=== PATIENT | female | born 1950 | race Caucasian/White ===

== ENCOUNTER 2017-06-02 12:54 | Inpatient (IN) | payer MEDICARE, MEDICAID ==
--- NOTE | 2017-06-02 13:14 | ED Physician Chart ---
ED Chief Complaint/HPI - Patient Information Date Seen:: 06/02/17 Time Seen:: 13:00 Chief Complaint:: Back Pain History of Present Illness:: onset x 3 days of low back pain due to non-healing sacral decubitus ulcer that is not responding to antibiotics; pt denies trauma, H/As, neck pain, C/P, SOB, cough, Abd/Flank pain, or urinary s/s Allergies:: Allergies Allergy/AdvReac Type Severity Reaction Status Date / Time No Known Allergies Allergy Verified 06/09/16 19:56 Historian:: Patient, EMS Review:: Nurse's Note Reviewed, EMS run form Reviewed, Transfer documents Reviewed ED Review of Systems - Review of Systems General/Constitutional: Fever, No chills, No weight loss, No weakness, No diaphoresis, No edema, No loss of appetite Skin: Skin lesions, No rash, No bruising Head: No headache, No light-headedness Eyes: Acuity change, No pain, No diplopia ENT: No earache, No nasal drainage, No sore throat, No tinnitus Neck: No neck pain, No swelling, No thyromegaly, No stiffness, No mass noted Cardio Vascular: Chest pain, No palpitations, No PND, No orthopnea, No edema Pulmonary: SOB, Cough, No sputum, No wheezing GI: No nausea, No vomiting, No diarrhea, No pain, No melena, No hematochezia, No constipation, No hematemesis G/U: No dysuria, No frequency, No hematuria Talend Etl Developer: No vaginal discharge, No abnormal vaginal bleed, No contraction Musculoskeletal: No bone or joint pain, No back pain, No muscle pain Endocrine: No polyuria, No polydipsia Psychiatric: Prior psych history, Depression, Anxiety, No suicidal ideation, No homicidal ideation, No auditory hallucination, No visual hallucination Hematopoietic: No bruising, No lymphadenopathy Allergic/Immuno: No urticaria, No angioedema Neurological: No syncope, No focal symptoms, No weakness, No paresthesia, No headache, No seizure, No dizziness, No confusion, No vertigo ED Past Medical History - Past Medical History Obtainable: Yes Past Medical History: DM, CAD, CHF, Thyroid disorder Family History: Diabetes Melitus, HTN Social History: Non Smoker, No Alcohol, No Drug Use, Single, Care Facility Surgical History: other (Eye cataract Surgery) Psychiatricy History: Depression Medication: Reviewed Family Medical History - Family Member Mother History Unknown: Yes Ethnicity: Non- Living Status: Hx Family Cancer: No Hx Family Coronary Artery Disease: No Hx Family Congestive Heart Failure: No Hx Family Hypertension: Yes Hx Family Stroke: No Hx Family Diabetes: No Hx Family Seizures: No Hx Family Dementia: No Hx Family AIDS: No Hx Family HIV: No Hx Family COPD: No Hx Family Hepatitis: No Hx Family Psychiatric Problems: No Hx Family Tuberculosis: No Sister History Unknown: Yes ED Physical Exam - Physical Examination General/Constitutional: Awake, Well-developed, well-nourished, Alert, No distress, GCS 15, Non-toxic appearing, Ambulatory Head: Atraumatic Eyes: Lids, conjuctiva normal, PERRL, EOMI Skin: No rash, No skin lesions, No ecchymosis, Well hydrated, No lymphadenopathy Other Skin comments:: + sacral decubitus ulcer ENMT: External ears, nose nl, Nasal exam nl, Lips, teeth, gums nl Neck: Nontender, Full ROM w/o pain, No JVD, No nuchal rigidity, No bruit, No mass, No stridor Respiratory: Nl effort/Exclusion, Clear to Auscultation, No Wheeze/Rhonchi/Rales Cardio Vascular: RRR, No murmur, gallop, rubs, NL S1 S2 GI: No tenderness/rebounding/guarding, No organomegaly, No hernia, Normal BS's, Nondistended, No mass/bruits, No McBurney tenderness : No CVA tenderness Extremities: No tenderness or effusion, Full ROM, normal strength in all extremities, No edema, Normal digits & nails Neuro/Psych: Alert/oriented, DTR's symmetric, Normal sensory exam, Normal motor strength, Judgement/insight normal, Mood normal, Normal gait, No focal deficits Misc: Normal back, No paraspinal tenderness ED Labs/Radiology/EKG Results - Lab Results Comments:: unremarkable - EKG Interpretations EKG Time:: 13:20 Rate & Rhythm: 77; NSR Comments:: non-specific st-t changes ED Septic Shock - . Is Septic Shock (SBP<90, OR Lactate>4 mmol\L) present?: No ED Reassessment (Disposition) - Reassessment Reassessment Condition:: Improved - Diagnosis Diagnosis:: Sacral Decubitus Ulcer; Sepsis; UTI; Diabetes Mellitus - Aftercare/Follow up Instructions Aftercare/Follow-Up Instructions:: Counseled pt regarding lab results/diagnosis & need follow up, Counseled pt & family regarding lab results/diagnosis & need follow up - Patient Disposition Discharge/Transfer:: Acute Care w/in this hosp Accepting Physician:: Dr. Valentin Sanchez Time Called:: [id number] Time Responded:: 15:15 Admitted to:: Med/Surg Spoke to:: Dr. Valentin Sanchez Admitting Medical Physician:: Dr. Valentin Sanchez Condition at Disposition:: Stable, Improved
[2017-06-02 13:40] LABS: % BASOPHILS 0.8 % (0.0-2.0); % EOSINOPHILS 3.7 % (0.0-5.0); % LYMPHOCYTES 29.1 % (20.0-50.0); % MONOCYTES 4.5 % (2.0-10.0); % NEUTROPHILS 61.9 % (40.0-80.0); HEMATOCRIT 34.1 % (41.0-60); HEMOGLOBIN 11.5 gm/dL (12-16); MEAN CELL VOLUME 91.5 fl (81-100); MEAN CORPUSCULAR HEMOGLOBIN 30.9 pg (27.0-31.0); MEAN CORPUSCULAR HGB CONC 33.8 pg (28.0-36.0); MEAN PLATELET VOLUME 7.9 fl; NEUTROPHILE ABSOLUTE 3.5 Th/cmm (1.8-8.0); RED BLOOD COUNT 3.73 Mil/cmm (3.80-5.20); RED CELL DISTRIBUTION WIDTH 12.9 % (11.5-20.0)
[2017-06-02 13:42] LABS: PLATELET COUNT 125 Th/cmm (150-400); WHITE BLOOD COUNT 5.5 Th/cmm (4.8-10.8)
[2017-06-02 13:51] LABS: INR 1.21 (0.5-1.4); PROTHROMBIN TIME (TEST) 12.7 SECONDS (9.5-11.5)
[2017-06-02 13:56] LABS: ALB/GLOB RATIO 1.1 (1.0-1.8); ANION GAP 9.9 (7.0-16.0); BILIRUBIN,TOTAL 0.5 mg/dL (0.3-1.0); BUN/CREATININE RATIO 23.3; CALCIUM SERUM 9.6 mg/dL (8.6-10.3); CARBON DIOXIDE 26.4 mEq/L (21.0-31.0); CREATININE - SERUM 1.8 mg/dL (0.6-1.2); POTASSIUM SERUM 3.3 mEq/L (3.5-5.1)
[2017-06-02 14:12] LABS: URINE BILIRUBIN NEGATIVE (NEGATIVE); URINE BLOOD NEGATIVE (NEGATIVE); URINE GLUCOSE (UA) >=1000 mg/dL (NEGATIVE); URINE KETONE NEGATIVE (NEGATIVE); URINE PROTEIN TRACE mg/dL (NEGATIVE); URINE UROBILINOGEN 0.2 E.U./dL (0.2 - 1.0)
[2017-06-02 14:21] LABS: URINE COLOR YELLOW
[2017-06-02 14:22] LABS: URINE EPITHELIAL CELLS NONE SEEN /lpf (FEW); URINE RBC NONE SEEN /hpf (0-5); URINE WBC NONE SEEN /hpf (0-5)
[2017-06-02 14:23] LABS: URINE BACTERIA NONE SEEN /hpf (NONE SEEN)
[2017-06-02] MEDS ORDERED: VTE Chemical Prophylaxis Screen/Admission MC PRN (16:49)
[2017-06-02] MEDS ORDERED: Maalox 30 mL Cup PO PRN (16:51)
[2017-06-02] MEDS ORDERED: INSULIN HUMAN REGULAR SC PRN (16:51)
[2017-06-02] MEDS ORDERED: Magnesium Hydroxide (MOM) 30 mL UDC PO PRN (16:51)
[2017-06-02] MEDS ORDERED: [UNRECOGNIZED DRUG - OTHER] RIGHT EYE SCH (17:00)
[2017-06-02] MEDS ORDERED: Non-Formulary Item 1 EA (Solifenacin Succinate [Vesicare] 5 MG) PO SCH (17:00)
[2017-06-02] MEDS ORDERED: KETOROLAC TROMETHAMINE RIGHT EYE SCH (17:00)
[2017-06-02] MEDS: Hydrocodone/APAP 10 mg/325 mg Tab PO PRN (20:31)
[2017-06-02] MEDS: Dextromethorphan/Quinidine 20mg/10mg Cap PO SCH (22:02)
[2017-06-02] MEDS: INSULIN ASPART SLIDING SCALE 100 UNITS/ML UNIT SUBQ SCH (22:02)
[2017-06-02] MEDS: Atorvastatin Calcium 10 MG TAB PO SCH (22:02)
[2017-06-02] MEDS: Insulin Detemir 100 units/mL 10mL Vial SUBQ SCH (22:03)
[2017-06-02] MEDS: Lactulose 10 Gm/15 mL 30mL UDC PO SCH (22:10)
[2017-06-03] MEDS: Prednisolone 1% Ophth Susp 5 mL Bottle RIGHT EYE SCH ×6 (00:36→21:11)
[2017-06-03 06:13] LABS: % BASOPHILS 0.8 % (0.0-2.0); % EOSINOPHILS 6.2 % (0.0-5.0); % LYMPHOCYTES 34.3 % (20.0-50.0); % MONOCYTES 4.9 % (2.0-10.0); % NEUTROPHILS 53.8 % (40.0-80.0); HEMATOCRIT 37.2 % (41.0-60); HEMOGLOBIN 12.6 gm/dL (12-16); MEAN CELL VOLUME 90.9 fl (81-100); MEAN CORPUSCULAR HEMOGLOBIN 30.8 pg (27.0-31.0); MEAN CORPUSCULAR HGB CONC 33.9 pg (28.0-36.0); MEAN PLATELET VOLUME 8.1 fl; NEUTROPHILE ABSOLUTE 2.9 Th/cmm (1.8-8.0); PLATELET COUNT 117 Th/cmm (150-400); RED BLOOD COUNT 4.09 Mil/cmm (3.80-5.20); RED CELL DISTRIBUTION WIDTH 13.2 % (11.5-20.0); WHITE BLOOD COUNT 5.3 Th/cmm (4.8-10.8)
[2017-06-03 06:30] LABS: ANION GAP 8.9 (7.0-16.0); BILIRUBIN,TOTAL 0.5 mg/dL (0.3-1.0); CALCIUM SERUM 9.7 mg/dL (8.6-10.3); CARBON DIOXIDE 29.1 mEq/L (21.0-31.0); CREATININE - SERUM 1.8 mg/dL (0.6-1.2)
[2017-06-03] MEDS: Levothyroxine 0.1 Mg Tab PO SCH (06:50)
[2017-06-03] MEDS: INSULIN ASPART SLIDING SCALE 100 UNITS/ML UNIT SUBQ SCH ×4 (06:51→21:11)
--- NOTE | 2017-06-03 08:14 | History and Physical ---
History of Present Illness - HPI Chief Complaint: Back Pain HPI: 66 y/o female who presents to [facility] for evaluation of low back pain for the past 3 days due to non-healing sacral decubitus ulcer that is not responding to IV antibiotics. Patient has a previous history of Hyperlipidemia, depression,anxiety disorder, PBA, overactive bladder, CHF, Type 2 DM, HTN, COPD , CKD, anemia, hypothyroidism. While in the ER the patient had labwork done, Please see attached labwork. Patient was subsequently admitted for further evaluation and treatment. Patient states that she had this ulcer at the previous facility before arriving at the SNF. She was treated outpatient with oral antibiotics without improvement and will be admitted for IV antibiotics and wound evaluation. Vital Signs: Last Vital Signs Temp 98.7 F 06/03/17 03:58 Pulse 74 06/03/17 03:58 Resp 18 06/03/17 03:58 BP 144/82 06/03/17 03:58 Pulse Ox 96 06/03/17 03:58 Past Medical History Cardiovascular: Report: CHF, HTN, Hyperlipidemia Pulmonary: Report: COPD Psych: Report: Anxiety, Depression Musculoskeletal: Report: Low Back Pain Renal/: Report: Other (CKD) Endocrine: Report: Diabetes, Hypothyroidism Other History: PBA,Oceractive bladder, Anemia - Past Surgical History Past Surgical History: No pertinent Hx Family Medical History - Family Member Mother History Unknown: Yes Ethnicity: Non- Living Status: Hx Family Cancer: No Hx Family Coronary Artery Disease: No Hx Family Congestive Heart Failure: No Hx Family Hypertension: Yes Hx Family Stroke: No Hx Family Diabetes: No Hx Family Seizures: No Hx Family Dementia: No Hx Family AIDS: No Hx Family HIV: No Hx Family COPD: No Hx Family Hepatitis: No Hx Family Psychiatric Problems: No Hx Family Tuberculosis: No Sister History Unknown: Yes Social History Smoke: No Alcohol: None Drugs: None Lives: [facility] - Medications Home Medications: Home Medication Medication Instructions Recorded Type Allopurinol 300 mg PO DAILY 10/05/13 History Atorvastatin Calcium [Lipitor] 40 mg PO HS 10/05/13 History Calcium Carbonate/Vitamin D3 1 each PO DAILY 10/05/13 History [Oyster Shell 500-Vit D3 200 Tb] Docusate Sodium [Colace] 250 mg PO DAILY 10/05/13 History Gabapentin [Neurontin] 300 mg PO TID 10/05/13 History Glipizide [Glucotrol] 10 mg PO BID 10/05/13 History Hydrocodone/APAP 10 mg/325 mg 1 tab PO Q6H PRN 10/05/13 History [[place] 10 mg/325 mg] Lactulose 15 ml PO HS 10/05/13 History Levothyroxine [Synthroid] 0.1 mg PO QDAC 10/05/13 History Sertraline HCl [Zoloft] 150 mg PO QPM 1700 10/05/13 History Insulin Human Regular See Protocol SC ACHS PRN 05/30/14 History Clonidine HCl [Catapres] 0.1 mg PO Q6HR PRN 02/14/16 History Dextromethorphan/Quinidine 1 cap PO Q12HR 02/14/16 History [Nuedexta 20mg-10mg] Fish Oil [[place] 3] 1,000 mg PO DAILY 02/14/16 History Insulin Glargine,Hum.rec.anlog 20 unit SC HS 02/14/16 History [Latanya Capone] Lorazepam [Ativan] 0.5 mg PO Q6HR PRN 02/14/16 History Vitamin B Complex & Vit C No.3 [B 1 each PO DAILY 02/14/16 History Complex with Vitamin C] metFORMIN [Glucophage] 1,000 mg PO DAILY 02/14/16 History Al Hyd/Mg Hyd/Simethicone [Maalox] 30 ml PO Q6HR PRN 05/09/16 History Chlorthalidone 25 mg PO DAILY 05/09/16 History Solifenacin Succinate [Vesicare] 5 mg PO BID 05/09/16 History Ascorbic Acid [Vitamin C] 500 mg PO BID 06/02/17 History Fenofibrate Nanocrystallized 145 mg PO HS 06/02/17 History [Tricor] Ketorolac Tromethamine/Pf [Acuvail 1 drop RIGHT EYE QID 06/02/17 History 0.45% Ophth Solution] Magnesium Hydroxide [Milk of 30 ml PO DAILY PRN 06/02/17 History Magnesia] Multivitamin w/ Minerals 1 tab PO DAILY 06/02/17 History [Theragran M] Potassium Chloride Elixir 7.5 ml PO DAILY 06/02/17 History Prednisolone Acetate [Pred Forte] 1 drop RIGHT EYE QID 06/02/17 History Rifaximin [Xifaxan] 550 mg PO Q12H 06/02/17 History Sertraline HCl [Zoloft] 200 mg PO DAILY 06/02/17 History Trazodone HCl 50 mg PO HS PRN 06/02/17 History Zinc Sulfate 220 mg PO DAILY 06/02/17 History - Allergies Allergies/Adverse Reactions: Allergies Allergy/AdvReac Type Severity Reaction Status Date / Time No Known Allergies Allergy Verified 06/02/17 13:10 Review of Systems - Review of Systems Constitutional: Report: No Significant Eyes: Report: No Significant ENT: Report: No Significant Respiratory: Report: No Significant Cardiovascular: Report: No Significant Gastrointestinal: Report: No Significant Genitourinary: Report: No Significant Musculoskeletal: Report: Back Pain Skin: Report: No Significant, Other (presence of stage 4 non-healing sacral decubitus ulcer) Neurological: Report: No Significant Physical Exam - Physical Exam HEENT: Report: Ears Nose Throat within normal limits, Pharnyx within normal limits Neck: Report: Within normal limits. Denies: Thyromegaly Cardiovascular Systems: Report: +s1/s2 noted, Regular, Rate and Rhythm Respiratory: Report: Breath Sounds are within normal limits Abdomen: Report: Non-tender to palpation Back: Report: Sacral Wound is noted with visible discharge. - Lab Results All Lab Results last 24 hours: Laboratory Results - last 24 hr 06/02/17 06/02/17 06/03/17 17:29 21:26 05:21 WBC RBC Hgb Hct MCV MCH MCHC Differential RDW Plt Count MPV Neutrophils % Lymphocytes % Monocytes % Eosinophils % Basophils % Sodium Potassium Chloride Carbon Dioxide Anion Gap BUN Creatinine Est GFR ( Amer) Est GFR (Non-Af Amer) BUN/Creatinine Ratio Glucose POC Glucose 134 H 177 H 172 H Calcium Total Bilirubin AST ALT Alkaline Phosphatase Total Protein Albumin Globulin Albumin/Globulin Ratio Random Vancomycin 06/03/17 06/03/17 06/03/17 05:25 05:25 05:25 WBC 5.3 RBC 4.09 Hgb 12.6 Hct 37.2 L MCV 90.9 MCH 30.8 MCHC Differential 33.9 RDW 13.2 Plt Count 117 L MPV 8.1 Neutrophils % 53.8 Lymphocytes % 34.3 Monocytes % 4.9 Eosinophils % 6.2 H Basophils % 0.8 Sodium 136 Potassium 3.0 L Chloride 101 Carbon Dioxide 29.1 Anion Gap 8.9 BUN 36 H Creatinine 1.8 H Est GFR ( Amer) 36.2 Est GFR (Non-Af Amer) 29.9 BUN/Creatinine Ratio 20.0 Glucose 167 H POC Glucose Calcium 9.7 Total Bilirubin 0.5 AST 25 ALT 14 Alkaline Phosphatase 37 Total Protein 7.7 Albumin 3.9 Globulin 3.8 Albumin/Globulin Ratio 1.0 Random Vancomycin 15.9 - Assessment Assessment: stage 4 sacral decubitus ulcer hypokalemia sepsis UTI Diabetes Hyperlipidemia Depression/Anxiety/PBA Overactive bladder CHF/HTN COPD CKD Anemia hypothyroidism - Plan Plan: ID consult wound consult general surgical consult dietary consult IV Vancomycin per pharmacy 40meq K rider ... repeat BMP,Mg,Phosphorus continue home medication
[2017-06-03] MEDS: Calcium Carb/Vit D 500 mg/200 U Tab PO SCH (09:17)
[2017-06-03] MEDS: Dextromethorphan/Quinidine 20mg/10mg Cap PO SCH ×2 (09:17→21:10)
[2017-06-03] MEDS: KCL 20mEq/100mL Premix 20 MEQ/100 ML PIGGYBACK IV SCH ×2 (09:20→11:56)
[2017-06-03] MEDS: Ascorbic Acid/Vit B Complex Tab PO SCH (09:20)
[2017-06-03 09:32] LABS: MAGNESIUM 1.9 mg/dL (1.9-2.7)
[2017-06-03 09:33] LABS: CHOLESTEROL 144 mg/dL (<200); TRIGLYCERIDES 258 mg/dL (<150)
[2017-06-03] MEDS: Potassium Chloride Elixir 20 mEq /15 mL UDC PO SCH (09:37)
[2017-06-03] MEDS: Fish Oil 1,000 MG SGL PO SCH (09:37)
[2017-06-03] MEDS: Multivitamin w/ Minerals Tab PO SCH (09:37)
[2017-06-03] MEDS: Hydrocodone/APAP 10 mg/325 mg Tab PO PRN (11:56)
--- NOTE | 2017-06-03 13:49 | Consultation ---
Consult Note - Consult Note Service Date: 06/03/17 Referring Physician: Valentin Reyes Consult Note: PHYSICIAN Consultation Note: Date of Admission: 06/02/17 Purpose of Consultation: Chief Complaint: Patient SHREE BRIDGES was admitted to location Medical[facility]Surgical Unit I with NONE HEALING SACRAL DECUBITIUS. History of Present Illness: 66-year-old male with history of Diabetes mellitus type 2, hypertension, hyperlipidemia, hypothyroidism, depression, anxiety disorder and nonhealing sacral decubitus ulcer developed low back pain for last 4 days. On initial evaluation patient's temperature is 98.9F and WBC count was 5500. Patient was treated conservatively with oral antibiotic but it failed. He has received vancomycin IV 1.25 g in the ER. ID consult was called for further antibiotic management. Past Medical History: Diabetes mellitus type 2, hypertension, hyperlipidemia, hypothyroidism, COPD, CK D, depression, anxiety disorder and nonhealing sacral decubitus ulcer. Allergies Allergy/AdvReac Type Severity Reaction Status Date / Time No Known Allergies Allergy Verified 06/02/17 13:10 Vital Signs Temp 96.8 F 06/03/17 08:00 Pulse 71 06/03/17 09:17 Resp 18 06/03/17 08:00 BP 150/74 06/03/17 09:17 Pulse Ox 96 06/03/17 08:00 Intake & Output 06/02/17 06/03/17 06/03/17 18:59 06:59 18:59 Intake Total 66 250 100 Balance 66 250 100 Weight (lbs) 79.832 kg Intake: Intake, IV Amount 66 100 KCL 20mEq/100mL Premix 20 100 meq In 100 ml @ 50 mls/ hr IV Q2H [facility] Rx#: [id number] Vancomycin HCl 1.25 gm In 66 Sodium Chloride 0.9% 250 ml @ 165 mls/hr IV ONCE ONE Rx#:[id number] Oral 250 Other: # Voids 3 Laboratory Results - last 24 hr 06/02/17 06/02/17 06/03/17 17:29 21:26 05:21 WBC RBC Hgb Hct MCV MCH MCHC Differential RDW Plt Count MPV Neutrophils % Lymphocytes % Monocytes % Eosinophils % Basophils % Sodium Potassium Chloride Carbon Dioxide Anion Gap BUN Creatinine Est GFR ( Amer) Est GFR (Non-Af Amer) BUN/Creatinine Ratio Glucose POC Glucose 134 H 177 H 172 H Calcium Phosphorus Magnesium Total Bilirubin AST ALT Alkaline Phosphatase Total Protein Albumin Globulin Albumin/Globulin Ratio Triglycerides Cholesterol LDL Cholesterol Direct HDL Cholesterol TSH Random Vancomycin 06/03/17 06/03/17 06/03/17 05:25 05:25 05:25 WBC 5.3 RBC 4.09 Hgb 12.6 Hct 37.2 L MCV 90.9 MCH 30.8 MCHC Differential 33.9 RDW 13.2 Plt Count 117 L MPV 8.1 Neutrophils % 53.8 Lymphocytes % 34.3 Monocytes % 4.9 Eosinophils % 6.2 H Basophils % 0.8 Sodium 136 Potassium 3.0 L Chloride 101 Carbon Dioxide 29.1 Anion Gap 8.9 BUN 36 H Creatinine 1.8 H Est GFR ( Amer) 36.2 Est GFR (Non-Af Amer) 29.9 BUN/Creatinine Ratio 20.0 Glucose 167 H POC Glucose Calcium 9.7 Phosphorus Magnesium Total Bilirubin 0.5 AST 25 ALT 14 Alkaline Phosphatase 37 Total Protein 7.7 Albumin 3.9 Globulin 3.8 Albumin/Globulin Ratio 1.0 Triglycerides Cholesterol LDL Cholesterol Direct HDL Cholesterol TSH Random Vancomycin 15.9 06/03/17 06/03/17 06/03/17 05:25 05:25 05:25 WBC RBC Hgb Hct MCV MCH MCHC Differential RDW Plt Count MPV Neutrophils % Lymphocytes % Monocytes % Eosinophils % Basophils % Sodium Potassium Chloride Carbon Dioxide Anion Gap BUN Creatinine Est GFR ( Amer) Est GFR (Non-Af Amer) BUN/Creatinine Ratio Glucose POC Glucose Calcium Phosphorus 3.0 Magnesium 1.9 Total Bilirubin AST ALT Alkaline Phosphatase Total Protein Albumin Globulin Albumin/Globulin Ratio Triglycerides 258 H Cholesterol 144 LDL Cholesterol Direct 77 HDL Cholesterol 27 TSH 1.37 Random Vancomycin 06/03/17 11:47 WBC RBC Hgb Hct MCV MCH MCHC Differential RDW Plt Count MPV Neutrophils % Lymphocytes % Monocytes % Eosinophils % Basophils % Sodium Potassium Chloride Carbon Dioxide Anion Gap BUN Creatinine Est GFR ( Amer) Est GFR (Non-Af Amer) BUN/Creatinine Ratio Glucose POC Glucose 273 H Calcium Phosphorus Magnesium Total Bilirubin AST ALT Alkaline Phosphatase Total Protein Albumin Globulin Albumin/Globulin Ratio Triglycerides Cholesterol LDL Cholesterol Direct HDL Cholesterol TSH Random Vancomycin Home Medication Medication Instructions Recorded Type Allopurinol 300 mg PO DAILY 10/05/13 History Atorvastatin Calcium [Lipitor] 40 mg PO HS 10/05/13 History Calcium Carbonate/Vitamin D3 1 each PO DAILY 10/05/13 History [Oyster Shell 500-Vit D3 200 Tb] Docusate Sodium [Colace] 250 mg PO DAILY 10/05/13 History Gabapentin [Neurontin] 300 mg PO TID 10/05/13 History Glipizide [Glucotrol] 10 mg PO BID 10/05/13 History Hydrocodone/APAP 10 mg/325 mg 1 tab PO Q6H PRN 10/05/13 History [[place] 10 mg/325 mg] Lactulose 15 ml PO HS 10/05/13 History Levothyroxine [Synthroid] 0.1 mg PO QDAC 10/05/13 History Sertraline HCl [Zoloft] 150 mg PO QPM 1700 10/05/13 History Insulin Human Regular See Protocol SC ACHS PRN 05/30/14 History Clonidine HCl [Catapres] 0.1 mg PO Q6HR PRN 02/14/16 History Dextromethorphan/Quinidine 1 cap PO Q12HR 02/14/16 History [Nuedexta 20mg-10mg] Fish Oil [[place] 3] 1,000 mg PO DAILY 02/14/16 History Insulin Glargine,Hum.rec.anlog 20 unit SC HS 02/14/16 History [Toumaxime Capone] Lorazepam [Ativan] 0.5 mg PO Q6HR PRN 02/14/16 History Vitamin B Complex & Vit C No.3 [B 1 each PO DAILY 02/14/16 History Complex with Vitamin C] metFORMIN [Glucophage] 1,000 mg PO DAILY 02/14/16 History Al Hyd/Mg Hyd/Simethicone [Maalox] 30 ml PO Q6HR PRN 05/09/16 History Chlorthalidone 25 mg PO DAILY 05/09/16 History Solifenacin Succinate [Vesicare] 5 mg PO BID 05/09/16 History Ascorbic Acid [Vitamin C] 500 mg PO BID 06/02/17 History Fenofibrate Nanocrystallized 145 mg PO HS 06/02/17 History [Tricor] Ketorolac Tromethamine/Pf [Acuvail 1 drop RIGHT EYE QID 06/02/17 History 0.45% Ophth Solution] Magnesium Hydroxide [Milk of 30 ml PO DAILY PRN 06/02/17 History Magnesia] Multivitamin w/ Minerals 1 tab PO DAILY 06/02/17 History [Theragran M] Potassium Chloride Elixir 7.5 ml PO DAILY 06/02/17 History Prednisolone Acetate [Pred Forte] 1 drop RIGHT EYE QID 06/02/17 History Rifaximin [Xifaxan] 550 mg PO Q12H 06/02/17 History Sertraline HCl [Zoloft] 200 mg PO DAILY 06/02/17 History Trazodone HCl 50 mg PO HS PRN 06/02/17 History Zinc Sulfate 220 mg PO DAILY 06/02/17 History Current Medications Generic Name Dose Route Start Last Admin Trade Name Freq PRN Reason Stop Dose Admin Acetaminophen/Hydrocodone Bitart 1 tab 06/02/17 16:51 06/03/17 11:56 [place] 10 Mg/325 Mg PO 08/01/17 16:50 1 tab Q6H PRN Administration Pain (Severe) Al Hydrox/Mg Hydrox/Simethicone 30 ml 06/02/17 16:51 Maalox PO 08/01/17 16:50 Q6HR PRN GI DISTRESS Allopurinol 300 mg 06/03/17 09:00 06/03/17 09:16 Zyloprim PO 08/02/17 08:59 300 mg DAILY [facility] Administration Ascorbic Acid 500 mg 06/02/17 17:00 06/03/17 09:17 Vitamin C PO 08/01/17 16:59 500 mg BID [facility] Administration Atorvastatin Calcium 40 mg 06/02/17 21:00 06/02/17 22:02 Lipitor PO 08/01/17 20:59 40 mg HS [facility] Administration Calcium/Vitamin D 1 tab 06/03/17 09:00 06/03/17 09:17 [place] W/Vitamin D PO 08/02/17 08:59 1 tab DAILY [facility] Administration Chlorthalidone 25 mg 06/03/17 09:00 06/03/17 09:17 [place] PO 08/02/17 08:59 25 mg DAILY [facility] Administration Dextromethorphan/Quinidine 1 cap 06/02/17 21:00 06/03/17 09:17 Nuedexta 20mg-10mg PO 08/01/17 20:59 1 cap Q12HR [facility] Administration Docusate Sodium 250 mg 06/03/17 09:00 06/03/17 09:17 Colace PO 08/02/17 08:59 250 mg DAILY [facility] Administration Fenofibrate 145 mg 06/02/17 21:00 Tricor PO 08/01/17 20:59 HS [facility] Fish Oil 1,000 mg 06/03/17 09:00 06/03/17 09:37 [place] 3 PO 08/02/17 08:59 1,000 mg DAILY [facility] Administration Gabapentin 300 mg 06/02/17 21:00 Neurontin PO 08/01/17 20:59 TID [facility] Glipizide 10 mg 06/02/17 17:00 06/03/17 09:36 Glucotrol PO 08/01/17 16:59 10 mg BID [facility] Administration Insulin Aspart 0 units 06/02/17 21:00 06/03/17 11:50 Novolog Insulin Sliding Scale SUBQ 08/01/17 20:59 6 units ACHS [facility] Administration Protocol Insulin Detemir 20 units 06/02/17 21:00 06/02/17 22:03 Levemir Insulin SUBQ 08/01/17 20:59 20 units HS [facility] Administration Lactulose 10 gm 06/02/17 21:00 06/02/17 22:10 Cephulac PO 08/01/17 20:59 Not Given HS [facility] Levothyroxine Sodium 0.1 mg 06/03/17 07:30 06/03/17 06:50 Synthroid PO 08/02/17 07:29 0.1 mg QDAC [facility] Administration Lorazepam 0.5 mg 06/02/17 16:51 Ativan PO 08/01/17 16:50 Q6HR PRN Anxiety Protocol Magnesium Hydroxide 30 ml 06/02/17 16:51 Milk Of Magnesia PO 08/01/17 16:50 DAILY PRN Constipation Miscellaneous 1 ea 06/02/17 16:07 Vancomycin Iv Per Pharmacy 08/01/17 16:06 PRN PRN PROTOCOL Miscellaneous 1 ea 06/02/17 16:49 Vte [employer] Prophylaxis Screen/ Admission 08/01/17 16:48 PRN PRN PROTOCOL Miscellaneous 1 drop 06/02/17 17:00 Ketorolac Tromethamine/Pf [Acuvail 0.45% Ophth Solution] RIGHT EYE 08/01/17 16:59 QID [facility] Miscellaneous 5 mg 06/02/17 17:00 Solifenacin Succinate [Vesicare] PO 08/01/17 16:59 BID [facility] Potassium Chloride 10 meq 06/03/17 09:00 06/03/17 09:37 Potassium Chloride Elixir PO 08/02/17 08:59 10 meq DAILY [facility] Administration Prednisolone Acetate 1 drop 06/02/17 17:00 06/03/17 13:28 Pred Forte 1% Ophth Susp RIGHT EYE 08/01/17 16:59 Not Given QID [facility] Rifaximin 550 mg 06/02/17 17:00 Xifaxan PO 08/01/17 16:59 Q12H [facility] Sertraline HCl 150 mg 06/02/17 17:00 Zoloft PO 08/01/17 16:59 QPM 1700 [facility] Sertraline HCl 200 mg 06/03/17 09:00 Zoloft PO 08/02/17 08:59 DAILY [facility] Trazodone HCl 50 mg 06/02/17 16:51 Desyrel PO 08/01/17 16:50 HS PRN Insomnia Protocol Vitamin B Complex/Vitamin C 1 tab 06/03/17 09:00 06/03/17 09:20 Vitamin B Complex W/C PO 08/02/17 08:59 1 tab DAILY [facility] Administration Zinc Sulfate 220 mg 06/03/17 09:00 06/03/17 09:36 Zinc Sulfate PO 08/02/17 08:59 220 mg DAILY [facility] Administration Review of Systems: A 12 point ROS was reviewed with the pertinent positive and negatives noted in the HPI. Social History Smoking Status Current every day smoker Drug Use No Alcohol Use No Family Medical History Unknown. Physical Exam: General: Comfortable not in acute distress. HEENT: Head: Normocephalic, atraumatic. Oral cavity: Moist, pink tongue. Eyes : Pallor is present. No icterus. Pupil PERRLA, EOMI. Neck: Supple, no JVD, no use of X his neck muscles. Cardio: S1 and S2 within normal limits regular rhythm. Respiratory: Vesicular breath sound, no crackles no wheezing. Abdominal: Soft, nontender nondistended, bowel sounds present Genital/Urinary: Deferred Extremities: No cyanosis, no clubbing, no edema. Neurological: Alert, awake, oriented. Back: Sacral stage 4 decubitus ulcer, well defined border. black eschar. No drainage. No surrounding erythema. Assessment: 1. Sacral decubitus, non healing. wait for surgical report. Likely osteomyelitis. 2. DM2 3. HTN. 4. Depression. 5. anxiety. Plan: will start vanco IV and cefepiime. depending on surgical report, will define further therapy. Wound care. Wound cultures. Thank you , Dr Reyes for involving e ion taking care of this patient. Signed, Fredy Dutton M.D. 06/03/101395
--- NOTE | 2017-06-03 14:35 | General Progress Note ---
Subjective - Review of Systems Service Date: 06/03/17 Events since last encounter: non-healing ulcer of sacrum, has been "scraped" in SNF from time to time PE small but deep ulcer Plan: excisional debridement and wound vac in AM Objective - Results Result Diagrams: 06/03/17 05:25 06/03/17 05:25 Recent Labs: Laboratory Last Values WBC 5.3 Th/cmm (4.8-10.8) 06/03/17 05:25 RBC 4.09 Mil/cmm (3.80-5.20) 06/03/17 05:25 Hgb 12.6 gm/dL (12-16) 06/03/17 05:25 Hct 37.2 % (41.0-60) L 06/03/17 05:25 MCV 90.9 fl (81-100) 06/03/17 05:25 MCH 30.8 pg (27.0-31.0) 06/03/17 05:25 MCHC Differential 33.9 pg (28.0-36.0) 06/03/17 05:25 RDW 13.2 % (11.5-20.0) 06/03/17 05:25 Plt Count 117 Th/cmm (150-400) L 06/03/17 05:25 MPV 8.1 fl 06/03/17 05:25 Neutrophils % 53.8 % (40.0-80.0) 06/03/17 05:25 Lymphocytes % 34.3 % (20.0-50.0) 06/03/17 05:25 Monocytes % 4.9 % (2.0-10.0) 06/03/17 05:25 Eosinophils % 6.2 % (0.0-5.0) H 06/03/17 05:25 Basophils % 0.8 % (0.0-2.0) 06/03/17 05:25 PT 12.7 SECONDS (9.5-11.5) H 06/02/17 13:20 INR 1.21 (0.5-1.4) 06/02/17 13:20 PTT (Actin FS) 26.5 SECONDS (26.0-38.0) 06/02/17 13:20 Sodium 136 mEq/L (136-145) 06/03/17 05:25 Potassium 3.0 mEq/L (3.5-5.1) L 06/03/17 05:25 Chloride 101 mEq/L (98-107) 06/03/17 05:25 Carbon Dioxide 29.1 mEq/L (21.0-31.0) 06/03/17 05:25 Anion Gap 8.9 (7.0-16.0) 06/03/17 05:25 BUN 36 mg/dL (7-25) H 06/03/17 05:25 Creatinine 1.8 mg/dL (0.6-1.2) H 06/03/17 05:25 Est GFR ( Amer) 36.2 ml/min (>90) 06/03/17 05:25 Est GFR (Non-Af Amer) 29.9 ml/min 06/03/17 05:25 BUN/Creatinine Ratio 20.0 06/03/17 05:25 Glucose 167 mg/dL (70-105) H 06/03/17 05:25 POC Glucose 273 MG/DL (70 - 105) H 06/03/17 11:47 Hemoglobin A1c % 8.4 % (4.0-6.0) H 06/02/17 13:20 Whole Bld Lactic Acid 1.14 mmol/L (0.60-1.99) 06/02/17 13:20 Calcium 9.7 mg/dL (8.6-10.3) 06/03/17 05:25 Phosphorus 3.0 mg/dL (2.5-5.0) 06/03/17 05:25 Magnesium 1.9 mg/dL (1.9-2.7) 06/03/17 05:25 Total Bilirubin 0.5 mg/dL (0.3-1.0) 06/03/17 05:25 AST 25 U/L (13-39) 06/03/17 05:25 ALT 14 U/L (7-52) 06/03/17 05:25 Alkaline Phosphatase 37 U/L (34-104) 06/03/17 05:25 Creatine Kinase 118 U/L (30-223) 06/02/17 13:20 Total Protein 7.7 gm/dL (6.0-8.3) 06/03/17 05:25 Albumin 3.9 gm/dL (3.7-5.3) 06/03/17 05:25 Globulin 3.8 gm/dL 06/03/17 05:25 Albumin/Globulin Ratio 1.0 (1.0-1.8) 06/03/17 05:25 Triglycerides 258 mg/dL (<150) H 06/03/17 05:25 Cholesterol 144 mg/dL (<200) 06/03/17 05:25 LDL Cholesterol Direct 77 mg/dL (75-193) 06/03/17 05:25 HDL Cholesterol 27 mg/dL (23-92) 06/03/17 05:25 TSH 1.37 uIU/ml (0.34-5.60) 06/03/17 05:25 Urine Source MIDSTREAM 06/02/17 14:00 Urine Color YELLOW 06/02/17 14:00 Urine Clarity CLEAR (CLEAR) 06/02/17 14:00 Urine pH 7.0 (4.6 - 8.0) 06/02/17 14:00 Ur Specific [place] 1.015 (1.005-1.030) 06/02/17 14:00 Urine Protein TRACE mg/dL (NEGATIVE) 06/02/17 14:00 Urine Glucose (UA) >=1000 mg/dL (NEGATIVE) H 06/02/17 14:00 Urine Ketones NEGATIVE mg/dL (NEGATIVE) 06/02/17 14:00 Urine Blood NEGATIVE (NEGATIVE) 06/02/17 14:00 Urine Nitrate NEGATIVE (NEGATIVE) 06/02/17 14:00 Urine Bilirubin NEGATIVE (NEGATIVE) 06/02/17 14:00 Urine Urobilinogen 0.2 E.U./dL (0.2 - 1.0) 06/02/17 14:00 Ur Leukocyte Esterase NEGATIVE (NEGATIVE) 06/02/17 14:00 Urine RBC NONE SEEN /hpf (0-5) 06/02/17 14:00 Urine WBC NONE SEEN /hpf (0-5) 06/02/17 14:00 Ur Epithelial Cells NONE SEEN /lpf (FEW) 06/02/17 14:00 Urine Bacteria NONE SEEN /hpf (NONE SEEN) 06/02/17 14:00 Random Vancomycin 15.9 ug/mL (5.0-40.0) 06/03/17 05:25 - Physical Exam Vitals and I&O: Vital Signs Temp 96.8 F 06/03/17 08:00 Pulse 71 06/03/17 09:17 Resp 18 06/03/17 08:00 BP 150/74 06/03/17 09:17 Pulse Ox 96 06/03/17 08:00 Intake & Output 06/02/17 06/03/17 06/03/17 18:59 06:59 18:59 Intake Total 66 250 100 Balance 66 250 100 Weight (lbs) 79.832 kg Intake: Intake, IV Amount 66 100 KCL 20mEq/100mL Premix 20 100 meq In 100 ml @ 50 mls/ hr IV Q2H [facility] Rx#: [id number] Vancomycin HCl 1.25 gm In 66 Sodium Chloride 0.9% 250 ml @ 165 mls/hr IV ONCE ONE Rx#:[id number] Oral 250 Other: # Voids 3 Active Medications: Current Medications Acetaminophen/Hydrocodone Bitart ([place] 10 Mg/325 Mg) 1 tab PO Q6H PRN PRN Reason: Pain (Severe) Stop: 08/01/17 16:50 Last Admin: 06/03/17 11:56 Dose: 1 tab Al Hydrox/Mg Hydrox/Simethicone (Maalox) 30 ml PO Q6HR PRN PRN Reason: GI DISTRESS Stop: 08/01/17 16:50 Allopurinol (Zyloprim) 300 mg PO DAILY [facility] Stop: 08/02/17 08:59 Last Admin: 06/03/17 09:16 Dose: 300 mg Ascorbic Acid (Vitamin C) 500 mg PO BID [facility] Stop: 08/01/17 16:59 Last Admin: 06/03/17 09:17 Dose: 500 mg Atorvastatin Calcium (Lipitor) 40 mg PO HS [facility] Stop: 08/01/17 20:59 Last Admin: 06/02/17 22:02 Dose: 40 mg Calcium/Vitamin D (Oscal W/Vitamin D) 1 tab PO DAILY [facility] Stop: 08/02/17 08:59 Last Admin: 06/03/17 09:17 Dose: 1 tab Chlorthalidone (Hygroton) 25 mg PO DAILY [facility] Stop: 08/02/17 08:59 Last Admin: 06/03/17 09:17 Dose: 25 mg Dextromethorphan/Quinidine (Nuedexta 20mg-10mg) 1 cap PO Q12HR [facility] Stop: 08/01/17 20:59 Last Admin: 06/03/17 09:17 Dose: 1 cap Docusate Sodium (Colace) 250 mg PO DAILY [facility] Stop: 08/02/17 08:59 Last Admin: 06/03/17 09:17 Dose: 250 mg Fenofibrate (Tricor) 145 mg PO HS [facility] Stop: 08/01/17 20:59 Fish Oil ([place] 3) 1,000 mg PO DAILY [facility] Stop: 08/02/17 08:59 Last Admin: 06/03/17 09:37 Dose: 1,000 mg Gabapentin (Neurontin) 300 mg PO TID [facility] Stop: 08/01/17 20:59 Last Admin: 06/03/17 13:53 Dose: Not Given Glipizide (Glucotrol) 10 mg PO BID [facility] Stop: 08/01/17 16:59 Last Admin: 06/03/17 09:36 Dose: 10 mg Insulin Aspart (Novolog Insulin Sliding Scale) 0 units SUBQ ACHS [facility] PRN Reason: Protocol Stop: 08/01/17 20:59 Last Admin: 06/03/17 11:50 Dose: 6 units Insulin Detemir (Levemir Insulin) 20 units SUBQ HS [facility] Stop: 08/01/17 20:59 Last Admin: 06/02/17 22:03 Dose: 20 units Lactulose (Cephulac) 10 gm PO HS [facility] Stop: 08/01/17 20:59 Last Admin: 06/02/17 22:10 Dose: Not Given Levothyroxine Sodium (Synthroid) 0.1 mg PO QDAC [facility] Stop: 08/02/17 07:29 Last Admin: 06/03/17 06:50 Dose: 0.1 mg Lorazepam (Ativan) 0.5 mg PO Q6HR PRN; Protocol PRN Reason: Anxiety Stop: 08/01/17 16:50 Magnesium Hydroxide (Milk Of Magnesia) 30 ml PO DAILY PRN PRN Reason: Constipation Stop: 08/01/17 16:50 Miscellaneous (Vancomycin Iv Per Pharmacy) 1 ea PRN PRN PRN Reason: PROTOCOL Stop: 08/01/17 16:06 Miscellaneous ([employer] Prophylaxis Screen/ Admission) 1 ea PRN PRN PRN Reason: PROTOCOL Stop: 08/01/17 16:48 Miscellaneous (Ketorolac Tromethamine/Pf [Acuvail 0.45% Ophth Solution]) 1 drop RIGHT EYE QID [facility] Stop: 08/01/17 16:59 Miscellaneous (Solifenacin Succinate [Vesicare]) 5 mg PO BID [facility] Stop: 08/01/17 16:59 Potassium Chloride (Potassium Chloride Elixir) 10 meq PO DAILY [facility] Stop: 08/02/17 08:59 Last Admin: 06/03/17 09:37 Dose: 10 meq Prednisolone Acetate (Pred Forte 1% Ophth Susp) 1 drop RIGHT EYE QID [facility] Stop: 08/01/17 16:59 Last Admin: 06/03/17 13:28 Dose: Not Given Rifaximin (Xifaxan) 550 mg PO Q12H [facility] Stop: 08/01/17 16:59 Sertraline HCl (Zoloft) 150 mg PO QPM 1700 [facility] Stop: 08/01/17 16:59 Sertraline HCl (Zoloft) 200 mg PO DAILY [facility] Stop: 08/02/17 08:59 Trazodone HCl (Desyrel) 50 mg PO HS PRN; Protocol PRN Reason: Insomnia Stop: 08/01/17 16:50 Vitamin B Complex/Vitamin C (Vitamin B Complex W/C) 1 tab PO DAILY [facility] Stop: 08/02/17 08:59 Last Admin: 06/03/17 09:20 Dose: 1 tab Zinc Sulfate (Zinc Sulfate) 220 mg PO DAILY [facility] Stop: 08/02/17 08:59 Last Admin: 06/03/17 09:36 Dose: 220 mg - Procedures Procedures: Procedures Procedure Code Date DRAINAGE OF LEFT BREAST, PERCUTANEOUS APPROACH [id number] 05/09/16 INCISION OF BREAST LESION 56649 05/09/16 Assessment/Plan - Problem List Patient Problems: All Active Problems Cirrhosis of liver (Active) K74.60 Diabetes mellitus (Active) E11.9 Hepatic encephalopathy (Active) K72.90 The administrative codes within the [employer] content you are accessing may have as of 05/10/2016. Please contact your IT Dept/Help Desk and request the latest Regulatory release be installed. IT Dept/Help Desk- Please refer to our FAQ page ([email or web address]) or contact [facility] Customer Support at [email or web address] (Acute) hyponatremia dilutional (Acute) Nutritional Asmnt/Malnutr-PDOC - Dietary Evaluation Malnutrition Findings (Please click <Entered> for more info): Nutritional Asmnt/Malnutrition Start: 06/03/17 09: 18 Text: Status: Complete Freq: Document 06/03/17 09:18 [email or web address] (Rec: 06/03/17 09:34 [email or web address]) Nutritional Asmnt/Malnutrition Patient General Information Nutritional Screening Consult Diagnosis non healing sacral decubititus Pertinent Medical Hx/Surgical Hx HLD, depression, anxiety, CHF, DM2, HTN, COPD, CKD, anemia, hypothyroidism Subjective Information Pt laying in bed. Reports good appetite. Is from care facility, states she does not follow diet, eats what is offered to her. Does not want DM diet education, states she already knows it. Pt drinks Prostat at facility, which she does not like, but knows is important for wound healing. Does not like eggs and does not eat a lot of meat. Discussed importance of glycemic control and protein intake to wound healing. Pt does not want Boost, but will try arginaid. States was trying to lose weight and was losing a few pounds a month, but wt loss has recently stalled. Unable to state normal weight. Pt has bottom dentures, was to have them refitted, but never got them back. States does not need modified texture diet. Current Diet Order/ [facility] / S.O Indicated Pertinent Medications vit c, calcium + vit D, fish oil, insulin, lactulose, synthroid, MOM, KCl, vit B complex with vit c, zinc sulfate Pertinent Labs (06/03) K: 3.0, BUN: 36/cr: 1. 8- monitor renal function, POC : 134-172, hgba1c: 8.4- pt declinded diet ed Nutritional Hx/Data Height 1.47 m Height (Calculated Centimeters) 147.3 Current Weight (lbs) 79.832 kg Weight (Calculated Kilograms) 79.8 Weight (Calculated Grams) 79335.3 [place] Body Weight 95 lbs % [place] Body Weight 185 Weight Status Morbidly Obese GI Symptoms GI Symptoms None Food Allergies No Usual diet at home regular Skin Integrity/Comment: decubitus to sacrum- awaiting wound consult, no stage noted yet Current %PO Good (75-100%) Estimated Nutritional Goals BEE in Kcals: Adj wt of IBW Calories/Kcals/Kg 30-35 (wound healing, may need to adjust when stage known) Kcals Calculated 6516-1180 kcals Protein: Adj wt of IBW Protein g/k.2-1.5 (wound healing, may need to adjust when stage known) Protein Calculated 62-78 Fluid: ml 1560 mL (30 ml/kg) Nutritional Problem 2. Problem Problem altered nutrition related lab values Etiology endocrine dysfunction, renal dysfunction, food/nutrition related knowledge deficit Signs/Symptoms: K: 3.0, BUN: 36, Cr: 1.8, hgba1c: 8.4 1. Problem Problem Increased nutrient needs Etiology wound healing Signs/Symptoms: non healing wound to sacrum Malnutrition Alert Protein-Calorie Malnutrition N/A Is there a minimum of two criteria No selected? Query Text:Check all the applicable criteria. A minimum of two criteria are recommended for diagnosis of either severe or non-severe malnutrition. Malnutrition Related to Morbid Obesity Malnutrition related to morbid obesity No Intervention/Recommendation Recommendations by RD Protein supplementation Comments 1. Continue CCHO 45 gm diet for optimal glycemic managment 2. Add arginaid BID for wound healing Expected Outcomes/Goals Expected Outcomes/Goals 1. PO intake >75% 2. Gradual wt loss of 1-2 lbs/ month towards IBW 3. Improved skin integrity 4. Pt to have glycemic control
[2017-06-03] MEDS: Cefepime 1 GM in Sodium Chloride 0.9% 50 ML IV SCH (21:09)
[2017-06-03] MEDS: Atorvastatin Calcium 10 MG TAB PO SCH (21:10)
[2017-06-03] MEDS: Fenofibrate, Micronized 134 mg Cap PO SCH (21:10)
[2017-06-03] MEDS: Insulin Detemir 100 units/mL 10mL Vial SUBQ SCH (21:12)
[2017-06-03] MEDS: Lactulose 10 Gm/15 mL 30mL UDC PO SCH (21:13)
[2017-06-04] MEDS: Cefepime 1 GM in Sodium Chloride 0.9% 50 ML IV SCH ×3 (04:53→20:56)
[2017-06-04 06:11] LABS: % BASOPHILS 0.7 % (0.0-2.0); % LYMPHOCYTES 30.6 % (20.0-50.0); % MONOCYTES 5.1 % (2.0-10.0); % NEUTROPHILS 58.6 % (40.0-80.0); HEMATOCRIT 36.2 % (41.0-60); HEMOGLOBIN 12.1 gm/dL (12-16); MEAN CELL VOLUME 90.5 fl (81-100); MEAN CORPUSCULAR HEMOGLOBIN 30.3 pg (27.0-31.0); MEAN CORPUSCULAR HGB CONC 33.5 pg (28.0-36.0); MEAN PLATELET VOLUME 7.3 fl; NEUTROPHILE ABSOLUTE 3.5 Th/cmm (1.8-8.0); RED CELL DISTRIBUTION WIDTH 13.2 % (11.5-20.0); WHITE BLOOD COUNT 5.9 Th/cmm (4.8-10.8)
[2017-06-04 06:17] LABS: PLATELET COUNT 149 Th/cmm (150-400)
[2017-06-04 06:29] LABS: ALB/GLOB RATIO 1.1 (1.0-1.8); ANION GAP 8.9 (7.0-16.0); BILIRUBIN,TOTAL 0.6 mg/dL (0.3-1.0); CALCIUM SERUM 9.6 mg/dL (8.6-10.3); CARBON DIOXIDE 27.3 mEq/L (21.0-31.0); CREATININE - SERUM 1.7 mg/dL (0.6-1.2); POTASSIUM SERUM 3.2 mEq/L (3.5-5.1)
[2017-06-04] MEDS: Levothyroxine 0.1 Mg Tab PO SCH (06:34)
[2017-06-04] MEDS: INSULIN ASPART SLIDING SCALE 100 UNITS/ML UNIT SUBQ SCH ×4 (06:34→20:57)
--- NOTE | 2017-06-04 07:30 | Diagnostic Imaging Report ---
CHEST X-RAY: AP view INDICATION: pain COMPARISON: 06/20/2016 FINDINGS: Mild increased interstitial lung markings are noted. No focal soft effusions. Cardio megaly is noted. The osseous structures are intact. IMPRESSION: Mild increased interstitial lung markings. A marginal degree of congestion cannot be excluded. Please correlate clinically. No focal consolidation identified. Cardiomegaly.
--- NOTE | 2017-06-04 08:08 | General Progress Note ---
Subjective - Review of Systems Service Date: 06/04/17 Subjective: Awake, alert, afebrile. For surgical debridement today. Objective - Results Result Diagrams: 06/04/17 05:35 06/04/17 05:35 Recent Labs: Laboratory Last Values WBC 5.9 Th/cmm (4.8-10.8) 06/04/17 05:35 RBC 4.00 Mil/cmm (3.80-5.20) 06/04/17 05:35 Hgb 12.1 gm/dL (12-16) 06/04/17 05:35 Hct 36.2 % (41.0-60) L 06/04/17 05:35 MCV 90.5 fl (81-100) 06/04/17 05:35 MCH 30.3 pg (27.0-31.0) 06/04/17 05:35 MCHC Differential 33.5 pg (28.0-36.0) 06/04/17 05:35 RDW 13.2 % (11.5-20.0) 06/04/17 05:35 Plt Count 149 Th/cmm (150-400) L D 06/04/17 05:35 MPV 7.3 fl 06/04/17 05:35 Neutrophils % 58.6 % (40.0-80.0) 06/04/17 05:35 Lymphocytes % 30.6 % (20.0-50.0) 06/04/17 05:35 Monocytes % 5.1 % (2.0-10.0) 06/04/17 05:35 Eosinophils % 5.0 % (0.0-5.0) 06/04/17 05:35 Basophils % 0.7 % (0.0-2.0) 06/04/17 05:35 PT 12.7 SECONDS (9.5-11.5) H 06/02/17 13:20 INR 1.21 (0.5-1.4) 06/02/17 13:20 PTT (Actin FS) 26.5 SECONDS (26.0-38.0) 06/02/17 13:20 Sodium 136 mEq/L (136-145) 06/04/17 05:35 Potassium 3.2 mEq/L (3.5-5.1) L 06/04/17 05:35 Chloride 103 mEq/L (98-107) 06/04/17 05:35 Carbon Dioxide 27.3 mEq/L (21.0-31.0) 06/04/17 05:35 Anion Gap 8.9 (7.0-16.0) 06/04/17 05:35 BUN 34 mg/dL (7-25) H 06/04/17 05:35 Creatinine 1.7 mg/dL (0.6-1.2) H 06/04/17 05:35 Est GFR ( Amer) 38.7 ml/min (>90) 06/04/17 05:35 Est GFR (Non-Af Amer) 32.0 ml/min 06/04/17 05:35 BUN/Creatinine Ratio 20.0 06/04/17 05:35 Glucose 180 mg/dL (70-105) H 06/04/17 05:35 POC Glucose 190 MG/DL (70 - 105) H 06/04/17 06:33 Hemoglobin A1c % 8.4 % (4.0-6.0) H 06/02/17 13:20 Whole Bld Lactic Acid 1.14 mmol/L (0.60-1.99) 06/02/17 13:20 Calcium 9.6 mg/dL (8.6-10.3) 06/04/17 05:35 Phosphorus 3.0 mg/dL (2.5-5.0) 06/03/17 05:25 Magnesium 1.9 mg/dL (1.9-2.7) 06/03/17 05:25 Total Bilirubin 0.6 mg/dL (0.3-1.0) 06/04/17 05:35 AST 25 U/L (13-39) 06/04/17 05:35 ALT 14 U/L (7-52) 06/04/17 05:35 Alkaline Phosphatase 30 U/L (34-104) L 06/04/17 05:35 Creatine Kinase 118 U/L (30-223) 06/02/17 13:20 Total Protein 7.2 gm/dL (6.0-8.3) 06/04/17 05:35 Albumin 3.7 gm/dL (3.7-5.3) 06/04/17 05:35 Globulin 3.5 gm/dL 06/04/17 05:35 Albumin/Globulin Ratio 1.1 (1.0-1.8) 06/04/17 05:35 Triglycerides 258 mg/dL (<150) H 06/03/17 05:25 Cholesterol 144 mg/dL (<200) 06/03/17 05:25 LDL Cholesterol Direct 77 mg/dL (75-193) 06/03/17 05:25 HDL Cholesterol 27 mg/dL (23-92) 06/03/17 05:25 TSH 1.37 uIU/ml (0.34-5.60) 06/03/17 05:25 Urine Source MIDSTREAM 06/02/17 14:00 Urine Color YELLOW 06/02/17 14:00 Urine Clarity CLEAR (CLEAR) 06/02/17 14:00 Urine pH 7.0 (4.6 - 8.0) 06/02/17 14:00 Ur Specific [place] 1.015 (1.005-1.030) 06/02/17 14:00 Urine Protein TRACE mg/dL (NEGATIVE) 06/02/17 14:00 Urine Glucose (UA) >=1000 mg/dL (NEGATIVE) H 06/02/17 14:00 Urine Ketones NEGATIVE mg/dL (NEGATIVE) 06/02/17 14:00 Urine Blood NEGATIVE (NEGATIVE) 06/02/17 14:00 Urine Nitrate NEGATIVE (NEGATIVE) 06/02/17 14:00 Urine Bilirubin NEGATIVE (NEGATIVE) 06/02/17 14:00 Urine Urobilinogen 0.2 E.U./dL (0.2 - 1.0) 06/02/17 14:00 Ur Leukocyte Esterase NEGATIVE (NEGATIVE) 06/02/17 14:00 Urine RBC NONE SEEN /hpf (0-5) 06/02/17 14:00 Urine WBC NONE SEEN /hpf (0-5) 06/02/17 14:00 Ur Epithelial Cells NONE SEEN /lpf (FEW) 06/02/17 14:00 Urine Bacteria NONE SEEN /hpf (NONE SEEN) 06/02/17 14:00 Vancomycin Trough 21.4 ug/mL (10-20) H 06/04/17 05:35 Random Vancomycin 15.9 ug/mL (5.0-40.0) 06/03/17 05:25 - Physical Exam Vitals and I&O: Vital Signs Temp 97.9 F 06/04/17 04:00 Pulse 88 06/04/17 04:00 Resp 18 06/04/17 04:00 BP 130/73 06/04/17 04:00 Pulse Ox 98 06/04/17 04:00 Intake & Output 06/03/17 06/04/17 06/04/17 18:59 06:59 18:59 Intake Total 950 460 Balance 950 460 Weight (lbs) 79.832 kg 91.739 kg Intake: Intake, IV Amount 100 100 Cefepime 1 gm In Sodium 100 Chloride 0.9% 50 ml @ 100 mls/hr IV Q8HR [facility] Rx#: [id number] KCL 20mEq/100mL Premix 20 100 meq In 100 ml @ 50 mls/ hr IV Q2H [facility] Rx#: [id number] Oral 850 360 Other: # Voids 5 3 # Bowel Movements 0 1 Stool Characteristics Soft Active Medications: Current Medications Acetaminophen/Hydrocodone Bitart ([place] 10 Mg/325 Mg) 1 tab PO Q6H PRN PRN Reason: Pain (Severe) Stop: 08/01/17 16:50 Last Admin: 06/03/17 11:56 Dose: 1 tab Al Hydrox/Mg Hydrox/Simethicone (Maalox) 30 ml PO Q6HR PRN PRN Reason: GI DISTRESS Stop: 08/01/17 16:50 Allopurinol (Zyloprim) 300 mg PO DAILY [facility] Stop: 08/02/17 08:59 Last Admin: 06/03/17 09:16 Dose: 300 mg Ascorbic Acid (Vitamin C) 500 mg PO BID [facility] Stop: 08/01/17 16:59 Last Admin: 06/03/17 17:06 Dose: 500 mg Atorvastatin Calcium (Lipitor) 40 mg PO HS [facility] Stop: 08/01/17 20:59 Last Admin: 06/03/17 21:10 Dose: 40 mg Calcium/Vitamin D (Oscal W/Vitamin D) 1 tab PO DAILY [facility] Stop: 08/02/17 08:59 Last Admin: 06/03/17 09:17 Dose: 1 tab Chlorthalidone (Hygroton) 25 mg PO DAILY [facility] Stop: 08/02/17 08:59 Last Admin: 06/03/17 09:17 Dose: 25 mg Dextromethorphan/Quinidine (Nuedexta 20mg-10mg) 1 cap PO Q12HR [facility] Stop: 08/01/17 20:59 Last Admin: 10/25/17 21:10 Dose: 1 cap Docusate Sodium (Colace) 250 mg PO DAILY [facility] Stop: 08/02/17 08:59 Last Admin: 06/03/17 09:17 Dose: 250 mg Fenofibrate (Tricor) 145 mg PO HS [facility] Stop: 08/01/17 20:59 Last Admin: 06/03/17 21:10 Dose: 145 mg Fish Oil ([place] 3) 1,000 mg PO DAILY [facility] Stop: 08/02/17 08:59 Last Admin: 06/03/17 09:37 Dose: 1,000 mg Gabapentin (Neurontin) 300 mg PO TID [facility] Stop: 08/01/17 20:59 Last Admin: 06/03/17 21:10 Dose: 300 mg Glipizide (Glucotrol) 10 mg PO BID [facility] Stop: 08/01/17 16:59 Last Admin: 06/03/17 17:06 Dose: 10 mg Cefepime HCl 1 gm/ Sodium (Chloride) 50 mls @ 100 mls/hr IV Q8HR [facility] Stop: 08/02/17 20:59 Last Infusion: 06/04/17 05:23 Dose: Infused Potassium Chloride (Potassium Chloride) 20 meq in 100 mls @ 50 mls/hr IV Q2H [facility] Stop: 06/04/17 12:14 Insulin Aspart (Novolog Insulin Sliding Scale) 0 units SUBQ ACHS [facility] PRN Reason: Protocol Stop: 08/01/17 20:59 Last Admin: 06/04/17 06:34 Dose: Not Given Insulin Detemir (Levemir Insulin) 20 units SUBQ HS [facility] Stop: 08/01/17 20:59 Last Admin: 06/03/17 21:12 Dose: 20 units Lactulose (Cephulac) 10 gm PO HS [facility] Stop: 08/01/17 20:59 Last Admin: 06/03/17 21:13 Dose: Not Given Levothyroxine Sodium (Synthroid) 0.1 mg PO QDAC [facility] Stop: 08/02/17 07:29 Last Admin: 06/04/17 06:34 Dose: Not Given Lorazepam (Ativan) 0.5 mg PO Q6HR PRN; Protocol PRN Reason: Anxiety Stop: 08/01/17 16:50 Magnesium Hydroxide (Milk Of Magnesia) 30 ml PO DAILY PRN PRN Reason: Constipation Stop: 08/01/17 16:50 Miscellaneous (Vte Chemical Prophylaxis Screen/ Admission) 1 [facility] PRN PRN PRN Reason: PROTOCOL Stop: 08/01/17 16:48 Miscellaneous (Ketorolac Tromethamine/Pf [Acuvail 0.45% Ophth Solution]) 1 drop RIGHT EYE QID [facility] Stop: 08/01/17 16:59 Miscellaneous (Solifenacin Succinate [Vesicare]) 5 mg PO BID [facility] Stop: 08/01/17 16:59 Miscellaneous (Vancomycin Iv Per Pharmacy) 1 [facility] PRN [facility] Stop: 08/02/17 14:44 Potassium Chloride (Potassium Chloride Elixir) 10 meq PO DAILY [facility] Stop: 08/02/17 08:59 Last Admin: 06/03/17 09:37 Dose: 10 meq Prednisolone Acetate (Pred Forte 1% Ophth Susp) 1 drop RIGHT EYE QID [facility] Stop: 08/01/17 16:59 Last Admin: 06/03/17 21:11 Dose: Not Given Rifaximin (Xifaxan) 550 mg PO Q12H [facility] Stop: 08/01/17 16:59 Last Admin: 06/04/17 05:01 Dose: Not Given Sertraline HCl (Zoloft) 150 mg PO QPM 1700 [facility] Stop: 08/01/17 16:59 Sertraline HCl (Zoloft) 200 mg PO DAILY [facility] Stop: 08/02/17 08:59 Trazodone HCl (Desyrel) 50 mg PO HS PRN; Protocol PRN Reason: Insomnia Stop: 08/01/17 16:50 Last Admin: 06/03/17 21:59 Dose: 50 mg Vitamin B Complex/Vitamin C (Vitamin B Complex W/C) 1 tab PO DAILY [facility] Stop: 08/02/17 08:59 Last Admin: 06/03/17 09:20 Dose: 1 tab Zinc Sulfate (Zinc Sulfate) 220 mg PO DAILY [facility] Stop: 08/02/17 08:59 Last Admin: 06/03/17 09:36 Dose: 220 mg General: Alert, Oriented x3, No acute distress HEENT: Atraumatic, PERRLA Neck: Supple Cardiovascular: Regular rate, Normal S1, Normal S2 Lungs: Clear to auscultation Abdomen: Bowel sounds, Soft Extremities: Clubbing, Cyanosis, Edema Skin: Significant lesion (presence of non-healing ulcer noted. ) - Procedures Procedures: Procedures Procedure Code Date DRAINAGE OF LEFT BREAST, PERCUTANEOUS APPROACH [id number] 05/09/16 INCISION OF BREAST LESION 52487 05/09/16 Assessment/Plan - Problem List Patient Problems: All Active Problems Cirrhosis of liver (Active) K74.60 Diabetes mellitus (Active) E11.9 Hepatic encephalopathy (Active) K72.90 The administrative codes within the [employer] content you are accessing may have as of 05/10/2016. Please contact your IT Dept/Help Desk and request the latest Regulatory release be installed. IT Dept/Help Desk- Please refer to our FAQ page ([email or web address] or contact [employer] Customer Support at [email or web address] (Acute) hyponatremia dilutional (Acute) - Assessment Assessment: stage 4 sacral decubitus ulcer hypokalemia sepsis UTI Diabetes Hyperlipidemia Depression/Anxiety/PBA Overactive bladder CHF/HTN COPD CKD Anemia hypothyroidism - Plan Plan: ID consult wound consult general surgical consult dietary consult IV Vancomycin per pharmacy 40meq K rider ... repeat BMP,Mg,Phosphorus continue home medication Nutritional Asmnt/Malnutr-PDOC - Dietary Evaluation Malnutrition Findings (Please click <Entered> for more info): Nutritional Asmnt/Malnutrition Start: 06/03/17 09: 18 Text: Status: Complete Freq: Document 06/03/17 09:18 [email or web address] (Rec: 06/03/17 09:34 [email or web address]) Nutritional Asmnt/Malnutrition Patient General Information Nutritional Screening Consult Diagnosis non healing sacral decubititus Pertinent Medical Hx/Surgical Hx HLD, depression, anxiety, CHF, DM2, HTN, COPD, CKD, anemia, hypothyroidism Subjective Information Pt laying in bed. Reports good appetite. Is from care facility, states she does not follow diet, eats what is offered to her. Does not want DM diet education, states she already knows it. Pt drinks Prostat at facility, which she does not like, but knows is important for wound healing. Does not like eggs and does not eat a lot of meat. Discussed importance of glycemic control and protein intake to wound healing. Pt does not want Boost, but will try arginaid. States was trying to lose weight and was losing a few pounds a month, but wt loss has recently stalled. Unable to state normal weight. Pt has bottom dentures, was to have them refitted, but never got them back. States does not need modified texture diet. Current Diet Order/ Nutrition Support CCHO 45 gm Patient / S.O Indicated Pertinent Medications vit c, calcium + vit D, fish oil, insulin, lactulose, synthroid, MOM, KCl, vit B complex with vit c, zinc sulfate Pertinent Labs (06/03) K: 3.0, BUN: 36/cr: 1. 8- monitor renal function, POC : 134-172, hgba1c: 8.4- pt declinded diet ed Nutritional Hx/Data Height 1.47 m Height (Calculated Centimeters) 147.3 Current Weight (lbs) 79.832 kg Weight (Calculated Kilograms) 79.8 Weight (Calculated Grams) 73753.3 [place] Body Weight 95 lbs % [place] Body Weight 185 Weight Status Morbidly Obese GI Symptoms GI Symptoms None Food Allergies No Usual diet at home regular Skin Integrity/Comment: decubitus to sacrum- awaiting wound consult, no stage noted yet Current %PO Good (75-100%) Estimated Nutritional Goals BEE in Kcals: Adj wt of IBW Calories/Kcals/Kg 30-35 (wound healing, may need to adjust when stage known) Kcals Calculated 0131-2121 kcals Protein: Adj wt of IBW Protein g/k.2-1.5 (wound healing, may need to adjust when stage known) Protein Calculated 62-78 Fluid: ml 1560 mL (30 ml/kg) Nutritional Problem 2. Problem Problem altered nutrition related lab values Etiology endocrine dysfunction, renal dysfunction, food/nutrition related knowledge deficit Signs/Symptoms: K: 3.0, BUN: 36, Cr: 1.8, hgba1c: 8.4 1. Problem Problem Increased nutrient needs Etiology wound healing Signs/Symptoms: non healing wound to sacrum Malnutrition Alert Protein-Calorie Malnutrition N/A Is there a minimum of two criteria No selected? Query Text:Check all the applicable criteria. A minimum of two criteria are recommended for diagnosis of either severe or non-severe malnutrition. Malnutrition Related to Morbid Obesity Malnutrition related to morbid obesity No Intervention/Recommendation Recommendations by RD Protein supplementation Comments 1. Continue CCHO 45 gm diet for optimal glycemic managment 2. Add arginaid BID for wound healing Expected Outcomes/Goals Expected Outcomes/Goals 1. PO intake >75% 2. Gradual wt loss of 1-2 lbs/ month towards IBW 3. Improved skin integrity 4. Pt to have glycemic control
[2017-06-04] MEDS: Prednisolone 1% Ophth Susp 5 mL Bottle RIGHT EYE SCH (10:00)
[2017-06-04] MEDS: Ascorbic Acid/Vit B Complex Tab PO SCH (10:00)
[2017-06-04] MEDS: Calcium Carb/Vit D 500 mg/200 U Tab PO SCH (10:01)
[2017-06-04] MEDS: Dextromethorphan/Quinidine 20mg/10mg Cap PO SCH ×2 (10:01→20:56)
[2017-06-04] MEDS: Fish Oil 1,000 MG SGL PO SCH (10:02)
[2017-06-04] MEDS: Multivitamin w/ Minerals Tab PO SCH (10:02)
[2017-06-04] MEDS: Potassium Chloride Elixir 20 mEq /15 mL UDC PO SCH (10:02)
[2017-06-04] MEDS: KCL 20mEq/100mL Premix 20 MEQ/100 ML PIGGYBACK IV SCH ×2 (10:10→18:24)
--- NOTE | 2017-06-04 11:09 | Infectious Disease Prog Note ---
Infectious Disease Subjective - Review of Systems Service Date: 06/04/17 Subjective: There is no new change. Infectious Disease Objective - Results Result Diagrams: 06/04/17 05:35 06/04/17 05:35 Recent Labs: Laboratory Last Values WBC 5.9 Th/cmm (4.8-10.8) 06/04/17 05:35 RBC 4.00 Mil/cmm (3.80-5.20) 06/04/17 05:35 Hgb 12.1 gm/dL (12-16) 06/04/17 05:35 Hct 36.2 % (41.0-60) L 06/04/17 05:35 MCV 90.5 fl (81-100) 06/04/17 05:35 MCH 30.3 pg (27.0-31.0) 06/04/17 05:35 MCHC Differential 33.5 pg (28.0-36.0) 06/04/17 05:35 RDW 13.2 % (11.5-20.0) 06/04/17 05:35 Plt Count 149 Th/cmm (150-400) L D 06/04/17 05:35 MPV 7.3 fl 06/04/17 05:35 Neutrophils % 58.6 % (40.0-80.0) 06/04/17 05:35 Lymphocytes % 30.6 % (20.0-50.0) 06/04/17 05:35 Monocytes % 5.1 % (2.0-10.0) 06/04/17 05:35 Eosinophils % 5.0 % (0.0-5.0) 06/04/17 05:35 Basophils % 0.7 % (0.0-2.0) 06/04/17 05:35 PT 12.7 SECONDS (9.5-11.5) H 06/02/17 13:20 INR 1.21 (0.5-1.4) 06/02/17 13:20 PTT (Actin FS) 26.5 SECONDS (26.0-38.0) 06/02/17 13:20 Sodium 136 mEq/L (136-145) 06/04/17 05:35 Potassium 3.2 mEq/L (3.5-5.1) L 06/04/17 05:35 Chloride 103 mEq/L (98-107) 06/04/17 05:35 Carbon Dioxide 27.3 mEq/L (21.0-31.0) 06/04/17 05:35 Anion Gap 8.9 (7.0-16.0) 06/04/17 05:35 BUN 34 mg/dL (7-25) H 06/04/17 05:35 Creatinine 1.7 mg/dL (0.6-1.2) H 06/04/17 05:35 Est GFR ( Amer) 38.7 ml/min (>90) 06/04/17 05:35 Est GFR (Non-Af Amer) 32.0 ml/min 06/04/17 05:35 BUN/Creatinine Ratio 20.0 06/04/17 05:35 Glucose 180 mg/dL (70-105) H 06/04/17 05:35 POC Glucose 190 MG/DL (70 - 105) H 06/04/17 06:33 Hemoglobin A1c % 8.4 % (4.0-6.0) H 06/02/17 13:20 Whole Bld Lactic Acid 1.14 mmol/L (0.60-1.99) 06/02/17 13:20 Calcium 9.6 mg/dL (8.6-10.3) 06/04/17 05:35 Phosphorus 3.0 mg/dL (2.5-5.0) 06/03/17 05:25 Magnesium 1.9 mg/dL (1.9-2.7) 06/03/17 05:25 Total Bilirubin 0.6 mg/dL (0.3-1.0) 06/04/17 05:35 AST 25 U/L (13-39) 06/04/17 05:35 ALT 14 U/L (7-52) 06/04/17 05:35 Alkaline Phosphatase 30 U/L (34-104) L 06/04/17 05:35 Creatine Kinase 118 U/L (30-223) 06/02/17 13:20 Total Protein 7.2 gm/dL (6.0-8.3) 06/04/17 05:35 Albumin 3.7 gm/dL (3.7-5.3) 06/04/17 05:35 Globulin 3.5 gm/dL 06/04/17 05:35 Albumin/Globulin Ratio 1.1 (1.0-1.8) 06/04/17 05:35 Triglycerides 258 mg/dL (<150) H 06/03/17 05:25 Cholesterol 144 mg/dL (<200) 06/03/17 05:25 LDL Cholesterol Direct 77 mg/dL (75-193) 06/03/17 05:25 HDL Cholesterol 27 mg/dL (23-92) 06/03/17 05:25 TSH 1.37 uIU/ml (0.34-5.60) 06/03/17 05:25 Urine Source MIDSTREAM 06/02/17 14:00 Urine Color YELLOW 06/02/17 14:00 Urine Clarity CLEAR (CLEAR) 06/02/17 14:00 Urine pH 7.0 (4.6 - 8.0) 06/02/17 14:00 Ur Specific [place] 1.015 (1.005-1.030) 06/02/17 14:00 Urine Protein TRACE mg/dL (NEGATIVE) 06/02/17 14:00 Urine Glucose (UA) >=1000 mg/dL (NEGATIVE) H 06/02/17 14:00 Urine Ketones NEGATIVE mg/dL (NEGATIVE) 06/02/17 14:00 Urine Blood NEGATIVE (NEGATIVE) 06/02/17 14:00 Urine Nitrate NEGATIVE (NEGATIVE) 06/02/17 14:00 Urine Bilirubin NEGATIVE (NEGATIVE) 06/02/17 14:00 Urine Urobilinogen 0.2 E.U./dL (0.2 - 1.0) 06/02/17 14:00 Ur Leukocyte Esterase NEGATIVE (NEGATIVE) 06/02/17 14:00 Urine RBC NONE SEEN /hpf (0-5) 06/02/17 14:00 Urine WBC NONE SEEN /hpf (0-5) 06/02/17 14:00 Ur Epithelial Cells NONE SEEN /lpf (FEW) 06/02/17 14:00 Urine Bacteria NONE SEEN /hpf (NONE SEEN) 06/02/17 14:00 Vancomycin Trough 21.4 ug/mL (10-20) H 06/04/17 05:35 Random Vancomycin 15.9 ug/mL (5.0-40.0) 06/03/17 05:25 - Physical Exam Vitals and I&O: Vital Signs Temp 97.9 F 06/04/17 04:00 Pulse 77 06/04/17 10:01 Resp 18 06/04/17 04:00 BP 126/71 06/04/17 10:01 Pulse Ox 98 06/04/17 04:00 Intake & Output 06/03/17 06/04/17 06/04/17 18:59 06:59 18:59 Intake Total 950 460 Balance 950 460 Weight (lbs) 79.832 kg 91.739 kg Intake: Intake, IV Amount 100 100 Cefepime 1 gm In Sodium 100 Chloride 0.9% 50 ml @ 100 mls/hr IV Q8HR [facility] Rx#: [id number] KCL 20mEq/100mL Premix 20 100 meq In 100 ml @ 50 mls/ hr IV Q2H [facility] Rx#: [id number] Oral 850 360 Other: # Voids 5 3 # Bowel Movements 0 1 Stool Characteristics Soft Soft Active Medications: Current Medications Acetaminophen/Hydrocodone Bitart ([place] 10 Mg/325 Mg) 1 tab PO Q6H PRN PRN Reason: Pain (Severe) Stop: 08/01/17 16:50 Last Admin: 06/03/17 11:56 Dose: 1 tab Al Hydrox/Mg Hydrox/Simethicone (Maalox) 30 ml PO Q6HR PRN PRN Reason: GI DISTRESS Stop: 08/01/17 16:50 Allopurinol (Zyloprim) 300 mg PO DAILY [facility] Stop: 08/02/17 08:59 Last Admin: 06/04/17 10:00 Dose: Not Given Ascorbic Acid (Vitamin C) 500 mg PO BID [facility] Stop: 08/01/17 16:59 Last Admin: 06/04/17 10:00 Dose: Not Given Atorvastatin Calcium (Lipitor) 40 mg PO HS [facility] Stop: 08/01/17 20:59 Last Admin: 06/03/17 21:10 Dose: 40 mg Calcium/Vitamin D (Oscal W/Vitamin D) 1 tab PO DAILY [facility] Stop: 08/02/17 08:59 Last Admin: 06/04/17 10:01 Dose: Not Given Chlorthalidone (Hygroton) 25 mg PO DAILY [facility] Stop: 08/02/17 08:59 Last Admin: 06/04/17 10:01 Dose: Not Given Dextromethorphan/Quinidine (Nuedexta 20mg-10mg) 1 cap PO Q12HR [facility] Stop: 08/01/17 20:59 Last Admin: 06/04/17 10:01 Dose: Not Given Docusate Sodium (Colace) 250 mg PO DAILY [facility] Stop: 08/02/17 08:59 Last Admin: 06/04/17 10:01 Dose: Not Given Fenofibrate (Tricor) 145 mg PO HS [facility] Stop: 08/01/17 20:59 Last Admin: 06/03/17 21:10 Dose: 145 mg Fish Oil ([place] 3) 1,000 mg PO DAILY [facility] Stop: 08/02/17 08:59 Last Admin: 06/04/17 10:02 Dose: Not Given Gabapentin (Neurontin) 300 mg PO TID [facility] Stop: 08/01/17 20:59 Last Admin: 06/04/17 10:00 Dose: Not Given Glipizide (Glucotrol) 10 mg PO BID [facility] Stop: 08/01/17 16:59 Last Admin: 06/04/17 10:02 Dose: Not Given Cefepime HCl 1 gm/ Sodium (Chloride) 50 mls @ 100 mls/hr IV Q8HR [facility] Stop: 08/02/17 20:59 Last Infusion: 06/04/17 05:23 Dose: Infused Potassium Chloride (Potassium Chloride) 20 meq in 100 mls @ 50 mls/hr IV Q2H [facility] Stop: 06/04/17 12:14 Last Admin: 06/04/17 10:10 Dose: 50 mls/hr Insulin Aspart (Novolog Insulin Sliding Scale) 0 units SUBQ ACHS [facility] PRN Reason: Protocol Stop: 08/01/17 20:59 Last Admin: 06/04/17 06:34 Dose: Not Given Insulin Detemir (Levemir Insulin) 20 units SUBQ HS [facility] Stop: 08/01/17 20:59 Last Admin: 06/03/17 21:12 Dose: 20 units Lactulose (Cephulac) 10 gm PO HS [facility] Stop: 08/01/17 20:59 Last Admin: 06/03/17 21:13 Dose: Not Given Levothyroxine Sodium (Synthroid) 0.1 mg PO QDAC [facility] Stop: 08/02/17 07:29 Last Admin: 06/04/17 06:34 Dose: Not Given Lorazepam (Ativan) 0.5 mg PO Q6HR PRN; Protocol PRN Reason: Anxiety Stop: 08/01/17 16:50 Magnesium Hydroxide (Milk Of Magnesia) 30 ml PO DAILY PRN PRN Reason: Constipation Stop: 08/01/17 16:50 Miscellaneous (Vte [employer] Prophylaxis Screen/ Admission) 1 [facility] PRN PRN PRN Reason: PROTOCOL Stop: 08/01/17 16:48 Miscellaneous (Ketorolac Tromethamine/Pf [Acuvail 0.45% Ophth Solution]) 1 drop RIGHT EYE QID [facility] Stop: 08/01/17 16:59 Miscellaneous (Solifenacin Succinate [Vesicare]) 5 mg PO BID [facility] Stop: 08/01/17 16:59 Miscellaneous (Vancomycin Iv Per Pharmacy) 1 [facility] PRN [facility] Stop: 08/02/17 14:44 Potassium Chloride (Potassium Chloride Elixir) 10 meq PO DAILY [facility] Stop: 08/02/17 08:59 Last Admin: 06/04/17 10:02 Dose: Not Given Rifaximin (Xifaxan) 550 mg PO Q12H [facility] Stop: 08/01/17 16:59 Last Admin: 06/04/17 05:01 Dose: Not Given Sertraline HCl (Zoloft) 150 mg PO QPM 1700 [facility] Stop: 08/01/17 16:59 Sertraline HCl (Zoloft) 200 mg PO DAILY [facility] Stop: 08/02/17 08:59 Last Admin: 06/04/17 10:00 Dose: Not Given Trazodone HCl (Desyrel) 50 mg PO HS PRN; Protocol PRN Reason: Insomnia Stop: 08/01/17 16:50 Last Admin: 06/03/17 21:59 Dose: 50 mg Vitamin B Complex/Vitamin C (Vitamin B Complex W/C) 1 tab PO DAILY [facility] Stop: 08/02/17 08:59 Last Admin: 06/04/17 10:00 Dose: Not Given Zinc Sulfate (Zinc Sulfate) 220 mg PO DAILY [facility] Stop: 08/02/17 08:59 Last Admin: 06/04/17 10:02 Dose: Not Given General: no acute distress, well developed, well nourished HEENT: atraumatic, normocephalic, PERRLA, EOMI, moist mucous membrane Neck: supple, no thyromegaly Cardiovascular: S1S2, regular Lungs: clear to auscultation bilaterally, clear to percussion Abdomen: soft, no tender, no distended Extremities: no cyanosis, no clubbing, no edema Neurological: awake, alert, oriented Skin: other (Sacral decubitus.) - Procedures Procedures: Procedures Procedure Code Date DRAINAGE OF LEFT BREAST, PERCUTANEOUS APPROACH [id number] 05/09/16 INCISION OF BREAST LESION 78860 05/09/16 Infectious Disease Assmt/Plan - Problem List Patient Problems: All Active Problems Cirrhosis of liver (Active) K74.60 Diabetes mellitus (Active) E11.9 Hepatic encephalopathy (Active) K72.90 The administrative codes within the [employer] content you are accessing may have as of 05/10/2016. Please contact your IT Dept/Help Desk and request the latest Regulatory release be installed. IT Dept/Help Desk- Please refer to our FAQ page ([email or web address] or contact [employer] Customer Support at [email or web address] (Acute) hyponatremia dilutional (Acute) - Assessment Assessment: 1. Sacral decubitus, non healing. wait for surgical report. Likely osteomyelitis. 2. DM2 3. HTN. 4. Depression. 5. anxiety. - Plan Plan: Continue cefepime. Wound care. DC vanco IV. Nutritional Asmnt/Malnutr-PDOC - Dietary Evaluation Malnutrition Findings (Please click <Entered> for more info): Nutritional Asmnt/Malnutrition Start: 06/03/17 09: 18 Text: Status: Complete Freq: Document 06/03/17 09:18 [email or web address] (Rec: 06/03/17 09:34 [email or web address]) Nutritional Asmnt/Malnutrition Patient General Information Nutritional Screening Consult Diagnosis non healing sacral decubititus Pertinent Medical Hx/Surgical Hx HLD, depression, anxiety, CHF, DM2, HTN, COPD, CKD, anemia, hypothyroidism Subjective Information Pt laying in bed. Reports good appetite. Is from care facility, states she does not follow diet, eats what is offered to her. Does not want DM diet education, states she already knows it. Pt drinks Prostat at facility, which she does not like, but knows is important for wound healing. Does not like eggs and does not eat a lot of meat. Discussed importance of glycemic control and protein intake to wound healing. Pt does not want Boost, but will try arginaid. States was trying to lose weight and was losing a few pounds a month, but wt loss has recently stalled. Unable to state normal weight. Pt has bottom dentures, was to have them refitted, but never got them back. States does not need modified texture diet. Current Diet Order/ Nutrition Support CCHO 45 gm Patient / S.O Indicated Pertinent Medications vit c, calcium + vit D, fish oil, insulin, lactulose, synthroid, MOM, KCl, vit B complex with vit c, zinc sulfate Pertinent Labs (06/03) K: 3.0, BUN: 36/cr: 1. 8- monitor renal function, POC : 134-172, hgba1c: 8.4- pt declinded diet ed Nutritional Hx/Data Height 1.47 m Height (Calculated Centimeters) 147.3 Current Weight (lbs) 79.832 kg Weight (Calculated Kilograms) 79.8 Weight (Calculated Grams) 93595.3 [place] Body Weight 95 lbs % [place] Body Weight 185 Weight Status Morbidly Obese GI Symptoms GI Symptoms None Food Allergies No Usual diet at home regular Skin Integrity/Comment: decubitus to sacrum- awaiting wound consult, no stage noted yet Current %PO Good (75-100%) Estimated Nutritional Goals BEE in Kcals: Adj wt of IBW Calories/Kcals/Kg 30-35 (wound healing, may need to adjust when stage known) Kcals Calculated 4863-2267 kcals Protein: Adj wt of IBW Protein g/k.2-1.5 (wound healing, may need to adjust when stage known) Protein Calculated 62-78 Fluid: ml 1560 mL (30 ml/kg) Nutritional Problem 2. Problem Problem altered nutrition related lab values Etiology endocrine dysfunction, renal dysfunction, food/nutrition related knowledge deficit Signs/Symptoms: K: 3.0, BUN: 36, Cr: 1.8, hgba1c: 8.4 1. Problem Problem Increased nutrient needs Etiology wound healing Signs/Symptoms: non healing wound to sacrum Malnutrition Alert Protein-Calorie Malnutrition N/A Is there a minimum of two criteria No selected? Query Text:Check all the applicable criteria. A minimum of two criteria are recommended for diagnosis of either severe or non-severe malnutrition. Malnutrition Related to Morbid Obesity Malnutrition related to morbid obesity No Intervention/Recommendation Recommendations by RD Protein supplementation Comments 1. Continue CCHO 45 gm diet for optimal glycemic managment 2. Add arginaid BID for wound healing Expected Outcomes/Goals Expected Outcomes/Goals 1. PO intake >75% 2. Gradual wt loss of 1-2 lbs/ month towards IBW 3. Improved skin integrity 4. Pt to have glycemic control
[2017-06-04] MEDS ORDERED: Probiotic Screen MC PRN (11:45)
[2017-06-04] MEDS ORDERED: Midazolam 1mg/ml 2 ml vial IV ONE (13:25)
[2017-06-04] MEDS ORDERED: fentaNYL Citrate 100 mcg/2mL Vial ONE (13:25)
--- NOTE | 2017-06-04 16:32 | Operative Report ---
DATE OF SURGERY: 06/04/2017 PREOPERATIVE DIAGNOSES: 1. Stage IV sacral decubitus ulcer. 2. Diabetes mellitus. 3. Hypertension. 4. Depression. POSTOPERATIVE DIAGNOSES: 1. Stage IV sacral decubitus ulcer. 2. Diabetes mellitus. 3. Hypertension. 4. Depression. OPERATION DONE: 1. Excisional debridement of sacral decubitus ulcer. 2. Application of wound VAC. SURGEON: Carol Pascual M.D. ANESTHESIA: MAC. ANESTHESIOLOGIST: Maria Teresa Lewis M.D. OPERATIVE FINDINGS: Size of the ulcer is 2 mm externally with minimal cellulitis. The base is the sacral bone. DESCRIPTION OF PROCEDURE: The patient was given IV sedation and following Betadine prep, the surrounding ulcer was injected with 1% lidocaine. Curette was used to debride the ulcer allowing for better granulation tissue to be evident. Following satisfactory hemostasis, a silver sponge was applied into the ulcer connected to wound VAC. Primary closure probably not good idea at this point because of constant soilage of fecal material. Diverting colostomy is an option. JOB# [id number]
[2017-06-04] MEDS ORDERED: KCL 20mEq/100mL Premix 20 MEQ/100 ML PIGGYBACK IV ONE (18:23)
--- NOTE | 2017-06-04 18:46 | Consultation ---
DATE OF CONSULTATION: 06/04/2017 SURGICAL CONSULT REFERRING PHYSICIAN: ____ REASON FOR CONSULTATION: Non-healing ulcer, sacral region. HISTORY OF PRESENT ILLNESS: The patient is a 66-year-old female complaining of low back pain ____. She has had a chronic sacral decubitus ulcer present for years, apparently treated by visiting physicians with scraping of the wound and application of antibiotic ointment. This time, however, the pain has become worse and the patient is being admitted. PAST MEDICAL HISTORY: Includes diabetes, hypothyroidism, COPD, hypertension, hyperlipidemia, and depression. LABORATORY STUDIES: Show the CBC to be within normal limits. Chemistry: BUN is high at 34 with creatinine 1.7. Blood sugar on admission was 273. PHYSICAL EXAMINATION: The patient appears to be coherent. She claims that this ulcer has been present for many years with local wound treatment. The appearance of the ulcer is deep, but rather small with minimal cellulitis. External opening is only about 2 cm. The base of this; however, appears to be the bone on palpation. The possibility includes primary closure with flap or placement of wound VAC after debridement. The patient, however, is likely going to soil this and the operation of a primary closure will likely not work well. Possibility of a diverting colostomy to allow the ulcer to heal is being discussed as an option. JOB# [id number]
[2017-06-04] MEDS: Lactulose 10 Gm/15 mL 30mL UDC PO SCH (20:55)
[2017-06-04] MEDS: Atorvastatin Calcium 10 MG TAB PO SCH (20:55)
[2017-06-04] MEDS: Fenofibrate, Micronized 134 mg Cap PO SCH (20:56)
[2017-06-04] MEDS: Insulin Detemir 100 units/mL 10mL Vial SUBQ SCH (20:57)
[2017-06-05] MEDS: Cefepime 1 GM in Sodium Chloride 0.9% 50 ML IV SCH (05:49)
[2017-06-05 05:54] LABS: % BASOPHILS 0.8 % (0.0-2.0); % EOSINOPHILS 4.5 % (0.0-5.0); % LYMPHOCYTES 28.8 % (20.0-50.0); % MONOCYTES 4.5 % (2.0-10.0); % NEUTROPHILS 61.4 % (40.0-80.0); HEMATOCRIT 36.3 % (41.0-60); HEMOGLOBIN 12.4 gm/dL (12-16); MEAN CELL VOLUME 89.7 fl (81-100); MEAN CORPUSCULAR HEMOGLOBIN 30.7 pg (27.0-31.0); MEAN CORPUSCULAR HGB CONC 34.2 pg (28.0-36.0); NEUTROPHILE ABSOLUTE 3.8 Th/cmm (1.8-8.0); RED BLOOD COUNT 4.04 Mil/cmm (3.80-5.20); RED CELL DISTRIBUTION WIDTH 13.2 % (11.5-20.0); WHITE BLOOD COUNT 6.2 Th/cmm (4.8-10.8)
[2017-06-05 06:09] LABS: PLATELET COUNT 109 Th/cmm (150-400)
[2017-06-05 06:23] LABS: ANION GAP 9.6 (7.0-16.0); CALCIUM SERUM 9.3 mg/dL (8.6-10.3); CREATININE - SERUM 1.7 mg/dL (0.6-1.2); POTASSIUM SERUM 3.6 mEq/L (3.5-5.1)
[2017-06-05] MEDS: Levothyroxine 0.1 Mg Tab PO SCH (06:32)
[2017-06-05] MEDS: INSULIN ASPART SLIDING SCALE 100 UNITS/ML UNIT SUBQ SCH ×4 (06:33→21:50)
--- NOTE | 2017-06-05 08:24 | General Progress Note ---
Subjective - Review of Systems Service Date: 06/05/17 Subjective: Awake, alert, afebrile. s/p wound debridement pod#1. Patient doing well today. passing gas. denies abd pain, no bm. on stool softeners. Objective - Results Result Diagrams: 06/05/17 05:45 06/05/17 05:45 Recent Labs: Laboratory Last Values WBC 6.2 Th/cmm (4.8-10.8) 06/05/17 05:45 RBC 4.04 Mil/cmm (3.80-5.20) 06/05/17 05:45 Hgb 12.4 gm/dL (12-16) 06/05/17 05:45 Hct 36.3 % (41.0-60) L 06/05/17 05:45 MCV 89.7 fl (81-100) 06/05/17 05:45 MCH 30.7 pg (27.0-31.0) 06/05/17 05:45 MCHC Differential 34.2 pg (28.0-36.0) 06/05/17 05:45 RDW 13.2 % (11.5-20.0) 06/05/17 05:45 Plt Count 109 Th/cmm (150-400) L D 06/05/17 05:45 MPV 8.0 fl 06/05/17 05:45 Neutrophils % 61.4 % (40.0-80.0) 06/05/17 05:45 Lymphocytes % 28.8 % (20.0-50.0) 06/05/17 05:45 Monocytes % 4.5 % (2.0-10.0) 06/05/17 05:45 Eosinophils % 4.5 % (0.0-5.0) 06/05/17 05:45 Basophils % 0.8 % (0.0-2.0) 06/05/17 05:45 PT 12.7 SECONDS (9.5-11.5) H 06/02/17 13:20 INR 1.21 (0.5-1.4) 06/02/17 13:20 PTT (Actin FS) 26.5 SECONDS (26.0-38.0) 06/02/17 13:20 Sodium 135 mEq/L (136-145) L 06/05/17 05:45 Potassium 3.6 mEq/L (3.5-5.1) 06/05/17 05:45 Chloride 104 mEq/L (98-107) 06/05/17 05:45 Carbon Dioxide 25.0 mEq/L (21.0-31.0) 06/05/17 05:45 Anion Gap 9.6 (7.0-16.0) 06/05/17 05:45 BUN 34 mg/dL (7-25) H 06/05/17 05:45 Creatinine 1.7 mg/dL (0.6-1.2) H 06/05/17 05:45 Est GFR ( Amer) 38.7 ml/min (>90) 06/05/17 05:45 Est GFR (Non-Af Amer) 32.0 ml/min 06/05/17 05:45 BUN/Creatinine Ratio 20.0 06/05/17 05:45 Glucose 137 mg/dL (70-105) H 06/05/17 05:45 POC Glucose 150 MG/DL (70 - 105) H 06/05/17 05:48 Hemoglobin A1c % 8.4 % (4.0-6.0) H 06/02/17 13:20 Whole Bld Lactic Acid 1.14 mmol/L (0.60-1.99) 06/02/17 13:20 Calcium 9.3 mg/dL (8.6-10.3) 06/05/17 05:45 Phosphorus 3.0 mg/dL (2.5-5.0) 06/03/17 05:25 Magnesium 1.9 mg/dL (1.9-2.7) 06/03/17 05:25 Total Bilirubin 0.6 mg/dL (0.3-1.0) 06/04/17 05:35 AST 25 U/L (13-39) 06/04/17 05:35 ALT 14 U/L (7-52) 06/04/17 05:35 Alkaline Phosphatase 30 U/L (34-104) L 06/04/17 05:35 Creatine Kinase 118 U/L (30-223) 06/02/17 13:20 Total Protein 7.2 gm/dL (6.0-8.3) 06/04/17 05:35 Albumin 3.7 gm/dL (3.7-5.3) 06/04/17 05:35 Globulin 3.5 gm/dL 06/04/17 05:35 Albumin/Globulin Ratio 1.1 (1.0-1.8) 06/04/17 05:35 Triglycerides 258 mg/dL (<150) H 06/03/17 05:25 Cholesterol 144 mg/dL (<200) 06/03/17 05:25 LDL Cholesterol Direct 77 mg/dL (75-193) 06/03/17 05:25 HDL Cholesterol 27 mg/dL (23-92) 06/03/17 05:25 TSH 1.37 uIU/ml (0.34-5.60) 06/03/17 05:25 Urine Source MIDSTREAM 06/02/17 14:00 Urine Color YELLOW 06/02/17 14:00 Urine Clarity CLEAR (CLEAR) 06/02/17 14:00 Urine pH 7.0 (4.6 - 8.0) 06/02/17 14:00 Ur Specific Avery 1.015 (1.005-1.030) 06/02/17 14:00 Urine Protein TRACE mg/dL (NEGATIVE) 06/02/17 14:00 Urine Glucose (UA) >=1000 mg/dL (NEGATIVE) H 06/02/17 14:00 Urine Ketones NEGATIVE mg/dL (NEGATIVE) 06/02/17 14:00 Urine Blood NEGATIVE (NEGATIVE) 06/02/17 14:00 Urine Nitrate NEGATIVE (NEGATIVE) 06/02/17 14:00 Urine Bilirubin NEGATIVE (NEGATIVE) 06/02/17 14:00 Urine Urobilinogen 0.2 E.U./dL (0.2 - 1.0) 06/02/17 14:00 Ur Leukocyte Esterase NEGATIVE (NEGATIVE) 06/02/17 14:00 Urine RBC NONE SEEN /hpf (0-5) 06/02/17 14:00 Urine WBC NONE SEEN /hpf (0-5) 06/02/17 14:00 Ur Epithelial Cells NONE SEEN /lpf (FEW) 06/02/17 14:00 Urine Bacteria NONE SEEN /hpf (NONE SEEN) 06/02/17 14:00 Vancomycin Trough 21.4 ug/mL (10-20) H 06/04/17 05:35 Random Vancomycin 13.2 ug/mL (5.0-40.0) 06/05/17 05:45 - Physical Exam Vitals and I&O: Vital Signs Temp 96.9 F 06/05/17 04:00 Pulse 75 06/05/17 04:00 Resp 20 06/05/17 04:00 BP 104/64 06/05/17 04:00 Pulse Ox 96 06/05/17 04:00 Intake & Output 06/04/17 06/05/17 06/05/17 18:59 06:59 18:59 Intake Total 150 340 Output Total 0 Balance 150 340 Weight (lbs) 94.829 kg Intake: Intake, IV Amount 150 100 Cefepime 1 gm In Sodium 50 100 Chloride 0.9% 50 ml @ 100 mls/hr IV Q8HR [facility] Rx#: [id number] KCL 20mEq/100mL Premix 20 100 meq In 100 ml @ 50 mls/ hr IV Q2H [facility] Rx#: [id number] Oral 240 Output: Drainage 0 Sacrum 0 Other: # Voids 2 Stool Characteristics Soft Active Medications: Current Medications Acetaminophen/Hydrocodone Bitart (Orbisonia 10 Mg/325 Mg) 1 tab PO Q6H PRN PRN Reason: Pain (Severe) Stop: 08/01/17 16:50 Last Admin: 06/03/17 11:56 Dose: 1 tab Al Hydrox/Mg Hydrox/Simethicone (Maalox) 30 ml PO Q6HR PRN PRN Reason: GI DISTRESS Stop: 08/01/17 16:50 Allopurinol (Zyloprim) 300 mg PO DAILY [facility] Stop: 08/02/17 08:59 Last Admin: 06/04/17 10:00 Dose: Not Given Ascorbic Acid (Vitamin C) 500 mg PO BID [facility] Stop: 08/01/17 16:59 Last Admin: 06/04/17 16:47 Dose: 500 mg Atorvastatin Calcium (Lipitor) 40 mg PO HS [facility] Stop: 08/01/17 20:59 Last Admin: 06/04/17 20:55 Dose: 40 mg Calcium/Vitamin D (Oscal W/Vitamin D) 1 tab PO DAILY [facility] Stop: 08/02/17 08:59 Last Admin: 06/04/17 10:01 Dose: Not Given Chlorthalidone (Hygroton) 25 mg PO DAILY [facility] Stop: 08/02/17 08:59 Last Admin: 06/04/17 10:01 Dose: Not Given Dextromethorphan/Quinidine (Nuedexta 20mg-10mg) 1 cap PO Q12HR [facility] Stop: 08/01/17 20:59 Last Admin: 06/04/17 20:56 Dose: 1 cap Docusate Sodium (Colace) 250 mg PO DAILY [facility] Stop: 08/02/17 08:59 Last Admin: 06/04/17 10:01 Dose: Not Given Fenofibrate (Tricor) 145 mg PO HS [facility] Stop: 08/01/17 20:59 Last Admin: 06/04/17 20:56 Dose: 145 mg Fish Oil (Maria Stein 3) 1,000 mg PO DAILY [facility] Stop: 08/02/17 08:59 Last Admin: 06/04/17 10:02 Dose: Not Given Gabapentin (Neurontin) 300 mg PO TID [facility] Stop: 08/01/17 20:59 Last Admin: 06/04/17 20:58 Dose: 300 mg Glipizide (Glucotrol) 10 mg PO BID [facility] Stop: 08/01/17 16:59 Last Admin: 06/04/17 16:47 Dose: 10 mg Cefepime HCl 1 gm/ Sodium (Chloride) 50 mls @ 100 mls/hr IV Q8HR [facility] Stop: 08/02/17 20:59 Last Infusion: 06/05/17 06:19 Dose: Infused Insulin Aspart (Novolog Insulin Sliding Scale) 0 units SUBQ ACHS [facility] PRN Reason: Protocol Stop: 08/01/17 20:59 Last Admin: 06/05/17 06:33 Dose: Not Given Insulin Detemir (Levemir Insulin) 20 units SUBQ HS [facility] Stop: 08/01/17 20:59 Last Admin: 06/04/17 20:57 Dose: 20 units Lactobacillus Rhamnosus (Culturelle) 1 each PO DAILY [facility] Stop: 08/04/17 08:59 Lactulose (Cephulac) 10 gm PO HS [facility] Stop: 08/01/17 20:59 Last Admin: 06/04/17 20:55 Dose: 10 gm Levothyroxine Sodium (Synthroid) 0.1 mg PO QDAC [facility] Stop: 08/02/17 07:29 Last Admin: 06/05/17 06:32 Dose: 0.1 mg Lorazepam (Ativan) 0.5 mg PO Q6HR PRN; Protocol PRN Reason: Anxiety Stop: 08/01/17 16:50 Magnesium Hydroxide (Milk Of Magnesia) 30 ml PO DAILY PRN PRN Reason: Constipation Stop: 08/01/17 16:50 Miscellaneous (V[employer] Prophylaxis Screen/ Admission) 1 ea PRN PRN PRN Reason: PROTOCOL Stop: 08/01/17 16:48 Miscellaneous (Ketorolac Tromethamine/Pf [Acuvail 0.45% Ophth Solution]) 1 drop RIGHT EYE QID [facility] Stop: 08/01/17 16:59 Miscellaneous (Solifenacin Succinate [Vesicare]) 5 mg PO BID [facility] Stop: 08/01/17 16:59 Miscellaneous (Probiotic Screen) 1 ea PRN PRN PRN Reason: PROTOCOL Stop: 08/03/17 11:44 Potassium Chloride (Potassium Chloride Elixir) 10 meq PO DAILY [facility] Stop: 08/02/17 08:59 Last Admin: 06/04/17 10:02 Dose: Not Given Rifaximin (Xifaxan) 550 mg PO Q12H [facility] Stop: 08/01/17 16:59 Last Admin: 06/05/17 05:51 Dose: 550 mg Sertraline HCl (Zoloft) 150 mg PO QPM 1700 [facility] Stop: 08/01/17 16:59 Last Admin: 06/04/17 16:47 Dose: 150 mg Sertraline HCl (Zoloft) 200 mg PO DAILY [facility] Stop: 08/02/17 08:59 Last Admin: 06/04/17 10:00 Dose: Not Given Trazodone HCl (Desyrel) 50 mg PO HS PRN; Protocol PRN Reason: Insomnia Stop: 08/01/17 16:50 Last Admin: 06/04/17 20:55 Dose: 50 mg Vitamin B Complex/Vitamin C (Vitamin B Complex W/C) 1 tab PO DAILY [facility] Stop: 08/02/17 08:59 Last Admin: 06/04/17 10:00 Dose: Not Given Zinc Sulfate (Zinc Sulfate) 220 mg PO DAILY [facility] Stop: 08/02/17 08:59 Last Admin: 06/04/17 10:02 Dose: Not Given General: Alert, Oriented x3, No acute distress HEENT: Atraumatic, PERRLA Neck: Supple Cardiovascular: Regular rate, Normal S1, Normal S2 Lungs: Clear to auscultation Abdomen: Bowel sounds, Soft Extremities: Clubbing, Cyanosis, Edema Skin: Significant lesion (presence of non-healing ulcer noted. ) - Procedures Procedures: Procedures Procedure Code Date CANDACE BONE 20 SQ CM/< 76351 06/02/17 DRAINAGE OF LEFT BREAST, PERCUTANEOUS APPROACH [id number] 05/09/16 EXCISION OF SACRUM, OPEN APPROACH [id number] 06/02/17 INCISION OF BREAST LESION 83961 05/09/16 Assessment/Plan - Problem List Patient Problems: All Active Problems Cirrhosis of liver (Active) K74.60 Diabetes mellitus (Active) E11.9 Hepatic encephalopathy (Active) K72.90 The administrative codes within the [employer] content you are accessing may have as of 05/10/2016. Please contact your IT Dept/Help Desk and request the latest Regulatory release be installed. IT Dept/Help Desk- Please refer to our FAQ page ([email or web address] or contact [employer] Customer Support at [email or web address] (Acute) hyponatremia dilutional (Acute) - Assessment Assessment: stage 4 sacral decubitus ulcer hypokalemia sepsis UTI Diabetes Hyperlipidemia Depression/Anxiety/PBA Overactive bladder CHF/HTN COPD CKD Anemia hypothyroidism - Plan Plan: ID consult wound consult general surgical consult dietary consult IV Vancomycin per pharmacy 40meq K rider ... repeat BMP,Mg,Phosphorus continue home medication Nutritional Asmnt/Malnutr-PDOC - Dietary Evaluation Malnutrition Findings (Please click <Entered> for more info): Nutritional Asmnt/Malnutrition Start: 06/03/17 09: 18 Text: Status: Complete Freq: Document 06/03/17 09:18 [email or web address] (Rec: 06/03/17 09:34 [email or web address]) Nutritional Asmnt/Malnutrition Patient General Information Nutritional Screening Consult Diagnosis non healing sacral decubititus Pertinent Medical Hx/Surgical Hx HLD, depression, anxiety, CHF, DM2, HTN, COPD, CKD, anemia, hypothyroidism Subjective Information Pt laying in bed. Reports good appetite. Is from care facility, states she does not follow diet, eats what is offered to her. Does not want DM diet education, states she already knows it. Pt drinks Prostat at facility, which she does not like, but knows is important for wound healing. Does not like eggs and does not eat a lot of meat. Discussed importance of glycemic control and protein intake to wound healing. Pt does not want Boost, but will try arginaid. States was trying to lose weight and was losing a few pounds a month, but wt loss has recently stalled. Unable to state normal weight. Pt has bottom dentures, was to have them refitted, but never got them back. States does not need modified texture diet. [facility] Diet [facility]/ [facility] / S.O Indicated Pertinent Medications vit c, calcium + vit D, fish oil, insulin, lactulose, synthroid, MOM, KCl, vit B complex with vit c, zinc sulfate Pertinent Labs (06/03) K: 3.0, BUN: 36/cr: 1. 8- monitor renal function, POC : 134-172, hgba1c: 8.4- pt declinded diet ed Nutritional Hx/Data Height 1.47 m Height (Calculated Centimeters) 147.3 Current Weight (lbs) 79.832 kg Weight (Calculated Kilograms) 79.8 Weight (Calculated Grams) 13302.3 [place] Body Weight 95 lbs % [place] Body Weight 185 Weight Status Morbidly Obese GI Symptoms GI Symptoms None Food Allergies No Usual diet at home regular Skin Integrity/Comment: decubitus to sacrum- awaiting wound consult, no stage noted yet Current %PO Good (75-100%) Estimated Nutritional Goals BEE in Kcals: Adj wt of IBW Calories/Kcals/Kg 30-35 (wound healing, may need to adjust when stage known) Kcals Calculated 6537-6934 kcals Protein: Adj wt of IBW Protein g/k.2-1.5 (wound healing, may need to adjust when stage known) Protein Calculated 62-78 Fluid: ml 1560 mL (30 ml/kg) Nutritional Problem 2. Problem Problem altered nutrition related lab values Etiology endocrine dysfunction, renal dysfunction, food/nutrition related knowledge deficit Signs/Symptoms: K: 3.0, BUN: 36, Cr: 1.8, hgba1c: 8.4 1. Problem Problem Increased nutrient needs Etiology wound healing Signs/Symptoms: non healing wound to sacrum Malnutrition Alert Protein-Calorie Malnutrition N/A Is there a minimum of two criteria No selected? Query Text:Check all the applicable criteria. A minimum of two criteria are recommended for diagnosis of either severe or non-severe malnutrition. Malnutrition Related to Morbid Obesity Malnutrition related to morbid obesity No Intervention/Recommendation Recommendations by RD Protein supplementation Comments 1. Continue CCHO 45 gm diet for optimal glycemic managment 2. Add arginaid BID for wound healing Expected Outcomes/Goals Expected Outcomes/Goals 1. PO intake >75% 2. Gradual wt loss of 1-2 lbs/ month towards IBW 3. Improved skin integrity 4. Pt to have glycemic control
[2017-06-05] MEDS: Multivitamin w/ Minerals Tab PO SCH (09:21)
[2017-06-05] MEDS: Fish Oil 1,000 MG SGL PO SCH (09:21)
[2017-06-05] MEDS: Lactobacillus Rhamnosus 10 Billion CFU Capsule PO SCH (09:21)
[2017-06-05] MEDS: Dextromethorphan/Quinidine 20mg/10mg Cap PO SCH ×2 (09:22→21:32)
[2017-06-05] MEDS: Calcium Carb/Vit D 500 mg/200 U Tab PO SCH (09:23)
[2017-06-05] MEDS: Potassium Chloride Elixir 20 mEq /15 mL UDC PO SCH (09:32)
[2017-06-05] MEDS: Potassium Chloride 20 mEq ER Tab PO SCH (10:31)
[2017-06-05] MEDS: Ascorbic Acid/Vit B Complex Tab PO SCH (10:32)
--- NOTE | 2017-06-05 11:44 | Infectious Disease Prog Note ---
Infectious Disease Subjective - Review of Systems Service Date: 06/05/17 Subjective: Closure of the sacral wound performed. Infectious Disease Objective - Results Result Diagrams: 06/05/17 05:45 06/05/17 05:45 Recent Labs: Laboratory Last Values WBC 6.2 Th/cmm (4.8-10.8) 06/05/17 05:45 RBC 4.04 Mil/cmm (3.80-5.20) 06/05/17 05:45 Hgb 12.4 gm/dL (12-16) 06/05/17 05:45 Hct 36.3 % (41.0-60) L 06/05/17 05:45 MCV 89.7 fl (81-100) 06/05/17 05:45 MCH 30.7 pg (27.0-31.0) 06/05/17 05:45 MCHC Differential 34.2 pg (28.0-36.0) 06/05/17 05:45 RDW 13.2 % (11.5-20.0) 06/05/17 05:45 Plt Count 109 Th/cmm (150-400) L D 06/05/17 05:45 MPV 8.0 fl 06/05/17 05:45 Neutrophils % 61.4 % (40.0-80.0) 06/05/17 05:45 Lymphocytes % 28.8 % (20.0-50.0) 06/05/17 05:45 Monocytes % 4.5 % (2.0-10.0) 06/05/17 05:45 Eosinophils % 4.5 % (0.0-5.0) 06/05/17 05:45 Basophils % 0.8 % (0.0-2.0) 06/05/17 05:45 PT 12.7 SECONDS (9.5-11.5) H 06/02/17 13:20 INR 1.21 (0.5-1.4) 06/02/17 13:20 PTT (Actin FS) 26.5 SECONDS (26.0-38.0) 06/02/17 13:20 Sodium 135 mEq/L (136-145) L 06/05/17 05:45 Potassium 3.6 mEq/L (3.5-5.1) 06/05/17 05:45 Chloride 104 mEq/L (98-107) 06/05/17 05:45 Carbon Dioxide 25.0 mEq/L (21.0-31.0) 06/05/17 05:45 Anion Gap 9.6 (7.0-16.0) 06/05/17 05:45 BUN 34 mg/dL (7-25) H 06/05/17 05:45 Creatinine 1.7 mg/dL (0.6-1.2) H 06/05/17 05:45 Est GFR ( Amer) 38.7 ml/min (>90) 06/05/17 05:45 Est GFR (Non-Af Amer) 32.0 ml/min 06/05/17 05:45 BUN/Creatinine Ratio 20.0 06/05/17 05:45 Glucose 137 mg/dL (70-105) H 06/05/17 05:45 POC Glucose 150 MG/DL (70 - 105) H 06/05/17 05:48 Hemoglobin A1c % 8.4 % (4.0-6.0) H 06/02/17 13:20 Whole Bld Lactic Acid 1.14 mmol/L (0.60-1.99) 06/02/17 13:20 Calcium 9.3 mg/dL (8.6-10.3) 06/05/17 05:45 Phosphorus 3.0 mg/dL (2.5-5.0) 06/03/17 05:25 Magnesium 1.9 mg/dL (1.9-2.7) 06/03/17 05:25 Total Bilirubin 0.6 mg/dL (0.3-1.0) 06/04/17 05:35 AST 25 U/L (13-39) 06/04/17 05:35 ALT 14 U/L (7-52) 06/04/17 05:35 Alkaline Phosphatase 30 U/L (34-104) L 06/04/17 05:35 Creatine Kinase 118 U/L (30-223) 06/02/17 13:20 Total Protein 7.2 gm/dL (6.0-8.3) 06/04/17 05:35 Albumin 3.7 gm/dL (3.7-5.3) 06/04/17 05:35 Globulin 3.5 gm/dL 06/04/17 05:35 Albumin/Globulin Ratio 1.1 (1.0-1.8) 06/04/17 05:35 Triglycerides 258 mg/dL (<150) H 06/03/17 05:25 Cholesterol 144 mg/dL (<200) 06/03/17 05:25 LDL Cholesterol Direct 77 mg/dL (75-193) 06/03/17 05:25 HDL Cholesterol 27 mg/dL (23-92) 06/03/17 05:25 TSH 1.37 uIU/ml (0.34-5.60) 06/03/17 05:25 Urine Source MIDSTREAM 06/02/17 14:00 Urine Color YELLOW 06/02/17 14:00 Urine Clarity CLEAR (CLEAR) 06/02/17 14:00 Urine pH 7.0 (4.6 - 8.0) 06/02/17 14:00 Ur Specific Adin 1.015 (1.005-1.030) 06/02/17 14:00 Urine Protein TRACE mg/dL (NEGATIVE) 06/02/17 14:00 Urine Glucose (UA) >=1000 mg/dL (NEGATIVE) H 06/02/17 14:00 Urine Ketones NEGATIVE mg/dL (NEGATIVE) 06/02/17 14:00 Urine Blood NEGATIVE (NEGATIVE) 06/02/17 14:00 Urine Nitrate NEGATIVE (NEGATIVE) 06/02/17 14:00 Urine Bilirubin NEGATIVE (NEGATIVE) 06/02/17 14:00 Urine Urobilinogen 0.2 E.U./dL (0.2 - 1.0) 06/02/17 14:00 Ur Leukocyte Esterase NEGATIVE (NEGATIVE) 06/02/17 14:00 Urine RBC NONE SEEN /hpf (0-5) 06/02/17 14:00 Urine WBC NONE SEEN /hpf (0-5) 06/02/17 14:00 Ur Epithelial Cells NONE SEEN /lpf (FEW) 06/02/17 14:00 Urine Bacteria NONE SEEN /hpf (NONE SEEN) 06/02/17 14:00 Vancomycin Trough 21.4 ug/mL (10-20) H 06/04/17 05:35 Random Vancomycin 13.2 ug/mL (5.0-40.0) 06/05/17 05:45 - Physical Exam Vitals and I&O: Vital Signs Temp 97.3 F 06/05/17 08:00 Pulse 66 06/05/17 10:31 Resp 16 06/05/17 08:00 BP 119/78 06/05/17 10:31 Pulse Ox 94 06/05/17 08:00 Intake & Output 06/04/17 06/05/17 06/05/17 18:59 06:59 18:59 Intake Total 150 340 Output Total 0 Balance 150 340 Weight (lbs) 94.829 kg Intake: Intake, IV Amount 150 100 Cefepime 1 gm In Sodium 50 100 Chloride 0.9% 50 ml @ 100 mls/hr IV Q8HR [facility] Rx#: [id number] KCL 20mEq/100mL Premix 20 100 meq In 100 ml @ 50 mls/ hr IV Q2H [facility] Rx#: [id number] Oral 240 Output: Drainage 0 Sacrum 0 Other: # Voids 2 Stool Characteristics Soft Soft Active Medications: Current Medications Acetaminophen/Hydrocodone Bitart (Register 10 Mg/325 Mg) 1 tab PO Q6H PRN PRN Reason: Pain (Severe) Stop: 08/01/17 16:50 Last Admin: 06/03/17 11:56 Dose: 1 tab Al Hydrox/Mg Hydrox/Simethicone (Maalox) 30 ml PO Q6HR PRN PRN Reason: GI DISTRESS Stop: 08/01/17 16:50 Allopurinol (Zyloprim) 300 mg PO DAILY [facility] Stop: 08/02/17 08:59 Last Admin: 06/05/17 09:23 Dose: 300 mg Ascorbic Acid (Vitamin C) 500 mg PO BID [facility] Stop: 08/01/17 16:59 Last Admin: 06/05/17 09:21 Dose: 500 mg Atorvastatin Calcium (Lipitor) 40 mg PO HS [facility] Stop: 08/01/17 20:59 Last Admin: 06/04/17 20:55 Dose: 40 mg Calcium/Vitamin D (Oscal W/Vitamin D) 1 tab PO DAILY [facility] Stop: 08/02/17 08:59 Last Admin: 06/05/17 09:23 Dose: 1 tab Chlorthalidone (Hygroton) 25 mg PO DAILY [facility] Stop: 08/02/17 08:59 Last Admin: 06/05/17 10:31 Dose: 25 mg Dextromethorphan/Quinidine (Nuedexta 20mg-10mg) 1 cap PO Q12HR [facility] Stop: 08/01/17 20:59 Last Admin: 06/05/17 09:22 Dose: 1 cap Docusate Sodium (Colace) 250 mg PO DAILY [facility] Stop: 08/02/17 08:59 Last Admin: 06/05/17 09:23 Dose: 250 mg Fenofibrate (Tricor) 145 mg PO HS [facility] Stop: 08/01/17 20:59 Last Admin: 06/04/17 20:56 Dose: 145 mg Fish Oil (Spruce 3) 1,000 mg PO DAILY [facility] Stop: 08/02/17 08:59 Last Admin: 06/05/17 09:21 Dose: 1,000 mg Gabapentin (Neurontin) 300 mg PO TID [facility] Stop: 08/01/17 20:59 Last Admin: 06/05/17 09:22 Dose: 300 mg Glipizide (Glucotrol) 10 mg PO BID [facility] Stop: 08/01/17 16:59 Last Admin: 06/05/17 09:21 Dose: 10 mg Cefepime HCl 1 gm/ Sodium (Chloride) 50 mls @ 100 mls/hr IV Q8HR [facility] Stop: 08/02/17 20:59 Last Infusion: 06/05/17 06:19 Dose: Infused Insulin Aspart (Novolog Insulin Sliding Scale) 0 units SUBQ ACHS [facility] PRN Reason: Protocol Stop: 08/01/17 20:59 Last Admin: 06/05/17 06:33 Dose: Not Given Insulin Detemir (Levemir Insulin) 20 units SUBQ HS [facility] Stop: 08/01/17 20:59 Last Admin: 06/04/17 20:57 Dose: 20 units Lactobacillus Rhamnosus (Culturelle) 1 each PO DAILY [facility] Stop: 08/04/17 08:59 Last Admin: 06/05/17 09:21 Dose: 1 each Lactulose (Cephulac) 10 gm PO HS [facility] Stop: 08/01/17 20:59 Last Admin: 06/04/17 20:55 Dose: 10 gm Levothyroxine Sodium (Synthroid) 0.1 mg PO QDAC [facility] Stop: 08/02/17 07:29 Last Admin: 06/05/17 06:32 Dose: 0.1 mg Lorazepam (Ativan) 0.5 mg PO Q6HR PRN; Protocol PRN Reason: Anxiety Stop: 08/01/17 16:50 Magnesium Hydroxide (Milk Of Magnesia) 30 ml PO DAILY PRN PRN Reason: Constipation Stop: 08/01/17 16:50 Miscellaneous (Vte Chemical Prophylaxis Screen/ Admission) 1 ea PRN PRN PRN Reason: PROTOCOL Stop: 08/01/17 16:48 Miscellaneous (Ketorolac Tromethamine/Pf [Acuvail 0.45% Ophth Solution]) 1 drop RIGHT EYE QID [facility] Stop: 08/01/17 16:59 Miscellaneous (Solifenacin Succinate [Vesicare]) 5 mg PO BID [facility] Stop: 08/01/17 16:59 Miscellaneous (Probiotic Screen) 1 ea PRN PRN PRN Reason: PROTOCOL Stop: 08/03/17 11:44 Potassium Chloride (Klor-Con) 40 meq PO DAILY [facility] Stop: 08/04/17 08:59 Last Admin: 06/05/17 10:31 Dose: 40 meq Rifaximin (Xifaxan) 550 mg PO Q12H [facility] Stop: 08/01/17 16:59 Last Admin: 06/05/17 05:51 Dose: 550 mg Sertraline HCl (Zoloft) 150 mg PO QPM 1700 [facility] Stop: 08/01/17 16:59 Last Admin: 06/04/17 16:47 Dose: 150 mg Sertraline HCl (Zoloft) 200 mg PO DAILY [facility] Stop: 08/02/17 08:59 Last Admin: 06/05/17 09:22 Dose: 200 mg Trazodone HCl (Desyrel) 50 mg PO HS PRN; Protocol PRN Reason: Insomnia Stop: 08/01/17 16:50 Last Admin: 06/04/17 20:55 Dose: 50 mg Vitamin B Complex/Vitamin C (Vitamin B Complex W/C) 1 tab PO DAILY [facility] Stop: 08/02/17 08:59 Last Admin: 06/05/17 10:32 Dose: 1 tab Zinc Sulfate (Zinc Sulfate) 220 mg PO DAILY [facility] Stop: 08/02/17 08:59 Last Admin: 06/05/17 09:22 Dose: 220 mg General: no acute distress, well developed, well nourished HEENT: atraumatic, normocephalic Neck: supple, no thyromegaly Cardiovascular: S1S2, regular Lungs: clear to auscultation bilaterally, clear to percussion Abdomen: soft, no tender, no distended Extremities: no cyanosis, no clubbing, no edema Neurological: awake, alert, oriented Skin: intact, other (sacral wound closed.) - Procedures Procedures: Procedures Procedure Code Date CANDACE BONE 20 SQ CM/< 79646 06/02/17 DRAINAGE OF LEFT BREAST, PERCUTANEOUS APPROACH [id number] 05/09/16 EXCISION OF SACRUM, OPEN APPROACH [id number] 06/02/17 INCISION OF BREAST LESION 73663 05/09/16 Infectious Disease Assmt/Plan - Problem List Patient Problems: All Active Problems Cirrhosis of liver (Active) K74.60 Diabetes mellitus (Active) E11.9 Hepatic encephalopathy (Active) K72.90 The administrative codes within the [employer] content you are accessing may have as of 05/10/2016. Please contact your IT Dept/Help Desk and request the latest Regulatory release be installed. IT Dept/Help Desk- Please refer to our FAQ page ([email or web address] or contact [facility] Customer Support at [email or web address] (Acute) hyponatremia dilutional (Acute) - Assessment Assessment: 1. Sacral decubitus, non healing. Closed surgically. 2. DM2 3. HTN. 4. Depression. 5. anxiety. - Plan Plan: Continue cefepime. Wound care. DC antibiotics if ok with Dr Pascual. Nutritional Asmnt/Malnutr-PDOC - Dietary Evaluation Malnutrition Findings (Please click <Entered> for more info): Nutritional Asmnt/Malnutrition Start: 06/03/17 09: 18 Text: Status: Complete Freq: Document 06/03/17 09:18 [email or web address] (Rec: 06/03/17 09:34 [email or web address]) Nutritional Asmnt/Malnutrition Patient General Information Nutritional Screening Consult Diagnosis non healing sacral decubititus Pertinent Medical Hx/Surgical Hx HLD, depression, anxiety, CHF, DM2, HTN, COPD, CKD, anemia, hypothyroidism Subjective Information Pt laying in bed. Reports good appetite. Is from care facility, states she does not follow diet, eats what is offered to her. Does not want DM diet education, states she already knows it. Pt drinks Prostat at facility, which she does not like, but knows is important for wound healing. Does not like eggs and does not eat a lot of meat. Discussed importance of glycemic control and protein intake to wound healing. Pt does not want Boost, but will try arginaid. States was trying to lose weight and was losing a few pounds a month, but wt loss has recently stalled. Unable to state normal weight. Pt has bottom dentures, was to have them refitted, but never got them back. States does not need modified texture diet. Current Diet Order/ Nutrition Support [facility] [place] 45 gm Patient / S.O Indicated Pertinent Medications vit c, calcium + vit D, fish oil, insulin, lactulose, synthroid, MOM, KCl, vit B complex with vit c, zinc sulfate Pertinent Labs (06/03) K: 3.0, BUN: 36/cr: 1. 8- monitor renal function, POC : 134-172, hgba1c: 8.4- pt declinded diet ed Nutritional Hx/Data Height 1.47 m Height (Calculated Centimeters) 147.3 Current Weight (lbs) 79.832 kg Weight (Calculated Kilograms) 79.8 Weight (Calculated Grams) 37668.3 [place] Body Weight 95 lbs % [place] Body Weight 185 Weight Status Morbidly Obese GI Symptoms GI Symptoms None Food Allergies No Usual diet at home regular Skin Integrity/Comment: decubitus to sacrum- awaiting wound consult, no stage noted yet Current %PO Good (75-100%) Estimated Nutritional Goals BEE in Kcals: Adj wt of IBW Calories/Kcals/Kg 30-35 (wound healing, may need to adjust when stage known) Kcals Calculated [id number] kcals Protein: Adj wt of IBW Protein g/k.2-1.5 (wound healing, may need to adjust when stage known) Protein Calculated 62-78 Fluid: ml 1560 mL (30 ml/kg) Nutritional Problem 2. Problem Problem altered nutrition related lab values Etiology endocrine dysfunction, renal dysfunction, food/nutrition related knowledge deficit Signs/Symptoms: K: 3.0, BUN: 36, Cr: 1.8, hgba1c: 8.4 1. Problem Problem Increased nutrient needs Etiology wound healing Signs/Symptoms: non healing wound to sacrum Malnutrition Alert Protein-Calorie Malnutrition N/A Is there a minimum of two criteria No selected? Query Text:Check all the applicable criteria. A minimum of two criteria are recommended for diagnosis of either severe or non-severe malnutrition. Malnutrition Related to Morbid Obesity Malnutrition related to morbid obesity No Intervention/Recommendation Recommendations by RD Protein supplementation Comments 1. Continue CCHO 45 gm diet for optimal glycemic managment 2. Add arginaid BID for wound healing Expected Outcomes/Goals Expected Outcomes/Goals 1. PO intake >75% 2. Gradual wt loss of 1-2 lbs/ month towards IBW 3. Improved skin integrity 4. Pt to have glycemic control
[2017-06-05] MEDS: Hydrocodone/APAP 10 mg/325 mg Tab PO PRN ×2 (12:47→21:16)
[2017-06-05] MEDS: Fenofibrate, Micronized 134 mg Cap PO SCH (21:29)
[2017-06-05] MEDS: Atorvastatin Calcium 10 MG TAB PO SCH (21:31)
[2017-06-05] MEDS: Lactulose 10 Gm/15 mL 30mL UDC PO SCH (21:32)
[2017-06-05] MEDS: Insulin Detemir 100 units/mL 10mL Vial SUBQ SCH (22:23)
[2017-06-06] MEDS: INSULIN ASPART SLIDING SCALE 100 UNITS/ML UNIT SUBQ SCH ×4 (07:01→21:29)
[2017-06-06] MEDS: Levothyroxine 0.1 Mg Tab PO SCH (07:04)
--- NOTE | 2017-06-06 08:11 | General Progress Note ---
Subjective - Review of Systems Service Date: 06/06/17 Subjective: Awake, alert, afebrile. s/p wound debridement pod#2. Patient doing well today. passing gas. denies abd pain, no bm. on stool softeners. Objective - Results Result Diagrams: 06/05/17 05:45 06/05/17 05:45 Recent Labs: Laboratory Last Values WBC 6.2 Th/cmm (4.8-10.8) 06/05/17 05:45 RBC 4.04 Mil/cmm (3.80-5.20) 06/05/17 05:45 Hgb 12.4 gm/dL (12-16) 06/05/17 05:45 Hct 36.3 % (41.0-60) L 06/05/17 05:45 MCV 89.7 fl (81-100) 06/05/17 05:45 MCH 30.7 pg (27.0-31.0) 06/05/17 05:45 MCHC Differential 34.2 pg (28.0-36.0) 06/05/17 05:45 RDW 13.2 % (11.5-20.0) 06/05/17 05:45 Plt Count 109 Th/cmm (150-400) L D 06/05/17 05:45 MPV 8.0 fl 06/05/17 05:45 Neutrophils % 61.4 % (40.0-80.0) 06/05/17 05:45 Lymphocytes % 28.8 % (20.0-50.0) 06/05/17 05:45 Monocytes % 4.5 % (2.0-10.0) 06/05/17 05:45 Eosinophils % 4.5 % (0.0-5.0) 06/05/17 05:45 Basophils % 0.8 % (0.0-2.0) 06/05/17 05:45 PT 12.7 SECONDS (9.5-11.5) H 06/02/17 13:20 INR 1.21 (0.5-1.4) 06/02/17 13:20 PTT (Actin FS) 26.5 SECONDS (26.0-38.0) 06/02/17 13:20 Sodium 135 mEq/L (136-145) L 06/05/17 05:45 Potassium 3.6 mEq/L (3.5-5.1) 06/05/17 05:45 Chloride 104 mEq/L (98-107) 06/05/17 05:45 Carbon Dioxide 25.0 mEq/L (21.0-31.0) 06/05/17 05:45 Anion Gap 9.6 (7.0-16.0) 06/05/17 05:45 BUN 34 mg/dL (7-25) H 06/05/17 05:45 Creatinine 1.7 mg/dL (0.6-1.2) H 06/05/17 05:45 Est GFR ( Amer) 38.7 ml/min (>90) 06/05/17 05:45 Est GFR (Non-Af Amer) 32.0 ml/min 06/05/17 05:45 BUN/Creatinine Ratio 20.0 06/05/17 05:45 Glucose 137 mg/dL (70-105) H 06/05/17 05:45 POC Glucose 184 MG/DL (70 - 105) H 06/06/17 06:57 Hemoglobin A1c % 8.4 % (4.0-6.0) H 06/02/17 13:20 Whole Bld Lactic Acid 1.14 mmol/L (0.60-1.99) 06/02/17 13:20 Calcium 9.3 mg/dL (8.6-10.3) 06/05/17 05:45 Phosphorus 3.0 mg/dL (2.5-5.0) 06/03/17 05:25 Magnesium 1.9 mg/dL (1.9-2.7) 06/03/17 05:25 Total Bilirubin 0.6 mg/dL (0.3-1.0) 06/04/17 05:35 AST 25 U/L (13-39) 06/04/17 05:35 ALT 14 U/L (7-52) 06/04/17 05:35 Alkaline Phosphatase 30 U/L (34-104) L 06/04/17 05:35 Creatine Kinase 118 U/L (30-223) 06/02/17 13:20 Total Protein 7.2 gm/dL (6.0-8.3) 06/04/17 05:35 Albumin 3.7 gm/dL (3.7-5.3) 06/04/17 05:35 Globulin 3.5 gm/dL 06/04/17 05:35 Albumin/Globulin Ratio 1.1 (1.0-1.8) 06/04/17 05:35 Triglycerides 258 mg/dL (<150) H 06/03/17 05:25 Cholesterol 144 mg/dL (<200) 06/03/17 05:25 LDL Cholesterol Direct 77 mg/dL (75-193) 06/03/17 05:25 HDL Cholesterol 27 mg/dL (23-92) 06/03/17 05:25 TSH 1.37 uIU/ml (0.34-5.60) 06/03/17 05:25 Urine Source MIDSTREAM 06/02/17 14:00 Urine Color YELLOW 06/02/17 14:00 Urine Clarity CLEAR (CLEAR) 06/02/17 14:00 Urine pH 7.0 (4.6 - 8.0) 06/02/17 14:00 Ur Specific [place] 1.015 (1.005-1.030) 06/02/17 14:00 Urine Protein TRACE mg/dL (NEGATIVE) 06/02/17 14:00 Urine Glucose (UA) >=1000 mg/dL (NEGATIVE) H 06/02/17 14:00 Urine Ketones NEGATIVE mg/dL (NEGATIVE) 06/02/17 14:00 Urine Blood NEGATIVE (NEGATIVE) 06/02/17 14:00 Urine Nitrate NEGATIVE (NEGATIVE) 06/02/17 14:00 Urine Bilirubin NEGATIVE (NEGATIVE) 06/02/17 14:00 Urine Urobilinogen 0.2 E.U./dL (0.2 - 1.0) 06/02/17 14:00 Ur Leukocyte Esterase NEGATIVE (NEGATIVE) 06/02/17 14:00 Urine RBC NONE SEEN /hpf (0-5) 06/02/17 14:00 Urine WBC NONE SEEN /hpf (0-5) 06/02/17 14:00 Ur Epithelial Cells NONE SEEN /lpf (FEW) 06/02/17 14:00 Urine Bacteria NONE SEEN /hpf (NONE SEEN) 06/02/17 14:00 Vancomycin Trough 21.4 ug/mL (10-20) H 06/04/17 05:35 Random Vancomycin 13.2 ug/mL (5.0-40.0) 06/05/17 05:45 - Physical Exam Vitals and I&O: Vital Signs Temp 98 F 06/06/17 05:14 Pulse 78 06/06/17 05:14 Resp 19 06/06/17 05:14 BP 127/72 06/06/17 05:14 Pulse Ox 97 06/06/17 05:14 Intake & Output 06/05/17 06/06/17 06/06/17 18:59 06:59 18:59 Intake Total 500 200 Balance 500 200 Weight (lbs) 94.801 kg 94.801 kg Intake: Oral 500 200 Other: # Voids 4 2 # Bowel Movements 1 0 Stool Characteristics Soft Soft Active Medications: Current Medications Acetaminophen/Hydrocodone Bitart ([place] 10 Mg/325 Mg) 1 tab PO Q6H PRN PRN Reason: Pain (Severe) Stop: 08/01/17 16:50 Last Admin: 06/05/17 21:16 Dose: 1 tab Al Hydrox/Mg Hydrox/Simethicone (Maalox) 30 ml PO Q6HR PRN PRN Reason: GI DISTRESS Stop: 08/01/17 16:50 Allopurinol (Zyloprim) 300 mg PO DAILY MUSA Stop: 08/02/17 08:59 Last Admin: 06/05/17 09:23 Dose: 300 mg Ascorbic Acid (Vitamin C) 500 mg PO BID MUSA Stop: 08/01/17 16:59 Last Admin: 06/05/17 16:59 Dose: 500 mg Atorvastatin Calcium (Lipitor) 40 mg PO HS MUSA Stop: 08/01/17 20:59 Last Admin: 06/05/17 21:31 Dose: 40 mg Calcium/Vitamin D (Oscal W/Vitamin D) 1 tab PO DAILY MUSA Stop: 08/02/17 08:59 Last Admin: 06/05/17 09:23 Dose: 1 tab Chlorthalidone (Hygroton) 25 mg PO DAILY MUSA Stop: 08/02/17 08:59 Last Admin: 06/05/17 10:31 Dose: 25 mg Dextromethorphan/Quinidine (Nuedexta 20mg-10mg) 1 cap PO Q12HR MUSA Stop: 08/01/17 20:59 Last Admin: 06/05/17 21:32 Dose: 1 cap Docusate Sodium (Colace) 250 mg PO DAILY MUSA Stop: 08/02/17 08:59 Last Admin: 06/05/17 09:23 Dose: 250 mg Fenofibrate (Tricor) 145 mg PO HS MUSA Stop: 08/01/17 20:59 Last Admin: 06/05/17 21:29 Dose: 134 mg Fish Oil ([place] 3) 1,000 mg PO DAILY MUSA Stop: 08/02/17 08:59 Last Admin: 06/05/17 09:21 Dose: 1,000 mg Gabapentin (Neurontin) 300 mg PO TID MUSA Stop: 08/01/17 20:59 Last Admin: 06/05/17 21:30 Dose: 300 mg Glipizide (Glucotrol) 10 mg PO BID MUSA Stop: 08/01/17 16:59 Last Admin: 06/05/17 16:58 Dose: 10 mg Insulin Aspart (Novolog Insulin Sliding Scale) 0 units SUBQ ACHS MUSA PRN Reason: Protocol Stop: 08/01/17 20:59 Last Admin: 06/06/17 07:01 Dose: 2 units Insulin Detemir (Levemir Insulin) 20 units SUBQ HS MUSA Stop: 08/01/17 20:59 Last Admin: 06/05/17 22:23 Dose: 20 units Lactobacillus Rhamnosus (Culturelle) 1 each PO DAILY MUSA Stop: 08/04/17 08:59 Last Admin: 06/05/17 09:21 Dose: 1 each Lactulose (Cephulac) 10 gm PO HS MUSA Stop: 08/01/17 20:59 Last Admin: 06/05/17 21:32 Dose: 10 gm Levofloxacin (Levaquin) 250 mg PO Q24H MUSA Stop: 08/05/17 13:59 Levothyroxine Sodium (Synthroid) 0.1 mg PO QDAC MUSA Stop: 08/02/17 07:29 Last Admin: 06/06/17 07:04 Dose: 0.1 mg Lorazepam (Ativan) 0.5 mg PO Q6HR PRN; Protocol PRN Reason: Anxiety Stop: 08/01/17 16:50 Magnesium Hydroxide (Milk Of Magnesia) 30 ml PO DAILY PRN PRN Reason: Constipation Stop: 08/01/17 16:50 Miscellaneous (Vte [employer] Prophylaxis Screen/ Admission) 1 ea MC PRN PRN PRN Reason: PROTOCOL Stop: 08/01/17 16:48 Miscellaneous (Ketorolac Tromethamine/Pf [Acuvail 0.45% Ophth Solution]) 1 drop RIGHT EYE QID MUSA Stop: 08/01/17 16:59 Miscellaneous (Solifenacin Succinate [Vesicare]) 5 mg PO BID MUSA Stop: 08/01/17 16:59 Miscellaneous (Probiotic Screen) 1 ea PRN PRN PRN Reason: PROTOCOL Stop: 08/03/17 11:44 Miscellaneous (Clinical Monitoring) 1 ea PRN PRN PRN Reason: RENAL DOSE LEVAQUIN Stop: 08/04/17 12:08 Potassium Chloride (Klor-Con) 40 meq PO DAILY MUSA Stop: 08/04/17 08:59 Last Admin: 06/05/17 10:31 Dose: 40 meq Rifaximin (Xifaxan) 550 mg PO Q12H MUSA Stop: 08/01/17 16:59 Last Admin: 06/06/17 04:51 Dose: 550 mg Sertraline HCl (Zoloft) 150 mg PO QPM 1700 MUSA Stop: 08/01/17 16:59 Last Admin: 06/05/17 16:59 Dose: 150 mg Sertraline HCl (Zoloft) 200 mg PO DAILY MUSA Stop: 08/02/17 08:59 Last Admin: 06/05/17 09:22 Dose: 200 mg Trazodone HCl (Desyrel) 50 mg PO HS PRN; Protocol PRN Reason: Insomnia Stop: 08/01/17 16:50 Last Admin: 06/05/17 21:36 Dose: 50 mg Vitamin B Complex/Vitamin C (Vitamin B Complex W/C) 1 tab PO DAILY MUSA Stop: 08/02/17 08:59 Last Admin: 06/05/17 10:32 Dose: 1 tab Zinc Sulfate (Zinc Sulfate) 220 mg PO DAILY MUSA Stop: 08/02/17 08:59 Last Admin: 06/05/17 09:22 Dose: 220 mg General: Alert, Oriented x3, No acute distress HEENT: Atraumatic, PERRLA Neck: Supple Cardiovascular: Regular rate, Normal S1, Normal S2 Lungs: Clear to auscultation Abdomen: Bowel sounds, Soft Extremities: Clubbing, Cyanosis, Edema Skin: Significant lesion (presence of non-healing ulcer noted. ) - Procedures Procedures: Procedures Procedure Code Date CANDACE BONE 20 SQ CM/< 44229 06/02/17 DRAINAGE OF LEFT BREAST, PERCUTANEOUS APPROACH [id number] 05/09/16 EXCISION OF SACRUM, OPEN APPROACH [id number] 06/02/17 INCISION OF BREAST LESION 98546 05/09/16 Assessment/Plan - Problem List Patient Problems: All Active Problems Cirrhosis of liver (Active) K74.60 Diabetes mellitus (Active) E11.9 Hepatic encephalopathy (Active) K72.90 The administrative codes within the [email or web address] content you are accessing may have as of 05/10/2016. Please contact your IT Dept/Help Desk and request the latest Regulatory release be installed. IT Dept/Help Desk- Please refer to our FAQ page ([email or web address] or contact [email or web address] Customer Support at [email or web address] (Acute) hyponatremia dilutional (Acute) - Assessment Assessment: Cirrhosis of liver hyponatremia dilutional stage 4 sacral decubitus ulcer s/p wound debridement hypokalemia sepsis UTI Diabetes Hyperlipidemia Depression/Anxiety/PBA Overactive bladder CHF/HTN COPD CKD Anemia hypothyroidism - Plan Plan: Continue cefepime IV per ID. Wound care DC antibiotics if ok with Dr Pascual continue home medication Nutritional Asmnt/Malnutr-PDOC - Dietary Evaluation Malnutrition Findings (Please click <Entered> for more info): Nutritional Asmnt/Malnutrition Start: 06/03/17 09: 18 Text: Status: Complete Freq: Document 06/03/17 09:18 [email or web address] (Rec: 06/03/17 09:34 [email or web address]) Nutritional Asmnt/Malnutrition Patient General Information Nutritional Screening Consult Diagnosis non healing sacral decubititus Pertinent Medical Hx/Surgical Hx HLD, depression, anxiety, CHF, DM2, HTN, COPD, CKD, anemia, hypothyroidism Subjective Information Pt laying in bed. Reports good appetite. Is from care facility, states she does not follow diet, eats what is offered to her. Does not want DM diet education, states she already knows it. Pt drinks Prostat at facility, which she does not like, but knows is important for wound healing. Does not like eggs and does not eat a lot of meat. Discussed importance of glycemic control and protein intake to wound healing. Pt does not want Boost, but will try arginaid. States was trying to lose weight and was losing a few pounds a month, but wt loss has recently stalled. Unable to state normal weight. Pt has bottom dentures, was to have them refitted, but never got them back. States does not need modified texture diet. Current Diet Order/ [facility] Patient / S.O Indicated Pertinent Medications vit c, calcium + vit D, fish oil, insulin, lactulose, synthroid, MOM, KCl, vit B complex with vit c, zinc sulfate Pertinent Labs (06/03) K: 3.0, BUN: 36/cr: 1. 8- monitor renal function, POC : 134-172, hgba1c: 8.4- pt declinded diet ed Nutritional Hx/Data Height 1.47 m Height (Calculated Centimeters) 147.3 Current Weight (lbs) 79.832 kg Weight (Calculated Kilograms) 79.8 Weight (Calculated Grams) 36724.3 [place] Body Weight 95 lbs % [place] Body Weight 185 Weight Status Morbidly Obese GI Symptoms GI Symptoms None Food Allergies No Usual diet at home regular Skin Integrity/Comment: decubitus to sacrum- awaiting wound consult, no stage noted yet Current %PO Good (75-100%) Estimated Nutritional Goals BEE in Kcals: Adj wt of IBW Calories/Kcals/Kg 30-35 (wound healing, may need to adjust when stage known) Kcals Calculated 3905-6997 kcals Protein: Adj wt of IBW Protein g/k.2-1.5 (wound healing, may need to adjust when stage known) Protein Calculated 62-78 Fluid: ml 1560 mL (30 ml/kg) Nutritional Problem 2. Problem Problem altered nutrition related lab values Etiology endocrine dysfunction, renal dysfunction, food/nutrition related knowledge deficit Signs/Symptoms: K: 3.0, BUN: 36, Cr: 1.8, hgba1c: 8.4 1. Problem Problem Increased nutrient needs Etiology wound healing Signs/Symptoms: non healing wound to sacrum Malnutrition Alert Protein-Calorie Malnutrition N/A Is there a minimum of two criteria No selected? Query Text:Check all the applicable criteria. A minimum of two criteria are recommended for diagnosis of either severe or non-severe malnutrition. Malnutrition Related to Morbid Obesity Malnutrition related to morbid obesity No Intervention/Recommendation Recommendations by RD Protein supplementation Comments 1. Continue CCHO 45 gm diet for optimal glycemic managment 2. Add arginaid BID for wound healing Expected Outcomes/Goals Expected Outcomes/Goals 1. PO intake >75% 2. Gradual wt loss of 1-2 lbs/ month towards IBW 3. Improved skin integrity 4. Pt to have glycemic control
[2017-06-06] MEDS: Fish Oil 1,000 MG SGL PO SCH (10:27)
[2017-06-06] MEDS: Dextromethorphan/Quinidine 20mg/10mg Cap PO SCH ×2 (10:27→20:39)
[2017-06-06] MEDS: Calcium Carb/Vit D 500 mg/200 U Tab PO SCH (10:28)
[2017-06-06] MEDS: Lactobacillus Rhamnosus 10 Billion CFU Capsule PO SCH (10:28)
[2017-06-06] MEDS: Hydrocodone/APAP 10 mg/325 mg Tab PO PRN ×2 (10:28→20:41)
[2017-06-06] MEDS: Potassium Chloride 20 mEq ER Tab PO SCH (10:29)
[2017-06-06] MEDS: Multivitamin w/ Minerals Tab PO SCH (10:30)
[2017-06-06] MEDS: Ascorbic Acid/Vit B Complex Tab PO SCH (10:38)
[2017-06-06] MEDS: Atorvastatin Calcium 10 MG TAB PO SCH (20:38)
[2017-06-06] MEDS: Lactulose 10 Gm/15 mL 30mL UDC PO SCH (21:13)
[2017-06-06] MEDS: Insulin Detemir 100 units/mL 10mL Vial SUBQ SCH (21:30)
[2017-06-07] MEDS: Levothyroxine 0.1 Mg Tab PO SCH (07:01)
[2017-06-07] MEDS: INSULIN ASPART SLIDING SCALE 100 UNITS/ML UNIT SUBQ SCH ×4 (07:02→16:59)
[2017-06-07] MEDS: Fenofibrate, Micronized 134 mg Cap PO SCH (07:31)
--- NOTE | 2017-06-07 08:09 | General Progress Note ---
Subjective - Review of Systems Service Date: 06/07/17 Subjective: Awake, alert, afebrile. s/p wound debridement pod#2. Patient doing well today. passing gas. denies abd pain, no bm. on stool softeners. Objective - Results Result Diagrams: 06/05/17 05:45 06/05/17 05:45 Recent Labs: Laboratory Last Values WBC 6.2 Th/cmm (4.8-10.8) 06/05/17 05:45 RBC 4.04 Mil/cmm (3.80-5.20) 06/05/17 05:45 Hgb 12.4 gm/dL (12-16) 06/05/17 05:45 Hct 36.3 % (41.0-60) L 06/05/17 05:45 MCV 89.7 fl (81-100) 06/05/17 05:45 MCH 30.7 pg (27.0-31.0) 06/05/17 05:45 MCHC Differential 34.2 pg (28.0-36.0) 06/05/17 05:45 RDW 13.2 % (11.5-20.0) 06/05/17 05:45 Plt Count 109 Th/cmm (150-400) L D 06/05/17 05:45 MPV 8.0 fl 06/05/17 05:45 Neutrophils % 61.4 % (40.0-80.0) 06/05/17 05:45 Lymphocytes % 28.8 % (20.0-50.0) 06/05/17 05:45 Monocytes % 4.5 % (2.0-10.0) 06/05/17 05:45 Eosinophils % 4.5 % (0.0-5.0) 06/05/17 05:45 Basophils % 0.8 % (0.0-2.0) 06/05/17 05:45 PT 12.7 SECONDS (9.5-11.5) H 06/02/17 13:20 INR 1.21 (0.5-1.4) 06/02/17 13:20 PTT (Actin FS) 26.5 SECONDS (26.0-38.0) 06/02/17 13:20 Sodium 135 mEq/L (136-145) L 06/05/17 05:45 Potassium 3.6 mEq/L (3.5-5.1) 06/05/17 05:45 Chloride 104 mEq/L (98-107) 06/05/17 05:45 Carbon Dioxide 25.0 mEq/L (21.0-31.0) 06/05/17 05:45 Anion Gap 9.6 (7.0-16.0) 06/05/17 05:45 BUN 34 mg/dL (7-25) H 06/05/17 05:45 Creatinine 1.7 mg/dL (0.6-1.2) H 06/05/17 05:45 Est GFR ( Amer) 38.7 ml/min (>90) 06/05/17 05:45 Est GFR (Non-Af Amer) 32.0 ml/min 06/05/17 05:45 BUN/Creatinine Ratio 20.0 06/05/17 05:45 Glucose 137 mg/dL (70-105) H 06/05/17 05:45 POC Glucose 179 MG/DL (70 - 105) H 06/07/17 07:00 Hemoglobin A1c % 8.4 % (4.0-6.0) H 06/02/17 13:20 Whole Bld Lactic Acid 1.14 mmol/L (0.60-1.99) 06/02/17 13:20 Calcium 9.3 mg/dL (8.6-10.3) 06/05/17 05:45 Phosphorus 3.0 mg/dL (2.5-5.0) 06/03/17 05:25 Magnesium 1.9 mg/dL (1.9-2.7) 06/03/17 05:25 Total Bilirubin 0.6 mg/dL (0.3-1.0) 06/04/17 05:35 AST 25 U/L (13-39) 06/04/17 05:35 ALT 14 U/L (7-52) 06/04/17 05:35 Alkaline Phosphatase 30 U/L (34-104) L 06/04/17 05:35 Creatine Kinase 118 U/L (30-223) 06/02/17 13:20 Total Protein 7.2 gm/dL (6.0-8.3) 06/04/17 05:35 Albumin 3.7 gm/dL (3.7-5.3) 06/04/17 05:35 Globulin 3.5 gm/dL 06/04/17 05:35 Albumin/Globulin Ratio 1.1 (1.0-1.8) 06/04/17 05:35 Triglycerides 258 mg/dL (<150) H 06/03/17 05:25 Cholesterol 144 mg/dL (<200) 06/03/17 05:25 LDL Cholesterol Direct 77 mg/dL (75-193) 06/03/17 05:25 HDL Cholesterol 27 mg/dL (23-92) 06/03/17 05:25 TSH 1.37 uIU/ml (0.34-5.60) 06/03/17 05:25 Urine Source MIDSTREAM 06/02/17 14:00 Urine Color YELLOW 06/02/17 14:00 Urine Clarity CLEAR (CLEAR) 06/02/17 14:00 Urine pH 7.0 (4.6 - 8.0) 06/02/17 14:00 Ur Specific [employer] 1.015 (1.005-1.030) 06/02/17 14:00 Urine Protein TRACE mg/dL (NEGATIVE) 06/02/17 14:00 Urine Glucose (UA) >=1000 mg/dL (NEGATIVE) H 06/02/17 14:00 Urine Ketones NEGATIVE mg/dL (NEGATIVE) 06/02/17 14:00 Urine Blood NEGATIVE (NEGATIVE) 06/02/17 14:00 Urine Nitrate NEGATIVE (NEGATIVE) 06/02/17 14:00 Urine Bilirubin NEGATIVE (NEGATIVE) 06/02/17 14:00 Urine Urobilinogen 0.2 E.U./dL (0.2 - 1.0) 06/02/17 14:00 Ur Leukocyte Esterase NEGATIVE (NEGATIVE) 06/02/17 14:00 Urine RBC NONE SEEN /hpf (0-5) 06/02/17 14:00 Urine WBC NONE SEEN /hpf (0-5) 06/02/17 14:00 Ur Epithelial Cells NONE SEEN /lpf (FEW) 06/02/17 14:00 Urine Bacteria NONE SEEN /hpf (NONE SEEN) 06/02/17 14:00 Vancomycin Trough 21.4 ug/mL (10-20) H 06/04/17 05:35 Random Vancomycin 13.2 ug/mL (5.0-40.0) 06/05/17 05:45 - Physical Exam Vitals and I&O: Vital Signs Temp 97.2 F 06/07/17 07:51 Pulse 63 06/07/17 07:51 Resp 18 06/07/17 07:51 BP 137/67 06/07/17 07:51 Pulse Ox 99 06/07/17 07:51 Intake & Output 06/06/17 06/07/17 06/07/17 18:59 06:59 18:59 Intake Total 860 240 Output Total 0 Balance 860 240 Weight (lbs) 94.801 kg 95.708 kg Intake: Oral 860 240 Output: Drainage 0 Sacrum 0 Other: # Voids 3 # Bowel Movements 1 Stool Characteristics Soft Active Medications: Current Medications Acetaminophen/Hydrocodone Bitart ([place] 10 Mg/325 Mg) 1 tab PO Q6H PRN PRN Reason: Pain (Severe) Stop: 08/01/17 16:50 Last Admin: 06/06/17 20:41 Dose: 1 tab Al Hydrox/Mg Hydrox/Simethicone (Maalox) 30 ml PO Q6HR PRN PRN Reason: GI DISTRESS Stop: 08/01/17 16:50 Allopurinol (Zyloprim) 300 mg PO DAILY [facility] Stop: 08/02/17 08:59 Last Admin: 06/06/17 10:26 Dose: 300 mg Ascorbic Acid (Vitamin C) 500 mg PO BID [facility] Stop: 08/01/17 16:59 Last Admin: 06/06/17 17:09 Dose: 500 mg Atorvastatin Calcium (Lipitor) 40 mg PO HS [facility] Stop: 08/01/17 20:59 Last Admin: 06/06/17 20:38 Dose: 40 mg Calcium/Vitamin D (Oscal W/Vitamin D) 1 tab PO DAILY [facility] Stop: 08/02/17 08:59 Last Admin: 06/06/17 10:28 Dose: 1 tab Chlorthalidone (Hygroton) 25 mg PO DAILY [facility] Stop: 08/02/17 08:59 Last Admin: 06/06/17 10:34 Dose: 25 mg Dextromethorphan/Quinidine (Nuedexta 20mg-10mg) 1 cap PO Q12HR [facility] Stop: 08/01/17 20:59 Last Admin: 06/06/17 20:39 Dose: 1 cap Docusate Sodium (Colace) 250 mg PO DAILY [facility] Stop: 08/02/17 08:59 Last Admin: 06/06/17 10:29 Dose: 250 mg Fenofibrate (Tricor) 145 mg PO HS [facility] Stop: 08/01/17 20:59 Last Admin: 06/07/17 07:31 Dose: Not Given Fish Oil ([place] 3) 1,000 mg PO DAILY [facility] Stop: 08/02/17 08:59 Last Admin: 06/06/17 10:27 Dose: 1,000 mg Gabapentin (Neurontin) 300 mg PO TID [facility] Stop: 08/01/17 20:59 Last Admin: 06/06/17 20:39 Dose: 300 mg Glipizide (Glucotrol) 10 mg PO BID [facility] Stop: 08/01/17 16:59 Last Admin: 06/06/17 17:09 Dose: 10 mg Insulin Aspart (Novolog Insulin Sliding Scale) 0 units SUBQ ACHS [facility] PRN Reason: Protocol Stop: 08/01/17 20:59 Last Admin: 06/07/17 07:02 Dose: 2 units Insulin Detemir (Levemir Insulin) 20 units SUBQ HS [facility] Stop: 08/01/17 20:59 Last Admin: 06/06/17 21:30 Dose: 20 units Lactobacillus Rhamnosus (Culturelle) 1 each PO DAILY [facility] Stop: 08/04/17 08:59 Last Admin: 06/06/17 10:28 Dose: 1 each Lactulose (Cephulac) 10 gm PO HS [facility] Stop: 08/01/17 20:59 Last Admin: 06/06/17 21:13 Dose: 10 gm Levofloxacin (Levaquin) 250 mg PO Q24H [facility] Stop: 08/05/17 13:59 Last Admin: 06/06/17 13:50 Dose: 250 mg Levothyroxine Sodium (Synthroid) 0.1 mg PO QDAC [facility] Stop: 08/02/17 07:29 Last Admin: 06/07/17 07:01 Dose: 0.1 mg Lorazepam (Ativan) 0.5 mg PO Q6HR PRN; Protocol PRN Reason: Anxiety Stop: 08/01/17 16:50 Magnesium Hydroxide (Milk Of Magnesia) 30 ml PO DAILY PRN PRN Reason: Constipation Stop: 08/01/17 16:50 Miscellaneous ([employer] Prophylaxis Screen/ Admission) 1 ea [facility] PRN PRN PRN Reason: PROTOCOL Stop: 08/01/17 16:48 Miscellaneous (Ketorolac Tromethamine/Pf [Acuvail 0.45% Ophth Solution]) 1 drop RIGHT EYE QID [facility] Stop: 08/01/17 16:59 Miscellaneous (Solifenacin Succinate [Vesicare]) 5 mg PO BID [facility] Stop: 08/01/17 16:59 Miscellaneous (Probiotic Screen) 1 [facility] PRN PRN PRN Reason: PROTOCOL Stop: 08/03/17 11:44 Miscellaneous (Clinical Monitoring) 1 [facility] PRN PRN PRN Reason: RENAL DOSE LEVAQUIN Stop: 08/04/17 12:08 Potassium Chloride (Klor-Con) 40 meq PO DAILY [facility] Stop: 08/04/17 08:59 Last Admin: 06/06/17 10:29 Dose: 40 meq Rifaximin (Xifaxan) 550 mg PO Q12H [facility] Stop: 08/01/17 16:59 Last Admin: 06/07/17 04:53 Dose: 550 mg Sertraline HCl (Zoloft) 150 mg PO QPM 1700 [facility] Stop: 08/01/17 16:59 Last Admin: 06/06/17 17:09 Dose: 150 mg Sertraline HCl (Zoloft) 200 mg PO DAILY [facility] Stop: 08/02/17 08:59 Last Admin: 06/06/17 10:37 Dose: 200 mg Trazodone HCl (Desyrel) 50 mg PO HS PRN; Protocol PRN Reason: Insomnia Stop: 08/01/17 16:50 Last Admin: 06/06/17 21:14 Dose: 50 mg Vitamin B Complex/Vitamin C (Vitamin B Complex W/C) 1 tab PO DAILY [facility] Stop: 08/02/17 08:59 Last Admin: 06/06/17 10:38 Dose: 1 tab Zinc Sulfate (Zinc Sulfate) 220 mg PO DAILY [facility] Stop: 08/02/17 08:59 Last Admin: 06/06/17 10:29 Dose: 220 mg General: Alert, Oriented x3, No acute distress HEENT: Atraumatic, PERRLA Neck: Supple Cardiovascular: Regular rate, Normal S1, Normal S2 Lungs: Clear to auscultation Abdomen: Bowel sounds, Soft Extremities: Clubbing, Cyanosis, Edema Skin: Significant lesion (presence of non-healing ulcer noted. ) - Procedures Procedures: Procedures Procedure Code Date CANDACE BONE 20 SQ CM/< 17831 06/02/17 DRAINAGE OF LEFT BREAST, PERCUTANEOUS APPROACH [id number] 05/09/16 EXCISION OF SACRUM, OPEN APPROACH [id number] 06/02/17 INCISION OF BREAST LESION 83387 05/09/16 Assessment/Plan - Problem List Patient Problems: All Active Problems Cirrhosis of liver (Active) K74.60 Diabetes mellitus (Active) E11.9 Hepatic encephalopathy (Active) K72.90 The administrative codes within the [employer] content you are accessing may have as of 05/10/2016. Please contact your IT Dept/Help Desk and request the latest Regulatory release be installed. IT Dept/Help Desk- Please refer to our FAQ page ([email or web address]) or contact [employer] Customer Support at [email or web address] (Acute) hyponatremia dilutional (Acute) - Assessment Assessment: Cirrhosis of liver hyponatremia dilutional stage 4 sacral decubitus ulcer s/p wound debridement hypokalemia sepsis UTI Diabetes Hyperlipidemia Depression/Anxiety/PBA Overactive bladder CHF/HTN COPD CKD Anemia hypothyroidism - Plan Plan: Continue cefepime IV per ID. Wound care DC antibiotics if ok with Atil discharge planning Nutritional Asmnt/Malnutr-PDOC - Dietary Evaluation Malnutrition Findings (Please click <Entered> for more info): Nutritional Asmnt/Malnutrition Start: 06/03/17 09: 18 Text: Status: Complete Freq: Document 06/03/17 09:18 [email or web address] (Rec: 06/03/17 09:34 [email or web address]) Nutritional Asmnt/Malnutrition Patient General Information Nutritional Screening Consult Diagnosis non healing sacral decubititus Pertinent Medical Hx/Surgical Hx HLD, depression, anxiety, CHF, DM2, HTN, COPD, CKD, anemia, hypothyroidism Subjective Information Pt laying in bed. Reports good appetite. Is from care facility, states she does not follow diet, eats what is offered to her. Does not want DM diet education, states she already knows it. Pt drinks Prostat at facility, which she does not like, but knows is important for wound healing. Does not like eggs and does not eat a lot of meat. Discussed importance of glycemic control and protein intake to wound healing. Pt does not want Boost, but will try arginaid. States was trying to lose weight and was losing a few pounds a month, but wt loss has recently stalled. Unable to state normal weight. Pt has bottom dentures, was to have them refitted, but never got them back. States does not need modified texture diet. Current Diet Order/ Nutrition Support CCHO 45 gm Patient / S.O Indicated Pertinent Medications vit c, calcium + vit D, fish oil, insulin, lactulose, synthroid, MOM, KCl, vit B complex with vit c, zinc sulfate Pertinent Labs (06/03) K: 3.0, BUN: 36/cr: 1. 8- monitor renal function, POC : 134-172, hgba1c: 8.4- pt declinded diet ed Nutritional Hx/Data Height 1.47 m Height (Calculated Centimeters) 147.3 Current Weight (lbs) 79.832 kg Weight (Calculated Kilograms) 79.8 Weight (Calculated Grams) 83323.3 [place] Body Weight 95 lbs % [place] Body Weight 185 Weight Status Morbidly Obese GI Symptoms GI Symptoms None Food Allergies No Usual diet at home regular Skin Integrity/Comment: decubitus to sacrum- awaiting wound consult, no stage noted yet Current %PO Good (75-100%) Estimated Nutritional Goals BEE in Kcals: Adj wt of IBW Calories/Kcals/Kg 30-35 (wound healing, may need to adjust when stage known) Kcals Calculated 2062-6200 kcals Protein: Adj wt of IBW Protein g/k.2-1.5 (wound healing, may need to adjust when stage known) Protein Calculated 62-78 Fluid: ml 1560 mL (30 ml/kg) Nutritional Problem 2. Problem Problem altered nutrition related lab values Etiology endocrine dysfunction, renal dysfunction, food/nutrition related knowledge deficit Signs/Symptoms: K: 3.0, BUN: 36, Cr: 1.8, hgba1c: 8.4 1. Problem Problem Increased nutrient needs Etiology wound healing Signs/Symptoms: non healing wound to sacrum Malnutrition Alert Protein-Calorie Malnutrition N/A Is there a minimum of two criteria No selected? Query Text:Check all the applicable criteria. A minimum of two criteria are recommended for diagnosis of either severe or non-severe malnutrition. Malnutrition Related to Morbid Obesity Malnutrition related to morbid obesity No Intervention/Recommendation Recommendations by RD Protein supplementation Comments 1. Continue CCHO 45 gm diet for optimal glycemic managment 2. Add arginaid BID for wound healing Expected Outcomes/Goals Expected Outcomes/Goals 1. PO intake >75% 2. Gradual wt loss of 1-2 lbs/ month towards IBW 3. Improved skin integrity 4. Pt to have glycemic control
[2017-06-07] MEDS: Hydrocodone/APAP 10 mg/325 mg Tab PO PRN ×2 (08:48→16:43)
[2017-06-07] MEDS: Dextromethorphan/Quinidine 20mg/10mg Cap PO SCH ×2 (08:48→21:34)
[2017-06-07] MEDS: Calcium Carb/Vit D 500 mg/200 U Tab PO SCH (08:49)
[2017-06-07] MEDS: Fish Oil 1,000 MG SGL PO SCH (08:49)
[2017-06-07] MEDS: Multivitamin w/ Minerals Tab PO SCH (08:51)
[2017-06-07] MEDS: Lactobacillus Rhamnosus 10 Billion CFU Capsule PO SCH (08:51)
[2017-06-07] MEDS: Potassium Chloride 20 mEq ER Tab PO SCH (08:51)
[2017-06-07] MEDS: Ascorbic Acid/Vit B Complex Tab PO SCH (08:52)
[2017-06-07 09:02] LABS: % BASOPHILS 0.6 % (0.0-2.0); % EOSINOPHILS 5.1 % (0.0-5.0); % LYMPHOCYTES 33.5 % (20.0-50.0); % MONOCYTES 5.4 % (2.0-10.0); % NEUTROPHILS 55.4 % (40.0-80.0); HEMATOCRIT 36.4 % (41.0-60); HEMOGLOBIN 12.2 gm/dL (12-16); MEAN CELL VOLUME 90.9 fl (81-100); MEAN CORPUSCULAR HEMOGLOBIN 30.5 pg (27.0-31.0); MEAN CORPUSCULAR HGB CONC 33.6 pg (28.0-36.0); MEAN PLATELET VOLUME 8.2 fl; NEUTROPHILE ABSOLUTE 2.8 Th/cmm (1.8-8.0); PLATELET COUNT 98 Th/cmm (150-400); RED CELL DISTRIBUTION WIDTH 12.8 % (11.5-20.0); WHITE BLOOD COUNT 5.1 Th/cmm (4.8-10.8)
[2017-06-07 09:05] LABS: BILIRUBIN,TOTAL 0.6 mg/dL (0.3-1.0); BUN/CREATININE RATIO 17.9; CALCIUM SERUM 9.5 mg/dL (8.6-10.3); CARBON DIOXIDE 26.9 mEq/L (21.0-31.0); CREATININE - SERUM 1.9 mg/dL (0.6-1.2); POTASSIUM SERUM 3.9 mEq/L (3.5-5.1)
--- NOTE | 2017-06-07 09:32 | General Progress Note ---
Subjective - Review of Systems Service Date: 06/07/17 Events since last encounter: wound vac in place no new complaint continue vac post DC Objective - Results Result Diagrams: 06/05/17 05:45 06/07/17 08:30 Recent Labs: Laboratory Last Values WBC 6.2 Th/cmm (4.8-10.8) 06/05/17 05:45 RBC 4.04 Mil/cmm (3.80-5.20) 06/05/17 05:45 Hgb 12.4 gm/dL (12-16) 06/05/17 05:45 Hct 36.3 % (41.0-60) L 06/05/17 05:45 MCV 89.7 fl (81-100) 06/05/17 05:45 MCH 30.7 pg (27.0-31.0) 06/05/17 05:45 MCHC Differential 34.2 pg (28.0-36.0) 06/05/17 05:45 RDW 13.2 % (11.5-20.0) 06/05/17 05:45 Plt Count 109 Th/cmm (150-400) L D 06/05/17 05:45 MPV 8.0 fl 06/05/17 05:45 Neutrophils % 61.4 % (40.0-80.0) 06/05/17 05:45 Lymphocytes % 28.8 % (20.0-50.0) 06/05/17 05:45 Monocytes % 4.5 % (2.0-10.0) 06/05/17 05:45 Eosinophils % 4.5 % (0.0-5.0) 06/05/17 05:45 Basophils % 0.8 % (0.0-2.0) 06/05/17 05:45 PT 12.7 SECONDS (9.5-11.5) H 06/02/17 13:20 INR 1.21 (0.5-1.4) 06/02/17 13:20 PTT (Actin FS) 26.5 SECONDS (26.0-38.0) 06/02/17 13:20 Sodium 136 mEq/L (136-145) 06/07/17 08:30 Potassium 3.9 mEq/L (3.5-5.1) 06/07/17 08:30 Chloride 103 mEq/L (98-107) 06/07/17 08:30 Carbon Dioxide 26.9 mEq/L (21.0-31.0) 06/07/17 08:30 Anion Gap 10.0 (7.0-16.0) 06/07/17 08:30 BUN 34 mg/dL (7-25) H 06/07/17 08:30 Creatinine 1.9 mg/dL (0.6-1.2) H 06/07/17 08:30 Est GFR ( Amer) 34.0 ml/min (>90) 06/07/17 08:30 Est GFR (Non-Af Amer) 28.1 ml/min 06/07/17 08:30 BUN/Creatinine Ratio 17.9 06/07/17 08:30 Glucose 188 mg/dL (70-105) H 06/07/17 08:30 POC Glucose 179 MG/DL (70 - 105) H 06/07/17 07:00 Hemoglobin A1c % 8.4 % (4.0-6.0) H 06/02/17 13:20 Whole Bld Lactic Acid 1.14 mmol/L (0.60-1.99) 06/02/17 13:20 Calcium 9.5 mg/dL (8.6-10.3) 06/07/17 08:30 Phosphorus 3.0 mg/dL (2.5-5.0) 06/03/17 05:25 Magnesium 1.9 mg/dL (1.9-2.7) 06/03/17 05:25 Total Bilirubin 0.6 mg/dL (0.3-1.0) 06/07/17 08:30 AST 29 U/L (13-39) 06/07/17 08:30 ALT 14 U/L (7-52) 06/07/17 08:30 Alkaline Phosphatase 32 U/L (34-104) L 06/07/17 08:30 Creatine Kinase 118 U/L (30-223) 06/02/17 13:20 Total Protein 7.3 gm/dL (6.0-8.3) 06/07/17 08:30 Albumin 3.7 gm/dL (3.7-5.3) 06/07/17 08:30 Globulin 3.6 gm/dL 06/07/17 08:30 Albumin/Globulin Ratio 1.0 (1.0-1.8) 06/07/17 08:30 Triglycerides 258 mg/dL (<150) H 06/03/17 05:25 Cholesterol 144 mg/dL (<200) 06/03/17 05:25 LDL Cholesterol Direct 77 mg/dL (75-193) 06/03/17 05:25 HDL Cholesterol 27 mg/dL (23-92) 06/03/17 05:25 TSH 1.37 uIU/ml (0.34-5.60) 06/03/17 05:25 Urine Source MIDSTREAM 06/02/17 14:00 Urine Color YELLOW 06/02/17 14:00 Urine Clarity CLEAR (CLEAR) 06/02/17 14:00 Urine pH 7.0 (4.6 - 8.0) 06/02/17 14:00 Ur Specific [place] 1.015 (1.005-1.030) 06/02/17 14:00 Urine Protein TRACE mg/dL (NEGATIVE) 06/02/17 14:00 Urine Glucose (UA) >=1000 mg/dL (NEGATIVE) H 06/02/17 14:00 Urine Ketones NEGATIVE mg/dL (NEGATIVE) 06/02/17 14:00 Urine Blood NEGATIVE (NEGATIVE) 06/02/17 14:00 Urine Nitrate NEGATIVE (NEGATIVE) 06/02/17 14:00 Urine Bilirubin NEGATIVE (NEGATIVE) 06/02/17 14:00 Urine Urobilinogen 0.2 E.U./dL (0.2 - 1.0) 06/02/17 14:00 Ur Leukocyte Esterase NEGATIVE (NEGATIVE) 06/02/17 14:00 Urine RBC NONE SEEN /hpf (0-5) 06/02/17 14:00 Urine WBC NONE SEEN /hpf (0-5) 06/02/17 14:00 Ur Epithelial Cells NONE SEEN /lpf (FEW) 06/02/17 14:00 Urine Bacteria NONE SEEN /hpf (NONE SEEN) 06/02/17 14:00 Vancomycin Trough 21.4 ug/mL (10-20) H 06/04/17 05:35 Random Vancomycin 13.2 ug/mL (5.0-40.0) 06/05/17 05:45 - Physical Exam Vitals and I&O: Vital Signs Temp 97.2 F 06/07/17 07:51 Pulse 63 06/07/17 08:53 Resp 18 06/07/17 07:51 BP 137/67 06/07/17 08:53 Pulse Ox 99 06/07/17 07:51 Intake & Output 06/06/17 06/07/17 06/07/17 18:59 06:59 18:59 Intake Total 860 240 Output Total 0 Balance 860 240 Weight (lbs) 94.801 kg 95.708 kg Intake: Oral 860 240 Output: Drainage 0 Sacrum 0 Other: # Voids 3 # Bowel Movements 1 Stool Characteristics Soft Active Medications: Current Medications Acetaminophen/Hydrocodone Bitart ([place] 10 Mg/325 Mg) 1 tab PO Q6H PRN PRN Reason: Pain (Severe) Stop: 08/01/17 16:50 Last Admin: 06/07/17 08:48 Dose: 1 tab Al Hydrox/Mg Hydrox/Simethicone (Maalox) 30 ml PO Q6HR PRN PRN Reason: GI DISTRESS Stop: 08/01/17 16:50 Allopurinol (Zyloprim) 300 mg PO DAILY MUSA Stop: 08/02/17 08:59 Last Admin: 06/07/17 08:49 Dose: 300 mg Ascorbic Acid (Vitamin C) 500 mg PO BID MUSA Stop: 08/01/17 16:59 Last Admin: 06/07/17 08:49 Dose: 500 mg Atorvastatin Calcium (Lipitor) 40 mg PO HS MUSA Stop: 08/01/17 20:59 Last Admin: 06/06/17 20:38 Dose: 40 mg Calcium/Vitamin D (Oscal W/Vitamin D) 1 tab PO DAILY MUSA Stop: 08/02/17 08:59 Last Admin: 06/07/17 08:49 Dose: 1 tab Chlorthalidone (Hygroton) 25 mg PO DAILY MUSA Stop: 08/02/17 08:59 Last Admin: 06/07/17 08:53 Dose: 25 mg Dextromethorphan/Quinidine (Nuedexta 20mg-10mg) 1 cap PO Q12HR MUSA Stop: 08/01/17 20:59 Last Admin: 06/07/17 08:48 Dose: 1 cap Docusate Sodium (Colace) 250 mg PO DAILY MUSA Stop: 08/02/17 08:59 Last Admin: 06/07/17 08:48 Dose: 250 mg Fenofibrate (Tricor) 145 mg PO HS MUSA Stop: 08/01/17 20:59 Last Admin: 06/07/17 07:31 Dose: Not Given Fish Oil ([place] 3) 1,000 mg PO DAILY MUSA Stop: 08/02/17 08:59 Last Admin: 06/07/17 08:49 Dose: 1,000 mg Gabapentin (Neurontin) 300 mg PO TID MUSA Stop: 08/01/17 20:59 Last Admin: 06/07/17 08:51 Dose: 300 mg Glipizide (Glucotrol) 10 mg PO BID MUSA Stop: 08/01/17 16:59 Last Admin: 06/07/17 08:49 Dose: 10 mg Insulin Aspart (Novolog Insulin Sliding Scale) 0 units SUBQ ACHS MUSA PRN Reason: Protocol Stop: 08/01/17 20:59 Last Admin: 06/07/17 07:02 Dose: 2 units Insulin Detemir (Levemir Insulin) 20 units SUBQ HS MUSA Stop: 08/01/17 20:59 Last Admin: 06/06/17 21:30 Dose: 20 units Lactobacillus Rhamnosus (Culturelle) 1 each PO DAILY MUSA Stop: 08/04/17 08:59 Last Admin: 06/07/17 08:51 Dose: 1 each Lactulose (Cephulac) 10 gm PO HS MUSA Stop: 08/01/17 20:59 Last Admin: 06/06/17 21:13 Dose: 10 gm Levofloxacin (Levaquin) 250 mg PO Q24H MUSA Stop: 08/05/17 13:59 Last Admin: 06/06/17 13:50 Dose: 250 mg Levothyroxine Sodium (Synthroid) 0.1 mg PO QDAC MUSA Stop: 08/02/17 07:29 Last Admin: 06/07/17 07:01 Dose: 0.1 mg Lorazepam (Ativan) 0.5 mg PO Q6HR PRN; Protocol PRN Reason: Anxiety Stop: 08/01/17 16:50 Magnesium Hydroxide (Milk Of Magnesia) 30 ml PO DAILY PRN PRN Reason: Constipation Stop: 08/01/17 16:50 Miscellaneous (Vte Chemical Prophylaxis Screen/ Admission) 1 ea PRN PRN PRN Reason: PROTOCOL Stop: 08/01/17 16:48 Miscellaneous (Ketorolac Tromethamine/Pf [Acuvail 0.45% Ophth Solution]) 1 drop RIGHT EYE QID MUSA Stop: 08/01/17 16:59 Miscellaneous (Solifenacin Succinate [Vesicare]) 5 mg PO BID MUSA Stop: 08/01/17 16:59 Miscellaneous (Probiotic Screen) 1 ea PRN PRN PRN Reason: PROTOCOL Stop: 08/03/17 11:44 Miscellaneous (Clinical Monitoring) 1 ea PRN PRN PRN Reason: RENAL DOSE LEVAQUIN Stop: 08/04/17 12:08 Potassium Chloride (Klor-Con) 40 meq PO DAILY MUSA Stop: 08/04/17 08:59 Last Admin: 06/07/17 08:51 Dose: 40 meq Rifaximin (Xifaxan) 550 mg PO Q12H MUSA Stop: 08/01/17 16:59 Last Admin: 06/07/17 04:53 Dose: 550 mg Sertraline HCl (Zoloft) 150 mg PO QPM 1700 MUSA Stop: 08/01/17 16:59 Last Admin: 06/07/17 08:50 Dose: 150 mg Sertraline HCl (Zoloft) 200 mg PO DAILY MUSA Stop: 08/02/17 08:59 Last Admin: 06/07/17 08:52 Dose: 200 mg Trazodone HCl (Desyrel) 50 mg PO HS PRN; Protocol PRN Reason: Insomnia Stop: 08/01/17 16:50 Last Admin: 06/06/17 21:14 Dose: 50 mg Vitamin B Complex/Vitamin C (Vitamin B Complex W/C) 1 tab PO DAILY MUSA Stop: 08/02/17 08:59 Last Admin: 06/07/17 08:52 Dose: 1 tab Zinc Sulfate (Zinc Sulfate) 220 mg PO DAILY MUSA Stop: 08/02/17 08:59 Last Admin: 06/07/17 08:49 Dose: 220 mg General: Alert, Oriented x3, No acute distress HEENT: Atraumatic, PERRLA Neck: Supple Cardiovascular: Regular rate, Normal S1, Normal S2 Lungs: Clear to auscultation Abdomen: Bowel sounds, Soft Extremities: Clubbing, Cyanosis, Edema Skin: Significant lesion (presence of non-healing ulcer noted. ) - Procedures Procedures: Procedures Procedure Code Date CANDACE BONE 20 SQ CM/< 93349 06/02/17 DRAINAGE OF LEFT BREAST, PERCUTANEOUS APPROACH [id number] 05/09/16 EXCISION OF SACRUM, OPEN APPROACH [id number] 06/02/17 INCISION OF BREAST LESION 03104 05/09/16 Assessment/Plan - Problem List Patient Problems: All Active Problems Cirrhosis of liver (Active) K74.60 Diabetes mellitus (Active) E11.9 Hepatic encephalopathy (Active) K72.90 The administrative codes within the [employer] content you are accessing may have as of 05/10/2016. Please contact your IT Dept/Help Desk and request the latest Regulatory release be installed. IT Dept/Help Desk- Please refer to our FAQ page ([email or web address]) or contact [employer] Customer Support at [email or web address] (Acute) hyponatremia dilutional (Acute) Nutritional Asmnt/Malnutr-PDOC - Dietary Evaluation Malnutrition Findings (Please click <Entered> for more info): Nutritional Asmnt/Malnutrition Start: 06/03/17 09: 18 Text: Status: Complete Freq: Document 06/03/17 09:18 [email or web address] (Rec: 06/03/17 09:34 [email or web address]) Nutritional Asmnt/Malnutrition Patient General Information Nutritional Screening Consult Diagnosis non healing sacral decubititus Pertinent Medical Hx/Surgical Hx HLD, depression, anxiety, CHF, DM2, HTN, COPD, CKD, anemia, hypothyroidism Subjective Information Pt laying in bed. Reports good appetite. Is from care facility, states she does not follow diet, eats what is offered to her. Does not want DM diet education, states she already knows it. Pt drinks Prostat at facility, which she does not like, but knows is important for wound healing. Does not like eggs and does not eat a lot of meat. Discussed importance of glycemic control and protein intake to wound healing. Pt does not want Boost, but will try arginaid. States was trying to lose weight and was losing a few pounds a month, but wt loss has recently stalled. Unable to state normal weight. Pt has bottom dentures, was to have them refitted, but never got them back. States does not need modified texture diet. Current Diet Order/ Nutrition Support [facility] 45 gm Patient / S.O Indicated Pertinent Medications vit c, calcium + vit D, fish oil, insulin, lactulose, synthroid, MOM, KCl, vit B complex with vit c, zinc sulfate Pertinent Labs (06/03) K: 3.0, BUN: 36/cr: 1. 8- monitor renal function, POC : 134-172, hgba1c: 8.4- pt declinded diet ed Nutritional Hx/Data Height 1.47 m Height (Calculated Centimeters) 147.3 Current Weight (lbs) 79.832 kg Weight (Calculated Kilograms) 79.8 Weight (Calculated Grams) 97033.3 [place] Body Weight 95 lbs % [place] Body Weight 185 Weight Status Morbidly Obese GI Symptoms GI Symptoms None Food Allergies No Usual diet at home regular Skin Integrity/Comment: decubitus to sacrum- awaiting wound consult, no stage noted yet Current %PO Good (75-100%) Estimated Nutritional Goals BEE in Kcals: Adj wt of IBW Calories/Kcals/Kg 30-35 (wound healing, may need to adjust when stage known) Kcals Calculated [id number] kcals Protein: Adj wt of IBW Protein g/k.2-1.5 (wound healing, may need to adjust when stage known) Protein Calculated 62-78 Fluid: ml 1560 mL (30 ml/kg) Nutritional Problem 2. Problem Problem altered nutrition related lab values Etiology endocrine dysfunction, renal dysfunction, food/nutrition related knowledge deficit Signs/Symptoms: K: 3.0, BUN: 36, Cr: 1.8, hgba1c: 8.4 1. Problem Problem Increased nutrient needs Etiology wound healing Signs/Symptoms: non healing wound to sacrum Malnutrition Alert Protein-Calorie Malnutrition N/A Is there a minimum of two criteria No selected? Query Text:Check all the applicable criteria. A minimum of two criteria are recommended for diagnosis of either severe or non-severe malnutrition. Malnutrition Related to Morbid Obesity Malnutrition related to morbid obesity No Intervention/Recommendation Recommendations by RD Protein supplementation Comments 1. Continue CCHO 45 gm diet for optimal glycemic managment 2. Add arginaid BID for wound healing Expected Outcomes/Goals Expected Outcomes/Goals 1. PO intake >75% 2. Gradual wt loss of 1-2 lbs/ month towards IBW 3. Improved skin integrity 4. Pt to have glycemic control
[2017-06-07] MEDS ORDERED: Fenofibrate, Micronized 134 mg Cap PO SCH (10:19)
--- NOTE | 2017-06-07 16:10 | Infectious Disease Prog Note ---
Infectious Disease Subjective - Review of Systems Service Date: 06/07/17 Subjective: Closure of the sacral wound performed. Infectious Disease Objective - Results Result Diagrams: 06/07/17 08:30 06/07/17 08:30 Recent Labs: Laboratory Last Values WBC 5.1 Th/cmm (4.8-10.8) 06/07/17 08:30 RBC 4.00 Mil/cmm (3.80-5.20) 06/07/17 08:30 Hgb 12.2 gm/dL (12-16) 06/07/17 08:30 Hct 36.4 % (41.0-60) L 06/07/17 08:30 MCV 90.9 fl (81-100) 06/07/17 08:30 MCH 30.5 pg (27.0-31.0) 06/07/17 08:30 MCHC Differential 33.6 pg (28.0-36.0) 06/07/17 08:30 RDW 12.8 % (11.5-20.0) 06/07/17 08:30 Plt Count 98 Th/cmm (150-400) L 06/07/17 08:30 MPV 8.2 fl 06/07/17 08:30 Neutrophils % 55.4 % (40.0-80.0) 06/07/17 08:30 Lymphocytes % 33.5 % (20.0-50.0) 06/07/17 08:30 Monocytes % 5.4 % (2.0-10.0) 06/07/17 08:30 Eosinophils % 5.1 % (0.0-5.0) H 06/07/17 08:30 Basophils % 0.6 % (0.0-2.0) 06/07/17 08:30 PT 12.7 SECONDS (9.5-11.5) H 06/02/17 13:20 INR 1.21 (0.5-1.4) 06/02/17 13:20 PTT (Actin FS) 26.5 SECONDS (26.0-38.0) 06/02/17 13:20 Sodium 136 mEq/L (136-145) 06/07/17 08:30 Potassium 3.9 mEq/L (3.5-5.1) 06/07/17 08:30 Chloride 103 mEq/L (98-107) 06/07/17 08:30 Carbon Dioxide 26.9 mEq/L (21.0-31.0) 06/07/17 08:30 Anion Gap 10.0 (7.0-16.0) 06/07/17 08:30 BUN 34 mg/dL (7-25) H 06/07/17 08:30 Creatinine 1.9 mg/dL (0.6-1.2) H 06/07/17 08:30 Est GFR ( Amer) 34.0 ml/min (>90) 06/07/17 08:30 Est GFR (Non-Af Amer) 28.1 ml/min 06/07/17 08:30 BUN/Creatinine Ratio 17.9 06/07/17 08:30 Glucose 188 mg/dL (70-105) H 06/07/17 08:30 POC Glucose 287 MG/DL (70 - 105) H 06/07/17 11:11 Hemoglobin A1c % 8.4 % (4.0-6.0) H 06/02/17 13:20 Whole Bld Lactic Acid 1.14 mmol/L (0.60-1.99) 06/02/17 13:20 Calcium 9.5 mg/dL (8.6-10.3) 06/07/17 08:30 Phosphorus 3.0 mg/dL (2.5-5.0) 06/03/17 05:25 Magnesium 1.9 mg/dL (1.9-2.7) 06/03/17 05:25 Total Bilirubin 0.6 mg/dL (0.3-1.0) 06/07/17 08:30 AST 29 U/L (13-39) 06/07/17 08:30 ALT 14 U/L (7-52) 06/07/17 08:30 Alkaline Phosphatase 32 U/L (34-104) L 06/07/17 08:30 Creatine Kinase 118 U/L (30-223) 06/02/17 13:20 Total Protein 7.3 gm/dL (6.0-8.3) 06/07/17 08:30 Albumin 3.7 gm/dL (3.7-5.3) 06/07/17 08:30 Globulin 3.6 gm/dL 06/07/17 08:30 Albumin/Globulin Ratio 1.0 (1.0-1.8) 06/07/17 08:30 Triglycerides 258 mg/dL (<150) H 06/03/17 05:25 Cholesterol 144 mg/dL (<200) 06/03/17 05:25 LDL Cholesterol Direct 77 mg/dL (75-193) 06/03/17 05:25 HDL Cholesterol 27 mg/dL (23-92) 06/03/17 05:25 TSH 1.37 uIU/ml (0.34-5.60) 06/03/17 05:25 Urine Source MIDSTREAM 06/02/17 14:00 Urine Color YELLOW 06/02/17 14:00 Urine Clarity CLEAR (CLEAR) 06/02/17 14:00 Urine pH 7.0 (4.6 - 8.0) 06/02/17 14:00 Ur Specific [place] 1.015 (1.005-1.030) 06/02/17 14:00 Urine Protein TRACE mg/dL (NEGATIVE) 06/02/17 14:00 Urine Glucose (UA) >=1000 mg/dL (NEGATIVE) H 06/02/17 14:00 Urine Ketones NEGATIVE mg/dL (NEGATIVE) 06/02/17 14:00 Urine Blood NEGATIVE (NEGATIVE) 06/02/17 14:00 Urine Nitrate NEGATIVE (NEGATIVE) 06/02/17 14:00 Urine Bilirubin NEGATIVE (NEGATIVE) 06/02/17 14:00 Urine Urobilinogen 0.2 E.U./dL (0.2 - 1.0) 06/02/17 14:00 Ur Leukocyte Esterase NEGATIVE (NEGATIVE) 06/02/17 14:00 Urine RBC NONE SEEN /hpf (0-5) 06/02/17 14:00 Urine WBC NONE SEEN /hpf (0-5) 06/02/17 14:00 Ur Epithelial Cells NONE SEEN /lpf (FEW) 06/02/17 14:00 Urine Bacteria NONE SEEN /hpf (NONE SEEN) 06/02/17 14:00 Vancomycin Trough 21.4 ug/mL (10-20) H 06/04/17 05:35 Random Vancomycin 13.2 ug/mL (5.0-40.0) 06/05/17 05:45 - Physical Exam Vitals and I&O: Vital Signs Temp 97.3 F 06/07/17 12:14 Pulse 65 06/07/17 12:14 Resp 18 06/07/17 12:14 BP 131/71 06/07/17 12:14 Pulse Ox 98 06/07/17 12:14 Intake & Output 06/06/17 06/07/17 06/07/17 18:59 06:59 18:59 Intake Total 860 240 Output Total 0 Balance 860 240 Weight (lbs) 94.801 kg 95.708 kg Intake: Oral 860 240 Output: Drainage 0 Sacrum 0 Other: # Voids 3 # Bowel Movements 1 Stool Characteristics Soft Soft Active Medications: Current Medications Acetaminophen/Hydrocodone Bitart ([place] 10 Mg/325 Mg) 1 tab PO Q6H PRN PRN Reason: Pain (Severe) Stop: 08/01/17 16:50 Last Admin: 06/07/17 08:48 Dose: 1 tab Al Hydrox/Mg Hydrox/Simethicone (Maalox) 30 ml PO Q6HR PRN PRN Reason: GI DISTRESS Stop: 08/01/17 16:50 Allopurinol (Zyloprim) 300 mg PO DAILY MUSA Stop: 08/02/17 08:59 Last Admin: 06/07/17 08:49 Dose: 300 mg Ascorbic Acid (Vitamin C) 500 mg PO BID MUSA Stop: 08/01/17 16:59 Last Admin: 06/07/17 08:49 Dose: 500 mg Atorvastatin Calcium (Lipitor) 40 mg PO HS MUSA Stop: 08/01/17 20:59 Last Admin: 06/06/17 20:38 Dose: 40 mg Calcium/Vitamin D (Oscal W/Vitamin D) 1 tab PO DAILY MUSA Stop: 08/02/17 08:59 Last Admin: 06/07/17 08:49 Dose: 1 tab Chlorthalidone (Hygroton) 25 mg PO DAILY MUSA Stop: 08/02/17 08:59 Last Admin: 06/07/17 08:53 Dose: 25 mg Dextromethorphan/Quinidine (Nuedexta 20mg-10mg) 1 cap PO Q12HR MUSA Stop: 08/01/17 20:59 Last Admin: 06/07/17 08:48 Dose: 1 cap Docusate Sodium (Colace) 250 mg PO DAILY MUSA Stop: 08/02/17 08:59 Last Admin: 06/07/17 08:48 Dose: 250 mg Fenofibrate (Tricor) 134 mg PO HS MUSA Stop: 08/01/17 20:59 Fish Oil ([place] 3) 1,000 mg PO DAILY MUSA Stop: 08/02/17 08:59 Last Admin: 06/07/17 08:49 Dose: 1,000 mg Gabapentin (Neurontin) 300 mg PO TID MUSA Stop: 08/01/17 20:59 Last Admin: 06/07/17 13:27 Dose: 300 mg Glipizide (Glucotrol) 10 mg PO BID MUSA Stop: 08/01/17 16:59 Last Admin: 06/07/17 08:49 Dose: 10 mg Insulin Aspart (Novolog Insulin Sliding Scale) 0 units SUBQ ACHS MUSA PRN Reason: Protocol Stop: 08/01/17 20:59 Last Admin: 06/07/17 12:11 Dose: 6 units Insulin Detemir (Levemir Insulin) 20 units SUBQ HS [facility] Stop: 08/01/17 20:59 Last Admin: 06/06/17 21:30 Dose: 20 units Lactobacillus Rhamnosus (Culturelle) 1 each PO DAILY MUSA Stop: 08/04/17 08:59 Last Admin: 06/07/17 08:51 Dose: 1 each Lactulose (Cephulac) 10 gm PO HS MUSA Stop: 08/01/17 20:59 Last Admin: 06/06/17 21:13 Dose: 10 gm Levofloxacin (Levaquin) 250 mg PO Q24H [facility] Stop: 08/05/17 13:59 Last Admin: 06/07/17 13:27 Dose: 250 mg Levothyroxine Sodium (Synthroid) 0.1 mg PO QDAC [facility] Stop: 08/02/17 07:29 Last Admin: 06/07/17 07:01 Dose: 0.1 mg Lorazepam (Ativan) 0.5 mg PO Q6HR PRN; Protocol PRN Reason: Anxiety Stop: 08/01/17 16:50 Magnesium Hydroxide (Milk Of Magnesia) 30 ml PO DAILY PRN PRN Reason: Constipation Stop: 08/01/17 16:50 Miscellaneous (Vte Chemical Prophylaxis Screen/ Admission) 1 ea MC PRN PRN PRN Reason: PROTOCOL Stop: 08/01/17 16:48 Miscellaneous (Ketorolac Tromethamine/Pf [Acuvail 0.45% Ophth Solution]) 1 drop RIGHT EYE QID [facility] Stop: 08/01/17 16:59 Miscellaneous (Solifenacin Succinate [Vesicare]) 5 mg PO BID MUSA Stop: 08/01/17 16:59 Miscellaneous (Probiotic Screen) 1 ea PRN PRN PRN Reason: PROTOCOL Stop: 08/03/17 11:44 Miscellaneous (Clinical Monitoring) 1 ea PRN PRN PRN Reason: RENAL DOSE LEVAQUIN Stop: 08/04/17 12:08 Potassium Chloride (Klor-Con) 40 meq PO DAILY MUSA Stop: 08/04/17 08:59 Last Admin: 06/07/17 08:51 Dose: 40 meq Rifaximin (Xifaxan) 550 mg PO Q12H [facility]USA Stop: 08/01/17 16:59 Last Admin: 06/07/17 04:53 Dose: 550 mg Sertraline HCl (Zoloft) 150 mg PO QPM 1700 [facility]USA Stop: 08/01/17 16:59 Last Admin: 06/07/17 08:50 Dose: 150 mg Sertraline HCl (Zoloft) 200 mg PO DAILY MUSA Stop: 08/02/17 08:59 Last Admin: 06/07/17 08:52 Dose: 200 mg Trazodone HCl (Desyrel) 50 mg PO HS PRN; Protocol PRN Reason: Insomnia Stop: 08/01/17 16:50 Last Admin: 06/06/17 21:14 Dose: 50 mg Vitamin B Complex/Vitamin C (Vitamin B Complex W/C) 1 tab PO DAILY MUSA Stop: 08/02/17 08:59 Last Admin: 06/07/17 08:52 Dose: 1 tab Zinc Sulfate (Zinc Sulfate) 220 mg PO DAILY MUSA Stop: 08/02/17 08:59 Last Admin: 06/07/17 08:49 Dose: 220 mg General: no acute distress, well developed, well nourished HEENT: atraumatic, normocephalic Neck: supple, no thyromegaly Cardiovascular: S1S2, regular Lungs: clear to auscultation bilaterally, clear to percussion Abdomen: soft, no tender, no distended Extremities: no cyanosis, no clubbing Neurological: awake, alert, oriented Skin: intact - Procedures Procedures: Procedures Procedure Code Date CANDACE BONE 20 SQ CM/< 09078 06/02/17 DRAINAGE OF LEFT BREAST, PERCUTANEOUS APPROACH [id number] 05/09/16 EXCISION OF SACRUM, OPEN APPROACH [id number] 06/02/17 INCISION OF BREAST LESION 13459 05/09/16 Infectious Disease Assmt/Plan - Problem List Patient Problems: All Active Problems Cirrhosis of liver (Active) K74.60 Diabetes mellitus (Active) E11.9 Hepatic encephalopathy (Active) K72.90 The administrative codes within the [employer] content you are accessing may have as of 05/10/2016. Please contact your IT Dept/Help Desk and request the latest Regulatory release be installed. IT Dept/Help Desk- Please refer to our FAQ page ([email or web address] or contact [employer] Customer Support at [email or web address] (Acute) hyponatremia dilutional (Acute) - Assessment Assessment: 1. Sacral decubitus, non healing. Closed surgically. 2. DM2 3. HTN. 4. Depression. 5. anxiety. - Plan Plan: Continue cefepime. Wound care. woll change antibiotics to levaquin po for 5 days more. Nutritional Asmnt/Malnutr-PDOC - Dietary Evaluation Malnutrition Findings (Please click <Entered> for more info): Nutritional Asmnt/Malnutrition Start: 06/03/17 09: 18 Text: Status: Complete Freq: Document 06/03/17 09:18 [email or web address] (Rec: 06/03/17 09:34 [email or web address]) Nutritional Asmnt/Malnutrition Patient General Information Nutritional Screening Consult Diagnosis non healing sacral decubititus Pertinent Medical Hx/Surgical Hx HLD, depression, anxiety, CHF, DM2, HTN, COPD, CKD, anemia, hypothyroidism Subjective Information Pt laying in bed. Reports good appetite. Is from care facility, states she does not follow diet, eats what is offered to her. Does not want DM diet education, states she already knows it. Pt drinks Prostat at facility, which she does not like, but knows is important for wound healing. Does not like eggs and does not eat a lot of meat. Discussed importance of glycemic control and protein intake to wound healing. Pt does not want Boost, but will try arginaid. States was trying to lose weight and was losing a few pounds a month, but wt loss has recently stalled. Unable to state normal weight. Pt has bottom dentures, was to have them refitted, but never got them back. States does not need modified texture diet. Current Diet Order/ Nutrition Support CCHO 45 gm Patient / S.O Indicated Pertinent Medications vit c, calcium + vit D, fish oil, insulin, lactulose, synthroid, MOM, KCl, vit B complex with vit c, zinc sulfate Pertinent Labs (06/03) K: 3.0, BUN: 36/cr: 1. 8- monitor renal function, POC : 134-172, hgba1c: 8.4- pt declinded diet ed Nutritional Hx/Data Height 1.47 m Height (Calculated Centimeters) 147.3 Current Weight (lbs) 79.832 kg Weight (Calculated Kilograms) 79.8 Weight (Calculated Grams) 84565.3 [place] Body Weight 95 lbs % [place] Body Weight 185 Weight Status Morbidly Obese GI Symptoms GI Symptoms None Food Allergies No Usual diet at home regular Skin Integrity/Comment: decubitus to sacrum- awaiting wound consult, no stage noted yet Current %PO Good (75-100%) Estimated Nutritional Goals BEE in Kcals: Adj wt of IBW Calories/Kcals/Kg 30-35 (wound healing, may need to adjust when stage known) Kcals Calculated [id number] kcals Protein: Adj wt of IBW Protein g/k.2-1.5 (wound healing, may need to adjust when stage known) Protein Calculated 62-78 Fluid: ml 1560 mL (30 ml/kg) Nutritional Problem 2. Problem Problem altered nutrition related lab values Etiology endocrine dysfunction, renal dysfunction, food/nutrition related knowledge deficit Signs/Symptoms: K: 3.0, BUN: 36, Cr: 1.8, hgba1c: 8.4 1. Problem Problem Increased nutrient needs Etiology wound healing Signs/Symptoms: non healing wound to sacrum Malnutrition Alert Protein-Calorie Malnutrition N/A Is there a minimum of two criteria No selected? Query Text:Check all the applicable criteria. A minimum of two criteria are recommended for diagnosis of either severe or non-severe malnutrition. Malnutrition Related to Morbid Obesity Malnutrition related to morbid obesity No Intervention/Recommendation Recommendations by RD Protein supplementation Comments 1. Continue CCHO 45 gm diet for optimal glycemic managment 2. Add arginaid BID for wound healing Expected Outcomes/Goals Expected Outcomes/Goals 1. PO intake >75% 2. Gradual wt loss of 1-2 lbs/ month towards IBW 3. Improved skin integrity 4. Pt to have glycemic control
--- NOTE | 2017-06-07 17:21 | Infectious Disease Prog Note ---
Infectious Disease Subjective - Review of Systems Service Date: 06/07/17 Subjective: Closure of the sacral wound performed. Infectious Disease Objective - Results Result Diagrams: 06/07/17 08:30 06/07/17 08:30 Recent Labs: Laboratory Last Values WBC 5.1 Th/cmm (4.8-10.8) 06/07/17 08:30 RBC 4.00 Mil/cmm (3.80-5.20) 06/07/17 08:30 Hgb 12.2 gm/dL (12-16) 06/07/17 08:30 Hct 36.4 % (41.0-60) L 06/07/17 08:30 MCV 90.9 fl (81-100) 06/07/17 08:30 MCH 30.5 pg (27.0-31.0) 06/07/17 08:30 MCHC Differential 33.6 pg (28.0-36.0) 06/07/17 08:30 RDW 12.8 % (11.5-20.0) 06/07/17 08:30 Plt Count 98 Th/cmm (150-400) L 06/07/17 08:30 MPV 8.2 fl 06/07/17 08:30 Neutrophils % 55.4 % (40.0-80.0) 06/07/17 08:30 Lymphocytes % 33.5 % (20.0-50.0) 06/07/17 08:30 Monocytes % 5.4 % (2.0-10.0) 06/07/17 08:30 Eosinophils % 5.1 % (0.0-5.0) H 06/07/17 08:30 Basophils % 0.6 % (0.0-2.0) 06/07/17 08:30 PT 12.7 SECONDS (9.5-11.5) H 06/02/17 13:20 INR 1.21 (0.5-1.4) 06/02/17 13:20 PTT (Actin FS) 26.5 SECONDS (26.0-38.0) 06/02/17 13:20 Sodium 136 mEq/L (136-145) 06/07/17 08:30 Potassium 3.9 mEq/L (3.5-5.1) 06/07/17 08:30 Chloride 103 mEq/L (98-107) 06/07/17 08:30 Carbon Dioxide 26.9 mEq/L (21.0-31.0) 06/07/17 08:30 Anion Gap 10.0 (7.0-16.0) 06/07/17 08:30 BUN 34 mg/dL (7-25) H 06/07/17 08:30 Creatinine 1.9 mg/dL (0.6-1.2) H 06/07/17 08:30 Est GFR ( Amer) 34.0 ml/min (>90) 06/07/17 08:30 Est GFR (Non-Af Amer) 28.1 ml/min 06/07/17 08:30 BUN/Creatinine Ratio 17.9 06/07/17 08:30 Glucose 188 mg/dL (70-105) H 06/07/17 08:30 POC Glucose 339 MG/DL (70 - 105) H 06/07/17 16:40 Hemoglobin A1c % 8.4 % (4.0-6.0) H 06/02/17 13:20 Whole Bld Lactic Acid 1.14 mmol/L (0.60-1.99) 06/02/17 13:20 Calcium 9.5 mg/dL (8.6-10.3) 06/07/17 08:30 Phosphorus 3.0 mg/dL (2.5-5.0) 06/03/17 05:25 Magnesium 1.9 mg/dL (1.9-2.7) 06/03/17 05:25 Total Bilirubin 0.6 mg/dL (0.3-1.0) 06/07/17 08:30 AST 29 U/L (13-39) 06/07/17 08:30 ALT 14 U/L (7-52) 06/07/17 08:30 Alkaline Phosphatase 32 U/L (34-104) L 06/07/17 08:30 Creatine Kinase 118 U/L (30-223) 06/02/17 13:20 Total Protein 7.3 gm/dL (6.0-8.3) 06/07/17 08:30 Albumin 3.7 gm/dL (3.7-5.3) 06/07/17 08:30 Globulin 3.6 gm/dL 06/07/17 08:30 Albumin/Globulin Ratio 1.0 (1.0-1.8) 06/07/17 08:30 Triglycerides 258 mg/dL (<150) H 06/03/17 05:25 Cholesterol 144 mg/dL (<200) 06/03/17 05:25 LDL Cholesterol Direct 77 mg/dL (75-193) 06/03/17 05:25 HDL Cholesterol 27 mg/dL (23-92) 06/03/17 05:25 TSH 1.37 uIU/ml (0.34-5.60) 06/03/17 05:25 Urine Source MIDSTREAM 06/02/17 14:00 Urine Color YELLOW 06/02/17 14:00 Urine Clarity CLEAR (CLEAR) 06/02/17 14:00 Urine pH 7.0 (4.6 - 8.0) 06/02/17 14:00 Ur Specific [place] 1.015 (1.005-1.030) 06/02/17 14:00 Urine Protein TRACE mg/dL (NEGATIVE) 06/02/17 14:00 Urine Glucose (UA) >=1000 mg/dL (NEGATIVE) H 06/02/17 14:00 Urine Ketones NEGATIVE mg/dL (NEGATIVE) 06/02/17 14:00 Urine Blood NEGATIVE (NEGATIVE) 06/02/17 14:00 Urine Nitrate NEGATIVE (NEGATIVE) 06/02/17 14:00 Urine Bilirubin NEGATIVE (NEGATIVE) 06/02/17 14:00 Urine Urobilinogen 0.2 E.U./dL (0.2 - 1.0) 06/02/17 14:00 Ur Leukocyte Esterase NEGATIVE (NEGATIVE) 06/02/17 14:00 Urine RBC NONE SEEN /hpf (0-5) 06/02/17 14:00 Urine WBC NONE SEEN /hpf (0-5) 06/02/17 14:00 Ur Epithelial Cells NONE SEEN /lpf (FEW) 06/02/17 14:00 Urine Bacteria NONE SEEN /hpf (NONE SEEN) 06/02/17 14:00 Vancomycin Trough 21.4 ug/mL (10-20) H 06/04/17 05:35 Random Vancomycin 13.2 ug/mL (5.0-40.0) 06/05/17 05:45 - Physical Exam Vitals and I&O: Vital Signs Temp 97.3 F 06/07/17 12:14 Pulse 65 06/07/17 12:14 Resp 18 06/07/17 12:14 BP 131/71 06/07/17 12:14 Pulse Ox 98 06/07/17 12:14 Intake & Output 06/06/17 06/07/17 06/07/17 18:59 06:59 18:59 Intake Total 860 240 Output Total 0 Balance 860 240 Weight (lbs) 94.801 kg 95.708 kg Intake: Oral 860 240 Output: Drainage 0 Sacrum 0 Other: # Voids 3 # Bowel Movements 1 Stool Characteristics Soft Soft Active Medications: Current Medications Acetaminophen/Hydrocodone Bitart ([place] 10 Mg/325 Mg) 1 tab PO Q6H PRN PRN Reason: Pain (Severe) Stop: 08/01/17 16:50 Last Admin: 06/07/17 16:43 Dose: 1 tab Al Hydrox/Mg Hydrox/Simethicone (Maalox) 30 ml PO Q6HR PRN PRN Reason: GI DISTRESS Stop: 08/01/17 16:50 Allopurinol (Zyloprim) 300 mg PO DAILY MUSA Stop: 08/02/17 08:59 Last Admin: 06/07/17 08:49 Dose: 300 mg Ascorbic Acid (Vitamin C) 500 mg PO BID MUSA Stop: 08/01/17 16:59 Last Admin: 06/07/17 16:43 Dose: 500 mg Atorvastatin Calcium (Lipitor) 40 mg PO HS MUSA Stop: 08/01/17 20:59 Last Admin: 06/06/17 20:38 Dose: 40 mg Calcium/Vitamin D (Oscal W/Vitamin D) 1 tab PO DAILY MUSA Stop: 08/02/17 08:59 Last Admin: 06/07/17 08:49 Dose: 1 tab Chlorthalidone (Hygroton) 25 mg PO DAILY MUSA Stop: 08/02/17 08:59 Last Admin: 06/07/17 08:53 Dose: 25 mg Dextromethorphan/Quinidine (Nuedexta 20mg-10mg) 1 cap PO Q12HR MUSA Stop: 08/01/17 20:59 Last Admin: 06/07/17 08:48 Dose: 1 cap Docusate Sodium (Colace) 250 mg PO DAILY MUSA Stop: 08/02/17 08:59 Last Admin: 06/07/17 08:48 Dose: 250 mg Fenofibrate (Tricor) 134 mg PO HS MUSA Stop: 08/01/17 20:59 Fish Oil ([place] 3) 1,000 mg PO DAILY MUSA Stop: 08/02/17 08:59 Last Admin: 06/07/17 08:49 Dose: 1,000 mg Gabapentin (Neurontin) 300 mg PO TID MUSA Stop: 08/01/17 20:59 Last Admin: 06/07/17 13:27 Dose: 300 mg Glipizide (Glucotrol) 10 mg PO BID MUSA Stop: 08/01/17 16:59 Last Admin: 06/07/17 16:42 Dose: 10 mg Insulin Aspart (Novolog Insulin Sliding Scale) 0 units SUBQ ACHS MUSA PRN Reason: Protocol Stop: 08/01/17 20:59 Last Admin: 06/07/17 16:59 Dose: 8 units Insulin Detemir (Levemir Insulin) 20 units SUBQ HS [facility] Stop: 08/01/17 20:59 Last Admin: 06/06/17 21:30 Dose: 20 units Lactobacillus Rhamnosus (Culturelle) 1 each PO DAILY MUSA Stop: 08/04/17 08:59 Last Admin: 06/07/17 08:51 Dose: 1 each Lactulose (Cephulac) 10 gm PO HS MUSA Stop: 08/01/17 20:59 Last Admin: 06/06/17 21:13 Dose: 10 gm Levofloxacin (Levaquin) 250 mg PO Q24H [facility] Stop: 08/05/17 13:59 Last Admin: 06/07/17 13:27 Dose: 250 mg Levothyroxine Sodium (Synthroid) 0.1 mg PO QDAC [facility] Stop: 08/02/17 07:29 Last Admin: 06/07/17 07:01 Dose: 0.1 mg Lorazepam (Ativan) 0.5 mg PO Q6HR PRN; Protocol PRN Reason: Anxiety Stop: 08/01/17 16:50 Magnesium Hydroxide (Milk Of Magnesia) 30 ml PO DAILY PRN PRN Reason: Constipation Stop: 08/01/17 16:50 Miscellaneous (Vte Chemical Prophylaxis Screen/ Admission) 1 ea MC PRN PRN PRN Reason: PROTOCOL Stop: 08/01/17 16:48 Miscellaneous (Ketorolac Tromethamine/Pf [Acuvail 0.45% Ophth Solution]) 1 drop RIGHT EYE QID [facility] Stop: 08/01/17 16:59 Miscellaneous (Solifenacin Succinate [Vesicare]) 5 mg PO BID MUSA Stop: 08/01/17 16:59 Miscellaneous (Probiotic Screen) 1 ea PRN PRN PRN Reason: PROTOCOL Stop: 08/03/17 11:44 Miscellaneous (Clinical Monitoring) 1 ea PRN PRN PRN Reason: RENAL DOSE LEVAQUIN Stop: 08/04/17 12:08 Potassium Chloride (Klor-Con) 40 meq PO DAILY MUSA Stop: 08/04/17 08:59 Last Admin: 06/07/17 08:51 Dose: 40 meq Rifaximin (Xifaxan) 550 mg PO Q12H [facility] Stop: 08/01/17 16:59 Last Admin: 06/07/17 16:41 Dose: 550 mg Sertraline HCl (Zoloft) 150 mg PO QPM 1700 MUSA Stop: 08/01/17 16:59 Last Admin: 06/07/17 16:42 Dose: 150 mg Sertraline HCl (Zoloft) 200 mg PO DAILY MUSA Stop: 08/02/17 08:59 Last Admin: 06/07/17 08:52 Dose: 200 mg Trazodone HCl (Desyrel) 50 mg PO HS PRN; Protocol PRN Reason: Insomnia Stop: 08/01/17 16:50 Last Admin: 06/06/17 21:14 Dose: 50 mg Vitamin B Complex/Vitamin C (Vitamin B Complex W/C) 1 tab PO DAILY MUSA Stop: 08/02/17 08:59 Last Admin: 06/07/17 08:52 Dose: 1 tab Zinc Sulfate (Zinc Sulfate) 220 mg PO DAILY MUSA Stop: 08/02/17 08:59 Last Admin: 06/07/17 08:49 Dose: 220 mg General: no acute distress, well developed, well nourished HEENT: atraumatic, normocephalic, PERRLA, EOMI Neck: supple, no thyromegaly, no lymphadenopathy Cardiovascular: S1S2, regular Lungs: clear to auscultation bilaterally, clear to percussion Abdomen: soft, no tender, no distended Extremities: no cyanosis, no clubbing Neurological: awake, alert, oriented Skin: intact - Procedures Procedures: Procedures Procedure Code Date CANDACE BONE 20 SQ CM/< 62662 06/02/17 DRAINAGE OF LEFT BREAST, PERCUTANEOUS APPROACH [id number] 05/09/16 EXCISION OF SACRUM, OPEN APPROACH [id number] 06/02/17 INCISION OF BREAST LESION 98840 05/09/16 Infectious Disease Assmt/Plan - Problem List Patient Problems: All Active Problems Cirrhosis of liver (Active) K74.60 Diabetes mellitus (Active) E11.9 Hepatic encephalopathy (Active) K72.90 The administrative codes within the IMO content you are accessing may have as of 05/10/2016. Please contact your IT Dept/Help Desk and request the latest Regulatory release be installed. IT Dept/Help Desk- Please refer to our FAQ page ([email or web address] or contact [facility] Customer Support at [email or web address] (Acute) hyponatremia dilutional (Acute) - Assessment Assessment: 1. Sacral decubitus, non healing. Closed surgically. 2. DM2 3. HTN. 4. Depression. 5. anxiety. - Plan Plan: Wound care. woll change antibiotics to levaquin po for 5 days more. Nutritional Asmnt/Malnutr-PDOC - Dietary Evaluation Malnutrition Findings (Please click <Entered> for more info): Nutritional Asmnt/Malnutrition Start: 06/03/17 09: 18 Text: Status: Complete Freq: Document 06/03/17 09:18 [email or web address] (Rec: 06/03/17 09:34 [email or web address]) Nutritional Asmnt/Malnutrition Patient General Information Nutritional Screening Consult Diagnosis non healing sacral decubititus Pertinent Medical Hx/Surgical Hx HLD, depression, anxiety, CHF, DM2, HTN, COPD, CKD, anemia, hypothyroidism Subjective Information Pt laying in bed. Reports good appetite. Is from care facility, states she does not follow diet, eats what is offered to her. Does not want DM diet education, states she already knows it. Pt drinks Prostat at facility, which she does not like, but knows is important for wound healing. Does not like eggs and does not eat a lot of meat. Discussed importance of glycemic control and protein intake to wound healing. Pt does not want Boost, but will try arginaid. States was trying to lose weight and was losing a few pounds a month, but wt loss has recently stalled. Unable to state normal weight. Pt has bottom dentures, was to have them refitted, but never got them back. States does not need modified texture diet. Current Diet Order/ Nutrition Support CCHO 45 gm Patient / S.O Indicated Pertinent Medications vit c, calcium + vit D, fish oil, insulin, lactulose, synthroid, MOM, KCl, vit B complex with vit c, zinc sulfate Pertinent Labs (06/03) K: 3.0, BUN: 36/cr: 1. 8- monitor renal function, POC : 134-172, hgba1c: 8.4- pt declinded diet ed Nutritional Hx/Data Height 1.47 m Height (Calculated Centimeters) 147.3 Current Weight (lbs) 79.832 kg Weight (Calculated Kilograms) 79.8 Weight (Calculated Grams) 46738.3 [place] Body Weight 95 lbs % [place] Body Weight 185 Weight Status Morbidly Obese GI Symptoms GI Symptoms None Food Allergies No Usual diet at home regular Skin Integrity/Comment: decubitus to sacrum- awaiting wound consult, no stage noted yet Current %PO Good (75-100%) Estimated Nutritional Goals BEE in Kcals: Adj wt of IBW Calories/Kcals/Kg 30-35 (wound healing, may need to adjust when stage known) Kcals Calculated 5102-6526 kcals Protein: Adj wt of IBW Protein g/k.2-1.5 (wound healing, may need to adjust when stage known) Protein Calculated 62-78 Fluid: ml 1560 mL (30 ml/kg) Nutritional Problem 2. Problem Problem altered nutrition related lab values Etiology endocrine dysfunction, renal dysfunction, food/nutrition related knowledge deficit Signs/Symptoms: K: 3.0, BUN: 36, Cr: 1.8, hgba1c: 8.4 1. Problem Problem Increased nutrient needs Etiology wound healing Signs/Symptoms: non healing wound to sacrum Malnutrition Alert Protein-Calorie Malnutrition N/A Is there a minimum of two criteria No selected? Query Text:Check all the applicable criteria. A minimum of two criteria are recommended for diagnosis of either severe or non-severe malnutrition. Malnutrition Related to Morbid Obesity Malnutrition related to morbid obesity No Intervention/Recommendation Recommendations by RD Protein supplementation Comments 1. Continue [facility] gm diet for optimal glycemic managment 2. Add arginaid BID for wound healing Expected Outcomes/Goals Expected Outcomes/Goals 1. PO intake >75% 2. Gradual wt loss of 1-2 lbs/ month towards IBW 3. Improved skin integrity 4. Pt to have glycemic control
[2017-06-07] MEDS: Lactulose 10 Gm/15 mL 30mL UDC PO SCH ×2 (21:08→22:00)
[2017-06-07] MEDS: Atorvastatin Calcium 10 MG TAB PO SCH (21:34)
[2017-06-07] MEDS: Insulin Detemir 100 units/mL 10mL Vial SUBQ SCH (22:28)
[2017-06-08] MEDS: Hydrocodone/APAP 10 mg/325 mg Tab PO PRN ×2 (04:02→09:51)
[2017-06-08] MEDS: Levothyroxine 0.1 Mg Tab PO SCH (07:20)
--- NOTE | 2017-06-08 08:19 | General Progress Note ---
Subjective - Review of Systems Service Date: 06/08/17 Subjective: Patient doing well today. passing gas. denies abd pain, no bm. on stool softeners. Objective - Results Result Diagrams: 06/07/17 08:30 06/07/17 08:30 Recent Labs: Laboratory Last Values WBC 5.1 Th/cmm (4.8-10.8) 06/07/17 08:30 RBC 4.00 Mil/cmm (3.80-5.20) 06/07/17 08:30 Hgb 12.2 gm/dL (12-16) 06/07/17 08:30 Hct 36.4 % (41.0-60) L 06/07/17 08:30 MCV 90.9 fl (81-100) 06/07/17 08:30 MCH 30.5 pg (27.0-31.0) 06/07/17 08:30 MCHC Differential 33.6 pg (28.0-36.0) 06/07/17 08:30 RDW 12.8 % (11.5-20.0) 06/07/17 08:30 Plt Count 98 Th/cmm (150-400) L 06/07/17 08:30 MPV 8.2 fl 06/07/17 08:30 Neutrophils % 55.4 % (40.0-80.0) 06/07/17 08:30 Lymphocytes % 33.5 % (20.0-50.0) 06/07/17 08:30 Monocytes % 5.4 % (2.0-10.0) 06/07/17 08:30 Eosinophils % 5.1 % (0.0-5.0) H 06/07/17 08:30 Basophils % 0.6 % (0.0-2.0) 06/07/17 08:30 PT 12.7 SECONDS (9.5-11.5) H 06/02/17 13:20 INR 1.21 (0.5-1.4) 06/02/17 13:20 PTT (Actin FS) 26.5 SECONDS (26.0-38.0) 06/02/17 13:20 Sodium 136 mEq/L (136-145) 06/07/17 08:30 Potassium 3.9 mEq/L (3.5-5.1) 06/07/17 08:30 Chloride 103 mEq/L (98-107) 06/07/17 08:30 Carbon Dioxide 26.9 mEq/L (21.0-31.0) 06/07/17 08:30 Anion Gap 10.0 (7.0-16.0) 06/07/17 08:30 BUN 34 mg/dL (7-25) H 06/07/17 08:30 Creatinine 1.9 mg/dL (0.6-1.2) H 06/07/17 08:30 Est GFR ( Amer) 34.0 ml/min (>90) 06/07/17 08:30 Est GFR (Non-Af Amer) 28.1 ml/min 06/07/17 08:30 BUN/Creatinine Ratio 17.9 06/07/17 08:30 Glucose 188 mg/dL (70-105) H 06/07/17 08:30 POC Glucose 200 MG/DL (70 - 105) H 06/08/17 05:32 Hemoglobin A1c % 8.4 % (4.0-6.0) H 06/02/17 13:20 Whole Bld Lactic Acid 1.14 mmol/L (0.60-1.99) 06/02/17 13:20 Calcium 9.5 mg/dL (8.6-10.3) 06/07/17 08:30 Phosphorus 3.0 mg/dL (2.5-5.0) 06/03/17 05:25 Magnesium 1.9 mg/dL (1.9-2.7) 06/03/17 05:25 Total Bilirubin 0.6 mg/dL (0.3-1.0) 06/07/17 08:30 AST 29 U/L (13-39) 06/07/17 08:30 ALT 14 U/L (7-52) 06/07/17 08:30 Alkaline Phosphatase 32 U/L (34-104) L 06/07/17 08:30 Creatine Kinase 118 U/L (30-223) 06/02/17 13:20 Total Protein 7.3 gm/dL (6.0-8.3) 06/07/17 08:30 Albumin 3.7 gm/dL (3.7-5.3) 06/07/17 08:30 Globulin 3.6 gm/dL 06/07/17 08:30 Albumin/Globulin Ratio 1.0 (1.0-1.8) 06/07/17 08:30 Triglycerides 258 mg/dL (<150) H 06/03/17 05:25 Cholesterol 144 mg/dL (<200) 06/03/17 05:25 LDL Cholesterol Direct 77 mg/dL (75-193) 06/03/17 05:25 HDL Cholesterol 27 mg/dL (23-92) 06/03/17 05:25 TSH 1.37 uIU/ml (0.34-5.60) 06/03/17 05:25 Urine Source MIDSTREAM 06/02/17 14:00 Urine Color YELLOW 06/02/17 14:00 Urine Clarity CLEAR (CLEAR) 06/02/17 14:00 Urine pH 7.0 (4.6 - 8.0) 06/02/17 14:00 Ur Specific [place] 1.015 (1.005-1.030) 06/02/17 14:00 Urine Protein TRACE mg/dL (NEGATIVE) 06/02/17 14:00 Urine Glucose (UA) >=1000 mg/dL (NEGATIVE) H 06/02/17 14:00 Urine Ketones NEGATIVE mg/dL (NEGATIVE) 06/02/17 14:00 Urine Blood NEGATIVE (NEGATIVE) 06/02/17 14:00 Urine Nitrate NEGATIVE (NEGATIVE) 06/02/17 14:00 Urine Bilirubin NEGATIVE (NEGATIVE) 06/02/17 14:00 Urine Urobilinogen 0.2 E.U./dL (0.2 - 1.0) 06/02/17 14:00 Ur Leukocyte Esterase NEGATIVE (NEGATIVE) 06/02/17 14:00 Urine RBC NONE SEEN /hpf (0-5) 06/02/17 14:00 Urine WBC NONE SEEN /hpf (0-5) 06/02/17 14:00 Ur Epithelial Cells NONE SEEN /lpf (FEW) 06/02/17 14:00 Urine Bacteria NONE SEEN /hpf (NONE SEEN) 06/02/17 14:00 Vancomycin Trough 21.4 ug/mL (10-20) H 06/04/17 05:35 Random Vancomycin 13.2 ug/mL (5.0-40.0) 06/05/17 05:45 - Physical Exam Vitals and I&O: Vital Signs Temp 98.4 F 06/08/17 07:41 Pulse 59 06/08/17 07:41 Resp 18 06/08/17 07:41 BP 111/63 06/08/17 07:41 Pulse Ox 93 06/08/17 07:41 Intake & Output 06/07/17 06/08/17 06/08/17 18:59 06:59 18:59 Intake Total 560 240 Output Total 0 1 Balance 560 239 Weight (lbs) 95.708 kg 81.647 kg Intake: Oral 560 240 Output: Drainage 0 0 Sacrum 0 0 Urine 1 Other: # Voids 3 # Bowel Movements 1 Stool Characteristics Soft Active Medications: Current Medications Acetaminophen/Hydrocodone Bitart ([place] 10 Mg/325 Mg) 1 tab PO Q6H PRN PRN Reason: Pain (Severe) Stop: 08/01/17 16:50 Last Admin: 06/08/17 04:02 Dose: 1 tab Al Hydrox/Mg Hydrox/Simethicone (Maalox) 30 ml PO Q6HR PRN PRN Reason: GI DISTRESS Stop: 08/01/17 16:50 Allopurinol (Zyloprim) 300 mg PO DAILY MUSA Stop: 08/02/17 08:59 Last Admin: 06/07/17 08:49 Dose: 300 mg Ascorbic Acid (Vitamin C) 500 mg PO BID MUSA Stop: 08/01/17 16:59 Last Admin: 06/07/17 16:43 Dose: 500 mg Atorvastatin Calcium (Lipitor) 40 mg PO HS MUSA Stop: 08/01/17 20:59 Last Admin: 06/07/17 21:34 Dose: 40 mg Calcium/Vitamin D (Oscal W/Vitamin D) 1 tab PO DAILY MUSA Stop: 08/02/17 08:59 Last Admin: 06/07/17 08:49 Dose: 1 tab Chlorthalidone (Hygroton) 25 mg PO DAILY MUSA Stop: 08/02/17 08:59 Last Admin: 06/07/17 08:53 Dose: 25 mg Dextromethorphan/Quinidine (Nuedexta 20mg-10mg) 1 cap PO Q12HR MUSA Stop: 08/01/17 20:59 Last Admin: 06/07/17 21:34 Dose: 1 cap Docusate Sodium (Colace) 250 mg PO DAILY MUSA Stop: 08/02/17 08:59 Last Admin: 06/07/17 08:48 Dose: 250 mg Fenofibrate (Tricor) 134 mg PO HS MUSA Stop: 08/01/17 20:59 Last Admin: 06/07/17 21:35 Dose: 134 mg Fish Oil ([place] 3) 1,000 mg PO DAILY MUSA Stop: 08/02/17 08:59 Last Admin: 06/07/17 08:49 Dose: 1,000 mg Gabapentin (Neurontin) 300 mg PO TID MUSA Stop: 08/01/17 20:59 Last Admin: 06/07/17 21:33 Dose: 300 mg Glipizide (Glucotrol) 10 mg PO BID MUSA Stop: 08/01/17 16:59 Last Admin: 06/07/17 16:42 Dose: 10 mg Insulin Aspart (Novolog Insulin Sliding Scale) 0 units SUBQ ACHS MUSA PRN Reason: Protocol Stop: 08/01/17 20:59 Last Admin: 06/07/17 16:59 Dose: 8 units Insulin Detemir (Levemir Insulin) 20 units SUBQ HS [facility] Stop: 08/01/17 20:59 Last Admin: 06/07/17 22:28 Dose: 20 units Lactobacillus Rhamnosus (Culturelle) 1 each PO DAILY MUSA Stop: 08/04/17 08:59 Last Admin: 06/07/17 08:51 Dose: 1 each Lactulose (Cephulac) 10 gm PO HS MUSA Stop: 08/01/17 20:59 Last Admin: 06/07/17 22:00 Dose: 10 gm Levofloxacin (Levaquin) 250 mg PO Q24H MUSA Stop: 08/05/17 13:59 Last Admin: 06/07/17 13:27 Dose: 250 mg Levothyroxine Sodium (Synthroid) 0.1 mg PO QDAC MUSA Stop: 08/02/17 07:29 Last Admin: 06/07/17 07:01 Dose: 0.1 mg Lorazepam (Ativan) 0.5 mg PO Q6HR PRN; Protocol PRN Reason: Anxiety Stop: 08/01/17 16:50 Magnesium Hydroxide (Milk Of Magnesia) 30 ml PO DAILY PRN PRN Reason: Constipation Stop: 08/01/17 16:50 Miscellaneous (Vte [employer] Prophylaxis Screen/ Admission) 1 ea PRN PRN PRN Reason: PROTOCOL Stop: 08/01/17 16:48 Miscellaneous (Ketorolac Tromethamine/Pf [Acuvail 0.45% Ophth Solution]) 1 drop RIGHT EYE QID MUSA Stop: 08/01/17 16:59 Miscellaneous (Solifenacin Succinate [Vesicare]) 5 mg PO BID MUSA Stop: 08/01/17 16:59 Miscellaneous (Probiotic Screen) 1 ea PRN PRN PRN Reason: PROTOCOL Stop: 08/03/17 11:44 Miscellaneous (Clinical Monitoring) 1 [facility] PRN PRN PRN Reason: RENAL DOSE LEVAQUIN Stop: 08/04/17 12:08 Potassium Chloride (Klor-Con) 40 meq PO DAILY MUSA Stop: 08/04/17 08:59 Last Admin: 06/07/17 08:51 Dose: 40 meq Rifaximin (Xifaxan) 550 mg PO Q12H MUSA Stop: 08/01/17 16:59 Last Admin: 06/07/17 16:41 Dose: 550 mg Sertraline HCl (Zoloft) 150 mg PO QPM 1700 MUSA Stop: 08/01/17 16:59 Last Admin: 06/07/17 16:42 Dose: 150 mg Sertraline HCl (Zoloft) 200 mg PO DAILY MUSA Stop: 08/02/17 08:59 Last Admin: 06/07/17 08:52 Dose: 200 mg Trazodone HCl (Desyrel) 50 mg PO HS PRN; Protocol PRN Reason: Insomnia Stop: 08/01/17 16:50 Last Admin: 06/07/17 21:41 Dose: 50 mg Vitamin B Complex/Vitamin C (Vitamin B Complex W/C) 1 tab PO DAILY MUSA Stop: 08/02/17 08:59 Last Admin: 06/07/17 08:52 Dose: 1 tab Zinc Sulfate (Zinc Sulfate) 220 mg PO DAILY MUSA Stop: 08/02/17 08:59 Last Admin: 06/07/17 08:49 Dose: 220 mg General: Alert, Oriented x3, No acute distress HEENT: Atraumatic, PERRLA Neck: Supple Cardiovascular: Regular rate, Normal S1, Normal S2 Lungs: Clear to auscultation Abdomen: Bowel sounds, Soft Extremities: Clubbing, Cyanosis, Edema Skin: Significant lesion (presence of non-healing ulcer noted. ) - Procedures Procedures: Procedures Procedure Code Date CANDACE BONE 20 SQ CM/< 35684 06/02/17 DRAINAGE OF LEFT BREAST, PERCUTANEOUS APPROACH [id number] 05/09/16 EXCISION OF SACRUM, OPEN APPROACH [id number] 06/02/17 INCISION OF BREAST LESION 54587 05/09/16 Assessment/Plan - Problem List Patient Problems: All Active Problems Cirrhosis of liver (Active) K74.60 Diabetes mellitus (Active) E11.9 Hepatic encephalopathy (Active) K72.90 The administrative codes within the IMO content you are accessing may have as of 05/10/2016. Please contact your IT Dept/Help Desk and request the latest Regulatory release be installed. IT Dept/Help Desk- Please refer to our FAQ page ([email or web address] or contact [facility] Customer Support at [email or web address] (Acute) hyponatremia dilutional (Acute) - Assessment Assessment: Cirrhosis of liver hyponatremia dilutional stage 4 sacral decubitus ulcer s/p wound debridement hypokalemia sepsis UTI Diabetes Hyperlipidemia Depression/Anxiety/PBA Overactive bladder CHF/HTN COPD CKD Anemia hypothyroidism - Plan Plan: Continue PO Levaquin per ID. Continue Wound care + wound Vac at SNF May be discharge back to facility if OK with consultants. Nutritional Asmnt/Malnutr-PDOC - Dietary Evaluation Malnutrition Findings (Please click <Entered> for more info): Nutritional Asmnt/Malnutrition Start: 06/03/17 09: 18 Text: Status: Complete Freq: Document 06/03/17 09:18 [email or web address] (Rec: 06/03/17 09:34 [email or web address]) Nutritional Asmnt/Malnutrition Patient General Information Nutritional Screening Consult Diagnosis non healing sacral decubititus Pertinent Medical Hx/Surgical Hx HLD, depression, anxiety, CHF, DM2, HTN, COPD, CKD, anemia, hypothyroidism Subjective Information Pt laying in bed. Reports good appetite. Is from care facility, states she does not follow diet, eats what is offered to her. Does not want DM diet education, states she already knows it. Pt drinks Prostat at facility, which she does not like, but knows is important for wound healing. Does not like eggs and does not eat a lot of meat. Discussed importance of glycemic control and protein intake to wound healing. Pt does not want Boost, but will try arginaid. States was trying to lose weight and was losing a few pounds a month, but wt loss has recently stalled. Unable to state normal weight. Pt has bottom dentures, was to have them refitted, but never got them back. States does not need modified texture diet. Current Diet Order/ Nutrition Support CCHO 45 gm Patient / S.O Indicated Pertinent Medications vit c, calcium + vit D, fish oil, insulin, lactulose, synthroid, MOM, KCl, vit B complex with vit c, zinc sulfate Pertinent Labs (06/03) K: 3.0, BUN: 36/cr: 1. 8- monitor renal function, POC : 134-172, hgba1c: 8.4- pt declinded diet ed Nutritional Hx/Data Height 1.47 m Height (Calculated Centimeters) 147.3 Current Weight (lbs) 79.832 kg Weight (Calculated Kilograms) 79.8 Weight (Calculated Grams) 74742.3 [place] Body Weight 95 lbs % [place] Body Weight 185 Weight Status Morbidly Obese GI Symptoms GI Symptoms None Food Allergies No Usual diet at home regular Skin Integrity/Comment: decubitus to sacrum- awaiting wound consult, no stage noted yet Current %PO Good (75-100%) Estimated Nutritional Goals BEE in Kcals: Adj wt of IBW Calories/Kcals/Kg 30-35 (wound healing, may need to adjust when stage known) Kcals Calculated 1091-0637 kcals Protein: Adj wt of IBW Protein g/k.2-1.5 (wound healing, may need to adjust when stage known) Protein Calculated 62-78 Fluid: ml 1560 mL (30 ml/kg) Nutritional Problem 2. Problem Problem altered nutrition related lab values Etiology endocrine dysfunction, renal dysfunction, food/nutrition related knowledge deficit Signs/Symptoms: K: 3.0, BUN: 36, Cr: 1.8, hgba1c: 8.4 1. Problem Problem Increased nutrient needs Etiology wound healing Signs/Symptoms: non healing wound to sacrum Malnutrition Alert Protein-Calorie Malnutrition N/A Is there a minimum of two criteria No selected? Query Text:Check all the applicable criteria. A minimum of two criteria are recommended for diagnosis of either severe or non-severe malnutrition. Malnutrition Related to Morbid Obesity Malnutrition related to morbid obesity No Intervention/Recommendation Recommendations by RD Protein supplementation Comments 1. Continue CCHO 45 gm diet for optimal glycemic managment 2. Add arginaid BID for wound healing Expected Outcomes/Goals Expected Outcomes/Goals 1. PO intake >75% 2. Gradual wt loss of 1-2 lbs/ month towards IBW 3. Improved skin integrity 4. Pt to have glycemic control
[2017-06-08] MEDS: INSULIN ASPART SLIDING SCALE 100 UNITS/ML UNIT SUBQ SCH ×2 (08:21→12:02)
[2017-06-08] MEDS: Lactobacillus Rhamnosus 10 Billion CFU Capsule PO SCH (09:39)
[2017-06-08] MEDS: Potassium Chloride 20 mEq ER Tab PO SCH (09:40)
[2017-06-08] MEDS: Dextromethorphan/Quinidine 20mg/10mg Cap PO SCH (09:40)
[2017-06-08] MEDS: Calcium Carb/Vit D 500 mg/200 U Tab PO SCH (09:41)
[2017-06-08] MEDS: Multivitamin w/ Minerals Tab PO SCH (09:41)
[2017-06-08] MEDS: Fish Oil 1,000 MG SGL PO SCH (09:41)
[2017-06-08] MEDS: Ascorbic Acid/Vit B Complex Tab PO SCH (09:43)
--- NOTE | 2017-06-08 11:06 | Infectious Disease Prog Note ---
Infectious Disease Subjective - Review of Systems Service Date: 06/08/17 Subjective: Closure of the sacral wound performed. Infectious Disease Objective - Results Result Diagrams: 06/07/17 08:30 06/07/17 08:30 Recent Labs: Laboratory Last Values WBC 5.1 Th/cmm (4.8-10.8) 06/07/17 08:30 RBC 4.00 Mil/cmm (3.80-5.20) 06/07/17 08:30 Hgb 12.2 gm/dL (12-16) 06/07/17 08:30 Hct 36.4 % (41.0-60) L 06/07/17 08:30 MCV 90.9 fl (81-100) 06/07/17 08:30 MCH 30.5 pg (27.0-31.0) 06/07/17 08:30 MCHC Differential 33.6 pg (28.0-36.0) 06/07/17 08:30 RDW 12.8 % (11.5-20.0) 06/07/17 08:30 Plt Count 98 Th/cmm (150-400) L 06/07/17 08:30 MPV 8.2 fl 06/07/17 08:30 Neutrophils % 55.4 % (40.0-80.0) 06/07/17 08:30 Lymphocytes % 33.5 % (20.0-50.0) 06/07/17 08:30 Monocytes % 5.4 % (2.0-10.0) 06/07/17 08:30 Eosinophils % 5.1 % (0.0-5.0) H 06/07/17 08:30 Basophils % 0.6 % (0.0-2.0) 06/07/17 08:30 PT 12.7 SECONDS (9.5-11.5) H 06/02/17 13:20 INR 1.21 (0.5-1.4) 06/02/17 13:20 PTT (Actin FS) 26.5 SECONDS (26.0-38.0) 06/02/17 13:20 Sodium 136 mEq/L (136-145) 06/07/17 08:30 Potassium 3.9 mEq/L (3.5-5.1) 06/07/17 08:30 Chloride 103 mEq/L (98-107) 06/07/17 08:30 Carbon Dioxide 26.9 mEq/L (21.0-31.0) 06/07/17 08:30 Anion Gap 10.0 (7.0-16.0) 06/07/17 08:30 BUN 34 mg/dL (7-25) H 06/07/17 08:30 Creatinine 1.9 mg/dL (0.6-1.2) H 06/07/17 08:30 Est GFR ( Amer) 34.0 ml/min (>90) 06/07/17 08:30 Est GFR (Non-Af Amer) 28.1 ml/min 06/07/17 08:30 BUN/Creatinine Ratio 17.9 06/07/17 08:30 Glucose 188 mg/dL (70-105) H 06/07/17 08:30 POC Glucose 200 MG/DL (70 - 105) H 06/08/17 05:32 Hemoglobin A1c % 8.4 % (4.0-6.0) H 06/02/17 13:20 Whole Bld Lactic Acid 1.14 mmol/L (0.60-1.99) 06/02/17 13:20 Calcium 9.5 mg/dL (8.6-10.3) 06/07/17 08:30 Phosphorus 3.0 mg/dL (2.5-5.0) 06/03/17 05:25 Magnesium 1.9 mg/dL (1.9-2.7) 06/03/17 05:25 Total Bilirubin 0.6 mg/dL (0.3-1.0) 06/07/17 08:30 AST 29 U/L (13-39) 06/07/17 08:30 ALT 14 U/L (7-52) 06/07/17 08:30 Alkaline Phosphatase 32 U/L (34-104) L 06/07/17 08:30 Creatine Kinase 118 U/L (30-223) 06/02/17 13:20 Total Protein 7.3 gm/dL (6.0-8.3) 06/07/17 08:30 Albumin 3.7 gm/dL (3.7-5.3) 06/07/17 08:30 Globulin 3.6 gm/dL 06/07/17 08:30 Albumin/Globulin Ratio 1.0 (1.0-1.8) 06/07/17 08:30 Triglycerides 258 mg/dL (<150) H 06/03/17 05:25 Cholesterol 144 mg/dL (<200) 06/03/17 05:25 LDL Cholesterol Direct 77 mg/dL (75-193) 06/03/17 05:25 HDL Cholesterol 27 mg/dL (23-92) 06/03/17 05:25 TSH 1.37 uIU/ml (0.34-5.60) 06/03/17 05:25 Urine Source MIDSTREAM 06/02/17 14:00 Urine Color YELLOW 06/02/17 14:00 Urine Clarity CLEAR (CLEAR) 06/02/17 14:00 Urine pH 7.0 (4.6 - 8.0) 06/02/17 14:00 Ur Specific [place] 1.015 (1.005-1.030) 06/02/17 14:00 Urine Protein TRACE mg/dL (NEGATIVE) 06/02/17 14:00 Urine Glucose (UA) >=1000 mg/dL (NEGATIVE) H 06/02/17 14:00 Urine Ketones NEGATIVE mg/dL (NEGATIVE) 06/02/17 14:00 Urine Blood NEGATIVE (NEGATIVE) 06/02/17 14:00 Urine Nitrate NEGATIVE (NEGATIVE) 06/02/17 14:00 Urine Bilirubin NEGATIVE (NEGATIVE) 06/02/17 14:00 Urine Urobilinogen 0.2 E.U./dL (0.2 - 1.0) 06/02/17 14:00 Ur Leukocyte Esterase NEGATIVE (NEGATIVE) 06/02/17 14:00 Urine RBC NONE SEEN /hpf (0-5) 06/02/17 14:00 Urine WBC NONE SEEN /hpf (0-5) 06/02/17 14:00 Ur Epithelial Cells NONE SEEN /lpf (FEW) 06/02/17 14:00 Urine Bacteria NONE SEEN /hpf (NONE SEEN) 06/02/17 14:00 Vancomycin Trough 21.4 ug/mL (10-20) H 06/04/17 05:35 Random Vancomycin 13.2 ug/mL (5.0-40.0) 06/05/17 05:45 - Physical Exam Vitals and I&O: Vital Signs Temp 98.4 F 06/08/17 07:41 Pulse 59 06/08/17 09:42 Resp 20 06/08/17 10:41 BP 111/63 06/08/17 09:42 Pulse Ox 93 06/08/17 07:41 Intake & Output 06/07/17 06/08/17 06/08/17 18:59 06:59 18:59 Intake Total 560 240 Output Total 0 1 Balance 560 239 Weight (lbs) 95.708 kg 81.647 kg Intake: Oral 560 240 Output: Drainage 0 0 Sacrum 0 0 Urine 1 Other: # Voids 3 # Bowel Movements 1 Stool Characteristics Soft Soft Active Medications: Current Medications Acetaminophen/Hydrocodone Bitart ([place] 10 Mg/325 Mg) 1 tab PO Q6H PRN PRN Reason: Pain (Severe) Stop: 08/01/17 16:50 Last Admin: 06/08/17 09:51 Dose: 1 tab Al Hydrox/Mg Hydrox/Simethicone (Maalox) 30 ml PO Q6HR PRN PRN Reason: GI DISTRESS Stop: 08/01/17 16:50 Allopurinol (Zyloprim) 300 mg PO DAILY MUSA Stop: 08/02/17 08:59 Last Admin: 06/08/17 09:39 Dose: 300 mg Ascorbic Acid (Vitamin C) 500 mg PO BID MUSA Stop: 08/01/17 16:59 Last Admin: 06/08/17 09:41 Dose: 500 mg Atorvastatin Calcium (Lipitor) 40 mg PO HS MUSA Stop: 08/01/17 20:59 Last Admin: 06/07/17 21:34 Dose: 40 mg Calcium/Vitamin D (Oscal W/Vitamin D) 1 tab PO DAILY MUSA Stop: 08/02/17 08:59 Last Admin: 06/08/17 09:41 Dose: 1 tab Chlorthalidone (Hygroton) 25 mg PO DAILY MUSA Stop: 08/02/17 08:59 Last Admin: 06/08/17 09:42 Dose: 25 mg Dextromethorphan/Quinidine (Nuedexta 20mg-10mg) 1 cap PO Q12HR MUSA Stop: 08/01/17 20:59 Last Admin: 06/08/17 09:40 Dose: 1 cap Docusate Sodium (Colace) 250 mg PO DAILY MUSA Stop: 08/02/17 08:59 Last Admin: 06/08/17 09:39 Dose: 250 mg Fenofibrate (Tricor) 134 mg PO HS MUSA Stop: 08/01/17 20:59 Last Admin: 06/07/17 21:35 Dose: 134 mg Fish Oil ([place] 3) 1,000 mg PO DAILY MUSA Stop: 08/02/17 08:59 Last Admin: 06/08/17 09:41 Dose: 1,000 mg Gabapentin (Neurontin) 300 mg PO TID MUSA Stop: 08/01/17 20:59 Last Admin: 06/08/17 09:41 Dose: 300 mg Glipizide (Glucotrol) 10 mg PO BID MUSA Stop: 08/01/17 16:59 Last Admin: 06/08/17 09:41 Dose: 10 mg Insulin Aspart (Novolog Insulin Sliding Scale) 0 units SUBQ ACHS MUSA PRN Reason: Protocol Stop: 08/01/17 20:59 Last Admin: 06/08/17 08:21 Dose: Not Given Insulin Detemir (Levemir Insulin) 20 units SUBQ HS MUSA Stop: 08/01/17 20:59 Last Admin: 06/07/17 22:28 Dose: 20 units Lactobacillus Rhamnosus (Culturelle) 1 each PO DAILY MUSA Stop: 08/04/17 08:59 Last Admin: 06/08/17 09:39 Dose: 1 each Lactulose (Cephulac) 10 gm PO HS [facility] Stop: 08/01/17 20:59 Last Admin: 06/07/17 22:00 Dose: 10 gm Levofloxacin (Levaquin) 250 mg PO Q24H MUSA Stop: 08/05/17 13:59 Last Admin: 06/07/17 13:27 Dose: 250 mg Levothyroxine Sodium (Synthroid) 0.1 mg PO QDAC MUSA Stop: 08/02/17 07:29 Last Admin: 06/08/17 07:20 Dose: 0.1 mg Lorazepam (Ativan) 0.5 mg PO Q6HR PRN; Protocol PRN Reason: Anxiety Stop: 08/01/17 16:50 Magnesium Hydroxide (Milk Of Magnesia) 30 ml PO DAILY PRN PRN Reason: Constipation Stop: 08/01/17 16:50 Miscellaneous (Vte Chemical Prophylaxis Screen/ Admission) 1 ea PRN PRN PRN Reason: PROTOCOL Stop: 08/01/17 16:48 Miscellaneous (Ketorolac Tromethamine/Pf [Acuvail 0.45% Ophth Solution]) 1 drop RIGHT EYE QID MUSA Stop: 08/01/17 16:59 Miscellaneous (Solifenacin Succinate [Vesicare]) 5 mg PO BID MUSA Stop: 08/01/17 16:59 Miscellaneous (Probiotic Screen) 1 ea PRN PRN PRN Reason: PROTOCOL Stop: 08/03/17 11:44 Miscellaneous (Clinical Monitoring) 1 ea PRN PRN PRN Reason: RENAL DOSE LEVAQUIN Stop: 08/04/17 12:08 Potassium Chloride (Klor-Con) 40 meq PO DAILY MUSA Stop: 08/04/17 08:59 Last Admin: 06/08/17 09:40 Dose: 40 meq Rifaximin (Xifaxan) 550 mg PO Q12H MUSA Stop: 08/01/17 16:59 Last Admin: 06/08/17 07:00 Dose: 550 mg Sertraline HCl (Zoloft) 150 mg PO QPM 1700 MUSA Stop: 08/01/17 16:59 Last Admin: 06/07/17 16:42 Dose: 150 mg Sertraline HCl (Zoloft) 200 mg PO DAILY MUSA Stop: 08/02/17 08:59 Last Admin: 06/08/17 09:40 Dose: 200 mg Trazodone HCl (Desyrel) 50 mg PO HS PRN; Protocol PRN Reason: Insomnia Stop: 08/01/17 16:50 Last Admin: 06/07/17 21:41 Dose: 50 mg Vitamin B Complex/Vitamin C (Vitamin B Complex W/C) 1 tab PO DAILY MUSA Stop: 08/02/17 08:59 Last Admin: 06/08/17 09:43 Dose: 1 tab Zinc Sulfate (Zinc Sulfate) 220 mg PO DAILY MUSA Stop: 08/02/17 08:59 Last Admin: 06/08/17 09:40 Dose: 220 mg General: no acute distress, well developed, well nourished HEENT: atraumatic, normocephalic, PERRLA Neck: supple Cardiovascular: S1S2, regular Lungs: clear to auscultation bilaterally, clear to percussion Abdomen: soft, no tender, no distended, no rebound, no hepatomegaly Extremities: no cyanosis, no clubbing, no edema Neurological: awake, alert, oriented, CN 2-12 intact Skin: intact, other (sacral wound closed.) - Procedures Procedures: Procedures Procedure Code Date CANDACE BONE 20 SQ CM/< 87964 06/02/17 DRAINAGE OF LEFT BREAST, PERCUTANEOUS APPROACH [id number] 05/09/16 EXCISION OF SACRUM, OPEN APPROACH [id number] 06/02/17 INCISION OF BREAST LESION 36011 05/09/16 Infectious Disease Assmt/Plan - Problem List Patient Problems: All Active Problems Cirrhosis of liver (Active) K74.60 Diabetes mellitus (Active) E11.9 Hepatic encephalopathy (Active) K72.90 The administrative codes within the [employer] content you are accessing may have as of 05/10/2016. Please contact your IT Dept/Help Desk and request the latest Regulatory release be installed. IT Dept/Help Desk- Please refer to our FAQ page ([email or web address] or contact [employer] Customer Support at [email or web address] (Acute) hyponatremia dilutional (Acute) - Assessment Assessment: 1. Sacral decubitus, non healing. Closed surgically. 2. DM2 3. HTN. 4. Depression. 5. anxiety. - Plan Plan: Wound care. woll change antibiotics to levaquin po for 4 days more. Nutritional Asmnt/Malnutr-PDOC - Dietary Evaluation Malnutrition Findings (Please click <Entered> for more info): Nutritional Asmnt/Malnutrition Start: 06/03/17 09: 18 Text: Status: Complete Freq: Document 06/03/17 09:18 [email or web address] (Rec: 06/03/17 09:34 [email or web address]) Nutritional Asmnt/Malnutrition Patient General Information Nutritional Screening Consult Diagnosis non healing sacral decubititus Pertinent Medical Hx/Surgical Hx HLD, depression, anxiety, CHF, DM2, HTN, COPD, CKD, anemia, hypothyroidism Subjective Information Pt laying in bed. Reports good appetite. Is from care facility, states she does not follow diet, eats what is offered to her. Does not want DM diet education, states she already knows it. Pt drinks Prostat at facility, which she does not like, but knows is important for wound healing. Does not like eggs and does not eat a lot of meat. Discussed importance of glycemic control and protein intake to wound healing. Pt does not want Boost, but will try arginaid. States was trying to lose weight and was losing a few pounds a month, but wt loss has recently stalled. Unable to state normal weight. Pt has bottom dentures, was to have them refitted, but never got them back. States does not need modified texture diet. Current Diet Order/ Nutrition Support CCHO 45 gm Patient / S.O Indicated Pertinent Medications vit c, calcium + vit D, fish oil, insulin, lactulose, synthroid, MOM, KCl, vit B complex with vit c, zinc sulfate Pertinent Labs (06/03) K: 3.0, BUN: 36/cr: 1. 8- monitor renal function, POC : 134-172, hgba1c: 8.4- pt declinded diet ed Nutritional Hx/Data Height 1.47 m Height (Calculated Centimeters) 147.3 Current Weight (lbs) 79.832 kg Weight (Calculated Kilograms) 79.8 Weight (Calculated Grams) 21169.3 [place] Body Weight 95 lbs % [place] Body Weight 185 Weight Status Morbidly Obese GI Symptoms GI Symptoms None Food Allergies No Usual diet at home regular Skin Integrity/Comment: decubitus to sacrum- awaiting wound consult, no stage noted yet Current %PO Good (75-100%) Estimated Nutritional Goals BEE in Kcals: Adj wt of IBW Calories/Kcals/Kg 30-35 (wound healing, may need to adjust when stage known) Kcals Calculated 3557-8550 kcals Protein: Adj wt of IBW Protein g/k.2-1.5 (wound healing, may need to adjust when stage known) Protein Calculated 62-78 Fluid: ml 1560 mL (30 ml/kg) Nutritional Problem 2. Problem Problem altered nutrition related lab values Etiology endocrine dysfunction, renal dysfunction, food/nutrition related knowledge deficit Signs/Symptoms: K: 3.0, BUN: 36, Cr: 1.8, hgba1c: 8.4 1. Problem Problem Increased nutrient needs Etiology wound healing Signs/Symptoms: non healing wound to sacrum Malnutrition Alert Protein-Calorie Malnutrition N/A Is there a minimum of two criteria No selected? Query Text:Check all the applicable criteria. A minimum of two criteria are recommended for diagnosis of either severe or non-severe malnutrition. Malnutrition Related to Morbid Obesity Malnutrition related to morbid obesity No Intervention/Recommendation Recommendations by RD Protein supplementation Comments 1. Continue CCHO 45 gm diet for optimal glycemic managment 2. Add arginaid BID for wound healing Expected Outcomes/Goals Expected Outcomes/Goals 1. PO intake >75% 2. Gradual wt loss of 1-2 lbs/ month towards IBW 3. Improved skin integrity 4. Pt to have glycemic control
--- NOTE | 2017-06-09 01:36 | Discharge Summary ---
DATE OF DISCHARGE: 06/08/2017 PRELIMINARY DIAGNOSES: 1. Stage IV sacral decubitus ulcer. 2. Low back pain secondary to #1. 3. Hypokalemia. 4. Sepsis. 5. Urinary tract infection. 6. Diabetes mellitus. 7. Hyperlipidemia. 8. Depression. 9. Anxiety. 10. Pseudobulbar affect. 11. Overactive bladder. 12. Congestive heart failure. 13. Hypertension. 14. Chronic obstructive pulmonary disease. 15. Chronic kidney disease. 16. Anemia. 17. Hypothyroidism. DISCHARGE DIAGNOSES: 1. Stage IV sacral decubitus ulcer. 2. Low back pain secondary to #1. 3. Hypokalemia. 4. Sepsis. 5. Urinary tract infection. 6. Diabetes mellitus. 7. Hyperlipidemia. 8. Depression. 9. Anxiety. 10. Pseudobulbar affect. 11. Overactive bladder. 12. Congestive heart failure. 13. Hypertension. 14. Chronic obstructive pulmonary disease. 15. Chronic kidney disease. 16. Anemia. 17. Hypothyroidism. BRIEF HISTORY OF PRESENT ILLNESS: This is a 66-year-old female, who presents to [facility] ER for evaluation of low back pain for the past 3 days due to a nonhealing sacral decubitus ulcer, which was not responding to antibiotics. The patient has a previous history of hyperlipidemia, depression, anxiety disorder, PBA, overactive bladder, CHF, type 2 diabetes, hypertension, COPD, CKD, anemia. While in the ER, the patient had initial lab work done, which revealed a white count of 5.5, hemoglobin 11.5, hematocrit 34.1, platelets 125,000. PT/INR was 12.7 and 1.2. Sodium 133, potassium 3.3, chloride 100, bicarbonate 26, BUN 42, creatinine 1.8, glucose 277. Hemoglobin A1c was 8.4. UA revealed greater than 1000 glucose. The patient was subsequently admitted for further evaluation and treatment. HOSPITAL COURSE: The patient improved during her hospital stay, was seen and evaluated by ID, Dr. Dutton, for IV antibiotic treatment. The patient also was seen by General Surgery, Dr. Pascual, for evaluation of the sacral decubitus. Please see dictated report. The patient underwent surgical debridement of the wound, see operative report. The patient's electrolytes were also corrected during her hospital stay. She was subsequently discharged in stable condition. Her antibiotic was changed to oral antibiotics and the patient was discharged with wound VAC for continued wound care treatment. JOB# [id number]
--- NOTE | 2017-06-09 12:14 | Pathology Report ---
[id number] Collection date: 06/04/2017 Surgeon: Dr. Velasquez Pascual Specimen Description: Debrided tissue, sacral decubitus ulcer. Gross Description: Received in formalin are multiple irregular ramos-rodríguez soft tissue fragments. Sectioning shows partially ulcerated and degenerated skin and soft tissue. Chief Meteorologist sections are submitted in one cassette. Microscopic Description: The histologic sections show ulcerated skin and subcutaneous tissue with areas of necrosis and suppurative inflammation, consisting of collections of neutrophils within a degenerated / necrotic background. Diagnosis: Ulcerated necrotic skin and soft tissue consistent with debridement, sacral decubitus ulcer. [facility]# [id number] [facility]
== END 2017-06-08 13:30 | disposition home or self-care (01) | DRG 853 ==
LOC: ER 12:54 → MSI 15:25
PROVIDERS: ADMIT Family Medicine; ATTEND Family Medicine
PROC: 0JB70ZZ Excision of Back Subcutaneous Tissue and Fascia, Open Approach (ICD-10-PCS; principal; 2017-06-04)
DX: A41.9 Sepsis, unspecified organism (principal); L89.154 Pressure ulcer of sacral region, stage 4; E11.22 Type 2 diabetes mellitus with diabetic chronic kidney disease; I13.0 Hypertensive heart and chronic kidney disease with heart failure and stage 1 through stage 4 chronic kidney disease, or unspecified chronic kidney disease; I50.9 Heart failure, unspecified; K74.60 Unspecified cirrhosis of liver; N39.0 Urinary tract infection, site not specified; E87.1 Hypo-osmolality and hyponatremia; J44.9 Chronic obstructive pulmonary disease, unspecified; E87.6 Hypokalemia; E78.5 Hyperlipidemia, unspecified; F41.9 Anxiety disorder, unspecified; N32.81 Overactive bladder; N18.9 Chronic kidney disease, unspecified; D64.9 Anemia, unspecified; E03.9 Hypothyroidism, unspecified; I25.10 Atherosclerotic heart disease of native coronary artery without angina pectoris; F32.9 Major depressive disorder, single episode, unspecified; F48.2 Pseudobulbar affect; Z83.3 Family history of diabetes mellitus; Z82.49 Family history of ischemic heart disease and other diseases of the circulatory system; Z79.4 Long term (current) use of insulin
CPT/HCPCS: 36415-UA; 71010-TC; 80048-TC; 80053-TC; 80061-TC; 80202-TC; 81001-TC; 82550-TC; 82948-90; 83036-90; 83605; 83735-TC; 84100-TC; 84443-TC; 85025-TC; 85610-TC; 85730-TC; 87070-90; 93005; J0692; J1815; J2001; J2250; J2650; J2704; J3010; J3370; J3480; J7030; V2790; Z7610

== ENCOUNTER 2018-11-12 17:54 | Inpatient (IN) | payer MEDICARE, MEDICAID ==
[2018-11-12 18:45] LABS: INR 1.26 (0.5-1.4)
[2018-11-12 18:50] LABS: ALB/GLOB RATIO 0.9 (1.0-1.8); ALBUMIN 3.7 gm/dL (3.7-5.3); BILIRUBIN,TOTAL 0.6 mg/dL (0.3-1.0); GFR NON AFRICAN-AMERICAN 16.5 ml/min; TOTAL PROTEIN,SERUM 7.9 gm/dL (6.0-8.3)
--- NOTE | 2018-11-12 18:53 | ED Physician Chart ---
ED Chief Complaint/HPI - Patient Information Date Seen:: 11/12/18 Time Seen:: 18:08 Chief Complaint:: abdominal pain History of Present Illness:: this is a 68 yo female sent to er for an evaluation of her abdominal pain and loss of appetite. Allergies:: Allergies Allergy/AdvReac Type Severity Reaction Status Date / Time No Known Allergies Allergy Verified 06/02/17 13:10 Vitals:: Vital Signs - 8 hr 11/12/18 18:04 Temp 98.6 F HR 60 RR 17 BP 173/53 O2 Sat % 98 Historian:: Medical Records Review:: Nurse's Note Reviewed ED Review of Systems - Review of Systems General/Constitutional: No fever, No chills, No weight loss, Weakness, No diaphoresis, No edema, Loss of appetite Skin: No skin lesions, No rash, No bruising Head: No headache, No light-headedness Eyes: No loss of vision, No pain, No diplopia ENT: No earache, No nasal drainage, No sore throat, No tinnitus Neck: No neck pain, No swelling, No thyromegaly, No stiffness, No mass noted Cardio Vascular: No chest pain, No palpitations, No PND, No orthopnea, No edema Pulmonary: No SOB, No cough, No sputum, No wheezing GI: Nausea, No vomiting, No diarrhea, Pain, No melena, No hematochezia, No constipation, No hematemesis G/U: No dysuria, No frequency, No hematuria Musculoskeletal: No bone or joint pain, No back pain, No muscle pain Endocrine: No polyuria, No polydipsia Psychiatric: Prior psych history, No prior psych history, No depression, No anxiety, No suicidal ideation Hematopoietic: No bruising, No lymphadenopathy Allergic/Immuno: No urticaria, No angioedema Neurological: No syncope, No focal symptoms, No weakness, No paresthesia, No headache, No seizure, No dizziness, No confusion, No vertigo ED Past Medical History - Past Medical History Obtainable: Yes Past Medical History: HTN, DM, Asthma/COPD, Dyslipidemia, ESRD Family History: None Social History: Non Smoker, No Alcohol, Illicit Drug Use, Care Facility Surgical History: None Psychiatricy History: Schizophrenia Medication: Reviewed Family Medical History - Family Member Mother History Unknown: Yes Ethnicity: Non- Living Status: Hx Family Cancer: No Hx Family Coronary Artery Disease: No Hx Family Congestive Heart Failure: No Hx Family Hypertension: Yes Hx Family Stroke: No Hx Family Diabetes: No Hx Family Seizures: No Hx Family Dementia: No Hx Family AIDS: No Hx Family HIV: No Hx Family COPD: No Hx Family Hepatitis: No Hx Family Psychiatric Problems: No Hx Family Tuberculosis: No Sister History Unknown: Yes ED Physical Exam - Physical Examination General/Constitutional: Awake, Well-developed, well-nourished, Alert, No distress, GCS 15, Non-toxic appearing, Ambulatory Other Gen/Cons comments:: pale Head: Atraumatic Eyes: Lids, conjuctiva normal, PERRL, EOMI Skin: Nl inspection, No rash, No skin lesions, No ecchymosis, Well hydrated, No lymphadenopathy ENMT: External ears, nose nl, Nasal exam nl, Lips, teeth, gums nl Neck: Nontender, Full ROM w/o pain, No JVD, No nuchal rigidity, No bruit, No mass, No stridor Respiratory: Nl effort/Exclusion, Clear to Auscultation, No Wheeze/Rhonchi/Rales Cardio Vascular: RRR, No murmur, gallop, rubs, NL S1 S2 GI: No tenderness/rebounding/guarding (generalize tenderness of the abdomen), No organomegaly, No hernia, Normal BS's, Nondistended, No mass/bruits, No McBurney tenderness : No CVA tenderness Extremities: No tenderness or effusion, Full ROM, normal strength in all extremities, No edema, Normal digits & nails Neuro/Psych: Alert/oriented, DTR's symmetric, Normal sensory exam, Normal motor strength, Judgement/insight normal, Mood normal, Normal gait, No focal deficits Misc: Normal back, No paraspinal tenderness Other Misc comments:: coccyx decubiti noted. ED Labs/Radiology/EKG Results - EKG Interpretations EKG Time:: 18:40 Rate & Rhythm: rate =86 [place]: left axis ED Assessment - Assessment General Assessment: coccyx ulcer appetite failure ED Septic Shock - . Is Septic Shock (SBP<90, OR Lactate>4 mmol\L) present?: No - <6hrs of presentation: Vital Signs: Vital Signs - 8 hr 11/12/18 18:04 Temp 98.6 F HR 60 RR 17 BP 173/53 O2 Sat % 98 ED Reassessment (Disposition) - Aftercare/Follow up Instructions Notes:: this patient will be cared for by dr. shaver starting at 1900
[2018-11-12 18:59] LABS: % BASOPHILS 0.5 % (0.0-2.0); % EOSINOPHILS 1.8 % (0.0-5.0); % LYMPHOCYTES 23.9 % (20.0-50.0); % MONOCYTES 3.9 % (2.0-10.0); % NEUTROPHILS 69.9 % (40.0-80.0); EOSINOPHILE ABSOLUTE 0.2 Th/cmm (0.1-0.4); HEMATOCRIT 34.8 % (41.0-60); HEMOGLOBIN 11.5 gm/dL (12-16); LYMPHOCYTE ABSOLUTE 2.4 Th/cmm (1.5-3.0); MEAN CELL VOLUME 90.8 fl (81-100); MEAN CORPUSCULAR HGB CONC 33.1 pg (28.0-36.0); MEAN PLATELET VOLUME 8.6 fl; MONOCYTE ABSOLUTE 0.4 Th/cmm (0.3-1.0); PLATELET COUNT 167 Th/cmm (150-400); RED BLOOD COUNT 3.83 Mil/cmm (3.80-5.20); RED CELL DISTRIBUTION WIDTH 14.6 % (11.5-20.0)
[2018-11-12 19:51] LABS: URINE SOURCE CATH
[2018-11-12 19:54] LABS: URINE BILIRUBIN NEGATIVE (NEGATIVE); URINE BLOOD NEGATIVE (NEGATIVE); URINE GLUCOSE (UA) NEGATIVE (NEGATIVE); URINE KETONE NEGATIVE (NEGATIVE); URINE LEUKOCYTE ESTERASE NEGATIVE (NEGATIVE); URINE NITRATE NEGATIVE (NEGATIVE); URINE PROTEIN 30 mg/dL (NEGATIVE); URINE UROBILINOGEN 0.2 E.U./dL (0.2 - 1.0)
[2018-11-12 20:18] LABS: URINE CLARITY CLEAR (CLEAR); URINE COLOR YELLOW; URINE MICROSCOPIC INDICATED? YES
[2018-11-12 20:19] LABS: URINE BACTERIA FEW /hpf (NONE SEEN); URINE EPITHELIAL CELLS OCCASIONAL /lpf (FEW); URINE RBC NONE SEEN /hpf (0-5); URINE WBC 0-2 /hpf (0-5)
[2018-11-12] MEDS ORDERED: Sodium Chloride 0.9% 1,000 ML IV ONE (20:25)
[2018-11-12 21:00] LABS: ANION GAP 17.8 (7.0-16.0); POTASSIUM SERUM 5.8 mEq/L (3.5-5.1)
[2018-11-13 04:03] VITALS: BP 128/67
[2018-11-13] MEDS ORDERED: GLUCAGON HCl 1 MG KIT IM PRN ×2 (06:21→06:25)
[2018-11-13] MEDS ORDERED: Magnesium Hydroxide (MOM) 30 mL UDC PO PRN (06:21)
[2018-11-13] MEDS ORDERED: Non-Formulary Item 1 EA (Hydrocodone/Acetaminophen [Hydrocodone-Acetamin 7.5-325] 1 TAB) PO PRN (06:21)
[2018-11-13] MEDS ORDERED: Non-Formulary Item 1 EA (Acetaminophen [Tylenol] 650 MG) PO PRN (06:21)
[2018-11-13] MEDS ORDERED: Dextrose 50% 50 mL Abboject IVP PRN (06:25)
--- NOTE | 2018-11-13 06:36 | History and Physical ---
History of Present Illness - HPI Chief Complaint: decline in mental status and poor appetite HPI: 68y/o female who presents to [facility] ER for change in mental status and poor appetite noted by nursing staff. Patient is a resident of [facility] and was found to have a decline in mental status. She was subsequently transferred for evaluation. Patient has a history of COPD, Alcoholic liver disease, GERD, HTN, DM2, Hypothyroidism, Bipolar d/o, Anxiety d/ o, Gout, Hyperlipidemia, Polyneuropathy, Depression. While in the ER patient had initial labwork Na 133 K 5.8 BUN/Cr 53/3.0 Glu 158 WBC 10.0 H/H 11.5/34.8 plat 167 PT/INR 13.0/1.26 Troponin 0.02 TSH 0.14 UA prot 30 Patient was subsequently admitted for further evaluation and treatment. Vital Signs: Last Vital Signs Temp 97.7 F 11/13/18 04:11 Pulse 88 11/13/18 04:11 Resp 18 11/13/18 04:11 BP 128/70 11/13/18 04:11 Pulse Ox 98 11/13/18 04:11 Past Medical History Cardiovascular: Report: HTN Pulmonary: Report: No Pertinent Hx [employer]IL [employer]: Report: No Pertinent Hx GI: Report: No Pertinent Hx Psych: Report: Depression, Psychosis, Schizophrenia Musculoskeletal: Report: No Pertinent Hx Rheumatologic: Report: No pertinent Hx Infectious Disease: Report: No Pertinent Hx Renal/: Report: Chronic Renal Failure Endocrine: Report: Diabetes, Hypothyroidism Dermatology: Report: No Pertinent Hx - Past Surgical History Past Surgical History: No pertinent Hx Family Medical History - Family Member Mother History Unknown: Yes Ethnicity: Non- Living Status: Unknown Hx Family Cancer: No Hx Family Coronary Artery Disease: No Hx Family Congestive Heart Failure: No Hx Family Hypertension: Yes Hx Family Stroke: No Hx Family Diabetes: No Hx Family Seizures: No Hx Family Dementia: No Hx Family AIDS: No Hx Family HIV: No Hx Family COPD: No Hx Family Hepatitis: No Hx Family Psychiatric Problems: No Hx Family Tuberculosis: No Sister History Unknown: Yes Social History Smoke: No Alcohol: None Drugs: None Lives: [facility] - Medications Home Medications: Home Medication Medication Instructions Recorded Type Allopurinol 300 mg PO DAILY 10/05/13 History Atorvastatin Calcium [Lipitor] 20 mg PO HS 10/05/13 History Docusate Sodium [Colace] 250 mg PO DAILY 10/05/13 History Gabapentin [Neurontin] 800 mg PO TID 10/05/13 History Glipizide [Glucotrol] 10 mg PO AC 10/05/13 History Lactulose 15 ml PO HS 10/05/13 History Levothyroxine [Synthroid] 0.1 mg PO QDAC 10/05/13 History Insulin Human Regular See Protocol SC ACHS 05/30/14 History Insulin Glargine,Hum.rec.anlog 35 unit SC BID 02/14/16 History [Toujeo Solostar] metFORMIN [Glucophage] 1,000 mg PO BID 02/14/16 History Solifenacin Succinate [Vesicare] 5 mg PO BID 05/09/16 History Ascorbic Acid [Vitamin C] 500 mg PO BID 06/02/17 History Magnesium Hydroxide [Milk of 30 ml PO DAILY PRN 06/02/17 History Magnesia] Multivitamin w/ Minerals 1 tab PO DAILY 06/02/17 History [Theragran M] Sertraline HCl [Zoloft] 100 mg PO DAILY 06/02/17 History Zinc Sulfate 220 mg PO DAILY 06/02/17 History Acetaminophen [Tylenol] 650 mg PO Q4H PRN 11/12/18 History Amlodipine Besylate [Norvasc] 2.5 mg PO DAILY 11/12/18 History Aspirin [Aspirin Chewable] 81 mg PO DAILY 11/12/18 History Calcium Carb/Vit D 500mg/200U 1 tab PO DAILY 11/12/18 History [Oscal w/Vitamin D] Calcium Carbonate [Tums] 500 mg PO Q8H PRN 11/12/18 History Diltiazem HCl [Cardizem LA] 300 mg PO DAILY 11/12/18 History Folic Acid [Folate*] 1 mg PO DAILY 11/12/18 History GLUCAGON HCl [Glucagen] 1 mg IM PRN PRN 11/12/18 History Hydrocodone/Acetaminophen 1 tab PO Q6H PRN 11/12/18 History [Hydrocodone-Acetamin 7.5-325] Melatonin 3 mg PO QPM 11/12/18 History Neomycin/Bacitracin/Polymyxinb 1 appl TP DAILY 11/12/18 History [Triple Antibiotic Ointment] Ranitidine HCl 150 mg PO BID 11/12/18 History Spironolactone [Aldactone] 75 mg PO BID 11/12/18 History Thiamine [Vitamin B1] 100 mg PO DAILY 11/12/18 History Triamcinolone Acet 0.1% Cream 1 appl TP DAILY 11/12/18 History [Kenalog 0.1%] Vitamin E 1,000 unit PO DAILY 11/12/18 History traMADol HCl [Ultram*] 50 mg PO BID 11/12/18 History - Allergies Allergies/Adverse Reactions: Allergies Allergy/AdvReac Type Severity Reaction Status Date / Time No Known Allergies Allergy Verified 06/02/17 13:10 Review of Systems - Review of Systems Constitutional: Report: No Significant Eyes: Report: No Significant ENT: Report: No Significant Respiratory: Report: No Significant Cardiovascular: Report: No Significant Gastrointestinal: Report: No Significant Genitourinary: Report: No Significant Musculoskeletal: Report: No Significant Skin: Report: No Significant Neurological: Report: No Significant Physical Exam - Physical Exam HEENT: Report: Ears Nose Throat within normal limits, Pharnyx within normal limits Neck: Report: Within normal limits Cardiovascular Systems: Report: +s1/s2 noted, Regular, Rate and Rhythm Respiratory: Report: Breath Sounds are within normal limits Abdomen: Report: Non-tender to palpation, Tender to palpation Back: Report: Inspection of back is within normal limits. Extremities: Report: Non-tender to palpation. Skin: Report: Color of skin is within normal limits Neuro/Psych: Report: Mood affect is within normal limits, A+Ox3 - Lab Results All Lab Results last 24 hours: Laboratory Results - last 24 hr 11/12/18 11/12/18 11/12/18 18:20 18:20 18:20 WBC 10.0 RBC 3.83 Hgb 11.5 L Hct 34.8 L MCV 90.8 MCH 30.0 MCHC Differential 33.1 RDW 14.6 Plt Count 167 MPV 8.6 Neutrophils % 69.9 Lymphocytes % 23.9 Monocytes % 3.9 Eosinophils % 1.8 Basophils % 0.5 PT 13.0 H INR 1.26 PTT (Actin FS) 20.1 L Sodium 133 L Potassium 5.8 H Chloride 105 Carbon Dioxide 16.0 L Anion Gap 17.8 H BUN 53 H Creatinine 3.0 H Est GFR ( Amer) 20.0 Est GFR (Non-Af Amer) 16.5 BUN/Creatinine Ratio 17.7 Glucose 158 H Calcium 10.0 Total Bilirubin 0.6 AST 54 H ALT 28 Alkaline Phosphatase 43 Troponin I Total Protein 7.9 Albumin 3.7 Globulin 4.2 Albumin/Globulin Ratio 0.9 L TSH Urine Source Urine Color Urine Clarity Urine pH Ur Specific Ash Urine Protein Urine Glucose (UA) Urine Ketones Urine Blood Urine Nitrate Urine Bilirubin Urine Urobilinogen Ur Leukocyte Esterase Urine RBC Urine WBC Ur Epithelial Cells Urine Bacteria 11/12/18 11/12/18 11/12/18 18:20 18:20 19:15 WBC RBC Hgb Hct MCV MCH MCHC Differential RDW Plt Count MPV Neutrophils % Lymphocytes % Monocytes % Eosinophils % Basophils % PT INR PTT (Actin FS) Sodium Potassium Chloride Carbon Dioxide Anion Gap BUN Creatinine Est GFR ( Amer) Est GFR (Non-Af Amer) BUN/Creatinine Ratio Glucose Calcium Total Bilirubin AST ALT Alkaline Phosphatase Troponin I 0.02 Total Protein Albumin Globulin Albumin/Globulin Ratio TSH 0.14 L Urine Source CATH Urine Color YELLOW Urine Clarity CLEAR Urine pH 6.0 Ur Specific Ash 1.020 Urine Protein 30 H Urine Glucose (UA) NEGATIVE Urine Ketones NEGATIVE Urine Blood NEGATIVE Urine Nitrate NEGATIVE Urine Bilirubin NEGATIVE Urine Urobilinogen 0.2 Ur Leukocyte Esterase NEGATIVE Urine RBC NONE SEEN Urine WBC 0-2 Ur Epithelial Cells OCCASIONAL Urine Bacteria FEW - Assessment Assessment: Current Active Problems Problem Status Onset DECLINING MENTAL STATUS, POOR APPETITE Acute Altered Mental Status poor appetite COPD Alcoholic liver disease GERD HTN, DM2, Hypothyroidism, Bipolar d/o, Anxiety d/o, Gout, Hyperlipidemia, Polyneuropathy, Depression - Plan Plan: will admit to telemetry. repeat labwork. ID consult and general surgical consult.
[2018-11-13] MEDS ORDERED: Sodium Chloride 0.45% 1,000 ML IV SCH (07:00)
[2018-11-13 07:08] LABS: WHITE BLOOD COUNT 5.4 Th/cmm (4.8-10.8)
[2018-11-13 07:09] LABS: % BASOPHILS 1.1 % (0.0-2.0); % EOSINOPHILS 3.5 % (0.0-5.0); % LYMPHOCYTES 28.1 % (20.0-50.0); % MONOCYTES 5.2 % (2.0-10.0); % NEUTROPHILS 62.1 % (40.0-80.0); BASOPHILE ABSOLUTE 0.1 Th/cumm (0-0.2); EOSINOPHILE ABSOLUTE 0.2 Th/cmm (0.1-0.4); HEMATOCRIT 33.5 % (41.0-60); HEMOGLOBIN 11.2 gm/dL (12-16); LYMPHOCYTE ABSOLUTE 1.5 Th/cmm (1.5-3.0); MEAN CELL VOLUME 90.3 fl (81-100); MEAN CORPUSCULAR HEMOGLOBIN 30.1 pg (27.0-31.0); MEAN CORPUSCULAR HGB CONC 33.3 pg (28.0-36.0); MEAN PLATELET VOLUME 7.6 fl; MONOCYTE ABSOLUTE 0.3 Th/cmm (0.3-1.0); NEUTROPHILE ABSOLUTE 3.3 Th/cmm (1.8-8.0); PLATELET COUNT 131 Th/cmm (150-400); RED BLOOD COUNT 3.71 Mil/cmm (3.80-5.20); RED CELL DISTRIBUTION WIDTH 14.5 % (11.5-20.0)
[2018-11-13] MEDS: Levothyroxine 0.1 Mg Tab PO SCH (07:09)
[2018-11-13] MEDS ORDERED: Non-Formulary Item 1 EA (Glipizide [Glucotrol] 10 MG) PO SCH (07:30)
[2018-11-13 07:34] LABS: ALB/GLOB RATIO 0.9 (1.0-1.8); ALBUMIN 3.4 gm/dL (3.7-5.3); ANION GAP 14.6 (7.0-16.0); BILIRUBIN,TOTAL 0.5 mg/dL (0.3-1.0); CALCIUM SERUM 9.5 mg/dL (8.6-10.3); CARBON DIOXIDE 17.4 mEq/L (21.0-31.0); CREATININE - SERUM 2.5 mg/dL (0.6-1.2); GFR AFRICAN-AMERICAN 24.6 ml/min (>90); GFR NON AFRICAN-AMERICAN 20.4 ml/min; TOTAL PROTEIN,SERUM 7.2 gm/dL (6.0-8.3)
[2018-11-13 08:06] LABS: IRON LC 93 ug/dL (27-139); TIBC (LC) 225 ug/dL (250-450); UIBC 132 ug/dL (118-369)
[2018-11-13] MEDS: Aspirin 81mg Chewable Tab PO SCH (08:31)
[2018-11-13] MEDS: Calcium Carb/Vit D 500 mg/200 U Tab PO SCH (08:33)
[2018-11-13] MEDS: Multivitamin w/ Minerals Tab PO SCH (08:34)
[2018-11-13] MEDS: Triple Antibiotic 0.94 gm Pkt TP SCH (08:35)
[2018-11-13] MEDS: INSULIN LISPRO SLIDING SCALE 100 UNITS/ML UNIT SUBQ SCH ×4 (08:35→21:16)
[2018-11-13] MEDS: Insulin Glargine 100 units/ml 10ml Vial SUBQ SCH ×2 (08:48→16:48)
[2018-11-13] MEDS: Triamcinolone Acetonide 0.1% Cream 15 gm TP SCH (08:53)
[2018-11-13] MEDS: Diltiazem CD 180 mg C24 PO SCH (08:54)
[2018-11-13] MEDS ORDERED: [UNRECOGNIZED DRUG - OTHER] TP SCH (09:00)
[2018-11-13] MEDS ORDERED: DILTIAZEM HCL 300 MG PO SCH (09:00)
[2018-11-13] MEDS ORDERED: Non-Formulary Item 1 EA (Solifenacin Succinate [Vesicare] 5 MG) PO SCH (09:00)
[2018-11-13] MEDS ORDERED: AMLODIPINE BESYLATE 2.5 MG PO SCH (09:00)
[2018-11-13] MEDS ORDERED: Non-Formulary Item 1 EA (Ranitidine Hcl [Ranitidine Hcl] 150 MG) PO SCH (09:00)
[2018-11-13] MEDS ORDERED: INSULIN GLARGINE HUM REC ANLOG 35 UNIT SC SCH (09:00)
[2018-11-13] MEDS ORDERED: ALLOPURINOL 300 MG PO SCH (09:00)
[2018-11-13] MEDS ORDERED: NEOMYCIN TP SCH (09:00)
[2018-11-13] MEDS: Vitamin E 1,000 IU Sgl PO SCH (09:38)
--- NOTE | 2018-11-13 09:40 | Diagnostic Imaging Report ---
CHEST X-RAY: AP view INDICATION: pain COMPARISON: CT abdomen and pelvis on 06/03/2017 FINDINGS: Mild increased bibasal lung markings are noted. There is no focal consolidation or pleural effusions The heart is normal in size. There is atherosclerosis of the aortic arch. The osseous structures demonstrate no acute abnormalities. IMPRESSION: Mild increased bibasilar lung markings, favoring atelectatic changes. No focal consolidation identified. Note however, faint infiltrate of the right base cannot be excluded. Clinical correlation and follow-up recommended. Atherosclerotic vascular disease.
[2018-11-13] MEDS: D5-0.9%NS 1,000 ML IV SCH (16:59)
[2018-11-13] MEDS ORDERED: Non-Formulary Item 1 EA (Melatonin [Melatonin] 3 MG) PO SCH (17:00)
[2018-11-13] MEDS ORDERED: Non-Formulary Item 1 EA (Atorvastatin Calcium [Lipitor] 20 MG) PO SCH (21:00)
[2018-11-13] MEDS ORDERED: Lactulose 10 Gm/15 mL 30mL UDC PO SCH (21:00)
[2018-11-13] MEDS ORDERED: LACTULOSE PO SCH (21:00)
[2018-11-13] MEDS: Atorvastatin Calcium 10 MG TAB PO SCH (21:16)
--- NOTE | 2018-11-14 02:22 | Consultation ---
DATE OF CONSULTATION: 11/13/2018 ATTENDING: Dr. Michelle Reyes. MEDICAL AUDITOR: Dr. Steve Eddy. REASON FOR CONSULTATION: Worsening kidney function, electrolyte imbalance, and fluid management. HISTORY OF PRESENT ILLNESS: This is a 68-year-old female with past medical history of diabetes, who was brought in because of altered level of consciousness. A few days prior to admission, the patient was noted to be less interactive and responsive. This has also affected her appetite. A few hours prior to admission, her mental status had progressively declined. She was not eating her meals. She was then brought to the Emergency Room. Her white count was 10 with a temperature of 97 degrees. Chest x-rays revealed no focal consolidation. Her potassium was 5.8 with a BUN/creatinine of 53/3. There was no history of nausea and vomiting, diarrhea, fever/chills, cough, congestion, nor abdominal pain or headaches. PAST MEDICAL HISTORY: 1. Alcohol liver disease. 2. Bipolar disorder. 3. Essential hypertension. 4. Gout. 5. Hypothyroidism. 6. Type 2 diabetes mellitus. 7. Polyneuropathy. 8. Anxiety/depression. 9. COPD. 10. GERD. 11. Dyslipidemia. 12. Bladder incontinence. 13. Stage 4 sacral pressure ulcer. CURRENT MEDICATIONS: She is currently on acetaminophen, allopurinol, amlodipine, ascorbic acid, aspirin, atorvastatin, bacitracin, calcium carbonate, diltiazem, docusate sodium, famotidine, folic acid, gabapentin, Glucotrol, hydrocodone/APAP, glargine, lispro, lactulose, levothyroxine, magnesium hydroxide, melatonin, metformin, multivitamins with minerals, neomycin/bacitracin, ranitidine, sertraline, solifenacin, spironolactone, thiamine, tramadol, zinc sulfate. ALLERGIES: No known drug allergies. SOCIAL AND FAMILY HISTORY: I was not able to obtain from the patient because of her depressed mental status. REVIEW OF SYSTEMS: Again, I was not able to decipher directly from the patient because of the same reason. PHYSICAL EXAMINATION: GENERAL: The patient is stuporous, arousable, not in any form of distress. VITAL SIGNS: Blood pressure is 136/69, pulse 77, temperature 97.6 degrees. SKIN: Poor turgor, warm. No rash, no jaundice appreciated. HEENT: Head normocephalic, atraumatic. Eyes: Unable to assess her extraocular muscles. Pupils are equal, round, reactive to light and accommodates. Anicteric sclerae. Pettus conjunctivae. Nose, midline nasal septum. Mouth: Dry mucosa, adequate dentition. NECK: Supple. No adenopathy, no thyromegaly, no bruits. Trachea palpated in the midline. CHEST AND CARDIOVASCULAR: S1, S2. No rub, murmur, nor gallop appreciated. Point of maximal impulse fifth intercostal space, left midclavicular line. No abdominal or femoral bruits appreciated. LUNGS: Equal expansion. No use of accessory muscles. No supraclavicular retractions. Decreased breath sounds, few rhonchi, but no rales nor wheezes appreciated. BREASTS: Symmetrical, without any discharge. ABDOMEN: Mildly globular, soft. Positive for bowel sounds. No bruits either diastolic or systolic, no pulsatile masses. RECTAL: Lax sphincter tone. GENITOURINARY: Normal appearing female genitalia. MUSCULOSKELETAL: No effusions present in her joints, but unable to assess her range of motion. EXTREMITIES: No evidence of any edema, cyanosis nor clubbing with palpable femoral, but unable to fully appreciate popliteal and dorsalis pedis pulses. NEUROLOGIC: The patient is alert, verbal, motor is 5/5. Cranial nerves unable to perform because the patient remains stuporous at the present time. LABORATORY DATA: Did show her white count of 5.4, hemoglobin 11.3, hematocrit 33.5, platelets 131. Sodium 136, potassium 5, chloride 109, carbon dioxide of 17, BUN 48, creatinine 2.5, glucose 197, calcium 9.5, T-sat is 41%. Troponin 1 is 0.02, albumin 3.4. PSA 0.14. IMPRESSION: 1. Acute kidney injury, MDRD GFR of 20 mL per minute. The patient did develop altered level of consciousness associated with very poor oral intake including fluids. She eventually developed dehydration. This is supported by poor skin turgor with dry oral mucosa. Her urine was also quite concentrated. Her prerenal azotemia progressed to acute tubular injury. 2. Altered level of consciousness, possibly from metabolic/uremic encephalopathy, dehydration or could be multiple medication induced condition. 3. Failure to thrive due to her altered level of consciousness. 4. Hyperkalemia secondary to spironolactone. 5. Hypothyroidism secondary to Synthroid. 6. Anion gap metabolic acidosis. 7. Alcohol liver disease. 8. Bipolar disorder. 9. Essential hypertension. 10. Gout. 11. Type 2 diabetes mellitus. 12. Polyneuropathy. 13. Anxiety/depression. 14. Gastroesophageal reflux disease. 15. Dyslipidemia. 16. Incontinence. 17. Stage 4 sacral decubitus ulcer. PLAN: 1. Continue with IV hydration. 2. CT scan of the head. 3. Request for ammonia level. 4. Discontinue spironolactone due to hypokalemia and hyperkalemia. 5. Discontinue Synthroid due to severe hypothyroidism. 6. Follow up electrolytes, CBC, uric acid level. 7. Urine sodium, CO2 as well as creatinine. 8. Renal ultrasound. 9. Urine microalbumin to creatinine ratio. 10. CT scan of the head without contrast. 11. Discontinue metformin due to kidney failure. 12. Sodium bicarbonate. JOB# [id number]
--- NOTE | 2018-11-14 05:50 | Consultation ---
DATE OF CONSULTATION: 11/13/2018 SURGICAL CONSULTATION NOTE TIME: 11:00 p.m. HISTORY OF PRESENT ILLNESS: The patient is a 68-year-old female who presents to [facility] ER for change in mental status, poor appetite, noted by nursing staff. Resident of [facility], was found to have a decline in mental status and subsequently transferred for evaluation, history of COPD, alcoholic liver disease, gastroesophageal reflux disease, hypertension, diabetes, hypothyroidism, bipolar disorder, anxiety disorder, gout, hyperlipidemia, polyneuropathy, depression. As part of workup, patient was noted to have a sacral coccyx decubitus ulcer and Surgical consultation requested. Denies any current alcohol, smoking, or recreational drug use. MEDICATIONS: Long list, allopurinol, glipizide, gabapentin, insulin, aspirin, tramadol. ALLERGIES: She has no known drug allergies. PHYSICAL EXAMINATION: VITAL SIGNS: She is 79 kilograms. BMI 32. GENERAL: She is afebrile. Vital signs otherwise stable. Resting in bed comfortably, in no acute distress. CHEST: Clear to auscultation bilaterally. CARDIOVASCULAR: Regular rate. ABDOMEN: Soft, nontender, nondistended, no guarding, rebound or generalized peritoneal signs. She is bedridden. NEUROVASCULAR: Otherwise normal. She has a small about 1.5 x 1.5 cm sacral coccyx decubitus ulcer. There is some tunneling, but it is fairly clean and dry. There is no malodor. There is no purulent drainage. There is no fluctuance or erythema in the surrounding tissues. There is good granulation tissue. LABORATORY DATA: White blood cell count 5.4, H and H 11 and 33.5, platelet count 131, chloride 109, bicarbonate 17, BUN and creatinine is 48 and 2.5. IMAGING TESTS: Chest x-ray revealed mild increased bibasilar lung markings favoring atelectatic changes, no focal consolidation identified, faint infiltrate of right base cannot be excluded, atherosclerotic vascular disease. IMPRESSION/PLAN: The patient with multiple medical problems. She is bedridden, resident of [facility], came to the Emergency Room for change in mental status. She was noted on evaluation to have a sacral coccyx decubitus ulcer 1 x 1 cm. It is clean and dry. There is no malodor, no debridement is required at this time, continue local wound care. [facility]# [id number]
[2018-11-14 06:36] LABS: % BASOPHILS 1.1 % (0.0-2.0); % EOSINOPHILS 4.2 % (0.0-5.0); % LYMPHOCYTES 30.1 % (20.0-50.0); % MONOCYTES 4.8 % (2.0-10.0); % NEUTROPHILS 59.8 % (40.0-80.0); BASOPHILE ABSOLUTE 0.1 Th/cumm (0-0.2); EOSINOPHILE ABSOLUTE 0.2 Th/cmm (0.1-0.4); HEMATOCRIT 31.7 % (41.0-60); HEMOGLOBIN 10.5 gm/dL (12-16); LYMPHOCYTE ABSOLUTE 1.5 Th/cmm (1.5-3.0); MEAN CELL VOLUME 90.5 fl (81-100); MEAN CORPUSCULAR HEMOGLOBIN 30.1 pg (27.0-31.0); MEAN CORPUSCULAR HGB CONC 33.2 pg (28.0-36.0); MEAN PLATELET VOLUME 7.7 fl; MONOCYTE ABSOLUTE 0.2 Th/cmm (0.3-1.0); NEUTROPHILE ABSOLUTE 2.9 Th/cmm (1.8-8.0); PLATELET COUNT 109 Th/cmm (150-400); RED CELL DISTRIBUTION WIDTH 14.4 % (11.5-20.0); WHITE BLOOD COUNT 4.9 Th/cmm (4.8-10.8)
[2018-11-14] MEDS: Levothyroxine 0.1 Mg Tab PO SCH (06:52)
[2018-11-14] MEDS: D5-0.9%NS 1,000 ML IV SCH ×3 (06:54→23:04)
--- NOTE | 2018-11-14 07:54 | General Progress Note ---
Subjective - Review of Systems Service Date: 11/14/18 Subjective: Awake, alert, febrile. no acute distress Objective - Results Result Diagrams: 11/14/18 06:19 11/13/18 06:45 Recent Labs: Laboratory Last Values WBC 4.9 Th/cmm (4.8-10.8) 11/14/18 06:19 RBC 3.50 Mil/cmm (3.80-5.20) L 11/14/18 06:19 Hgb 10.5 gm/dL (12-16) L 11/14/18 06:19 Hct 31.7 % (41.0-60) L 11/14/18 06:19 MCV 90.5 fl (81-100) 11/14/18 06:19 MCH 30.1 pg (27.0-31.0) 11/14/18 06:19 MCHC Differential 33.2 pg (28.0-36.0) 11/14/18 06:19 RDW 14.4 % (11.5-20.0) 11/14/18 06:19 Plt Count 109 Th/cmm (150-400) L 11/14/18 06:19 MPV 7.7 fl 11/14/18 06:19 Neutrophils % 59.8 % (40.0-80.0) 11/14/18 06:19 Lymphocytes % 30.1 % (20.0-50.0) 11/14/18 06:19 Monocytes % 4.8 % (2.0-10.0) 11/14/18 06:19 Eosinophils % 4.2 % (0.0-5.0) 11/14/18 06:19 Basophils % 1.1 % (0.0-2.0) 11/14/18 06:19 PT 13.0 SECONDS (9.5-11.5) H 11/12/18 18:20 INR 1.26 (0.5-1.4) 11/12/18 18:20 PTT (Actin FS) 20.1 SECONDS (26.0-38.0) L 11/12/18 18:20 Sodium 136 mEq/L (136-145) 11/13/18 06:45 Potassium 5.0 mEq/L (3.5-5.1) 11/13/18 06:45 Chloride 109 mEq/L (98-107) H 11/13/18 06:45 Carbon Dioxide 17.4 mEq/L (21.0-31.0) L 11/13/18 06:45 Anion Gap 14.6 (7.0-16.0) 11/13/18 06:45 BUN 48 mg/dL (7-25) H 11/13/18 06:45 Creatinine 2.5 mg/dL (0.6-1.2) H 11/13/18 06:45 Est GFR ( Amer) 24.6 ml/min (>90) 11/13/18 06:45 Est GFR (Non-Af Amer) 20.4 ml/min 11/13/18 06:45 BUN/Creatinine Ratio 19.2 11/13/18 06:45 Glucose 187 mg/dL (70-105) H 11/13/18 06:45 POC Glucose 247 MG/DL (70 - 105) H 11/13/18 21:16 Calcium 9.5 mg/dL (8.6-10.3) 11/13/18 06:45 Iron 93 ug/dL (27-139) 11/12/18 18:20 TIBC 225 ug/dL (250-450) L 11/12/18 18:20 Iron Saturation 41 % (15-55) 11/12/18 18:20 Unsaturated IBC 132 ug/dL (118-369) 11/12/18 18:20 Total Bilirubin 0.5 mg/dL (0.3-1.0) 11/13/18 06:45 AST 57 U/L (13-39) H 11/13/18 06:45 ALT 26 U/L (7-52) 11/13/18 06:45 Alkaline Phosphatase 52 U/L (34-104) 11/13/18 06:45 Troponin I 0.02 ng/mL (0.01-0.05) 11/12/18 18:20 Total Protein 7.2 gm/dL (6.0-8.3) 11/13/18 06:45 Albumin 3.4 gm/dL (3.7-5.3) L 11/13/18 06:45 Globulin 3.8 gm/dL 11/13/18 06:45 Albumin/Globulin Ratio 0.9 (1.0-1.8) L 11/13/18 06:45 TSH 0.14 uIU/ml (0.34-5.60) L 11/12/18 18:20 Urine Source CATH 11/12/18 19:15 Urine Color YELLOW 11/12/18 19:15 Urine Clarity CLEAR (CLEAR) 11/12/18 19:15 Urine pH 6.0 (4.6 - 8.0) 11/12/18 19:15 Ur Specific [place] 1.020 (1.005-1.030) 11/12/18 19:15 Urine Protein 30 mg/dL (NEGATIVE) H 11/12/18 19:15 Urine Glucose (UA) NEGATIVE mg/dL (NEGATIVE) 11/12/18 19:15 Urine Ketones NEGATIVE mg/dL (NEGATIVE) 11/12/18 19:15 Urine Blood NEGATIVE (NEGATIVE) 11/12/18 19:15 Urine Nitrate NEGATIVE (NEGATIVE) 11/12/18 19:15 Urine Bilirubin NEGATIVE (NEGATIVE) 11/12/18 19:15 Urine Urobilinogen 0.2 E.U./dL (0.2 - 1.0) 11/12/18 19:15 Ur Leukocyte Esterase NEGATIVE (NEGATIVE) 11/12/18 19:15 Urine RBC NONE SEEN /hpf (0-5) 11/12/18 19:15 Urine WBC 0-2 /hpf (0-5) 11/12/18 19:15 Ur Epithelial Cells OCCASIONAL /lpf (FEW) 11/12/18 19:15 Urine Bacteria FEW /hpf (NONE SEEN) 11/12/18 19:15 - Physical Exam Vitals and I&O: Vital Signs Temp 97.9 F 11/14/18 04:25 Pulse 77 11/14/18 04:25 Resp 17 11/14/18 04:25 BP 132/68 11/14/18 04:25 Pulse Ox 98 11/14/18 04:25 Intake & Output 11/13/18 11/14/18 11/14/18 18:59 06:59 18:59 Intake Total 1400 Balance 1400 Weight (lbs) 79.379 kg Intake: Intake, IV Amount 1000 D5-0.9%Ns 1,000 ml @ 100 1000 mls/hr IV .Q10H [facility] Rx#: [id number] Oral 400 Other: # Voids 2 # Bowel Movements 0 Weight Source Bedscale Active Medications: Current Medications Acetaminophen (Tylenol) 650 mg PO Q4HR PRN PRN Reason: Pain (Mild) Stop: 01/12/19 07:38 Acetaminophen/Hydrocodone Bitart ([place] 5mg/325mg) 1 tab PO Q6HR PRN PRN Reason: Pain (Moderate) Stop: 01/12/19 07:49 Allopurinol (Zyloprim) 300 mg PO DAILY [facility] Stop: 01/12/19 08:59 Last Admin: 11/13/18 08:31 Dose: 300 mg Amlodipine Besylate (Norvasc) 2.5 mg PO DAILY [facility] Stop: 01/12/19 08:59 Last Admin: 11/13/18 08:32 Dose: 2.5 mg Ascorbic Acid (Vitamin C) 500 mg PO BID [facility] Stop: 01/12/19 08:59 Last Admin: 11/13/18 16:30 Dose: 500 mg Aspirin (Aspirin Chewable) 81 mg PO DAILY [facility] Stop: 01/12/19 08:59 Last Admin: 11/13/18 08:31 Dose: 81 mg Atorvastatin Calcium (Lipitor) 20 mg PO HS [facility] Stop: 01/12/19 20:59 Last Admin: 11/13/18 21:16 Dose: 20 mg Calcium Carbonate (Tums) 500 mg PO Q8H PRN PRN Reason: ANTACID Stop: 01/12/19 06:20 Calcium/Vitamin D (Oscal W/Vitamin D) 1 tab PO DAILY [facility] Stop: 01/12/19 08:59 Last Admin: 11/13/18 08:33 Dose: 1 tab Dextrose (D50w) 50 ml IVP PRN PRN PRN Reason: Blood Glucose less than 70 Stop: 01/12/19 06:24 Dextrose (Glutose 40%) 18.75 gm PO PRN PRN PRN Reason: Blood Glucose less than 70 Stop: 01/12/19 06:24 Diltiazem HCl (Cardizem Cd) 360 mg PO DAILY [facility] Stop: 01/12/19 08:59 Last Admin: 11/13/18 08:54 Dose: 360 mg Docusate Sodium (Colace) 250 mg PO DAILY [facility] Stop: 01/12/19 08:59 Last Admin: 11/13/18 08:33 Dose: 250 mg Famotidine (Pepcid) 20 mg PO DAILY [facility] Stop: 01/12/19 08:59 Last Admin: 11/13/18 08:32 Dose: 20 mg Folic Acid (Folate) 1 mg PO DAILY [facility] Stop: 01/12/19 08:59 Last Admin: 11/13/18 08:32 Dose: 1 mg Gabapentin (Neurontin) 800 mg PO TID [facility] Stop: 01/12/19 08:59 Glipizide (Glucotrol) 10 mg PO DAILY [facility] Stop: 01/12/19 08:59 Last Admin: 11/13/18 08:33 Dose: 10 mg Glucagon (Glucagen) 1 mg IM PRN PRN PRN Reason: Blood Glucose less than 70 Stop: 01/12/19 06:24 Sodium Chloride (Nacl 0.45%) 1,000 mls @ 50 mls/hr IV .Q20H [facility] Stop: 01/12/19 06:59 Last Admin: 11/13/18 07:10 Dose: 50 mls/hr Dextrose/Sodium Chloride (D5-0.9%Ns) 1,000 mls @ 100 mls/hr IV .Q10H [facility] Stop: 01/12/19 16:59 Last Admin: 11/14/18 06:54 Dose: 100 mls/hr Insulin Glargine (Lantus Insulin) 35 units SUBQ BID [facility] Stop: 01/12/19 08:59 Last Admin: 11/13/18 16:48 Dose: 35 units Insulin Human Lispro (Humalog Insulin Sliding Scale) 0 units SUBQ ACHS [facility]; Protocol Stop: 01/12/19 07:29 Last Admin: 11/13/18 21:16 Dose: 4 units Levothyroxine Sodium (Synthroid) 0.1 mg PO QDAC [facility] Stop: 01/12/19 07:29 Last Admin: 11/14/18 06:52 Dose: 0.1 mg Magnesium Hydroxide (Milk Of Magnesia) 30 ml PO DAILY PRN PRN Reason: Constipation Stop: 01/12/19 06:20 Miscellaneous (Sertraline Hcl [Zoloft]) 100 mg PO DAILY [facility] Stop: 01/12/19 08:59 Miscellaneous (Solifenacin Succinate [Vesicare]) 5 mg PO BID [facility] Stop: 01/12/19 08:59 Neomycin/Polymyxin/Bacitracin (Triple Antibiotic Pkt) 1 pkt TP DAILY [facility] Stop: 01/12/19 08:59 Last Admin: 11/13/18 08:35 Dose: 1 pkt Sodium Bicarbonate (Sodium Bicarbonate) 650 mg PO BID [facility]; Protocol Stop: 01/12/19 16:59 Last Admin: 11/13/18 17:05 Dose: 650 mg Thiamine HCl (Vitamin B1) 100 mg PO DAILY [facility] Stop: 01/12/19 08:59 Last Admin: 11/13/18 08:33 Dose: 100 mg Tramadol HCl (Ultram) 50 mg PO BID [facility] Stop: 01/12/19 08:59 Last Admin: 11/13/18 16:30 Dose: 50 mg Triamcinolone Acetonide (Kenalog 0.1%) 1 appl TP DAILY [facility] Stop: 01/12/19 08:59 Last Admin: 11/13/18 08:53 Dose: 1 appl Vitamin E (Vitamin E) 1,000 iu PO DAILY [facility] Stop: 01/12/19 08:59 Last Admin: 11/13/18 09:38 Dose: 1,000 iu Zinc Sulfate (Zinc Sulfate) 220 mg PO DAILY [facility] Stop: 01/12/19 08:59 Last Admin: 11/13/18 08:33 Dose: 220 mg General: Alert, Oriented x3, No acute distress HEENT: Atraumatic, PERRLA, EOMI Neck: Supple Cardiovascular: Regular rate, Normal S1, Normal S2 Lungs: Clear to auscultation Abdomen: Bowel sounds, Soft Extremities: no Clubbing, no Cyanosis, no Edema Neurological: Normal gait, Normal speech - Procedures Procedures: Procedures Procedure Code Date CANDACE BONE 20 SQ CM/< 97494 06/02/17 DRAINAGE OF LEFT BREAST, PERCUTANEOUS APPROACH [id number] 05/09/16 EXCISION OF BACK SUBCU/FASCIA, OPEN APPROACH [id number] 06/02/17 INCISION OF BREAST LESION 72815 05/09/16 Assessment/Plan - Problem List Patient Problems: All Active Problems DECLINING MENTAL STATUS, POOR APPETITE (Acute) - Assessment Assessment: Current Active Problems Problem Status Onset DECLINING MENTAL STATUS, POOR APPETITE Acute Altered Mental Status poor appetite COPD Alcoholic liver disease GERD HTN, DM2, Hypothyroidism, Bipolar d/o, Anxiety d/o, Gout, Hyperlipidemia, Polyneuropathy, Depression - Plan Plan: continue current treatment Nutritional Asmnt/Malnutr-PDOC - Dietary Evaluation Malnutrition Findings (Please click <Entered> for more info): Nutritional Asmnt/Malnutrition Start: 11/13/18 09: 54 Text: Status: Active Freq: Protocol: Document 11/13/18 09:54 THIEN (Rec: 11/13/18 10:00 THIEN FAYE- [email or web address]) Nutritional Asmnt/Malnutrition Patient General Information Diagnosis electrolyte imbalance, sacral decubitus ulcer Pertinent Medical Hx/Surgical Hx bipolar d/o, anxiety, COPD, alcoholic liver disease, GERD, HTN, DM type II, hypothyroidism Subjective Information Pt sitting up in bed at time of visit and did not repsond verbally to RD's questions. Current Diet Order/ Nutrition Support 2g Na diet Pertinent Medications vit C, lipitor, tums, Ca and Vit D, foalte, glucagen, Lantus 35units, MOM, metformin , zinc sulfate, vit E, vit B1 Pertinent Labs 11/13: Na 136, k 5.0, cl 109, CO2 17.4, BUN 48, Cr 2.5, Ca 9 .5, glucose 187 Nutritional Hx/Data Height 1.57 m Height (Calculated Centimeters) 157.5 Current Weight (lbs) 79.379 kg Weight (Calculated Kilograms) 79.4 Weight (Calculated Grams) 38731.7 Body Mass Index (BMI) 32.0 Weight Status Obese GI Symptoms GI Symptoms None Last BM none noted Cultural/Ethnic/Zoroastrianism Belief unknown Usual diet at home unknown Skin Integrity/Comment: cherri score 14, sacrum: pressure area Estimated Nutritional Goals BEE in Kcals: Using Current wt Adj wt of IBW Calories/Kcals/Kg 30-35kcals/kg Kcals Calculated 1710-1995kcals/day Protein: Adj wt of IBW Protein g/k.3g+/kg Protein Calculated 74+g/day Fluid: ml 1710-1995ml/day (1ml/kcal_ Nutritional Problem 1. Problem Problem Increased nutrient needs related to Etiology wound healing as evidenced by Signs/Symptoms: cherri score 14 with sacrum pressure area Intervention/Recommendation Comments Recommend continuing Renal diet Expected Outcomes/Goals Expected Outcomes/Goals PO intake >75% of meals
[2018-11-14] MEDS: INSULIN LISPRO SLIDING SCALE 100 UNITS/ML UNIT SUBQ SCH ×4 (08:17→20:20)
[2018-11-14 08:36] LABS: EOSINOPHIL SMEAR SOURCE URINE; EOSINOPHILS SMEAR COUNT FEW EOSINOPHILS SEEN (NONE SEEN)
[2018-11-14] MEDS: Multivitamin w/ Minerals Tab PO SCH (08:43)
[2018-11-14] MEDS: Calcium Carb/Vit D 500 mg/200 U Tab PO SCH (08:44)
[2018-11-14] MEDS: Aspirin 81mg Chewable Tab PO SCH (08:44)
[2018-11-14] MEDS: Vitamin E 1,000 IU Sgl PO SCH (08:45)
[2018-11-14] MEDS: Triamcinolone Acetonide 0.1% Cream 15 gm TP SCH (08:45)
[2018-11-14] MEDS: Triple Antibiotic 0.94 gm Pkt TP SCH (08:45)
[2018-11-14] MEDS: Diltiazem CD 180 mg C24 PO SCH (08:46)
[2018-11-14] MEDS: cefTRIAXone 1 GM in Sodium Chloride 0.9% 50 ML IV SCH (08:48)
[2018-11-14] MEDS: Insulin Glargine 100 units/ml 10ml Vial SUBQ SCH ×2 (08:52→16:52)
[2018-11-14 09:35] LABS: ANION GAP 14.9 (7.0-16.0); CALCIUM SERUM 9.2 mg/dL (8.6-10.3); CARBON DIOXIDE 18.3 mEq/L (21.0-31.0); CREATININE - SERUM 1.9 mg/dL (0.6-1.2); GFR AFRICAN-AMERICAN 33.8 ml/min (>90); GFR NON AFRICAN-AMERICAN 27.9 ml/min; MAGNESIUM 1.8 mg/dL (1.9-2.7); PHOSPHOROUS 3.1 mg/dL (2.5-5.0); POTASSIUM SERUM 4.2 mEq/L (3.5-5.1); URIC ACID 3.6 mg/dL (2.3-6.6)
--- NOTE | 2018-11-14 11:39 | Diagnostic Imaging Report ---
Head CT without intravenous contrast Indication: Altered level of consciousness Comparison: 05/30/2014 Technique: Axial images were obtained from the vertex to the skull base without IV contrast. Coronal reconstructions were made. Total DLP: 914, [id number] FINDINGS: Images of the brain obtained without contrast demonstrate no evidence of an acute hemorrhage. The rodríguez-white matter differentiation is preserved. The ventricles and basal cisterns are patent. No mass effect or midline shift. Faint bilateral basal calcifications are noted. Atherosclerosis is noted. There is minimal atrophy. Atherosclerosis is noted. There is mucosal thickening in the paranasal sinuses. No skull fracture or focal soft tissue swelling. There is unchanged focal 1 cm lucency of the right temporal skull. IMPRESSION: No acute intracranial abnormality. Minimal atrophy Atherosclerotic vascular disease. 1 cm lucency of the right temporal calvarium. Similar finding was seen on prior CT exam on 05/30/2014. Stability suggests benign etiology.
--- NOTE | 2018-11-14 13:30 | General Progress Note ---
Subjective - Review of Systems Service Date: 11/14/18 Subjective: alert, eating lunch Objective - Results Result Diagrams: 11/14/18 06:19 11/14/18 06:19 Recent Labs: Laboratory Last Values WBC 4.9 Th/cmm (4.8-10.8) 11/14/18 06:19 RBC 3.50 Mil/cmm (3.80-5.20) L 11/14/18 06:19 Hgb 10.5 gm/dL (12-16) L 11/14/18 06:19 Hct 31.7 % (41.0-60) L 11/14/18 06:19 MCV 90.5 fl (81-100) 11/14/18 06:19 MCH 30.1 pg (27.0-31.0) 11/14/18 06:19 MCHC Differential 33.2 pg (28.0-36.0) 11/14/18 06:19 RDW 14.4 % (11.5-20.0) 11/14/18 06:19 Plt Count 109 Th/cmm (150-400) L 11/14/18 06:19 MPV 7.7 fl 11/14/18 06:19 Neutrophils % 59.8 % (40.0-80.0) 11/14/18 06:19 Lymphocytes % 30.1 % (20.0-50.0) 11/14/18 06:19 Monocytes % 4.8 % (2.0-10.0) 11/14/18 06:19 Eosinophils % 4.2 % (0.0-5.0) 11/14/18 06:19 Basophils % 1.1 % (0.0-2.0) 11/14/18 06:19 Eos Smear Source URINE 11/14/18 00:48 Eos Smear Total Cells FEW EOSINOPHILS SEEN (NONE SEEN) 11/14/18 00:48 PT 13.0 SECONDS (9.5-11.5) H 11/12/18 18:20 INR 1.26 (0.5-1.4) 11/12/18 18:20 PTT (Actin FS) 20.1 SECONDS (26.0-38.0) L 11/12/18 18:20 Sodium 141 mEq/L (136-145) 11/14/18 06:19 Potassium 4.2 mEq/L (3.5-5.1) 11/14/18 06:19 Chloride 112 mEq/L (98-107) H 11/14/18 06:19 Carbon Dioxide 18.3 mEq/L (21.0-31.0) L 11/14/18 06:19 Anion Gap 14.9 (7.0-16.0) 11/14/18 06:19 BUN 36 mg/dL (7-25) H 11/14/18 06:19 Creatinine 1.9 mg/dL (0.6-1.2) H 11/14/18 06:19 Est GFR ( Amer) 33.8 ml/min (>90) 11/14/18 06:19 Est GFR (Non-Af Amer) 27.9 ml/min 11/14/18 06:19 BUN/Creatinine Ratio 18.9 11/14/18 06:19 Glucose 124 mg/dL (70-105) H 11/14/18 06:19 POC Glucose 210 MG/DL (70 - 105) H 11/14/18 11:53 Uric Acid 3.6 mg/dL (2.3-6.6) 11/14/18 06:19 Calcium 9.2 mg/dL (8.6-10.3) 11/14/18 06:19 Phosphorus 3.1 mg/dL (2.5-5.0) 11/14/18 06:19 Magnesium 1.8 mg/dL (1.9-2.7) L 11/14/18 06:19 Iron 93 ug/dL (27-139) 11/12/18 18:20 TIBC 225 ug/dL (250-450) L 11/12/18 18:20 Iron Saturation 41 % (15-55) 11/12/18 18:20 Unsaturated IBC 132 ug/dL (118-369) 11/12/18 18:20 Total Bilirubin 0.5 mg/dL (0.3-1.0) 11/13/18 06:45 AST 57 U/L (13-39) H 11/13/18 06:45 ALT 26 U/L (7-52) 11/13/18 06:45 Alkaline Phosphatase 52 U/L (34-104) 11/13/18 06:45 Troponin I 0.02 ng/mL (0.01-0.05) 11/12/18 18:20 Total Protein 7.2 gm/dL (6.0-8.3) 11/13/18 06:45 Albumin 3.4 gm/dL (3.7-5.3) L 11/13/18 06:45 Globulin 3.8 gm/dL 11/13/18 06:45 Albumin/Globulin Ratio 0.9 (1.0-1.8) L 11/13/18 06:45 TSH 0.14 uIU/ml (0.34-5.60) L 11/12/18 18:20 Urine Source CATH 11/12/18 19:15 Urine Color YELLOW 11/12/18 19:15 Urine Clarity CLEAR (CLEAR) 11/12/18 19:15 Urine pH 6.0 (4.6 - 8.0) 11/12/18 19:15 Ur Specific [place] 1.020 (1.005-1.030) 11/12/18 19:15 Urine Protein 30 mg/dL (NEGATIVE) H 11/12/18 19:15 Urine Glucose (UA) NEGATIVE mg/dL (NEGATIVE) 11/12/18 19:15 Urine Ketones NEGATIVE mg/dL (NEGATIVE) 11/12/18 19:15 Urine Blood NEGATIVE (NEGATIVE) 11/12/18 19:15 Urine Nitrate NEGATIVE (NEGATIVE) 11/12/18 19:15 Urine Bilirubin NEGATIVE (NEGATIVE) 11/12/18 19:15 Urine Urobilinogen 0.2 E.U./dL (0.2 - 1.0) 11/12/18 19:15 Ur Leukocyte Esterase NEGATIVE (NEGATIVE) 11/12/18 19:15 Urine RBC NONE SEEN /hpf (0-5) 11/12/18 19:15 Urine WBC 0-2 /hpf (0-5) 11/12/18 19:15 Ur Epithelial Cells OCCASIONAL /lpf (FEW) 11/12/18 19:15 Urine Bacteria FEW /hpf (NONE SEEN) 11/12/18 19:15 Ur Random Sodium 115 mmol/L 11/14/18 00:48 Urine Creatinine 69.0 mg/dl (28.0-217.0) 11/14/18 00:48 - Physical Exam Vitals and I&O: Vital Signs Temp 97.8 F 11/14/18 08:00 Pulse 84 11/14/18 08:46 Resp 19 11/14/18 11:00 BP 159/74 11/14/18 08:46 Pulse Ox 100 11/14/18 08:00 Intake & Output 11/13/18 11/14/18 11/14/18 18:59 06:59 18:59 Intake Total 1400 Balance 1400 Weight (lbs) 79.379 kg Intake: Intake, IV Amount 1000 D5-0.9%Ns 1,000 ml @ 100 1000 mls/hr IV .Q10H [facility] Rx#: [id number] Oral 400 Other: # Voids 2 # Bowel Movements 0 Weight Source Bedscale Active Medications: Current Medications Acetaminophen (Tylenol) 650 mg PO Q4HR PRN PRN Reason: Pain (Mild) Stop: 01/12/19 07:38 Acetaminophen/Hydrocodone Bitart ([place] 5mg/325mg) 1 tab PO Q6HR PRN PRN Reason: Pain (Moderate) Stop: 01/12/19 07:49 Allopurinol (Zyloprim) 300 mg PO DAILY [facility] Stop: 01/12/19 08:59 Last Admin: 11/14/18 08:44 Dose: 300 mg Amlodipine Besylate (Norvasc) 2.5 mg PO DAILY [facility] Stop: 01/12/19 08:59 Last Admin: 11/14/18 08:46 Dose: 2.5 mg Ascorbic Acid (Vitamin C) 500 mg PO BID [facility] Stop: 01/12/19 08:59 Last Admin: 11/14/18 08:44 Dose: 500 mg Aspirin (Aspirin Chewable) 81 mg PO DAILY [facility] Stop: 01/12/19 08:59 Last Admin: 11/14/18 08:44 Dose: 81 mg Atorvastatin Calcium (Lipitor) 20 mg PO HS [facility] Stop: 01/12/19 20:59 Last Admin: 11/13/18 21:16 Dose: 20 mg Calcium Carbonate (Tums) 500 mg PO Q8H PRN PRN Reason: ANTACID Stop: 01/12/19 06:20 Calcium/Vitamin D (Oscal W/Vitamin D) 1 tab PO DAILY [facility] Stop: 01/12/19 08:59 Last Admin: 11/14/18 08:44 Dose: 1 tab Dextrose (D50w) 50 ml IVP PRN PRN PRN Reason: Blood Glucose less than 70 Stop: 01/12/19 06:24 Dextrose (Glutose 40%) 18.75 gm PO PRN PRN PRN Reason: Blood Glucose less than 70 Stop: 01/12/19 06:24 Diltiazem HCl (Cardizem Cd) 360 mg PO DAILY [facility] Stop: 01/12/19 08:59 Last Admin: 11/14/18 08:46 Dose: 360 mg Docusate Sodium (Colace) 250 mg PO DAILY [facility] Stop: 01/12/19 08:59 Last Admin: 11/14/18 08:45 Dose: 250 mg Famotidine (Pepcid) 20 mg PO DAILY [facility] Stop: 01/12/19 08:59 Last Admin: 11/14/18 08:45 Dose: 20 mg Folic Acid (Folate) 1 mg PO DAILY [facility] Stop: 01/12/19 08:59 Last Admin: 11/14/18 08:45 Dose: 1 mg Gabapentin (Neurontin) 800 mg PO TID [facility] Stop: 01/12/19 08:59 Glipizide (Glucotrol) 10 mg PO DAILY [facility] Stop: 01/12/19 08:59 Last Admin: 11/14/18 08:43 Dose: 10 mg Glucagon (Glucagen) 1 mg IM PRN PRN PRN Reason: Blood Glucose less than 70 Stop: 01/12/19 06:24 Dextrose/Sodium Chloride (D5-0.9%Ns) 1,000 mls @ 100 mls/hr IV .Q10H [facility] Stop: 01/12/19 16:59 Last Admin: 11/14/18 06:54 Dose: 100 mls/hr Ceftriaxone Sodium 1 gm/ (Sodium Chloride) 50 mls @ 100 mls/hr IV Q24HR [facility] Stop: 01/13/19 07:59 Last Admin: 11/14/18 08:48 Dose: 100 mls/hr Insulin Glargine (Lantus Insulin) 35 units SUBQ BID [facility] Stop: 01/12/19 08:59 Last Admin: 11/14/18 08:52 Dose: 35 units Insulin Human Lispro (Humalog Insulin Sliding Scale) 0 units SUBQ ACHS [facility]; Protocol Stop: 01/12/19 07:29 Last Admin: 11/14/18 12:28 Dose: 4 units Levothyroxine Sodium (Synthroid) 0.1 mg PO QDAC [facility] Stop: 01/12/19 07:29 Last Admin: 11/14/18 06:52 Dose: 0.1 mg Magnesium Hydroxide (Milk Of Magnesia) 30 ml PO DAILY PRN PRN Reason: Constipation Stop: 01/12/19 06:20 Miscellaneous (Sertraline Hcl [Zoloft]) 100 mg PO DAILY [facility] Stop: 01/12/19 08:59 Miscellaneous (Solifenacin Succinate [Vesicare]) 5 mg PO BID [facility] Stop: 01/12/19 08:59 Neomycin/Polymyxin/Bacitracin (Triple Antibiotic Pkt) 1 pkt TP DAILY [facility] Stop: 01/12/19 08:59 Last Admin: 11/14/18 08:45 Dose: 1 pkt Sodium Bicarbonate (Sodium Bicarbonate) 650 mg PO BID [facility]; Protocol Stop: 01/12/19 16:59 Last Admin: 11/14/18 08:43 Dose: 650 mg Thiamine HCl (Vitamin B1) 100 mg PO DAILY [facility] Stop: 01/12/19 08:59 Last Admin: 11/14/18 08:44 Dose: 100 mg Tramadol HCl (Ultram) 50 mg PO BID [facility] Stop: 01/12/19 08:59 Last Admin: 11/14/18 08:43 Dose: 50 mg Triamcinolone Acetonide (Kenalog 0.1%) 1 appl TP DAILY [facility] Stop: 01/12/19 08:59 Last Admin: 11/14/18 08:45 Dose: 1 appl Vitamin E (Vitamin E) 1,000 iu PO DAILY [facility] Stop: 01/12/19 08:59 Last Admin: 11/14/18 08:45 Dose: 1,000 iu Zinc Sulfate (Zinc Sulfate) 220 mg PO DAILY [facility] Stop: 01/12/19 08:59 Last Admin: 11/14/18 08:43 Dose: 220 mg General: Alert, Oriented x3, No acute distress HEENT: Atraumatic, PERRLA, EOMI Neck: Supple Cardiovascular: Regular rate, Normal S1, Normal S2 Lungs: Clear to auscultation Abdomen: Bowel sounds, Soft Extremities: no Clubbing, no Cyanosis, no Edema Neurological: Normal gait, Normal speech Skin: no Rash Psych/Mental Status: Mood NL - Procedures Procedures: Procedures Procedure Code Date CANDACE BONE 20 SQ CM/< 32125 06/02/17 DRAINAGE OF LEFT BREAST, PERCUTANEOUS APPROACH [id number] 05/09/16 EXCISION OF BACK SUBCU/FASCIA, OPEN APPROACH [id number] 06/02/17 INCISION OF BREAST LESION 44211 05/09/16 Assessment/Plan - Problem List Patient Problems: All Active Problems DECLINING MENTAL STATUS, POOR APPETITE (Acute) - Assessment Assessment: NUBIA ALOC 2/2 Met/Uremic Enceph FTT Hyperkalemia Hypothyroid AG Met Acid Alcohol liver Ds T2DM Ess Htn - Plan Plan: Lab - Result Diagrams 11/14/18 06:19 11/14/18 06:19 Current Medications Acetaminophen (Tylenol) 650 mg PO Q4HR PRN PRN Reason: Pain (Mild) Stop: 01/12/19 07:38 Acetaminophen/Hydrocodone Bitart ([place] 5mg/325mg) 1 tab PO Q6HR PRN PRN Reason: Pain (Moderate) Stop: 01/12/19 07:49 Allopurinol (Zyloprim) 300 mg PO DAILY [facility] Stop: 01/12/19 08:59 Last Admin: 11/14/18 08:44 Dose: 300 mg Amlodipine Besylate (Norvasc) 2.5 mg PO DAILY [facility] Stop: 01/12/19 08:59 Last Admin: 11/14/18 08:46 Dose: 2.5 mg Ascorbic Acid (Vitamin C) 500 mg PO BID [facility] Stop: 01/12/19 08:59 Last Admin: 11/14/18 08:44 Dose: 500 mg Aspirin (Aspirin Chewable) 81 mg PO DAILY [facility] Stop: 01/12/19 08:59 Last Admin: 11/14/18 08:44 Dose: 81 mg Atorvastatin Calcium (Lipitor) 20 mg PO HS [facility] Stop: 01/12/19 20:59 Last Admin: 11/13/18 21:16 Dose: 20 mg Calcium Carbonate (Tums) 500 mg PO Q8H PRN PRN Reason: ANTACID Stop: 01/12/19 06:20 Calcium/Vitamin D (Oscal W/Vitamin D) 1 tab PO DAILY [facility] Stop: 01/12/19 08:59 Last Admin: 11/14/18 08:44 Dose: 1 tab Dextrose (D50w) 50 ml IVP PRN PRN PRN Reason: Blood Glucose less than 70 Stop: 01/12/19 06:24 Dextrose (Glutose 40%) 18.75 gm PO PRN PRN PRN Reason: Blood Glucose less than 70 Stop: 01/12/19 06:24 Diltiazem HCl (Cardizem Cd) 360 mg PO DAILY [facility] Stop: 01/12/19 08:59 Last Admin: 11/14/18 08:46 Dose: 360 mg Docusate Sodium (Colace) 250 mg PO DAILY [facility] Stop: 01/12/19 08:59 Last Admin: 11/14/18 08:45 Dose: 250 mg Famotidine (Pepcid) 20 mg PO DAILY [facility] Stop: 01/12/19 08:59 Last Admin: 11/14/18 08:45 Dose: 20 mg Folic Acid (Folate) 1 mg PO DAILY [facility] Stop: 01/12/19 08:59 Last Admin: 11/14/18 08:45 Dose: 1 mg Gabapentin (Neurontin) 800 mg PO TID [facility] Stop: 01/12/19 08:59 Glipizide (Glucotrol) 10 mg PO DAILY [facility] Stop: 01/12/19 08:59 Last Admin: 11/14/18 08:43 Dose: 10 mg Glucagon (Glucagen) 1 mg IM PRN PRN PRN Reason: Blood Glucose less than 70 Stop: 01/12/19 06:24 Dextrose/Sodium Chloride (D5-0.9%Ns) 1,000 mls @ 100 mls/hr IV .Q10H [facility] Stop: 01/12/19 16:59 Last Admin: 11/14/18 06:54 Dose: 100 mls/hr Ceftriaxone Sodium 1 gm/ (Sodium Chloride) 50 mls @ 100 mls/hr IV Q24HR [facility] Stop: 01/13/19 07:59 Last Admin: 11/14/18 08:48 Dose: 100 mls/hr Insulin Glargine (Lantus Insulin) 35 units SUBQ BID [facility] Stop: 01/12/19 08:59 Last Admin: 11/14/18 08:52 Dose: 35 units Insulin Human Lispro (Humalog Insulin Sliding Scale) 0 units SUBQ ACHS [facility]; Protocol Stop: 01/12/19 07:29 Last Admin: 11/14/18 12:28 Dose: 4 units Levothyroxine Sodium (Synthroid) 0.1 mg PO QDAC [facility] Stop: 01/12/19 07:29 Last Admin: 11/14/18 06:52 Dose: 0.1 mg Magnesium Hydroxide (Milk Of Magnesia) 30 ml PO DAILY PRN PRN Reason: Constipation Stop: 01/12/19 06:20 Miscellaneous (Sertraline Hcl [Zoloft]) 100 mg PO DAILY [facility] Stop: 01/12/19 08:59 Miscellaneous (Solifenacin Succinate [Vesicare]) 5 mg PO BID [facility] Stop: 01/12/19 08:59 Neomycin/Polymyxin/Bacitracin (Triple Antibiotic Pkt) 1 pkt TP DAILY [facility] Stop: 01/12/19 08:59 Last Admin: 11/14/18 08:45 Dose: 1 pkt Sodium Bicarbonate (Sodium Bicarbonate) 650 mg PO BID [facility]; Protocol Stop: 01/12/19 16:59 Last Admin: 11/14/18 08:43 Dose: 650 mg Thiamine HCl (Vitamin B1) 100 mg PO DAILY [facility] Stop: 01/12/19 08:59 Last Admin: 11/14/18 08:44 Dose: 100 mg Tramadol HCl (Ultram) 50 mg PO BID [facility] Stop: 01/12/19 08:59 Last Admin: 11/14/18 08:43 Dose: 50 mg Triamcinolone Acetonide (Kenalog 0.1%) 1 appl TP DAILY [facility] Stop: 01/12/19 08:59 Last Admin: 11/14/18 08:45 Dose: 1 appl Vitamin E (Vitamin E) 1,000 iu PO DAILY [facility] Stop: 01/12/19 08:59 Last Admin: 11/14/18 08:45 Dose: 1,000 iu Zinc Sulfate (Zinc Sulfate) 220 mg PO DAILY [facility] Stop: 01/12/19 08:59 Last Admin: 11/14/18 08:43 Dose: 220 mg Lab - Result Diagrams 11/14/18 06:19 11/14/18 06:19 Kidney fnc continues to improve w/ BUN/Cr of 36/1.9 encourage po fluid intake CT Scan head was neg f/u electrolytes Nutritional Asmnt/Malnutr-PDOC - Dietary Evaluation Malnutrition Findings (Please click <Entered> for more info): Nutritional Asmnt/Malnutrition Start: 11/13/18 09: 54 Text: Status: Active Freq: Protocol: Document 11/13/18 09:54 THIEN (Rec: 11/13/18 10:00 THIEN FAYE- [email or web address]) Nutritional Asmnt/Malnutrition Patient General Information Diagnosis electrolyte imbalance, sacral decubitus ulcer Pertinent Medical Hx/Surgical Hx bipolar d/o, anxiety, COPD, alcoholic liver disease, GERD, HTN, DM type II, hypothyroidism Subjective Information Pt sitting up in bed at time of visit and did not repsond verbally to RD's questions. Current Diet Order/ Nutrition Support 2g Na diet Pertinent Medications vit C, lipitor, tums, Ca and Vit D, foalte, glucagen, Lantus 35units, MOM, metformin , zinc sulfate, vit E, vit B1 Pertinent Labs 11/13: Na 136, k 5.0, cl 109, CO2 17.4, BUN 48, Cr 2.5, Ca 9 .5, glucose 187 Nutritional Hx/Data Height 1.57 m Height (Calculated Centimeters) 157.5 Current Weight (lbs) 79.379 kg Weight (Calculated Kilograms) 79.4 Weight (Calculated Grams) 39545.7 Body Mass Index (BMI) 32.0 Weight Status Obese GI Symptoms GI Symptoms None Last BM none noted Cultural/Ethnic/[employer] Belief unknown Usual diet at home unknown Skin Integrity/Comment: cherri score 14, sacrum: pressure area Estimated Nutritional Goals BEE in Kcals: Using Current wt Adj wt of IBW Calories/Kcals/Kg 30-35kcals/kg Kcals Calculated 1710-1995kcals/day Protein: Adj wt of IBW Protein g/k.3g+/kg Protein Calculated 74+g/day Fluid: ml 1710-1995ml/day (1ml/kcal_ Nutritional Problem 1. Problem Problem Increased nutrient needs related to Etiology wound healing as evidenced by Signs/Symptoms: cherri score 14 with sacrum pressure area Intervention/Recommendation Comments Recommend continuing Renal diet Expected Outcomes/Goals Expected Outcomes/Goals PO intake >75% of meals
[2018-11-14] MEDS: Atorvastatin Calcium 10 MG TAB PO SCH (20:24)
[2018-11-14] MEDS: Lactulose 10 Gm/15 mL 30mL UDC PO SCH (20:26)
[2018-11-14] MEDS: Hydrocodone/APAP 5mg/325mg Tab PO PRN (20:42)
--- NOTE | 2018-11-15 05:16 | Consultation ---
DATE OF CONSULTATION: 11/14/2018 INFECTIOUS DISEASE CONSULTATION REFERRING PHYSICIAN: Valentin Reyes D.O. REASON FOR CONSULTATION: Sacral wound, stage 4. HISTORY OF PRESENT ILLNESS: The patient is a 68-year-old female with past medical history of diabetes mellitus type 2, alcoholic cirrhosis, admitted to the hospital for altered mental status and confusion. She is very forgetful, her mental status deteriorated, so she was brought to the ER for further evaluation and management. On initial evaluation, her temperature was 97 degrees Fahrenheit [place] WBC count was [address]. Chest x-ray shows no focal consolidation. Creatinine was on higher side. She also has had a nonhealing wound in the sacral area for almost 7 years. She denies any fever or chills. ID consult was called for further antibiotic management. Antibiotic marie, Rocephin was started. PAST MEDICAL HISTORY: Includes alcoholic liver disease, bipolar disorder, essential hypertension, gout, hypothyroidism, diabetes mellitus type 2, anxiety disorder, COPD, GERD, dyslipidemia, bladder incontinence, stage 4 sacral decubitus ulcer for almost 7 years, anxiety, depression, polyneuropathy. MEDICATIONS: As per medication reconciliation sheet. Antibiotic marie, the patient is on Rocephin. ALLERGIES: NKDA. SOCIAL HISTORY: The patient lives at a nursing facility. No history of smoking, alcohol, or drug use. FAMILY HISTORY: Not available. REVIEW OF SYSTEMS: The patient is forgetful but gives some meaningful history. GENERAL: The patient has no fever, no chills. HEENT: No diplopia. No photophobia. No sore throat. RESPIRATORY: No cough. No shortness of breath. CARDIOVASCULAR: No chest pain. No palpitation. GASTROINTESTINAL: No nausea. No vomiting. No diarrhea. No constipation. GENITOURINARY: No dysuria. NEUROLOGIC: No headache. No dizziness. No focal weakness. SKIN: The patient has a stage 4 sacral decubitus ulcer in the sacrococcygeal area. Probe test is positive. No surrounding erythema. PHYSICAL EXAMINATION: CURRENT VITAL SIGNS: Show temperature is 96.8, pulse 78, respirations 18, blood pressure 127/55. GENERAL: The patient is comfortable, lying in the bed, not in acute distress. HEENT: Head is normocephalic, atraumatic. Oral cavity is moist. [place] tongue. Eyes: No pallor, no icterus. Pupils: PERRLA, EOMI. NECK: Supple. No JVD. No carotid bruit. Trachea in midline. CHEST: Bilateral breath sounds. No crackles or wheezing. HEART: S1 and S2 within normal limits. Regular rhythm. No murmur. No gallop. ABDOMEN: Soft, nontender, nondistended. Bowel sounds are present. BACK: The patient has no CVA tenderness. No spinal tenderness. The patient has a stage 4 sacral decubitus ulcer with no surrounding erythema. This has necrotic slough. Wound dimension is 2 x 2 x 1.4 cm in maximal dimension. NEUROLOGIC: Alert, awake, oriented x 1 - the patient is oriented to the person only. Speech is clear. LABORATORY DATA: Current lab shows WBC 4,900, hemoglobin 10.5, hematocrit 31.7, platelets are 109,000, neutrophils 60%. Sodium 141, potassium 4.2, chloride 112, bicarbonate is 18.3, BUN is 36, creatinine 1.9, glucose is 124. Blood culture 2 sets negative. IMPRESSION: 1. Sacral decubitus ulcer stage 4. Rule out osteomyelitis. 2. Alcoholic cirrhosis. 3. Diabetes mellitus type 2. 4. Chronic obstructive pulmonary disease. 5. Hypertension. 6. Altered mental status, maybe alcohol related and hepatic encephalopathy. 7. Acute renal failure with metabolic acidosis. 8. Gout. 9. Hypothyroidism. 10. Polyneuropathy. 11. Anxiety disorder. 12. Gastroesophageal reflux disease. 13. Bladder incontinence. 14. Bipolar disorder. RECOMMENDATIONS AND PLAN: We will continue Rocephin, check a 3-phase bone scan and wound culture. Check ESR and CRP in the morning. Wound care. Thank you, Dr. Reyes for involving me in taking care of this patient. JOB# [id number] [facility]
[2018-11-15 06:41] LABS: % LYMPHOCYTES 22.3 % (20.0-50.0); % MONOCYTES 5.4 % (2.0-10.0); % NEUTROPHILS 68.3 % (40.0-80.0); BASOPHILE ABSOLUTE 0.1 Th/cumm (0-0.2); EOSINOPHILE ABSOLUTE 0.2 Th/cmm (0.1-0.4); HEMATOCRIT 32.3 % (41.0-60); HEMOGLOBIN 10.6 gm/dL (12-16); LYMPHOCYTE ABSOLUTE 1.5 Th/cmm (1.5-3.0); MEAN CELL VOLUME 90.8 fl (81-100); MEAN CORPUSCULAR HEMOGLOBIN 29.9 pg (27.0-31.0); MEAN CORPUSCULAR HGB CONC 32.9 pg (28.0-36.0); MEAN PLATELET VOLUME 8.3 fl; MONOCYTE ABSOLUTE 0.4 Th/cmm (0.3-1.0); NEUTROPHILE ABSOLUTE 4.7 Th/cmm (1.8-8.0); PLATELET COUNT 105 Th/cmm (150-400); RED BLOOD COUNT 3.56 Mil/cmm (3.80-5.20); WHITE BLOOD COUNT 6.9 Th/cmm (4.8-10.8)
[2018-11-15] MEDS: INSULIN LISPRO SLIDING SCALE 100 UNITS/ML UNIT SUBQ SCH ×4 (06:54→21:58)
[2018-11-15 07:16] LABS: ANION GAP 13.2 (7.0-16.0); CALCIUM SERUM 9.5 mg/dL (8.6-10.3); CARBON DIOXIDE 18.7 mEq/L (21.0-31.0); CREATININE - SERUM 1.6 mg/dL (0.6-1.2); GFR AFRICAN-AMERICAN 41.2 ml/min (>90); GFR NON AFRICAN-AMERICAN 34.1 ml/min; POTASSIUM SERUM 3.9 mEq/L (3.5-5.1)
--- NOTE | 2018-11-15 07:49 | Diagnostic Imaging Report ---
Renal ultrasound HISTORY: Abnormal renal function tests The right kidney measures 11.3 x 4.4 x 4.9 cm. A 7 mm echogenic density is noted within the lower medullary region which may represent a calculus. No hydronephrosis. Left kidney measures 9.0 x 5.6 x 4.8 cm. A 5 mm echogenic density is noted within the lower medullary region which may represent small calculus. No hydronephrosis. No intraluminal abnormality seen within the urinary bladder. IMPRESSION: 1. Subcentimeter bilateral echogenic foci which may be associated with renal calculi. No hydronephrosis.
--- NOTE | 2018-11-15 08:11 | General Progress Note ---
Subjective - Review of Systems Service Date: 11/15/18 Subjective: Awake, alert, febrile. no acute distress. doing much better. Objective - Results Result Diagrams: 11/15/18 05:40 11/15/18 05:40 Recent Labs: Laboratory Last Values WBC 6.9 Th/cmm (4.8-10.8) D 11/15/18 05:40 RBC 3.56 Mil/cmm (3.80-5.20) L 11/15/18 05:40 Hgb 10.6 gm/dL (12-16) L 11/15/18 05:40 Hct 32.3 % (41.0-60) L 11/15/18 05:40 MCV 90.8 fl (81-100) 11/15/18 05:40 MCH 29.9 pg (27.0-31.0) 11/15/18 05:40 MCHC Differential 32.9 pg (28.0-36.0) 11/15/18 05:40 RDW 14.0 % (11.5-20.0) 11/15/18 05:40 Plt Count 105 Th/cmm (150-400) L 11/15/18 05:40 MPV 8.3 fl 11/15/18 05:40 Neutrophils % 68.3 % (40.0-80.0) 11/15/18 05:40 Lymphocytes % 22.3 % (20.0-50.0) 11/15/18 05:40 Monocytes % 5.4 % (2.0-10.0) 11/15/18 05:40 Eosinophils % 3.0 % (0.0-5.0) 11/15/18 05:40 Basophils % 1.0 % (0.0-2.0) 11/15/18 05:40 Eos Smear Source URINE 11/14/18 00:48 Eos Smear Total Cells FEW EOSINOPHILS SEEN (NONE SEEN) 11/14/18 00:48 PT 13.0 SECONDS (9.5-11.5) H 11/12/18 18:20 INR 1.26 (0.5-1.4) 11/12/18 18:20 PTT (Actin FS) 20.1 SECONDS (26.0-38.0) L 11/12/18 18:20 Sodium 142 mEq/L (136-145) 11/15/18 05:40 Potassium 3.9 mEq/L (3.5-5.1) 11/15/18 05:40 Chloride 114 mEq/L (98-107) H 11/15/18 05:40 Carbon Dioxide 18.7 mEq/L (21.0-31.0) L 11/15/18 05:40 Anion Gap 13.2 (7.0-16.0) 11/15/18 05:40 BUN 26 mg/dL (7-25) H 11/15/18 05:40 Creatinine 1.6 mg/dL (0.6-1.2) H 11/15/18 05:40 Est GFR ( Amer) 41.2 ml/min (>90) 11/15/18 05:40 Est GFR (Non-Af Amer) 34.1 ml/min 11/15/18 05:40 BUN/Creatinine Ratio 16.3 11/15/18 05:40 Glucose 52 mg/dL (70-105) L 11/15/18 05:40 POC Glucose 207 MG/DL (70 - 105) H 11/15/18 07:02 Uric Acid 3.6 mg/dL (2.3-6.6) 11/14/18 06:19 Calcium 9.5 mg/dL (8.6-10.3) 11/15/18 05:40 Phosphorus 3.1 mg/dL (2.5-5.0) 11/14/18 06:19 Magnesium 1.8 mg/dL (1.9-2.7) L 11/14/18 06:19 Iron 93 ug/dL (27-139) 11/12/18 18:20 TIBC 225 ug/dL (250-450) L 11/12/18 18:20 Iron Saturation 41 % (15-55) 11/12/18 18:20 Unsaturated IBC 132 ug/dL (118-369) 11/12/18 18:20 Total Bilirubin 0.5 mg/dL (0.3-1.0) 11/13/18 06:45 AST 57 U/L (13-39) H 11/13/18 06:45 ALT 26 U/L (7-52) 11/13/18 06:45 Alkaline Phosphatase 52 U/L (34-104) 11/13/18 06:45 Ammonia 75 umol/L (16-53) H 11/14/18 16:48 Troponin I 0.02 ng/mL (0.01-0.05) 11/12/18 18:20 Total Protein 7.2 gm/dL (6.0-8.3) 11/13/18 06:45 Albumin 3.4 gm/dL (3.7-5.3) L 11/13/18 06:45 Globulin 3.8 gm/dL 11/13/18 06:45 Albumin/Globulin Ratio 0.9 (1.0-1.8) L 11/13/18 06:45 TSH 0.14 uIU/ml (0.34-5.60) L 11/12/18 18:20 Urine Source CATH 11/12/18 19:15 Urine Color YELLOW 11/12/18 19:15 Urine Clarity CLEAR (CLEAR) 11/12/18 19:15 Urine pH 6.0 (4.6 - 8.0) 11/12/18 19:15 Ur Specific [place] 1.020 (1.005-1.030) 11/12/18 19:15 Urine Protein 30 mg/dL (NEGATIVE) H 11/12/18 19:15 Urine Glucose (UA) NEGATIVE mg/dL (NEGATIVE) 11/12/18 19:15 Urine Ketones NEGATIVE mg/dL (NEGATIVE) 11/12/18 19:15 Urine Blood NEGATIVE (NEGATIVE) 11/12/18 19:15 Urine Nitrate NEGATIVE (NEGATIVE) 11/12/18 19:15 Urine Bilirubin NEGATIVE (NEGATIVE) 11/12/18 19:15 Urine Urobilinogen 0.2 E.U./dL (0.2 - 1.0) 11/12/18 19:15 Ur Leukocyte Esterase NEGATIVE (NEGATIVE) 11/12/18 19:15 Urine RBC NONE SEEN /hpf (0-5) 11/12/18 19:15 Urine WBC 0-2 /hpf (0-5) 11/12/18 19:15 Ur Epithelial Cells OCCASIONAL /lpf (FEW) 11/12/18 19:15 Urine Bacteria FEW /hpf (NONE SEEN) 11/12/18 19:15 Ur Random Sodium 115 mmol/L 11/14/18 00:48 Urine Creatinine 69.0 mg/dl (28.0-217.0) 11/14/18 00:48 Microalb/Creat Ratio 142.5 mg/g creat (0.0-30.0) H 11/14/18 00:48 - Physical Exam Vitals and I&O: Vital Signs Temp 98.8 F 11/15/18 07:29 Pulse 84 11/15/18 07:29 Resp 18 11/15/18 07:44 BP 170/74 11/15/18 07:29 Pulse Ox 97 11/15/18 07:29 Intake & Output 11/14/18 11/15/18 11/15/18 18:59 06:59 18:59 Intake Total 1686.667 Balance 1686.667 Weight (lbs) 79.379 kg Intake: Intake, IV Amount 986.667 D5-0.9%Ns 1,000 ml @ 100 986.667 mls/hr IV .Q10H [facility] Rx#: [id number] Oral 700 Other: # Voids 6 Weight Source Bedscale Active Medications: Current Medications Acetaminophen (Tylenol) 650 mg PO Q4HR PRN PRN Reason: Pain (Mild) Stop: 01/12/19 07:38 Acetaminophen/Hydrocodone Bitart (Sunray 5mg/325mg) 1 tab PO Q6HR PRN PRN Reason: Pain (Moderate) Stop: 01/12/19 07:49 Last Admin: 11/14/18 20:42 Dose: 1 tab Allopurinol (Zyloprim) 300 mg PO DAILY [facility] Stop: 01/12/19 08:59 Last Admin: 11/14/18 08:44 Dose: 300 mg Amlodipine Besylate (Norvasc) 2.5 mg PO DAILY [facility] Stop: 01/12/19 08:59 Last Admin: 11/14/18 08:46 Dose: 2.5 mg Ascorbic Acid (Vitamin C) 500 mg PO BID [facility] Stop: 01/12/19 08:59 Last Admin: 11/14/18 16:50 Dose: 500 mg Aspirin (Aspirin Chewable) 81 mg PO DAILY [facility] Stop: 01/12/19 08:59 Last Admin: 11/14/18 08:44 Dose: 81 mg Atorvastatin Calcium (Lipitor) 20 mg PO HS [facility] Stop: 01/12/19 20:59 Last Admin: 11/14/18 20:24 Dose: 20 mg Calcium Carbonate (Tums) 500 mg PO Q8H PRN PRN Reason: ANTACID Stop: 01/12/19 06:20 Calcium/Vitamin D (Oscal W/Vitamin D) 1 tab PO DAILY [facility] Stop: 01/12/19 08:59 Last Admin: 11/14/18 08:44 Dose: 1 tab Dextrose (D50w) 50 ml IVP PRN PRN PRN Reason: Blood Glucose less than 70 Stop: 01/12/19 06:24 Last Admin: 11/15/18 06:45 Dose: 50 ml Dextrose (Glutose 40%) 18.75 gm PO PRN PRN PRN Reason: Blood Glucose less than 70 Stop: 01/12/19 06:24 Diltiazem HCl (Cardizem Cd) 360 mg PO DAILY [facility] Stop: 01/12/19 08:59 Last Admin: 11/14/18 08:46 Dose: 360 mg Docusate Sodium (Colace) 250 mg PO DAILY [facility] Stop: 01/12/19 08:59 Last Admin: 11/14/18 08:45 Dose: 250 mg Famotidine (Pepcid) 20 mg PO DAILY [facility] Stop: 01/12/19 08:59 Last Admin: 11/14/18 08:45 Dose: 20 mg Folic Acid (Folate) 1 mg PO DAILY [facility] Stop: 01/12/19 08:59 Last Admin: 11/14/18 08:45 Dose: 1 mg Gabapentin (Neurontin) 800 mg PO TID [facility] Stop: 01/14/19 08:59 Glipizide (Glucotrol) 10 mg PO DAILY [facility] Stop: 01/12/19 08:59 Last Admin: 11/14/18 08:43 Dose: 10 mg Glucagon (Glucagen) 1 mg IM PRN PRN PRN Reason: Blood Glucose less than 70 Stop: 01/12/19 06:24 Dextrose/Sodium Chloride (D5-0.9%Ns) 1,000 mls @ 100 mls/hr IV .Q10H [facility] Stop: 01/12/19 16:59 Last Admin: 11/14/18 16:46 Dose: 100 mls/hr Ceftriaxone Sodium 1 gm/ (Sodium Chloride) 50 mls @ 100 mls/hr IV Q24HR [facility] Stop: 01/13/19 07:59 Last Admin: 11/14/18 08:48 Dose: 100 mls/hr Insulin Glargine (Lantus Insulin) 35 units SUBQ BID [facility] Stop: 01/12/19 08:59 Last Admin: 11/14/18 16:52 Dose: 35 units Insulin Human Lispro (Humalog Insulin Sliding Scale) 0 units SUBQ ACHS [facility]; Protocol Stop: 01/12/19 07:29 Last Admin: 11/15/18 06:54 Dose: Not Given Lactulose (Cephulac) 30 gm PO DAILY [facility] Stop: 01/13/19 20:59 Last Admin: 11/14/18 20:26 Dose: Not Given Levothyroxine Sodium (Synthroid) 0.1 mg PO QDAC [facility] Stop: 01/12/19 07:29 Last Admin: 11/14/18 06:52 Dose: 0.1 mg Lorazepam (Ativan) 0.5 mg PO Q6HR PRN; Protocol PRN Reason: Agitation Stop: 01/13/19 22:11 Last Admin: 11/14/18 23:07 Dose: 0.5 mg Magnesium Hydroxide (Milk Of Magnesia) 30 ml PO DAILY PRN PRN Reason: Constipation Stop: 01/12/19 06:20 Miscellaneous (Solifenacin Succinate [Vesicare]) 5 mg PO BID [facility] Stop: 01/12/19 08:59 Neomycin/Polymyxin/Bacitracin (Triple Antibiotic Pkt) 1 pkt TP DAILY [facility] Stop: 01/12/19 08:59 Last Admin: 11/14/18 08:45 Dose: 1 pkt Sertraline HCl (Zoloft) 100 mg PO DAILY [facility] Stop: 01/12/19 08:59 Sodium Bicarbonate (Sodium Bicarbonate) 650 mg PO BID [facility]; Protocol Stop: 01/12/19 16:59 Last Admin: 11/14/18 16:50 Dose: 650 mg Thiamine HCl (Vitamin B1) 100 mg PO DAILY [facility] Stop: 01/12/19 08:59 Last Admin: 11/14/18 08:44 Dose: 100 mg Tramadol HCl (Ultram) 50 mg PO BID [facility] Stop: 01/12/19 08:59 Last Admin: 11/14/18 16:50 Dose: 50 mg Triamcinolone Acetonide (Kenalog 0.1%) 1 appl TP DAILY [facility] Stop: 01/12/19 08:59 Last Admin: 11/14/18 08:45 Dose: 1 appl Vitamin E (Vitamin E) 1,000 iu PO DAILY [facility] Stop: 01/12/19 08:59 Last Admin: 11/14/18 08:45 Dose: 1,000 iu Zinc Sulfate (Zinc Sulfate) 220 mg PO DAILY [facility] Stop: 01/12/19 08:59 Last Admin: 11/14/18 08:43 Dose: 220 mg General: Alert, Oriented x3, No acute distress HEENT: Atraumatic, PERRLA, EOMI Neck: Supple Cardiovascular: Regular rate, Normal S1, Normal S2 Lungs: Clear to auscultation Abdomen: Bowel sounds, Soft Extremities: no Clubbing, no Cyanosis, no Edema Neurological: Normal gait, Normal speech Skin: no Rash Psych/Mental Status: Mood NL - Procedures Procedures: Procedures Procedure Code Date CANDACE BONE 20 SQ CM/< 58127 06/02/17 DRAINAGE OF LEFT BREAST, PERCUTANEOUS APPROACH [id number] 05/09/16 EXCISION OF BACK SUBCU/FASCIA, OPEN APPROACH [id number] 06/02/17 INCISION OF BREAST LESION 37952 05/09/16 Assessment/Plan - Problem List Patient Problems: All Active Problems DECLINING MENTAL STATUS, POOR APPETITE (Acute) - Assessment Assessment: Current Active Problems Problem Status Onset DECLINING MENTAL STATUS, POOR APPETITE Acute Altered Mental Status poor appetite COPD Alcoholic liver disease metabolic encephalopathy GERD HTN, DM2, Hypothyroidism, Bipolar d/o, Anxiety d/o, Gout, Hyperlipidemia, Polyneuropathy, Depression - Plan Plan: continue current treatment Nutritional Asmnt/Malnutr-PDOC - Dietary Evaluation Malnutrition Findings (Please click <Entered> for more info): Nutritional Asmnt/Malnutrition Start: 11/13/18 09: 54 Text: Status: Active Freq: Protocol: Document 11/13/18 09:54 THIEN (Rec: 11/13/18 10:00 THIEN FAYE- [email or web address]) Nutritional Asmnt/Malnutrition Patient General Information Diagnosis electrolyte imbalance, sacral decubitus ulcer Pertinent Medical Hx/Surgical Hx bipolar d/o, anxiety, COPD, alcoholic liver disease, GERD, HTN, DM type II, hypothyroidism Subjective Information Pt sitting up in bed at time of visit and did not repsond verbally to RD's questions. Current Diet Order/ Nutrition Support 2g Na diet Pertinent Medications vit C, lipitor, tums, Ca and Vit D, foalte, glucagen, Lantus 35units, MOM, metformin , zinc sulfate, vit E, vit B1 Pertinent Labs 11/13: Na 136, k 5.0, cl 109, CO2 17.4, BUN 48, Cr 2.5, Ca 9 .5, glucose 187 Nutritional Hx/Data Height 1.57 m Height (Calculated Centimeters) 157.5 Current Weight (lbs) 79.379 kg Weight (Calculated Kilograms) 79.4 Weight (Calculated Grams) 13395.7 Body Mass Index (BMI) 32.0 Weight Status Obese GI Symptoms GI Symptoms None Last BM none noted Cultural/Ethnic/Congregational Belief unknown Usual diet at home unknown Skin Integrity/Comment: cherri score 14, sacrum: pressure area Estimated Nutritional Goals BEE in Kcals: Using Current wt Adj wt of IBW Calories/Kcals/Kg 30-35kcals/kg Kcals Calculated 1710-1995kcals/day Protein: Adj wt of IBW Protein g/k.3g+/kg Protein Calculated 74+g/day Fluid: ml 1710-1995ml/day (1ml/kcal_ Nutritional Problem 1. Problem Problem Increased nutrient needs related to Etiology wound healing as evidenced by Signs/Symptoms: cherri score 14 with sacrum pressure area Intervention/Recommendation Comments Recommend continuing Renal diet Expected Outcomes/Goals Expected Outcomes/Goals PO intake >75% of meals
[2018-11-15] MEDS: Insulin Glargine 100 units/ml 10ml Vial SUBQ SCH ×2 (08:47→18:02)
[2018-11-15] MEDS: Lactulose 10 Gm/15 mL 30mL UDC PO SCH (09:58)
[2018-11-15] MEDS: Triple Antibiotic 0.94 gm Pkt TP SCH (09:58)
[2018-11-15] MEDS: Aspirin 81mg Chewable Tab PO SCH (09:59)
[2018-11-15] MEDS: Calcium Carb/Vit D 500 mg/200 U Tab PO SCH (09:59)
[2018-11-15] MEDS: Multivitamin w/ Minerals Tab PO SCH (10:00)
[2018-11-15] MEDS: Levothyroxine 0.1 Mg Tab PO SCH (10:03)
[2018-11-15] MEDS: Vitamin E 1,000 IU Sgl PO SCH (10:06)
[2018-11-15] MEDS: Diltiazem CD 180 mg C24 PO SCH (10:06)
[2018-11-15] MEDS: Triamcinolone Acetonide 0.1% Cream 15 gm TP SCH (10:07)
[2018-11-15 10:26] LABS: ESR SEDIMENTATION SED RATE 115 mm/hr (0-30)
--- NOTE | 2018-11-15 13:23 | General Progress Note ---
Subjective - Review of Systems Service Date: 11/15/18 Subjective: sleeping, comfortable, arousable Objective - Results Result Diagrams: 11/15/18 05:40 11/15/18 05:40 Recent Labs: Laboratory Last Values WBC 6.9 Th/cmm (4.8-10.8) D 11/15/18 05:40 RBC 3.56 Mil/cmm (3.80-5.20) L 11/15/18 05:40 Hgb 10.6 gm/dL (12-16) L 11/15/18 05:40 Hct 32.3 % (41.0-60) L 11/15/18 05:40 MCV 90.8 fl (81-100) 11/15/18 05:40 MCH 29.9 pg (27.0-31.0) 11/15/18 05:40 MCHC Differential 32.9 pg (28.0-36.0) 11/15/18 05:40 RDW 14.0 % (11.5-20.0) 11/15/18 05:40 Plt Count 105 Th/cmm (150-400) L 11/15/18 05:40 MPV 8.3 fl 11/15/18 05:40 Neutrophils % 68.3 % (40.0-80.0) 11/15/18 05:40 Lymphocytes % 22.3 % (20.0-50.0) 11/15/18 05:40 Monocytes % 5.4 % (2.0-10.0) 11/15/18 05:40 Eosinophils % 3.0 % (0.0-5.0) 11/15/18 05:40 Basophils % 1.0 % (0.0-2.0) 11/15/18 05:40 ESR 115 mm/hr (0-30) H 11/15/18 05:40 Eos Smear Source URINE 11/14/18 00:48 Eos Smear Total Cells FEW EOSINOPHILS SEEN (NONE SEEN) 11/14/18 00:48 PT 13.0 SECONDS (9.5-11.5) H 11/12/18 18:20 INR 1.26 (0.5-1.4) 11/12/18 18:20 PTT (Actin FS) 20.1 SECONDS (26.0-38.0) L 11/12/18 18:20 Sodium 142 mEq/L (136-145) 11/15/18 05:40 Potassium 3.9 mEq/L (3.5-5.1) 11/15/18 05:40 Chloride 114 mEq/L (98-107) H 11/15/18 05:40 Carbon Dioxide 18.7 mEq/L (21.0-31.0) L 11/15/18 05:40 Anion Gap 13.2 (7.0-16.0) 11/15/18 05:40 BUN 26 mg/dL (7-25) H 11/15/18 05:40 Creatinine 1.6 mg/dL (0.6-1.2) H 11/15/18 05:40 Est GFR ( Amer) 41.2 ml/min (>90) 11/15/18 05:40 Est GFR (Non-Af Amer) 34.1 ml/min 11/15/18 05:40 BUN/Creatinine Ratio 16.3 11/15/18 05:40 Glucose 52 mg/dL (70-105) L 11/15/18 05:40 POC Glucose 178 MG/DL (70 - 105) H 11/15/18 11:52 Uric Acid 3.6 mg/dL (2.3-6.6) 11/14/18 06:19 Calcium 9.5 mg/dL (8.6-10.3) 11/15/18 05:40 Phosphorus 3.1 mg/dL (2.5-5.0) 11/14/18 06:19 Magnesium 1.8 mg/dL (1.9-2.7) L 11/14/18 06:19 Iron 93 ug/dL (27-139) 11/12/18 18:20 TIBC 225 ug/dL (250-450) L 11/12/18 18:20 Iron Saturation 41 % (15-55) 11/12/18 18:20 Unsaturated IBC 132 ug/dL (118-369) 11/12/18 18:20 Total Bilirubin 0.5 mg/dL (0.3-1.0) 11/13/18 06:45 AST 57 U/L (13-39) H 11/13/18 06:45 ALT 26 U/L (7-52) 11/13/18 06:45 Alkaline Phosphatase 52 U/L (34-104) 11/13/18 06:45 Ammonia 90 umol/L (16-53) H 11/15/18 11:10 Troponin I 0.02 ng/mL (0.01-0.05) 11/12/18 18:20 C-Reactive Protein 0.7 mg/dL (0.0-0.9) 11/15/18 05:40 Total Protein 7.2 gm/dL (6.0-8.3) 11/13/18 06:45 Albumin 3.4 gm/dL (3.7-5.3) L 11/13/18 06:45 Globulin 3.8 gm/dL 11/13/18 06:45 Albumin/Globulin Ratio 0.9 (1.0-1.8) L 11/13/18 06:45 TSH 0.14 uIU/ml (0.34-5.60) L 11/12/18 18:20 Urine Source CATH 11/12/18 19:15 Urine Color YELLOW 11/12/18 19:15 Urine Clarity CLEAR (CLEAR) 11/12/18 19:15 Urine pH 6.0 (4.6 - 8.0) 11/12/18 19:15 Ur Specific [place] 1.020 (1.005-1.030) 11/12/18 19:15 Urine Protein 30 mg/dL (NEGATIVE) H 11/12/18 19:15 Urine Glucose (UA) NEGATIVE mg/dL (NEGATIVE) 11/12/18 19:15 Urine Ketones NEGATIVE mg/dL (NEGATIVE) 11/12/18 19:15 Urine Blood NEGATIVE (NEGATIVE) 11/12/18 19:15 Urine Nitrate NEGATIVE (NEGATIVE) 11/12/18 19:15 Urine Bilirubin NEGATIVE (NEGATIVE) 11/12/18 19:15 Urine Urobilinogen 0.2 E.U./dL (0.2 - 1.0) 11/12/18 19:15 Ur Leukocyte Esterase NEGATIVE (NEGATIVE) 11/12/18 19:15 Urine RBC NONE SEEN /hpf (0-5) 11/12/18 19:15 Urine WBC 0-2 /hpf (0-5) 11/12/18 19:15 Ur Epithelial Cells OCCASIONAL /lpf (FEW) 11/12/18 19:15 Urine Bacteria FEW /hpf (NONE SEEN) 11/12/18 19:15 Ur Random Sodium 115 mmol/L 11/14/18 00:48 Urine Creatinine 69.0 mg/dl (28.0-217.0) 11/14/18 00:48 Microalb/Creat Ratio 142.5 mg/g creat (0.0-30.0) H 11/14/18 00:48 - Physical Exam Vitals and I&O: Vital Signs Temp 97.4 F 11/15/18 11:16 Pulse 92 11/15/18 11:16 Resp 18 11/15/18 11:16 BP 133/77 11/15/18 11:16 Pulse Ox 98 11/15/18 11:16 Intake & Output 11/14/18 11/15/18 11/15/18 18:59 06:59 18:59 Intake Total 1686.667 Balance 1686.667 Weight (lbs) 79.379 kg Intake: Intake, IV Amount 986.667 D5-0.9%Ns 1,000 ml @ 100 986.667 mls/hr IV .Q10H [facility] Rx#: [id number] Oral 700 Other: # Voids 6 Weight Source Bedscale Active Medications: Current Medications Acetaminophen (Tylenol) 650 mg PO Q4HR PRN PRN Reason: Pain (Mild) Stop: 01/12/19 07:38 Acetaminophen/Hydrocodone Bitart ([place] 5mg/325mg) 1 tab PO Q6HR PRN PRN Reason: Pain (Moderate) Stop: 01/12/19 07:49 Last Admin: 11/14/18 20:42 Dose: 1 tab Allopurinol (Zyloprim) 300 mg PO DAILY [facility] Stop: 01/12/19 08:59 Last Admin: 11/15/18 10:01 Dose: 300 mg Amlodipine Besylate (Norvasc) 2.5 mg PO DAILY [facility] Stop: 01/12/19 08:59 Last Admin: 11/15/18 10:00 Dose: 2.5 mg Ascorbic Acid (Vitamin C) 500 mg PO BID [facility] Stop: 01/12/19 08:59 Last Admin: 11/15/18 09:59 Dose: 500 mg Aspirin (Aspirin Chewable) 81 mg PO DAILY [facility] Stop: 01/12/19 08:59 Last Admin: 11/15/18 09:59 Dose: 81 mg Atorvastatin Calcium (Lipitor) 20 mg PO HS [facility] Stop: 01/12/19 20:59 Last Admin: 11/14/18 20:24 Dose: 20 mg Calcium Carbonate (Tums) 500 mg PO Q8H PRN PRN Reason: ANTACID Stop: 01/12/19 06:20 Calcium/Vitamin D (Oscal W/Vitamin D) 1 tab PO DAILY [facility] Stop: 01/12/19 08:59 Last Admin: 11/15/18 09:59 Dose: 1 tab Dextrose (D50w) 50 ml IVP PRN PRN PRN Reason: Blood Glucose less than 70 Stop: 01/12/19 06:24 Last Admin: 11/15/18 06:45 Dose: 50 ml Dextrose (Glutose 40%) 18.75 gm PO PRN PRN PRN Reason: Blood Glucose less than 70 Stop: 01/12/19 06:24 Diltiazem HCl (Cardizem Cd) 360 mg PO DAILY [facility] Stop: 01/12/19 08:59 Last Admin: 11/15/18 10:06 Dose: 360 mg Docusate Sodium (Colace) 250 mg PO DAILY [facility] Stop: 01/12/19 08:59 Last Admin: 11/15/18 09:59 Dose: 250 mg Famotidine (Pepcid) 20 mg PO DAILY [facility] Stop: 01/12/19 08:59 Last Admin: 11/15/18 09:59 Dose: 20 mg Folic Acid (Folate) 1 mg PO DAILY [facility] Stop: 01/12/19 08:59 Last Admin: 11/15/18 09:59 Dose: 1 mg Gabapentin (Neurontin) 800 mg PO TID [facility] Stop: 01/14/19 08:59 Last Admin: 11/15/18 10:01 Dose: 800 mg Glipizide (Glucotrol) 10 mg PO DAILY [facility] Stop: 01/12/19 08:59 Last Admin: 11/15/18 10:00 Dose: 10 mg Glucagon (Glucagen) 1 mg IM PRN PRN PRN Reason: Blood Glucose less than 70 Stop: 01/12/19 06:24 Dextrose/Sodium Chloride (D5-0.9%Ns) 1,000 mls @ 100 mls/hr IV .Q10H [facility] Stop: 01/12/19 16:59 Last Admin: 11/14/18 23:04 Dose: Not Given Ceftriaxone Sodium 1 gm/ (Sodium Chloride) 50 mls @ 100 mls/hr IV Q24HR [facility] Stop: 01/13/19 07:59 Last Admin: 11/14/18 08:48 Dose: 100 mls/hr Insulin Glargine (Lantus Insulin) 35 units SUBQ BID [facility] Stop: 01/12/19 08:59 Last Admin: 11/14/18 16:52 Dose: 35 units Insulin Human Lispro (Humalog Insulin Sliding Scale) 0 units SUBQ ACHS [facility]; Protocol Stop: 01/12/19 07:29 Last Admin: 11/15/18 06:54 Dose: Not Given Lactulose (Cephulac) 30 gm PO DAILY [facility] Stop: 01/13/19 20:59 Last Admin: 11/15/18 09:58 Dose: 30 gm Levothyroxine Sodium (Synthroid) 0.1 mg PO QDAC [facility] Stop: 01/12/19 07:29 Last Admin: 11/15/18 10:03 Dose: 0.1 mg Lorazepam (Ativan) 0.5 mg PO Q6HR PRN; Protocol PRN Reason: Agitation Stop: 01/13/19 22:11 Last Admin: 11/14/18 23:07 Dose: 0.5 mg Magnesium Hydroxide (Milk Of Magnesia) 30 ml PO DAILY PRN PRN Reason: Constipation Stop: 01/12/19 06:20 Miscellaneous (Solifenacin Succinate [Vesicare]) 5 mg PO BID [facility] Stop: 01/12/19 08:59 Neomycin/Polymyxin/Bacitracin (Triple Antibiotic Pkt) 1 pkt TP DAILY [facility] Stop: 01/12/19 08:59 Last Admin: 11/15/18 09:58 Dose: 1 pkt Sertraline HCl (Zoloft) 100 mg PO DAILY [facility] Stop: 01/12/19 08:59 Sodium Bicarbonate (Sodium Bicarbonate) 650 mg PO BID [facility]; Protocol Stop: 01/12/19 16:59 Last Admin: 11/15/18 09:59 Dose: 650 mg Thiamine HCl (Vitamin B1) 100 mg PO DAILY [facility] Stop: 01/12/19 08:59 Last Admin: 11/15/18 09:59 Dose: 100 mg Tramadol HCl (Ultram) 50 mg PO BID [facility] Stop: 01/12/19 08:59 Last Admin: 11/15/18 10:00 Dose: 50 mg Triamcinolone Acetonide (Kenalog 0.1%) 1 appl TP DAILY [facility] Stop: 01/12/19 08:59 Last Admin: 11/15/18 10:07 Dose: 1 appl Vitamin E (Vitamin E) 1,000 iu PO DAILY [facility] Stop: 01/12/19 08:59 Last Admin: 11/15/18 10:06 Dose: 1,000 iu Zinc Sulfate (Zinc Sulfate) 220 mg PO DAILY [facility] Stop: 01/12/19 08:59 Last Admin: 11/15/18 09:59 Dose: 220 mg General: Alert, Oriented x3, No acute distress HEENT: Atraumatic, PERRLA, EOMI Neck: Supple, +2 carotid pulse wo bruit Cardiovascular: Regular rate, Normal S1, Normal S2 Lungs: Clear to auscultation Abdomen: Bowel sounds, Soft Extremities: no Clubbing, no Cyanosis, no Edema Neurological: Normal gait, Normal speech Skin: no Rash Psych/Mental Status: Mood NL - Procedures Procedures: Procedures Procedure Code Date CANDACE BONE 20 SQ CM/< 39347 06/02/17 DRAINAGE OF LEFT BREAST, PERCUTANEOUS APPROACH [id number] 05/09/16 EXCISION OF BACK SUBCU/FASCIA, OPEN APPROACH [id number] 06/02/17 INCISION OF BREAST LESION 93668 05/09/16 Assessment/Plan - Problem List Patient Problems: All Active Problems DECLINING MENTAL STATUS, POOR APPETITE (Acute) - Assessment Assessment: NUBIA ALOC 2/2 Met/Uremic Enceph FTT Hyperkalemia Hypothyroid AG Met Acid Alcohol liver Ds T2DM Ess Htn - Plan Plan: Lab - Result Diagrams 11/14/18 06:19 11/14/18 06:19 Current Medications Acetaminophen (Tylenol) 650 mg PO Q4HR PRN PRN Reason: Pain (Mild) Stop: 01/12/19 07:38 Acetaminophen/Hydrocodone Bitart ([place] 5mg/325mg) 1 tab PO Q6HR PRN PRN Reason: Pain (Moderate) Stop: 01/12/19 07:49 Allopurinol (Zyloprim) 300 mg PO DAILY [facility] Stop: 01/12/19 08:59 Last Admin: 11/14/18 08:44 Dose: 300 mg Amlodipine Besylate (Norvasc) 2.5 mg PO DAILY [facility] Stop: 01/12/19 08:59 Last Admin: 11/14/18 08:46 Dose: 2.5 mg Ascorbic Acid (Vitamin C) 500 mg PO BID [facility] Stop: 01/12/19 08:59 Last Admin: 11/14/18 08:44 Dose: 500 mg Aspirin (Aspirin Chewable) 81 mg PO DAILY [facility] Stop: 01/12/19 08:59 Last Admin: 11/14/18 08:44 Dose: 81 mg Atorvastatin Calcium (Lipitor) 20 mg PO HS [facility] Stop: 01/12/19 20:59 Last Admin: 11/13/18 21:16 Dose: 20 mg Calcium Carbonate (Tums) 500 mg PO Q8H PRN PRN Reason: ANTACID Stop: 01/12/19 06:20 Calcium/Vitamin D (Oscal W/Vitamin D) 1 tab PO DAILY [facility] Stop: 01/12/19 08:59 Last Admin: 11/14/18 08:44 Dose: 1 tab Dextrose (D50w) 50 ml IVP PRN PRN PRN Reason: Blood Glucose less than 70 Stop: 01/12/19 06:24 Dextrose (Glutose 40%) 18.75 gm PO PRN PRN PRN Reason: Blood Glucose less than 70 Stop: 01/12/19 06:24 Diltiazem HCl (Cardizem Cd) 360 mg PO DAILY [facility] Stop: 01/12/19 08:59 Last Admin: 11/14/18 08:46 Dose: 360 mg Docusate Sodium (Colace) 250 mg PO DAILY [facility] Stop: 01/12/19 08:59 Last Admin: 11/14/18 08:45 Dose: 250 mg Famotidine (Pepcid) 20 mg PO DAILY [facility] Stop: 01/12/19 08:59 Last Admin: 11/14/18 08:45 Dose: 20 mg Folic Acid (Folate) 1 mg PO DAILY [facility] Stop: 01/12/19 08:59 Last Admin: 11/14/18 08:45 Dose: 1 mg Gabapentin (Neurontin) 800 mg PO TID [facility] Stop: 01/12/19 08:59 Glipizide (Glucotrol) 10 mg PO DAILY [facility] Stop: 01/12/19 08:59 Last Admin: 11/14/18 08:43 Dose: 10 mg Glucagon (Glucagen) 1 mg IM PRN PRN PRN Reason: Blood Glucose less than 70 Stop: 01/12/19 06:24 Dextrose/Sodium Chloride (D5-0.9%Ns) 1,000 mls @ 100 mls/hr IV .Q10H [facility] Stop: 01/12/19 16:59 Last Admin: 11/14/18 06:54 Dose: 100 mls/hr Ceftriaxone Sodium 1 gm/ (Sodium Chloride) 50 mls @ 100 mls/hr IV Q24HR [facility] Stop: 01/13/19 07:59 Last Admin: 11/14/18 08:48 Dose: 100 mls/hr Insulin Glargine (Lantus Insulin) 35 units SUBQ BID [facility] Stop: 01/12/19 08:59 Last Admin: 11/14/18 08:52 Dose: 35 units Insulin Human Lispro (Humalog Insulin Sliding Scale) 0 units SUBQ ACHS [facility]; Protocol Stop: 01/12/19 07:29 Last Admin: 11/14/18 12:28 Dose: 4 units Levothyroxine Sodium (Synthroid) 0.1 mg PO QDAC [facility] Stop: 01/12/19 07:29 Last Admin: 11/14/18 06:52 Dose: 0.1 mg Magnesium Hydroxide (Milk Of Magnesia) 30 ml PO DAILY PRN PRN Reason: Constipation Stop: 01/12/19 06:20 Miscellaneous (Sertraline Hcl [Zoloft]) 100 mg PO DAILY [facility] Stop: 01/12/19 08:59 Miscellaneous (Solifenacin Succinate [Vesicare]) 5 mg PO BID [facility] Stop: 01/12/19 08:59 Neomycin/Polymyxin/Bacitracin (Triple Antibiotic Pkt) 1 pkt TP DAILY [facility] Stop: 01/12/19 08:59 Last Admin: 11/14/18 08:45 Dose: 1 pkt Sodium Bicarbonate (Sodium Bicarbonate) 650 mg PO BID [facility]; Protocol Stop: 01/12/19 16:59 Last Admin: 11/14/18 08:43 Dose: 650 mg Thiamine HCl (Vitamin B1) 100 mg PO DAILY [facility] Stop: 01/12/19 08:59 Last Admin: 11/14/18 08:44 Dose: 100 mg Tramadol HCl (Ultram) 50 mg PO BID [facility] Stop: 01/12/19 08:59 Last Admin: 11/14/18 08:43 Dose: 50 mg Triamcinolone Acetonide (Kenalog 0.1%) 1 appl TP DAILY [facility] Stop: 01/12/19 08:59 Last Admin: 11/14/18 08:45 Dose: 1 appl Vitamin E (Vitamin E) 1,000 iu PO DAILY [facility] Stop: 01/12/19 08:59 Last Admin: 11/14/18 08:45 Dose: 1,000 iu Zinc Sulfate (Zinc Sulfate) 220 mg PO DAILY [facility] Stop: 01/12/19 08:59 Last Admin: 11/14/18 08:43 Dose: 220 mg Lab - Result Diagrams 11/15/18 05:40 11/15/18 05:40 Kidney fnc continues to improve w/ BUN/Cr of 26/1.6 FENa 3.06% suggestive of intrinsic renal failure encourage po fluid intake CT Scan head was neg f/u electrolytes Nutritional Asmnt/Malnutr-PDOC - Dietary Evaluation Malnutrition Findings (Please click <Entered> for more info): Nutritional Asmnt/Malnutrition Start: 11/13/18 09: 54 Text: Status: Active Freq: Protocol: Document 11/13/18 09:54 THIEN (Rec: 11/13/18 10:00 THIEN FAYE- [facility]) Nutritional Asmnt/Malnutrition Patient General Information Diagnosis electrolyte imbalance, sacral decubitus ulcer Pertinent Medical Hx/Surgical Hx bipolar d/o, anxiety, COPD, alcoholic liver disease, GERD, HTN, DM type II, hypothyroidism Subjective Information Pt sitting up in bed at time of visit and did not repsond verbally to RD's questions. Current Diet Order/ Nutrition Support 2g Na diet Pertinent Medications vit C, lipitor, tums, Ca and Vit D, foalte, glucagen, Lantus 35units, MOM, metformin , zinc sulfate, vit E, vit B1 Pertinent Labs 11/13: Na 136, k 5.0, cl 109, CO2 17.4, BUN 48, Cr 2.5, Ca 9 .5, glucose 187 Nutritional Hx/Data Height 1.57 m Height (Calculated Centimeters) 157.5 Current Weight (lbs) 79.379 kg Weight (Calculated Kilograms) 79.4 Weight (Calculated Grams) 33680.7 Body Mass Index (BMI) 32.0 Weight Status Obese GI Symptoms GI Symptoms None Last BM none noted Cultural/Ethnic/Anab[employer]ist Belief unknown Usual diet at home unknown Skin Integrity/Comment: cherri score 14, sacrum: pressure area Estimated Nutritional Goals BEE in Kcals: Using Current wt Adj wt of IBW Calories/Kcals/Kg 30-35kcals/kg Kcals Calculated 1710-1994kcals/day Protein: Adj wt of IBW Protein g/k.3g+/kg Protein Calculated 74+g/day Fluid: ml 1710-1995ml/day (1ml/kcal_ Nutritional Problem 1. Problem Problem Increased nutrient needs related to Etiology wound healing as evidenced by Signs/Symptoms: cherri score 14 with sacrum pressure area Intervention/Recommendation Comments Recommend continuing Renal diet Expected Outcomes/Goals Expected Outcomes/Goals PO intake >75% of meals
[2018-11-15] MEDS: D5-0.9%NS 1,000 ML IV SCH (13:50)
[2018-11-15] MEDS: cefTRIAXone 1 GM in Sodium Chloride 0.9% 50 ML IV SCH (13:58)
[2018-11-15] MEDS: Atorvastatin Calcium 10 MG TAB PO SCH (21:51)
[2018-11-16 05:45] LABS: ANION GAP 14.5 (7.0-16.0); CALCIUM SERUM 9.7 mg/dL (8.6-10.3); CARBON DIOXIDE 19.2 mEq/L (21.0-31.0); CREATININE - SERUM 1.5 mg/dL (0.6-1.2); GFR AFRICAN-AMERICAN 44.4 ml/min (>90); GFR NON AFRICAN-AMERICAN 36.7 ml/min; POTASSIUM SERUM 3.7 mEq/L (3.5-5.1)
[2018-11-16] MEDS: Levothyroxine 0.1 Mg Tab PO SCH (06:42)
[2018-11-16] MEDS: INSULIN LISPRO SLIDING SCALE 100 UNITS/ML UNIT SUBQ SCH ×4 (06:42→22:13)
--- NOTE | 2018-11-16 08:32 | General Progress Note ---
Subjective - Review of Systems Service Date: 11/16/18 Subjective: Awake, alert, febrile. no acute distress. doing much better. Objective - Results Result Diagrams: 11/15/18 05:40 11/16/18 04:55 Recent Labs: Laboratory Last Values WBC 6.9 Th/cmm (4.8-10.8) D 11/15/18 05:40 RBC 3.56 Mil/cmm (3.80-5.20) L 11/15/18 05:40 Hgb 10.6 gm/dL (12-16) L 11/15/18 05:40 Hct 32.3 % (41.0-60) L 11/15/18 05:40 MCV 90.8 fl (81-100) 11/15/18 05:40 MCH 29.9 pg (27.0-31.0) 11/15/18 05:40 MCHC Differential 32.9 pg (28.0-36.0) 11/15/18 05:40 RDW 14.0 % (11.5-20.0) 11/15/18 05:40 Plt Count 105 Th/cmm (150-400) L 11/15/18 05:40 MPV 8.3 fl 11/15/18 05:40 Neutrophils % 68.3 % (40.0-80.0) 11/15/18 05:40 Lymphocytes % 22.3 % (20.0-50.0) 11/15/18 05:40 Monocytes % 5.4 % (2.0-10.0) 11/15/18 05:40 Eosinophils % 3.0 % (0.0-5.0) 11/15/18 05:40 Basophils % 1.0 % (0.0-2.0) 11/15/18 05:40 ESR 115 mm/hr (0-30) H 11/15/18 05:40 Eos Smear Source URINE 11/14/18 00:48 Eos Smear Total Cells FEW EOSINOPHILS SEEN (NONE SEEN) 11/14/18 00:48 PT 13.0 SECONDS (9.5-11.5) H 11/12/18 18:20 INR 1.26 (0.5-1.4) 11/12/18 18:20 PTT (Actin FS) 20.1 SECONDS (26.0-38.0) L 11/12/18 18:20 Sodium 141 mEq/L (136-145) 11/16/18 04:55 Potassium 3.7 mEq/L (3.5-5.1) 11/16/18 04:55 Chloride 111 mEq/L (98-107) H 11/16/18 04:55 Carbon Dioxide 19.2 mEq/L (21.0-31.0) L 11/16/18 04:55 Anion Gap 14.5 (7.0-16.0) 11/16/18 04:55 BUN 23 mg/dL (7-25) 11/16/18 04:55 Creatinine 1.5 mg/dL (0.6-1.2) H 11/16/18 04:55 Est GFR ( Amer) 44.4 ml/min (>90) 11/16/18 04:55 Est GFR (Non-Af Amer) 36.7 ml/min 11/16/18 04:55 BUN/Creatinine Ratio 15.3 11/16/18 04:55 Glucose 55 mg/dL (70-105) L 11/16/18 04:55 POC Glucose 92 MG/DL (70 - 105) 11/16/18 07:37 Uric Acid 3.6 mg/dL (2.3-6.6) 11/14/18 06:19 Calcium 9.7 mg/dL (8.6-10.3) 11/16/18 04:55 Phosphorus 3.1 mg/dL (2.5-5.0) 11/14/18 06:19 Magnesium 1.8 mg/dL (1.9-2.7) L 11/14/18 06:19 Iron 93 ug/dL (27-139) 11/12/18 18:20 TIBC 225 ug/dL (250-450) L 11/12/18 18:20 Iron Saturation 41 % (15-55) 11/12/18 18:20 Unsaturated IBC 132 ug/dL (118-369) 11/12/18 18:20 Total Bilirubin 0.5 mg/dL (0.3-1.0) 11/13/18 06:45 AST 57 U/L (13-39) H 11/13/18 06:45 ALT 26 U/L (7-52) 11/13/18 06:45 Alkaline Phosphatase 52 U/L (34-104) 11/13/18 06:45 Ammonia 90 umol/L (16-53) H 11/15/18 11:10 Troponin I 0.02 ng/mL (0.01-0.05) 11/12/18 18:20 C-Reactive Protein 0.7 mg/dL (0.0-0.9) 11/15/18 05:40 Total Protein 7.2 gm/dL (6.0-8.3) 11/13/18 06:45 Albumin 3.4 gm/dL (3.7-5.3) L 11/13/18 06:45 Globulin 3.8 gm/dL 11/13/18 06:45 Albumin/Globulin Ratio 0.9 (1.0-1.8) L 11/13/18 06:45 TSH 0.14 uIU/ml (0.34-5.60) L 11/12/18 18:20 Urine Source CATH 11/12/18 19:15 Urine Color YELLOW 11/12/18 19:15 Urine Clarity CLEAR (CLEAR) 11/12/18 19:15 Urine pH 6.0 (4.6 - 8.0) 11/12/18 19:15 Ur Specific [place] 1.020 (1.005-1.030) 11/12/18 19:15 Urine Protein 30 mg/dL (NEGATIVE) H 11/12/18 19:15 Urine Glucose (UA) NEGATIVE mg/dL (NEGATIVE) 11/12/18 19:15 Urine Ketones NEGATIVE mg/dL (NEGATIVE) 11/12/18 19:15 Urine Blood NEGATIVE (NEGATIVE) 11/12/18 19:15 Urine Nitrate NEGATIVE (NEGATIVE) 11/12/18 19:15 Urine Bilirubin NEGATIVE (NEGATIVE) 11/12/18 19:15 Urine Urobilinogen 0.2 E.U./dL (0.2 - 1.0) 11/12/18 19:15 Ur Leukocyte Esterase NEGATIVE (NEGATIVE) 11/12/18 19:15 Urine RBC NONE SEEN /hpf (0-5) 11/12/18 19:15 Urine WBC 0-2 /hpf (0-5) 11/12/18 19:15 Ur Epithelial Cells OCCASIONAL /lpf (FEW) 11/12/18 19:15 Urine Bacteria FEW /hpf (NONE SEEN) 11/12/18 19:15 Ur Random Sodium 115 mmol/L 11/14/18 00:48 Urine Creatinine 69.0 mg/dl (28.0-217.0) 11/14/18 00:48 Microalb/Creat Ratio 142.5 mg/g creat (0.0-30.0) H 11/14/18 00:48 - Physical Exam Vitals and I&O: Vital Signs Temp 98.4 F 11/16/18 07:55 Pulse 91 11/16/18 07:55 Resp 18 11/16/18 07:55 BP 157/75 11/16/18 07:55 Pulse Ox 100 11/16/18 07:55 Intake & Output 11/15/18 11/16/18 11/16/18 18:59 06:59 18:59 Intake Total 700 200 Balance 700 200 Weight (lbs) 79.379 kg 79.379 kg Intake: Oral 700 200 Other: # Voids 6 Weight Source Bedscale Bedscale Active Medications: Current Medications Acetaminophen (Tylenol) 650 mg PO Q4HR PRN PRN Reason: Pain (Mild) Stop: 01/12/19 07:38 Acetaminophen/Hydrocodone Bitart ([place] 5mg/325mg) 1 tab PO Q6HR PRN PRN Reason: Pain (Moderate) Stop: 01/12/19 07:49 Last Admin: 11/14/18 20:42 Dose: 1 tab Allopurinol (Zyloprim) 300 mg PO DAILY [facility] Stop: 01/12/19 08:59 Last Admin: 11/15/18 10:01 Dose: 300 mg Amlodipine Besylate (Norvasc) 2.5 mg PO DAILY [facility] Stop: 01/12/19 08:59 Last Admin: 11/15/18 10:00 Dose: 2.5 mg Ascorbic Acid (Vitamin C) 500 mg PO BID [facility] Stop: 01/12/19 08:59 Last Admin: 11/15/18 17:38 Dose: 500 mg Aspirin (Aspirin Chewable) 81 mg PO DAILY [facility] Stop: 01/12/19 08:59 Last Admin: 11/15/18 09:59 Dose: 81 mg Atorvastatin Calcium (Lipitor) 20 mg PO HS [facility] Stop: 01/12/19 20:59 Last Admin: 11/15/18 21:51 Dose: 20 mg Calcium Carbonate (Tums) 500 mg PO Q8H PRN PRN Reason: ANTACID Stop: 01/12/19 06:20 Calcium/Vitamin D (Oscal W/Vitamin D) 1 tab PO DAILY [facility] Stop: 01/12/19 08:59 Last Admin: 11/15/18 09:59 Dose: 1 tab Dextrose (D50w) 50 ml IVP PRN PRN PRN Reason: Blood Glucose less than 70 Stop: 01/12/19 06:24 Last Admin: 11/15/18 06:45 Dose: 50 ml Dextrose (Glutose 40%) 18.75 gm PO PRN PRN PRN Reason: Blood Glucose less than 70 Stop: 01/12/19 06:24 Diltiazem HCl (Cardizem Cd) 360 mg PO DAILY [facility] Stop: 01/12/19 08:59 Last Admin: 11/15/18 10:06 Dose: 360 mg Docusate Sodium (Colace) 250 mg PO DAILY [facility] Stop: 01/12/19 08:59 Last Admin: 11/15/18 09:59 Dose: 250 mg Famotidine (Pepcid) 20 mg PO DAILY [facility] Stop: 01/12/19 08:59 Last Admin: 11/15/18 09:59 Dose: 20 mg Folic Acid (Folate) 1 mg PO DAILY [facility] Stop: 01/12/19 08:59 Last Admin: 11/15/18 09:59 Dose: 1 mg Gabapentin (Neurontin) 800 mg PO TID [facility] Stop: 01/14/19 08:59 Last Admin: 11/15/18 21:51 Dose: 800 mg Glipizide (Glucotrol) 10 mg PO DAILY [facility] Stop: 01/12/19 08:59 Last Admin: 11/15/18 10:00 Dose: 10 mg Glucagon (Glucagen) 1 mg IM PRN PRN PRN Reason: Blood Glucose less than 70 Stop: 01/12/19 06:24 Dextrose/Sodium Chloride (D5-0.9%Ns) 1,000 mls @ 100 mls/hr IV .Q10H [facility] Stop: 01/12/19 16:59 Last Admin: 11/15/18 13:50 Dose: 100 mls/hr Ceftriaxone Sodium 1 gm/ (Sodium Chloride) 50 mls @ 100 mls/hr IV Q24HR [facility] Stop: 01/13/19 07:59 Last Admin: 11/15/18 13:58 Dose: 100 mls/hr Insulin Glargine (Lantus Insulin) 35 units SUBQ BID [facility] Stop: 01/12/19 08:59 Last Admin: 11/15/18 18:02 Dose: 35 units Insulin Human Lispro (Humalog Insulin Sliding Scale) 0 units SUBQ ACHS [facility]; Protocol Stop: 01/12/19 07:29 Last Admin: 11/16/18 06:42 Dose: Not Given Lactulose (Cephulac) 30 gm PO DAILY [facility] Stop: 01/13/19 20:59 Last Admin: 11/15/18 09:58 Dose: 30 gm Levothyroxine Sodium (Synthroid) 0.1 mg PO QDAC [facility] Stop: 01/12/19 07:29 Last Admin: 11/16/18 06:42 Dose: 0.1 mg Lorazepam (Ativan) 0.5 mg PO Q6HR PRN; Protocol PRN Reason: Agitation Stop: 01/13/19 22:11 Last Admin: 11/15/18 17:38 Dose: 0.5 mg Magnesium Hydroxide (Milk Of Magnesia) 30 ml PO DAILY PRN PRN Reason: Constipation Stop: 01/12/19 06:20 Miscellaneous (Solifenacin Succinate [Vesicare]) 5 mg PO BID [facility] Stop: 01/12/19 08:59 Neomycin/Polymyxin/Bacitracin (Triple Antibiotic Pkt) 1 pkt TP DAILY [facility] Stop: 01/12/19 08:59 Last Admin: 11/15/18 09:58 Dose: 1 pkt Sertraline HCl (Zoloft) 100 mg PO DAILY [facility] Stop: 01/12/19 08:59 Sodium Bicarbonate (Sodium Bicarbonate) 650 mg PO BID [facility]; Protocol Stop: 01/12/19 16:59 Last Admin: 11/15/18 17:38 Dose: 650 mg Thiamine HCl (Vitamin B1) 100 mg PO DAILY [facility] Stop: 01/12/19 08:59 Last Admin: 11/15/18 09:59 Dose: 100 mg Tramadol HCl (Ultram) 50 mg PO BID [facility] Stop: 01/12/19 08:59 Last Admin: 11/15/18 17:38 Dose: 50 mg Triamcinolone Acetonide (Kenalog 0.1%) 1 appl TP DAILY [facility] Stop: 01/12/19 08:59 Last Admin: 11/15/18 10:07 Dose: 1 appl Vitamin E (Vitamin E) 1,000 iu PO DAILY [facility] Stop: 01/12/19 08:59 Last Admin: 11/15/18 10:06 Dose: 1,000 iu Zinc Sulfate (Zinc Sulfate) 220 mg PO DAILY [facility] Stop: 01/12/19 08:59 Last Admin: 11/15/18 09:59 Dose: 220 mg General: Alert, Oriented x3, No acute distress HEENT: Atraumatic, PERRLA, EOMI Neck: Supple, +2 carotid pulse wo bruit Cardiovascular: Regular rate, Normal S1, Normal S2 Lungs: Clear to auscultation Abdomen: Bowel sounds, Soft Extremities: no Clubbing, no Cyanosis, no Edema Neurological: Normal gait, Normal speech Skin: no Rash Psych/Mental Status: Mood NL - Procedures Procedures: Procedures Procedure Code Date CANDACE BONE 20 SQ CM/< 69144 06/02/17 DRAINAGE OF LEFT BREAST, PERCUTANEOUS APPROACH [id number] 05/09/16 EXCISION OF BACK SUBCU/FASCIA, OPEN APPROACH [id number] 06/02/17 INCISION OF BREAST LESION 87318 05/09/16 Assessment/Plan - Problem List Patient Problems: All Active Problems DECLINING MENTAL STATUS, POOR APPETITE (Acute) - Assessment Assessment: Current Active Problems Problem Status Onset DECLINING MENTAL STATUS, POOR APPETITE Acute Altered Mental Status poor appetite COPD Alcoholic liver disease metabolic encephalopathy hepatic encephalopathy uremia GERD HTN, DM2, Hypothyroidism, Bipolar d/o, Anxiety d/o, Gout, Hyperlipidemia, Polyneuropathy, Depression - Plan Plan: continue current treatment Nutritional Asmnt/Malnutr-PDOC - Dietary Evaluation Malnutrition Findings (Please click <Entered> for more info): Nutritional Asmnt/Malnutrition Start: 11/13/18 09: 54 Text: Status: Active Freq: Protocol: Document 11/13/18 09:54 THIEN (Rec: 11/13/18 10:00 THIEN FAYE- [email or web address]) Nutritional Asmnt/Malnutrition Patient General Information Diagnosis electrolyte imbalance, sacral decubitus ulcer Pertinent Medical Hx/Surgical Hx bipolar d/o, anxiety, COPD, alcoholic liver disease, GERD, HTN, DM type II, hypothyroidism Subjective Information Pt sitting up in bed at time of visit and did not repsond verbally to RD's questions. Current Diet Order/ Nutrition Support 2g Na diet Pertinent Medications vit C, lipitor, tums, Ca and Vit D, foalte, glucagen, Lantus 35units, MOM, metformin , zinc sulfate, vit E, vit B1 Pertinent Labs 11/13: Na 136, k 5.0, cl 109, CO2 17.4, BUN 48, Cr 2.5, Ca 9 .5, glucose 187 Nutritional Hx/Data Height 1.57 m Height (Calculated Centimeters) 157.5 Current Weight (lbs) 79.379 kg Weight (Calculated Kilograms) 79.4 Weight (Calculated Grams) 21119.7 Body Mass Index (BMI) 32.0 Weight Status Obese GI Symptoms GI Symptoms None Last BM none noted Cultural/Ethnic/Rastafarian Belief unknown Usual diet at home unknown Skin Integrity/Comment: cherri score 14, sacrum: pressure area Estimated Nutritional Goals BEE in Kcals: Using Current wt Adj wt of IBW Calories/Kcals/Kg 30-35kcals/kg Kcals Calculated 1710-1995kcals/day Protein: Adj wt of IBW Protein g/k.3g+/kg Protein Calculated 74+g/day Fluid: ml 1710-1995ml/day (1ml/kcal_ Nutritional Problem 1. Problem Problem Increased nutrient needs related to Etiology wound healing as evidenced by Signs/Symptoms: cherri score 14 with sacrum pressure area Intervention/Recommendation Comments Recommend continuing Renal diet Expected Outcomes/Goals Expected Outcomes/Goals PO intake >75% of meals
[2018-11-16] MEDS: cefTRIAXone 1 GM in Sodium Chloride 0.9% 50 ML IV SCH (08:54)
[2018-11-16] MEDS: Triple Antibiotic 0.94 gm Pkt TP SCH (08:56)
[2018-11-16] MEDS: Calcium Carb/Vit D 500 mg/200 U Tab PO SCH (08:57)
[2018-11-16] MEDS: Multivitamin w/ Minerals Tab PO SCH (08:57)
[2018-11-16] MEDS: Lactulose 10 Gm/15 mL 30mL UDC PO SCH (08:59)
[2018-11-16] MEDS: Aspirin 81mg Chewable Tab PO SCH (08:59)
[2018-11-16] MEDS: Diltiazem CD 180 mg C24 PO SCH (09:00)
[2018-11-16] MEDS: Vitamin E 1,000 IU Sgl PO SCH (09:00)
[2018-11-16] MEDS: Triamcinolone Acetonide 0.1% Cream 15 gm TP SCH (09:01)
[2018-11-16] MEDS: Insulin Glargine 100 units/ml 10ml Vial SUBQ SCH ×2 (09:14→17:02)
--- NOTE | 2018-11-16 09:54 | Diagnostic Imaging Report ---
Nuclear medicine 3 phase bone scan History: Nonhealing wound of the sacrum for 7 years. History of sacral decubitus ulcers. Comparison: None Technique: 25.3 mCi technetium 99 MDP was administered intravenously and flow, blood pool, and delayed images were obtained. Findings: Exam is limited due to patient's medical condition and difficulty cooperating. Flow images demonstrate no focal osseous uptake within the pelvis. Blood flow images also demonstrate no focal osseous uptake within the pelvis. Urinary bladder uptake is noted. Lateral views were not able to be obtained. Mild uptake of the SI joints are noted. IMPRESSION: Limited exam as lateral views were not obtained. Otherwise no evidence of osteomyelitis. CT or MRI would be helpful for further assessment if indicated. Mild uptake of the SI joints, likely degenerative.
--- NOTE | 2018-11-16 09:55 | Diagnostic Imaging Report ---
Sacrococcyx 2 views History: Pain rule out osteomyelitis Comparison: Bone scan performed on 11/15/2018 Findings: There is distal fecal impaction. Advanced degenerative change lower lumbar spine are noted. No osseous erosions identified. No acute fracture is identified. Additional mild degenerative changes of bilateral SI joints are noted. Atherosclerosis is noted. Soft tissue defect of the sacral region is noted which does not extend to the sacral bone. IMPRESSION: Soft tissue defect of the sacral region which does not extend to the sacral bone. No x-ray evidence of osteomyelitis. If indicated CT or MRI may be helpful. Distal fecal impaction Degenerative changes.
[2018-11-16] MEDS: D5-0.9%NS 1,000 ML IV SCH (17:09)
--- NOTE | 2018-11-16 18:43 | General Progress Note ---
Subjective - Review of Systems Service Date: 11/16/18 Subjective: alert, eating more Objective - Results Result Diagrams: 11/15/18 05:40 11/16/18 04:55 Recent Labs: Laboratory Last Values WBC 6.9 Th/cmm (4.8-10.8) D 11/15/18 05:40 RBC 3.56 Mil/cmm (3.80-5.20) L 11/15/18 05:40 Hgb 10.6 gm/dL (12-16) L 11/15/18 05:40 Hct 32.3 % (41.0-60) L 11/15/18 05:40 MCV 90.8 fl (81-100) 11/15/18 05:40 MCH 29.9 pg (27.0-31.0) 11/15/18 05:40 MCHC Differential 32.9 pg (28.0-36.0) 11/15/18 05:40 RDW 14.0 % (11.5-20.0) 11/15/18 05:40 Plt Count 105 Th/cmm (150-400) L 11/15/18 05:40 MPV 8.3 fl 11/15/18 05:40 Neutrophils % 68.3 % (40.0-80.0) 11/15/18 05:40 Lymphocytes % 22.3 % (20.0-50.0) 11/15/18 05:40 Monocytes % 5.4 % (2.0-10.0) 11/15/18 05:40 Eosinophils % 3.0 % (0.0-5.0) 11/15/18 05:40 Basophils % 1.0 % (0.0-2.0) 11/15/18 05:40 ESR 115 mm/hr (0-30) H 11/15/18 05:40 Eos Smear Source URINE 11/14/18 00:48 Eos Smear Total Cells FEW EOSINOPHILS SEEN (NONE SEEN) 11/14/18 00:48 PT 13.0 SECONDS (9.5-11.5) H 11/12/18 18:20 INR 1.26 (0.5-1.4) 11/12/18 18:20 PTT (Actin FS) 20.1 SECONDS (26.0-38.0) L 11/12/18 18:20 Sodium 141 mEq/L (136-145) 11/16/18 04:55 Potassium 3.7 mEq/L (3.5-5.1) 11/16/18 04:55 Chloride 111 mEq/L (98-107) H 11/16/18 04:55 Carbon Dioxide 19.2 mEq/L (21.0-31.0) L 11/16/18 04:55 Anion Gap 14.5 (7.0-16.0) 11/16/18 04:55 BUN 23 mg/dL (7-25) 11/16/18 04:55 Creatinine 1.5 mg/dL (0.6-1.2) H 11/16/18 04:55 Est GFR ( Amer) 44.4 ml/min (>90) 11/16/18 04:55 Est GFR (Non-Af Amer) 36.7 ml/min 11/16/18 04:55 BUN/Creatinine Ratio 15.3 11/16/18 04:55 Glucose 55 mg/dL (70-105) L 11/16/18 04:55 POC Glucose 253 MG/DL (70 - 105) H 11/16/18 16:22 Uric Acid 3.6 mg/dL (2.3-6.6) 11/14/18 06:19 Calcium 9.7 mg/dL (8.6-10.3) 11/16/18 04:55 Phosphorus 3.1 mg/dL (2.5-5.0) 11/14/18 06:19 Magnesium 1.8 mg/dL (1.9-2.7) L 11/14/18 06:19 Iron 93 ug/dL (27-139) 11/12/18 18:20 TIBC 225 ug/dL (250-450) L 11/12/18 18:20 Iron Saturation 41 % (15-55) 11/12/18 18:20 Unsaturated IBC 132 ug/dL (118-369) 11/12/18 18:20 Total Bilirubin 0.5 mg/dL (0.3-1.0) 11/13/18 06:45 AST 57 U/L (13-39) H 11/13/18 06:45 ALT 26 U/L (7-52) 11/13/18 06:45 Alkaline Phosphatase 52 U/L (34-104) 11/13/18 06:45 Ammonia 74 umol/L (16-53) H 11/16/18 09:50 Troponin I 0.02 ng/mL (0.01-0.05) 11/12/18 18:20 C-Reactive Protein 0.7 mg/dL (0.0-0.9) 11/15/18 05:40 Total Protein 7.2 gm/dL (6.0-8.3) 11/13/18 06:45 Albumin 3.4 gm/dL (3.7-5.3) L 11/13/18 06:45 Globulin 3.8 gm/dL 11/13/18 06:45 Albumin/Globulin Ratio 0.9 (1.0-1.8) L 11/13/18 06:45 TSH 0.14 uIU/ml (0.34-5.60) L 11/12/18 18:20 Urine Source CATH 11/12/18 19:15 Urine Color YELLOW 11/12/18 19:15 Urine Clarity CLEAR (CLEAR) 11/12/18 19:15 Urine pH 6.0 (4.6 - 8.0) 11/12/18 19:15 Ur Specific [place] 1.020 (1.005-1.030) 11/12/18 19:15 Urine Protein 30 mg/dL (NEGATIVE) H 11/12/18 19:15 Urine Glucose (UA) NEGATIVE mg/dL (NEGATIVE) 11/12/18 19:15 Urine Ketones NEGATIVE mg/dL (NEGATIVE) 11/12/18 19:15 Urine Blood NEGATIVE (NEGATIVE) 11/12/18 19:15 Urine Nitrate NEGATIVE (NEGATIVE) 11/12/18 19:15 Urine Bilirubin NEGATIVE (NEGATIVE) 11/12/18 19:15 Urine Urobilinogen 0.2 E.U./dL (0.2 - 1.0) 11/12/18 19:15 Ur Leukocyte Esterase NEGATIVE (NEGATIVE) 11/12/18 19:15 Urine RBC NONE SEEN /hpf (0-5) 11/12/18 19:15 Urine WBC 0-2 /hpf (0-5) 11/12/18 19:15 Ur Epithelial Cells OCCASIONAL /lpf (FEW) 11/12/18 19:15 Urine Bacteria FEW /hpf (NONE SEEN) 11/12/18 19:15 Ur Random Sodium 115 mmol/L 11/14/18 00:48 Urine Creatinine 69.0 mg/dl (28.0-217.0) 11/14/18 00:48 Microalb/Creat Ratio 142.5 mg/g creat (0.0-30.0) H 11/14/18 00:48 - Physical Exam Vitals and I&O: Vital Signs Temp 96.6 F 11/16/18 15:54 Pulse 89 11/16/18 15:54 Resp 18 11/16/18 15:54 BP 138/71 11/16/18 15:54 Pulse Ox 96 11/16/18 15:54 Intake & Output 11/15/18 11/16/18 11/16/18 18:59 06:59 18:59 Intake Total 750 1200 Balance 750 1200 Weight (lbs) 79.379 kg 79.379 kg Intake: Intake, IV Amount 50 1000 D5-0.9%Ns 1,000 ml @ 100 1000 mls/hr IV .Q10H [facility] Rx#: [id number] cefTRIAXone 1 gm In 50 Sodium Chloride 0.9% 50 ml @ 100 mls/hr IV Q24HR [facility] Rx#:[id number] Oral 700 200 Other: # Voids 6 Weight Source Bedscale Bedscale Active Medications: Current Medications Acetaminophen (Tylenol) 650 mg PO Q4HR PRN PRN Reason: Pain (Mild) Stop: 01/12/19 07:38 Acetaminophen/Hydrocodone Bitart (Wells 5mg/325mg) 1 tab PO Q6HR PRN PRN Reason: Pain (Moderate) Stop: 01/12/19 07:49 Last Admin: 11/14/18 20:42 Dose: 1 tab Allopurinol (Zyloprim) 300 mg PO DAILY [facility] Stop: 01/12/19 08:59 Last Admin: 11/16/18 08:55 Dose: 300 mg Amlodipine Besylate (Norvasc) 2.5 mg PO DAILY [facility] Stop: 01/12/19 08:59 Last Admin: 11/16/18 08:58 Dose: 2.5 mg Ascorbic Acid (Vitamin C) 500 mg PO BID [facility] Stop: 01/12/19 08:59 Last Admin: 11/16/18 17:01 Dose: 500 mg Aspirin (Aspirin Chewable) 81 mg PO DAILY [facility] Stop: 01/12/19 08:59 Last Admin: 11/16/18 08:59 Dose: 81 mg Atorvastatin Calcium (Lipitor) 20 mg PO HS [facility]USA Stop: 01/12/19 20:59 Last Admin: 11/15/18 21:51 Dose: 20 mg Calcium Carbonate (Tums) 500 mg PO Q8H PRN PRN Reason: ANTACID Stop: 01/12/19 06:20 Calcium/Vitamin D (Oscal W/Vitamin D) 1 tab PO DAILY [facility]USA Stop: 01/12/19 08:59 Last Admin: 11/16/18 08:57 Dose: 1 tab Dextrose (D50w) 50 ml IVP PRN PRN PRN Reason: Blood Glucose less than 70 Stop: 01/12/19 06:24 Last Admin: 11/15/18 06:45 Dose: 50 ml Dextrose (Glutose 40%) 18.75 gm PO PRN PRN PRN Reason: Blood Glucose less than 70 Stop: 01/12/19 06:24 Diltiazem HCl (Cardizem Cd) 360 mg PO DAILY [facility]USA Stop: 01/12/19 08:59 Last Admin: 11/16/18 09:00 Dose: 360 mg Docusate Sodium (Colace) 250 mg PO DAILY [facility]USA Stop: 01/12/19 08:59 Last Admin: 11/16/18 08:57 Dose: 250 mg Famotidine (Pepcid) 20 mg PO DAILY [facility]USA Stop: 01/12/19 08:59 Last Admin: 11/16/18 08:56 Dose: 20 mg Folic Acid (Folate) 1 mg PO DAILY [facility]USA Stop: 01/12/19 08:59 Last Admin: 11/16/18 08:56 Dose: 1 mg Gabapentin (Neurontin) 800 mg PO TID [facility]USA Stop: 01/14/19 08:59 Last Admin: 11/16/18 13:28 Dose: 800 mg Glipizide (Glucotrol) 10 mg PO DAILY [facility]USA Stop: 01/12/19 08:59 Last Admin: 11/16/18 09:15 Dose: Not Given Glucagon (Glucagen) 1 mg IM PRN PRN PRN Reason: Blood Glucose less than 70 Stop: 01/12/19 06:24 Dextrose/Sodium Chloride (D5-0.9%Ns) 1,000 mls @ 100 mls/hr IV .Q10H [facility] Stop: 01/12/19 16:59 Last Admin: 11/16/18 17:09 Dose: 100 mls/hr Ceftriaxone Sodium 1 gm/ (Sodium Chloride) 50 mls @ 100 mls/hr IV Q24HR [facility] Stop: 01/13/19 07:59 Last Admin: 11/16/18 08:54 Dose: 100 mls/hr Insulin Glargine (Lantus Insulin) 20 units SUBQ BID [facility] Stop: 01/15/19 08:59 Last Admin: 11/16/18 17:02 Dose: 20 units Insulin Human Lispro (Humalog Insulin Sliding Scale) 0 units SUBQ ACHS [facility]; Protocol Stop: 01/12/19 07:29 Last Admin: 11/16/18 17:05 Dose: 6 units Lactulose (Cephulac) 30 gm PO DAILY [facility] Stop: 01/13/19 20:59 Last Admin: 11/16/18 08:59 Dose: 30 gm Levothyroxine Sodium (Synthroid) 0.1 mg PO QDAC [facility]USA Stop: 01/12/19 07:29 Last Admin: 11/16/18 06:42 Dose: 0.1 mg Lorazepam (Ativan) 0.5 mg PO Q6HR PRN; Protocol PRN Reason: Agitation Stop: 01/13/19 22:11 Last Admin: 11/15/18 17:38 Dose: 0.5 mg Magnesium Hydroxide (Milk Of Magnesia) 30 ml PO DAILY PRN PRN Reason: Constipation Stop: 01/12/19 06:20 Last Admin: 11/16/18 17:01 Dose: 30 ml Neomycin/Polymyxin/Bacitracin (Triple Antibiotic Pkt) 1 pkt TP DAILY [facility] Stop: 01/12/19 08:59 Last Admin: 11/16/18 08:56 Dose: 1 pkt Sertraline HCl (Zoloft) 100 mg PO DAILY [facility] Stop: 01/12/19 08:59 Last Admin: 11/16/18 09:05 Dose: 100 mg Sodium Bicarbonate (Sodium Bicarbonate) 650 mg PO BID [facility]; Protocol Stop: 01/12/19 16:59 Last Admin: 11/16/18 17:01 Dose: 650 mg Thiamine HCl (Vitamin B1) 100 mg PO DAILY [facility] Stop: 01/12/19 08:59 Last Admin: 11/16/18 08:59 Dose: 100 mg Tolterodine Tartrate (Detrol) 2 mg PO BID [facility] Stop: 01/15/19 08:59 Last Admin: 11/16/18 17:02 Dose: 2 mg Tramadol HCl (Ultram) 50 mg PO BID [facility]USA Stop: 01/12/19 08:59 Last Admin: 11/16/18 17:02 Dose: 50 mg Triamcinolone Acetonide (Kenalog 0.1%) 1 appl TP DAILY [facility]USA Stop: 01/12/19 08:59 Last Admin: 11/16/18 09:01 Dose: 1 appl Vitamin E (Vitamin E) 1,000 iu PO DAILY [facility]USA Stop: 01/12/19 08:59 Last Admin: 11/16/18 09:00 Dose: 1,000 iu Zinc Sulfate (Zinc Sulfate) 220 mg PO DAILY [facility] Stop: 01/12/19 08:59 Last Admin: 11/16/18 08:57 Dose: 220 mg General: Alert, Oriented x3, No acute distress HEENT: Atraumatic, PERRLA, EOMI Neck: Supple, +2 carotid pulse wo bruit Cardiovascular: Regular rate, Normal S1, Normal S2 Lungs: Clear to auscultation Abdomen: Bowel sounds, Soft Extremities: no Clubbing, no Cyanosis, no Edema Neurological: Normal gait, Normal speech Skin: no Rash Psych/Mental Status: Mood NL - Procedures Procedures: Procedures Procedure Code Date CANDACE BONE 20 SQ CM/< 26850 06/02/17 DRAINAGE OF LEFT BREAST, PERCUTANEOUS APPROACH [id number] 05/09/16 EXCISION OF BACK SUBCU/FASCIA, OPEN APPROACH [id number] 06/02/17 INCISION OF BREAST LESION 75369 05/09/16 Assessment/Plan - Problem List Patient Problems: All Active Problems DECLINING MENTAL STATUS, POOR APPETITE (Acute) - Assessment Assessment: NUBIA ALOC 2/2 Met/Uremic Enceph FTT Hyperkalemia Hypothyroid AG Met Acid Alcohol liver Ds T2DM Ess Htn - Plan Plan: Lab - Result Diagrams 11/14/18 06:19 11/14/18 06:19 Current Medications Acetaminophen (Tylenol) 650 mg PO Q4HR PRN PRN Reason: Pain (Mild) Stop: 01/12/19 07:38 Acetaminophen/Hydrocodone Bitart (Wells 5mg/325mg) 1 tab PO Q6HR PRN PRN Reason: Pain (Moderate) Stop: 01/12/19 07:49 Allopurinol (Zyloprim) 300 mg PO DAILY [facility] Stop: 01/12/19 08:59 Last Admin: 11/14/18 08:44 Dose: 300 mg Amlodipine Besylate (Norvasc) 2.5 mg PO DAILY [facility] Stop: 01/12/19 08:59 Last Admin: 11/14/18 08:46 Dose: 2.5 mg Ascorbic Acid (Vitamin C) 500 mg PO BID [facility]USA Stop: 01/12/19 08:59 Last Admin: 11/14/18 08:44 Dose: 500 mg Aspirin (Aspirin Chewable) 81 mg PO DAILY [facility] Stop: 01/12/19 08:59 Last Admin: 11/14/18 08:44 Dose: 81 mg Atorvastatin Calcium (Lipitor) 20 mg PO HS [facility] Stop: 01/12/19 20:59 Last Admin: 11/13/18 21:16 Dose: 20 mg Calcium Carbonate (Tums) 500 mg PO Q8H PRN PRN Reason: ANTACID Stop: 01/12/19 06:20 Calcium/Vitamin D (Oscal W/Vitamin D) 1 tab PO DAILY [facility] Stop: 01/12/19 08:59 Last Admin: 11/14/18 08:44 Dose: 1 tab Dextrose (D50w) 50 ml IVP PRN PRN PRN Reason: Blood Glucose less than 70 Stop: 01/12/19 06:24 Dextrose (Glutose 40%) 18.75 gm PO PRN PRN PRN Reason: Blood Glucose less than 70 Stop: 01/12/19 06:24 Diltiazem HCl (Cardizem Cd) 360 mg PO DAILY [facility] Stop: 01/12/19 08:59 Last Admin: 11/14/18 08:46 Dose: 360 mg Docusate Sodium (Colace) 250 mg PO DAILY [facility] Stop: 01/12/19 08:59 Last Admin: 11/14/18 08:45 Dose: 250 mg Famotidine (Pepcid) 20 mg PO DAILY [facility] Stop: 01/12/19 08:59 Last Admin: 11/14/18 08:45 Dose: 20 mg Folic Acid (Folate) 1 mg PO DAILY [facility] Stop: 01/12/19 08:59 Last Admin: 11/14/18 08:45 Dose: 1 mg Gabapentin (Neurontin) 800 mg PO TID [facility] Stop: 01/12/19 08:59 Glipizide (Glucotrol) 10 mg PO DAILY [facility] Stop: 01/12/19 08:59 Last Admin: 11/14/18 08:43 Dose: 10 mg Glucagon (Glucagen) 1 mg IM PRN PRN PRN Reason: Blood Glucose less than 70 Stop: 01/12/19 06:24 Dextrose/Sodium Chloride (D5-0.9%Ns) 1,000 mls @ 100 mls/hr IV .Q10H [facility] Stop: 01/12/19 16:59 Last Admin: 11/14/18 06:54 Dose: 100 mls/hr Ceftriaxone Sodium 1 gm/ (Sodium Chloride) 50 mls @ 100 mls/hr IV Q24HR [facility] Stop: 01/13/19 07:59 Last Admin: 11/14/18 08:48 Dose: 100 mls/hr Insulin Glargine (Lantus Insulin) 35 units SUBQ BID [facility] Stop: 01/12/19 08:59 Last Admin: 11/14/18 08:52 Dose: 35 units Insulin Human Lispro (Humalog Insulin Sliding Scale) 0 units SUBQ ACHS [facility]; Protocol Stop: 01/12/19 07:29 Last Admin: 11/14/18 12:28 Dose: 4 units Levothyroxine Sodium (Synthroid) 0.1 mg PO QDAC [facility] Stop: 01/12/19 07:29 Last Admin: 11/14/18 06:52 Dose: 0.1 mg Magnesium Hydroxide (Milk Of Magnesia) 30 ml PO DAILY PRN PRN Reason: Constipation Stop: 01/12/19 06:20 Miscellaneous (Sertraline Hcl [Zoloft]) 100 mg PO DAILY [facility] Stop: 01/12/19 08:59 Miscellaneous (Solifenacin Succinate [Vesicare]) 5 mg PO BID [facility] Stop: 01/12/19 08:59 Neomycin/Polymyxin/Bacitracin (Triple Antibiotic Pkt) 1 pkt TP DAILY [facility] Stop: 01/12/19 08:59 Last Admin: 11/14/18 08:45 Dose: 1 pkt Sodium Bicarbonate (Sodium Bicarbonate) 650 mg PO BID [facility]; Protocol Stop: 01/12/19 16:59 Last Admin: 11/14/18 08:43 Dose: 650 mg Thiamine HCl (Vitamin B1) 100 mg PO DAILY [facility] Stop: 01/12/19 08:59 Last Admin: 11/14/18 08:44 Dose: 100 mg Tramadol HCl (Ultram) 50 mg PO BID [facility] Stop: 01/12/19 08:59 Last Admin: 11/14/18 08:43 Dose: 50 mg Triamcinolone Acetonide (Kenalog 0.1%) 1 appl TP DAILY [facility] Stop: 01/12/19 08:59 Last Admin: 11/14/18 08:45 Dose: 1 appl Vitamin E (Vitamin E) 1,000 iu PO DAILY [facility] Stop: 01/12/19 08:59 Last Admin: 11/14/18 08:45 Dose: 1,000 iu Zinc Sulfate (Zinc Sulfate) 220 mg PO DAILY [facility] Stop: 01/12/19 08:59 Last Admin: 11/14/18 08:43 Dose: 220 mg Lab - Result Diagrams 11/15/18 05:40 11/16/18 04:55 Kidney fnc continues to improve w/ BUN/Cr of 23/1.5 FENa 3.06% suggestive of intrinsic renal failure encourage po fluid intake CT Scan head was neg f/u electrolytes X ray sacrum no osteo Nutritional Asmnt/Malnutr-PDOC - Dietary Evaluation Malnutrition Findings (Please click <Entered> for more info): Nutritional Asmnt/Malnutrition Start: 11/13/18 09: 54 Text: Status: Active Freq: Protocol: Document 11/13/18 09:54 THIEN (Rec: 11/13/18 10:00 THIEN FAYE- [email or web address]) Nutritional Asmnt/Malnutrition Patient General Information Diagnosis electrolyte imbalance, sacral decubitus ulcer Pertinent Medical Hx/Surgical Hx bipolar d/o, anxiety, COPD, alcoholic liver disease, GERD, HTN, DM type II, hypothyroidism Subjective Information Pt sitting up in bed at time of visit and did not repsond verbally to RD's questions. Current Diet Order/ Nutrition Support 2g Na diet Pertinent Medications vit C, lipitor, tums, Ca and Vit D, foalte, glucagen, Lantus 35units, MOM, metformin , zinc sulfate, vit E, vit B1 Pertinent Labs 11/13: Na 136, k 5.0, cl 109, CO2 17.4, BUN 48, Cr 2.5, Ca 9 .5, glucose 187 Nutritional Hx/Data Height 1.57 m Height (Calculated Centimeters) 157.5 Current Weight (lbs) 79.379 kg Weight (Calculated Kilograms) 79.4 Weight (Calculated Grams) 37352.7 Body Mass Index (BMI) 32.0 Weight Status Obese GI Symptoms GI Symptoms None Last BM none noted Cultural/Ethnic/Synagogue Belief unknown Usual diet at home unknown Skin Integrity/Comment: cherri score 14, sacrum: pressure area Estimated Nutritional Goals BEE in Kcals: Using Current wt Adj wt of IBW Calories/Kcals/Kg 30-35kcals/kg Kcals Calculated 1710-1995kcals/day Protein: Adj wt of IBW Protein g/k.3g+/kg Protein Calculated 74+g/day Fluid: ml 1710-1995ml/day (1ml/kcal_ Nutritional Problem 1. Problem Problem Increased nutrient needs related to Etiology wound healing as evidenced by Signs/Symptoms: cherri score 14 with sacrum pressure area Intervention/Recommendation Comments Recommend continuing Renal diet Expected Outcomes/Goals Expected Outcomes/Goals PO intake >75% of meals
[2018-11-16] MEDS: Atorvastatin Calcium 10 MG TAB PO SCH (22:12)
[2018-11-16] MEDS: Hydrocodone/APAP 5mg/325mg Tab PO PRN (22:55)
[2018-11-17 06:15] LABS: % BASOPHILS 0.8 % (0.0-2.0); % EOSINOPHILS 3.7 % (0.0-5.0); % LYMPHOCYTES 19.7 % (20.0-50.0); % MONOCYTES 5.4 % (2.0-10.0); % NEUTROPHILS 70.4 % (40.0-80.0); BASOPHILE ABSOLUTE 0.1 Th/cumm (0-0.2); EOSINOPHILE ABSOLUTE 0.2 Th/cmm (0.1-0.4); HEMOGLOBIN 10.9 gm/dL (12-16); LYMPHOCYTE ABSOLUTE 1.2 Th/cmm (1.5-3.0); MEAN CELL VOLUME 91.2 fl (81-100); MEAN CORPUSCULAR HEMOGLOBIN 30.2 pg (27.0-31.0); MEAN CORPUSCULAR HGB CONC 33.1 pg (28.0-36.0); MEAN PLATELET VOLUME 8.1 fl; MONOCYTE ABSOLUTE 0.3 Th/cmm (0.3-1.0); NEUTROPHILE ABSOLUTE 4.5 Th/cmm (1.8-8.0); PLATELET COUNT 109 Th/cmm (150-400); RED BLOOD COUNT 3.62 Mil/cmm (3.80-5.20); RED CELL DISTRIBUTION WIDTH 14.8 % (11.5-20.0); WHITE BLOOD COUNT 6.3 Th/cmm (4.8-10.8)
[2018-11-17 06:33] LABS: ANION GAP 14.3 (7.0-16.0); CALCIUM SERUM 9.6 mg/dL (8.6-10.3); CARBON DIOXIDE 19.4 mEq/L (21.0-31.0); CREATININE - SERUM 1.4 mg/dL (0.6-1.2); GFR AFRICAN-AMERICAN 48.1 ml/min (>90); GFR NON AFRICAN-AMERICAN 39.7 ml/min; POTASSIUM SERUM 3.7 mEq/L (3.5-5.1)
[2018-11-17] MEDS: INSULIN LISPRO SLIDING SCALE 100 UNITS/ML UNIT SUBQ SCH (06:35)
[2018-11-17] MEDS: Levothyroxine 0.1 Mg Tab PO SCH (06:37)
--- NOTE | 2018-11-17 08:24 | General Progress Note ---
Subjective - Review of Systems Service Date: 11/17/18 Subjective: Awake, alert, febrile. no acute distress. doing much better. Objective - Results Result Diagrams: 11/17/18 06:00 11/17/18 06:00 Recent Labs: Laboratory Last Values WBC 6.3 Th/cmm (4.8-10.8) 11/17/18 06:00 RBC 3.62 Mil/cmm (3.80-5.20) L 11/17/18 06:00 Hgb 10.9 gm/dL (12-16) L 11/17/18 06:00 Hct 33.0 % (41.0-60) L 11/17/18 06:00 MCV 91.2 fl (81-100) 11/17/18 06:00 MCH 30.2 pg (27.0-31.0) 11/17/18 06:00 MCHC Differential 33.1 pg (28.0-36.0) 11/17/18 06:00 RDW 14.8 % (11.5-20.0) 11/17/18 06:00 Plt Count 109 Th/cmm (150-400) L 11/17/18 06:00 MPV 8.1 fl 11/17/18 06:00 Neutrophils % 70.4 % (40.0-80.0) 11/17/18 06:00 Lymphocytes % 19.7 % (20.0-50.0) L 11/17/18 06:00 Monocytes % 5.4 % (2.0-10.0) 11/17/18 06:00 Eosinophils % 3.7 % (0.0-5.0) 11/17/18 06:00 Basophils % 0.8 % (0.0-2.0) 11/17/18 06:00 ESR 115 mm/hr (0-30) H 11/15/18 05:40 Eos Smear Source URINE 11/14/18 00:48 Eos Smear Total Cells FEW EOSINOPHILS SEEN (NONE SEEN) 11/14/18 00:48 PT 13.0 SECONDS (9.5-11.5) H 11/12/18 18:20 INR 1.26 (0.5-1.4) 11/12/18 18:20 PTT (Actin FS) 20.1 SECONDS (26.0-38.0) L 11/12/18 18:20 Sodium 141 mEq/L (136-145) 11/17/18 06:00 Potassium 3.7 mEq/L (3.5-5.1) 11/17/18 06:00 Chloride 111 mEq/L (98-107) H 11/17/18 06:00 Carbon Dioxide 19.4 mEq/L (21.0-31.0) L 11/17/18 06:00 Anion Gap 14.3 (7.0-16.0) 11/17/18 06:00 BUN 21 mg/dL (7-25) 11/17/18 06:00 Creatinine 1.4 mg/dL (0.6-1.2) H 11/17/18 06:00 Est GFR ( Amer) 48.1 ml/min (>90) 11/17/18 06:00 Est GFR (Non-Af Amer) 39.7 ml/min 11/17/18 06:00 BUN/Creatinine Ratio 15.0 11/17/18 06:00 Glucose 118 mg/dL (70-105) H 11/17/18 06:00 POC Glucose 322 MG/DL (70 - 105) H 11/16/18 20:44 Uric Acid 3.6 mg/dL (2.3-6.6) 11/14/18 06:19 Calcium 9.6 mg/dL (8.6-10.3) 11/17/18 06:00 Phosphorus 3.1 mg/dL (2.5-5.0) 11/14/18 06:19 Magnesium 1.8 mg/dL (1.9-2.7) L 11/14/18 06:19 Iron 93 ug/dL (27-139) 11/12/18 18:20 TIBC 225 ug/dL (250-450) L 11/12/18 18:20 Iron Saturation 41 % (15-55) 11/12/18 18:20 Unsaturated IBC 132 ug/dL (118-369) 11/12/18 18:20 Total Bilirubin 0.5 mg/dL (0.3-1.0) 11/13/18 06:45 AST 57 U/L (13-39) H 11/13/18 06:45 ALT 26 U/L (7-52) 11/13/18 06:45 Alkaline Phosphatase 52 U/L (34-104) 11/13/18 06:45 Ammonia 74 umol/L (16-53) H 11/16/18 09:50 Troponin I 0.02 ng/mL (0.01-0.05) 11/12/18 18:20 C-Reactive Protein 0.7 mg/dL (0.0-0.9) 11/15/18 05:40 Total Protein 7.2 gm/dL (6.0-8.3) 11/13/18 06:45 Albumin 3.4 gm/dL (3.7-5.3) L 11/13/18 06:45 Globulin 3.8 gm/dL 11/13/18 06:45 Albumin/Globulin Ratio 0.9 (1.0-1.8) L 11/13/18 06:45 TSH 0.14 uIU/ml (0.34-5.60) L 11/12/18 18:20 Urine Source CATH 11/12/18 19:15 Urine Color YELLOW 11/12/18 19:15 Urine Clarity CLEAR (CLEAR) 11/12/18 19:15 Urine pH 6.0 (4.6 - 8.0) 11/12/18 19:15 Ur Specific [place] 1.020 (1.005-1.030) 11/12/18 19:15 Urine Protein 30 mg/dL (NEGATIVE) H 11/12/18 19:15 Urine Glucose (UA) NEGATIVE mg/dL (NEGATIVE) 11/12/18 19:15 Urine Ketones NEGATIVE mg/dL (NEGATIVE) 11/12/18 19:15 Urine Blood NEGATIVE (NEGATIVE) 11/12/18 19:15 Urine Nitrate NEGATIVE (NEGATIVE) 11/12/18 19:15 Urine Bilirubin NEGATIVE (NEGATIVE) 11/12/18 19:15 Urine Urobilinogen 0.2 E.U./dL (0.2 - 1.0) 11/12/18 19:15 Ur Leukocyte Esterase NEGATIVE (NEGATIVE) 11/12/18 19:15 Urine RBC NONE SEEN /hpf (0-5) 11/12/18 19:15 Urine WBC 0-2 /hpf (0-5) 11/12/18 19:15 Ur Epithelial Cells OCCASIONAL /lpf (FEW) 11/12/18 19:15 Urine Bacteria FEW /hpf (NONE SEEN) 11/12/18 19:15 Ur Random Sodium 115 mmol/L 11/14/18 00:48 Urine Creatinine 69.0 mg/dl (28.0-217.0) 11/14/18 00:48 Microalb/Creat Ratio 142.5 mg/g creat (0.0-30.0) H 11/14/18 00:48 - Physical Exam Vitals and I&O: Vital Signs Temp 98 F 11/17/18 07:46 Pulse 89 11/17/18 07:46 Resp 18 11/17/18 07:46 BP 154/81 11/17/18 07:46 Pulse Ox 96 11/17/18 07:46 Intake & Output 11/16/18 11/17/18 11/17/18 18:59 06:59 18:59 Intake Total 700 350 Balance 700 350 Weight (lbs) 79.379 kg 79.379 kg Intake: Oral 700 350 Other: # Voids 4 2 # Bowel Movements 0 Weight Source Bedscale Bedscale Active Medications: Current Medications Acetaminophen (Tylenol) 650 mg PO Q4HR PRN PRN Reason: Pain (Mild) Stop: 01/12/19 07:38 Acetaminophen/Hydrocodone Bitart ([place] 5mg/325mg) 1 tab PO Q6HR PRN PRN Reason: Pain (Moderate) Stop: 01/12/19 07:49 Last Admin: 11/16/18 22:55 Dose: 1 tab Allopurinol (Zyloprim) 300 mg PO DAILY [facility] Stop: 01/12/19 08:59 Last Admin: 11/16/18 08:55 Dose: 300 mg Amlodipine Besylate (Norvasc) 2.5 mg PO DAILY [facility] Stop: 01/12/19 08:59 Last Admin: 11/16/18 08:58 Dose: 2.5 mg Ascorbic Acid (Vitamin C) 500 mg PO BID [facility] Stop: 01/12/19 08:59 Last Admin: 11/16/18 17:01 Dose: 500 mg Aspirin (Aspirin Chewable) 81 mg PO DAILY [facility] Stop: 01/12/19 08:59 Last Admin: 11/16/18 08:59 Dose: 81 mg Atorvastatin Calcium (Lipitor) 20 mg PO HS [facility] Stop: 01/12/19 20:59 Last Admin: 11/16/18 22:12 Dose: 20 mg Calcium Carbonate (Tums) 500 mg PO Q8H PRN PRN Reason: ANTACID Stop: 01/12/19 06:20 Calcium/Vitamin D (Oscal W/Vitamin D) 1 tab PO DAILY [facility] Stop: 01/12/19 08:59 Last Admin: 11/16/18 08:57 Dose: 1 tab Dextrose (D50w) 50 ml IVP PRN PRN PRN Reason: Blood Glucose less than 70 Stop: 01/12/19 06:24 Last Admin: 11/15/18 06:45 Dose: 50 ml Dextrose (Glutose 40%) 18.75 gm PO PRN PRN PRN Reason: Blood Glucose less than 70 Stop: 01/12/19 06:24 Diltiazem HCl (Cardizem Cd) 360 mg PO DAILY [facility] Stop: 01/12/19 08:59 Last Admin: 11/16/18 09:00 Dose: 360 mg Docusate Sodium (Colace) 250 mg PO DAILY [facility] Stop: 01/12/19 08:59 Last Admin: 11/16/18 08:57 Dose: 250 mg Famotidine (Pepcid) 20 mg PO DAILY [facility] Stop: 01/12/19 08:59 Last Admin: 11/16/18 08:56 Dose: 20 mg Folic Acid (Folate) 1 mg PO DAILY [facility] Stop: 01/12/19 08:59 Last Admin: 11/16/18 08:56 Dose: 1 mg Gabapentin (Neurontin) 800 mg PO TID [facility] Stop: 01/14/19 08:59 Last Admin: 11/16/18 22:11 Dose: 800 mg Glipizide (Glucotrol) 10 mg PO DAILY [facility] Stop: 01/12/19 08:59 Last Admin: 11/16/18 09:15 Dose: Not Given Glucagon (Glucagen) 1 mg IM PRN PRN PRN Reason: Blood Glucose less than 70 Stop: 01/12/19 06:24 Dextrose/Sodium Chloride (D5-0.9%Ns) 1,000 mls @ 100 mls/hr IV .Q10H [facility] Stop: 01/12/19 16:59 Last Admin: 11/16/18 17:09 Dose: 100 mls/hr Ceftriaxone Sodium 1 gm/ (Sodium Chloride) 50 mls @ 100 mls/hr IV Q24HR [facility] Stop: 01/13/19 07:59 Last Admin: 11/16/18 08:54 Dose: 100 mls/hr Insulin Glargine (Lantus Insulin) 30 units SUBQ BID [facility] Stop: 01/16/19 08:59 Insulin Human Lispro (Humalog Insulin Sliding Scale) 0 units SUBQ ACHS [facility]; Protocol Stop: 01/12/19 07:29 Last Admin: 11/17/18 06:35 Dose: Not Given Lactulose (Cephulac) 30 gm PO DAILY [facility] Stop: 01/13/19 20:59 Last Admin: 11/16/18 08:59 Dose: 30 gm Levothyroxine Sodium (Synthroid) 0.1 mg PO QDAC [facility] Stop: 01/12/19 07:29 Last Admin: 11/17/18 06:37 Dose: 0.1 mg Lorazepam (Ativan) 0.5 mg PO Q6HR PRN; Protocol PRN Reason: Agitation Stop: 01/13/19 22:11 Last Admin: 11/15/18 17:38 Dose: 0.5 mg Magnesium Hydroxide (Milk Of Magnesia) 30 ml PO DAILY PRN PRN Reason: Constipation Stop: 01/12/19 06:20 Last Admin: 11/16/18 17:01 Dose: 30 ml Neomycin/Polymyxin/Bacitracin (Triple Antibiotic Pkt) 1 pkt TP DAILY [facility] Stop: 01/12/19 08:59 Last Admin: 11/16/18 08:56 Dose: 1 pkt Sertraline HCl (Zoloft) 100 mg PO DAILY [facility] Stop: 01/12/19 08:59 Last Admin: 11/16/18 09:05 Dose: 100 mg Sodium Bicarbonate (Sodium Bicarbonate) 650 mg PO BID [facility]; Protocol Stop: 01/12/19 16:59 Last Admin: 11/16/18 17:01 Dose: 650 mg Thiamine HCl (Vitamin B1) 100 mg PO DAILY [facility] Stop: 01/12/19 08:59 Last Admin: 11/16/18 08:59 Dose: 100 mg Tolterodine Tartrate (Detrol) 2 mg PO BID [facility] Stop: 01/15/19 08:59 Last Admin: 11/16/18 17:02 Dose: 2 mg Tramadol HCl (Ultram) 50 mg PO BID [facility] Stop: 01/12/19 08:59 Last Admin: 11/16/18 17:02 Dose: 50 mg Triamcinolone Acetonide (Kenalog 0.1%) 1 appl TP DAILY [facility] Stop: 01/12/19 08:59 Last Admin: 11/16/18 09:01 Dose: 1 appl Vitamin E (Vitamin E) 1,000 iu PO DAILY [facility] Stop: 01/12/19 08:59 Last Admin: 11/16/18 09:00 Dose: 1,000 iu Zinc Sulfate (Zinc Sulfate) 220 mg PO DAILY [facility] Stop: 01/12/19 08:59 Last Admin: 11/16/18 08:57 Dose: 220 mg General: Alert, Oriented x3, No acute distress HEENT: Atraumatic, PERRLA, EOMI Neck: Supple, +2 carotid pulse wo bruit Cardiovascular: Regular rate, Normal S1, Normal S2 Lungs: Clear to auscultation Abdomen: Bowel sounds, Soft Extremities: no Clubbing, no Cyanosis, no Edema Neurological: Normal gait, Normal speech Skin: no Rash Psych/Mental Status: Mood NL - Procedures Procedures: Procedures Procedure Code Date CANDACE BONE 20 SQ CM/< 01037 06/02/17 DRAINAGE OF LEFT BREAST, PERCUTANEOUS APPROACH [id number] 05/09/16 EXCISION OF BACK SUBCU/FASCIA, OPEN APPROACH [id number] 06/02/17 INCISION OF BREAST LESION 99749 05/09/16 Assessment/Plan - Problem List Patient Problems: All Active Problems DECLINING MENTAL STATUS, POOR APPETITE (Acute) - Assessment Assessment: Current Active Problems Problem Status Onset DECLINING MENTAL STATUS, POOR APPETITE Acute Altered Mental Status poor appetite COPD Alcoholic liver disease metabolic encephalopathy hepatic encephalopathy uremia GERD HTN, DM2, Hypothyroidism, Bipolar d/o, Anxiety d/o, Gout, Hyperlipidemia, Polyneuropathy, Depression - Plan Plan: will discharge patient back to SNF for continued care. Nutritional Asmnt/Malnutr-PDOC - Dietary Evaluation Malnutrition Findings (Please click <Entered> for more info): Nutritional Asmnt/Malnutrition Start: 11/13/18 09: 54 Text: Status: Active Freq: Protocol: Document 11/13/18 09:54 THIEN (Rec: 11/13/18 10:00 THIEN FAYE- [email or web address]) Nutritional Asmnt/Malnutrition Patient General Information Diagnosis electrolyte imbalance, sacral decubitus ulcer Pertinent Medical Hx/Surgical Hx bipolar d/o, anxiety, COPD, alcoholic liver disease, GERD, HTN, DM type II, hypothyroidism Subjective Information Pt sitting up in bed at time of visit and did not repsond verbally to RD's questions. Current Diet Order/ Nutrition Support 2g Na diet Pertinent Medications vit C, lipitor, tums, Ca and Vit D, foalte, glucagen, Lantus 35units, MOM, metformin , zinc sulfate, vit E, vit B1 Pertinent Labs 11/13: Na 136, k 5.0, cl 109, CO2 17.4, BUN 48, Cr 2.5, Ca 9 .5, glucose 187 Nutritional Hx/Data Height 1.57 m Height (Calculated Centimeters) 157.5 Current Weight (lbs) 79.379 kg Weight (Calculated Kilograms) 79.4 Weight (Calculated Grams) 83044.7 Body Mass Index (BMI) 32.0 Weight Status Obese GI Symptoms GI Symptoms None Last BM none noted Cultural/Ethnic/Sabianist Belief unknown Usual diet at home unknown Skin Integrity/Comment: cherri score 14, sacrum: pressure area Estimated Nutritional Goals BEE in Kcals: Using Current wt Adj wt of IBW Calories/Kcals/Kg 30-35kcals/kg Kcals Calculated 1710-1995kcals/day Protein: Adj wt of IBW Protein g/k.3g+/kg Protein Calculated 74+g/day Fluid: ml 1710-1995ml/day (1ml/kcal_ Nutritional Problem 1. Problem Problem Increased nutrient needs related to Etiology wound healing as evidenced by Signs/Symptoms: cherri score 14 with sacrum pressure area Intervention/Recommendation Comments Recommend continuing Renal diet Expected Outcomes/Goals Expected Outcomes/Goals PO intake >75% of meals
--- NOTE | 2018-11-17 08:31 | Infectious Disease Prog Note ---
Infectious Disease Subjective - Review of Systems Service Date: 11/17/18 Subjective: No ne wchange, no fever Infectious Disease Objective - Results Result Diagrams: 11/17/18 06:00 11/17/18 06:00 Recent Labs: Laboratory Last Values WBC 6.3 Th/cmm (4.8-10.8) 11/17/18 06:00 RBC 3.62 Mil/cmm (3.80-5.20) L 11/17/18 06:00 Hgb 10.9 gm/dL (12-16) L 11/17/18 06:00 Hct 33.0 % (41.0-60) L 11/17/18 06:00 MCV 91.2 fl (81-100) 11/17/18 06:00 MCH 30.2 pg (27.0-31.0) 11/17/18 06:00 MCHC Differential 33.1 pg (28.0-36.0) 11/17/18 06:00 RDW 14.8 % (11.5-20.0) 11/17/18 06:00 Plt Count 109 Th/cmm (150-400) L 11/17/18 06:00 MPV 8.1 fl 11/17/18 06:00 Neutrophils % 70.4 % (40.0-80.0) 11/17/18 06:00 Lymphocytes % 19.7 % (20.0-50.0) L 11/17/18 06:00 Monocytes % 5.4 % (2.0-10.0) 11/17/18 06:00 Eosinophils % 3.7 % (0.0-5.0) 11/17/18 06:00 Basophils % 0.8 % (0.0-2.0) 11/17/18 06:00 ESR 115 mm/hr (0-30) H 11/15/18 05:40 Eos Smear Source URINE 11/14/18 00:48 Eos Smear Total Cells FEW EOSINOPHILS SEEN (NONE SEEN) 11/14/18 00:48 PT 13.0 SECONDS (9.5-11.5) H 11/12/18 18:20 INR 1.26 (0.5-1.4) 11/12/18 18:20 PTT (Actin FS) 20.1 SECONDS (26.0-38.0) L 11/12/18 18:20 Sodium 141 mEq/L (136-145) 11/17/18 06:00 Potassium 3.7 mEq/L (3.5-5.1) 11/17/18 06:00 Chloride 111 mEq/L (98-107) H 11/17/18 06:00 Carbon Dioxide 19.4 mEq/L (21.0-31.0) L 11/17/18 06:00 Anion Gap 14.3 (7.0-16.0) 11/17/18 06:00 BUN 21 mg/dL (7-25) 11/17/18 06:00 Creatinine 1.4 mg/dL (0.6-1.2) H 11/17/18 06:00 Est GFR ( Amer) 48.1 ml/min (>90) 11/17/18 06:00 Est GFR (Non-Af Amer) 39.7 ml/min 11/17/18 06:00 BUN/Creatinine Ratio 15.0 11/17/18 06:00 Glucose 118 mg/dL (70-105) H 11/17/18 06:00 POC Glucose 322 MG/DL (70 - 105) H 11/16/18 20:44 Uric Acid 3.6 mg/dL (2.3-6.6) 11/14/18 06:19 Calcium 9.6 mg/dL (8.6-10.3) 11/17/18 06:00 Phosphorus 3.1 mg/dL (2.5-5.0) 11/14/18 06:19 Magnesium 1.8 mg/dL (1.9-2.7) L 11/14/18 06:19 Iron 93 ug/dL (27-139) 11/12/18 18:20 TIBC 225 ug/dL (250-450) L 11/12/18 18:20 Iron Saturation 41 % (15-55) 11/12/18 18:20 Unsaturated IBC 132 ug/dL (118-369) 11/12/18 18:20 Total Bilirubin 0.5 mg/dL (0.3-1.0) 11/13/18 06:45 AST 57 U/L (13-39) H 11/13/18 06:45 ALT 26 U/L (7-52) 11/13/18 06:45 Alkaline Phosphatase 52 U/L (34-104) 11/13/18 06:45 Ammonia 74 umol/L (16-53) H 11/16/18 09:50 Troponin I 0.02 ng/mL (0.01-0.05) 11/12/18 18:20 C-Reactive Protein 0.7 mg/dL (0.0-0.9) 11/15/18 05:40 Total Protein 7.2 gm/dL (6.0-8.3) 11/13/18 06:45 Albumin 3.4 gm/dL (3.7-5.3) L 11/13/18 06:45 Globulin 3.8 gm/dL 11/13/18 06:45 Albumin/Globulin Ratio 0.9 (1.0-1.8) L 11/13/18 06:45 TSH 0.14 uIU/ml (0.34-5.60) L 11/12/18 18:20 Urine Source CATH 11/12/18 19:15 Urine Color YELLOW 11/12/18 19:15 Urine Clarity CLEAR (CLEAR) 11/12/18 19:15 Urine pH 6.0 (4.6 - 8.0) 11/12/18 19:15 Ur Specific [place] 1.020 (1.005-1.030) 11/12/18 19:15 Urine Protein 30 mg/dL (NEGATIVE) H 11/12/18 19:15 Urine Glucose (UA) NEGATIVE mg/dL (NEGATIVE) 11/12/18 19:15 Urine Ketones NEGATIVE mg/dL (NEGATIVE) 11/12/18 19:15 Urine Blood NEGATIVE (NEGATIVE) 11/12/18 19:15 Urine Nitrate NEGATIVE (NEGATIVE) 11/12/18 19:15 Urine Bilirubin NEGATIVE (NEGATIVE) 11/12/18 19:15 Urine Urobilinogen 0.2 E.U./dL (0.2 - 1.0) 11/12/18 19:15 Ur Leukocyte Esterase NEGATIVE (NEGATIVE) 11/12/18 19:15 Urine RBC NONE SEEN /hpf (0-5) 11/12/18 19:15 Urine WBC 0-2 /hpf (0-5) 11/12/18 19:15 Ur Epithelial Cells OCCASIONAL /lpf (FEW) 11/12/18 19:15 Urine Bacteria FEW /hpf (NONE SEEN) 11/12/18 19:15 Ur Random Sodium 115 mmol/L 11/14/18 00:48 Urine Creatinine 69.0 mg/dl (28.0-217.0) 11/14/18 00:48 Microalb/Creat Ratio 142.5 mg/g creat (0.0-30.0) H 11/14/18 00:48 - Physical Exam Vitals and I&O: Vital Signs Temp 98 F 11/17/18 07:46 Pulse 89 11/17/18 07:46 Resp 18 11/17/18 07:46 BP 154/81 11/17/18 07:46 Pulse Ox 96 11/17/18 07:46 Intake & Output 11/16/18 11/17/18 11/17/18 18:59 06:59 18:59 Intake Total 700 350 Balance 700 350 Weight (lbs) 79.379 kg 79.379 kg Intake: Oral 700 350 Other: # Voids 4 2 # Bowel Movements 0 Weight Source Bedscale Bedscale Active Medications: Current Medications Acetaminophen (Tylenol) 650 mg PO Q4HR PRN PRN Reason: Pain (Mild) Stop: 01/12/19 07:38 Acetaminophen/Hydrocodone Bitart ([place] 5mg/325mg) 1 tab PO Q6HR PRN PRN Reason: Pain (Moderate) Stop: 01/12/19 07:49 Last Admin: 11/16/18 22:55 Dose: 1 tab Allopurinol (Zyloprim) 300 mg PO DAILY [facility] Stop: 01/12/19 08:59 Last Admin: 11/16/18 08:55 Dose: 300 mg Amlodipine Besylate (Norvasc) 2.5 mg PO DAILY [facility] Stop: 01/12/19 08:59 Last Admin: 11/16/18 08:58 Dose: 2.5 mg Ascorbic Acid (Vitamin C) 500 mg PO BID [facility] Stop: 01/12/19 08:59 Last Admin: 11/16/18 17:01 Dose: 500 mg Aspirin (Aspirin Chewable) 81 mg PO DAILY [facility] Stop: 01/12/19 08:59 Last Admin: 11/16/18 08:59 Dose: 81 mg Atorvastatin Calcium (Lipitor) 20 mg PO HS [facility] Stop: 01/12/19 20:59 Last Admin: 11/16/18 22:12 Dose: 20 mg Calcium Carbonate (Tums) 500 mg PO Q8H PRN PRN Reason: ANTACID Stop: 01/12/19 06:20 Calcium/Vitamin D (Oscal W/Vitamin D) 1 tab PO DAILY [facility] Stop: 01/12/19 08:59 Last Admin: 11/16/18 08:57 Dose: 1 tab Dextrose (D50w) 50 ml IVP PRN PRN PRN Reason: Blood Glucose less than 70 Stop: 01/12/19 06:24 Last Admin: 11/15/18 06:45 Dose: 50 ml Dextrose (Glutose 40%) 18.75 gm PO PRN PRN PRN Reason: Blood Glucose less than 70 Stop: 01/12/19 06:24 Diltiazem HCl (Cardizem Cd) 360 mg PO DAILY [facility] Stop: 01/12/19 08:59 Last Admin: 11/16/18 09:00 Dose: 360 mg Docusate Sodium (Colace) 250 mg PO DAILY [facility] Stop: 01/12/19 08:59 Last Admin: 11/16/18 08:57 Dose: 250 mg Famotidine (Pepcid) 20 mg PO DAILY [facility] Stop: 01/12/19 08:59 Last Admin: 11/16/18 08:56 Dose: 20 mg Folic Acid (Folate) 1 mg PO DAILY [facility] Stop: 01/12/19 08:59 Last Admin: 11/16/18 08:56 Dose: 1 mg Gabapentin (Neurontin) 800 mg PO TID [facility] Stop: 01/14/19 08:59 Last Admin: 11/16/18 22:11 Dose: 800 mg Glipizide (Glucotrol) 10 mg PO DAILY [facility] Stop: 01/12/19 08:59 Last Admin: 11/16/18 09:15 Dose: Not Given Glucagon (Glucagen) 1 mg IM PRN PRN PRN Reason: Blood Glucose less than 70 Stop: 01/12/19 06:24 Dextrose/Sodium Chloride (D5-0.9%Ns) 1,000 mls @ 100 mls/hr IV .Q10H [facility] Stop: 01/12/19 16:59 Last Admin: 11/16/18 17:09 Dose: 100 mls/hr Ceftriaxone Sodium 1 gm/ (Sodium Chloride) 50 mls @ 100 mls/hr IV Q24HR [facility] Stop: 01/13/19 07:59 Last Admin: 11/16/18 08:54 Dose: 100 mls/hr Insulin Glargine (Lantus Insulin) 30 units SUBQ BID [facility] Stop: 01/16/19 08:59 Insulin Human Lispro (Humalog Insulin Sliding Scale) 0 units SUBQ ACHS [facility]; Protocol Stop: 01/12/19 07:29 Last Admin: 11/17/18 06:35 Dose: Not Given Lactulose (Cephulac) 30 gm PO DAILY [facility] Stop: 01/13/19 20:59 Last Admin: 11/16/18 08:59 Dose: 30 gm Levothyroxine Sodium (Synthroid) 0.1 mg PO QDAC [facility] Stop: 01/12/19 07:29 Last Admin: 11/17/18 06:37 Dose: 0.1 mg Lorazepam (Ativan) 0.5 mg PO Q6HR PRN; Protocol PRN Reason: Agitation Stop: 01/13/19 22:11 Last Admin: 11/15/18 17:38 Dose: 0.5 mg Magnesium Hydroxide (Milk Of Magnesia) 30 ml PO DAILY PRN PRN Reason: Constipation Stop: 01/12/19 06:20 Last Admin: 11/16/18 17:01 Dose: 30 ml Neomycin/Polymyxin/Bacitracin (Triple Antibiotic Pkt) 1 pkt TP DAILY [facility] Stop: 01/12/19 08:59 Last Admin: 11/16/18 08:56 Dose: 1 pkt Sertraline HCl (Zoloft) 100 mg PO DAILY [facility] Stop: 01/12/19 08:59 Last Admin: 11/16/18 09:05 Dose: 100 mg Sodium Bicarbonate (Sodium Bicarbonate) 650 mg PO BID [facility]; Protocol Stop: 01/12/19 16:59 Last Admin: 11/16/18 17:01 Dose: 650 mg Thiamine HCl (Vitamin B1) 100 mg PO DAILY [facility] Stop: 01/12/19 08:59 Last Admin: 11/16/18 08:59 Dose: 100 mg Tolterodine Tartrate (Detrol) 2 mg PO BID [facility] Stop: 01/15/19 08:59 Last Admin: 11/16/18 17:02 Dose: 2 mg Tramadol HCl (Ultram) 50 mg PO BID [facility] Stop: 01/12/19 08:59 Last Admin: 11/16/18 17:02 Dose: 50 mg Triamcinolone Acetonide (Kenalog 0.1%) 1 appl TP DAILY [facility] Stop: 01/12/19 08:59 Last Admin: 11/16/18 09:01 Dose: 1 appl Vitamin E (Vitamin E) 1,000 iu PO DAILY [facility] Stop: 01/12/19 08:59 Last Admin: 11/16/18 09:00 Dose: 1,000 iu Zinc Sulfate (Zinc Sulfate) 220 mg PO DAILY [facility] Stop: 01/12/19 08:59 Last Admin: 11/16/18 08:57 Dose: 220 mg General: no acute distress, well developed, well nourished HEENT: atraumatic, normocephalic, PERRLA, EOMI Neck: supple, no thyromegaly Cardiovascular: S1S2, regular Lungs: clear to auscultation bilaterally, clear to percussion Abdomen: soft, no tender, no distended, no mass Extremities: no cyanosis, no clubbing, no edema Neurological: awake, alert, oriented Skin: other (sacral wound) - Procedures Procedures: Procedures Procedure Code Date CANDACE BONE 20 SQ CM/< 18587 06/02/17 DRAINAGE OF LEFT BREAST, PERCUTANEOUS APPROACH [id number] 05/09/16 EXCISION OF BACK SUBCU/FASCIA, OPEN APPROACH [id number] 06/02/17 INCISION OF BREAST LESION [id number] 05/09/16 Infectious Disease Assmt/Plan - Problem List Patient Problems: All Active Problems DECLINING MENTAL STATUS, POOR APPETITE (Acute) - Assessment Assessment: 1. Sacral wound, no evidence of osteomyelitis. 2. Alcoholic cirrhosis. 3. HTN 4. DM2. 5. COPD. - Plan Plan: DC planning. DC antibiotics. Nutritional Asmnt/Malnutr-PDOC - Dietary Evaluation Malnutrition Findings (Please click <Entered> for more info): Nutritional Asmnt/Malnutrition Start: 11/13/18 09: 54 Text: Status: Active Freq: Protocol: Document 11/13/18 09:54 THIEN (Rec: 11/13/18 10:00 THIEN FAYE- [email or web address]) Nutritional Asmnt/Malnutrition Patient General Information Diagnosis electrolyte imbalance, sacral decubitus ulcer Pertinent Medical Hx/Surgical Hx bipolar d/o, anxiety, COPD, alcoholic liver disease, GERD, HTN, DM type II, hypothyroidism Subjective Information Pt sitting up in bed at time of visit and did not repsond verbally to RD's questions. Current Diet Order/ Nutrition Support 2g Na diet Pertinent Medications vit C, lipitor, tums, Ca and Vit D, foalte, glucagen, Lantus 35units, MOM, metformin , zinc sulfate, vit E, vit B1 Pertinent Labs 11/13: Na 136, k 5.0, cl 109, CO2 17.4, BUN 48, Cr 2.5, Ca 9 .5, glucose 187 Nutritional Hx/Data Height 1.57 m Height (Calculated Centimeters) 157.5 Current Weight (lbs) 79.379 kg Weight (Calculated Kilograms) 79.4 Weight (Calculated Grams) 36688.7 Body Mass Index (BMI) 32.0 Weight Status Obese GI Symptoms GI Symptoms None Last BM none noted Cultural/Ethnic/Mandaeism Belief unknown Usual diet at home unknown Skin Integrity/Comment: cherri score 14, sacrum: pressure area Estimated Nutritional Goals BEE in Kcals: Using Current wt Adj wt of IBW Calories/Kcals/Kg 30-35kcals/kg Kcals Calculated 1710-1995kcals/day Protein: Adj wt of IBW Protein g/k.3g+/kg Protein Calculated 74+g/day Fluid: ml 1710-1995ml/day (1ml/kcal_ Nutritional Problem 1. Problem Problem Increased nutrient needs related to Etiology wound healing as evidenced by Signs/Symptoms: cherri score 14 with sacrum pressure area Intervention/Recommendation Comments Recommend continuing Renal diet Expected Outcomes/Goals Expected Outcomes/Goals PO intake >75% of meals
[2018-11-17] MEDS ORDERED: Insulin Glargine 100 units/ml 10ml Vial SUBQ SCH (09:00)
[2018-11-17] MEDS: Aspirin 81mg Chewable Tab PO SCH (09:18)
[2018-11-17] MEDS: Multivitamin w/ Minerals Tab PO SCH (09:19)
[2018-11-17] MEDS: Calcium Carb/Vit D 500 mg/200 U Tab PO SCH (09:19)
[2018-11-17] MEDS: Lactulose 10 Gm/15 mL 30mL UDC PO SCH (09:21)
[2018-11-17] MEDS: Triple Antibiotic 0.94 gm Pkt TP SCH (09:21)
[2018-11-17] MEDS: cefTRIAXone 1 GM in Sodium Chloride 0.9% 50 ML IV SCH (09:30)
[2018-11-17] MEDS: Vitamin E 1,000 IU Sgl PO SCH (09:31)
[2018-11-17] MEDS: Diltiazem CD 180 mg C24 PO SCH (09:31)
[2018-11-17] MEDS: Triamcinolone Acetonide 0.1% Cream 15 gm TP SCH (09:32)
[2018-11-18] MEDS ORDERED: Insulin Glargine 100 units/ml 10ml Vial SUBQ SCH (21:00)
--- NOTE | 2018-11-20 13:21 | Discharge Summary ---
DATE OF DISCHARGE: 11/17/2018 PRELIMINARY DIAGNOSES: 1. Altered mental status. 2. Poor appetite. 3. Chronic obstructive pulmonary disease. 4. Alcoholic liver disease. 5. Hepatic encephalopathy. 6. Metabolic encephalopathy. 7. Uremia. 8. Gastroesophageal reflux disease. 9. Hypertension. 10. Diabetes type 2. 11. Hypothyroidism. 12. Bipolar disorder. 13. Anxiety disorder. 14. Gout. 15. Hyperlipidemia. 16. Polyneuropathy. 17. Depression. DISCHARGE DIAGNOSES: 1. Altered mental status, now resolved. 2. Metabolic encephalopathy, now resolved. 3. Hepatic encephalopathy, now resolved. 4. Uremia, improved. 5. Gastroesophageal reflux disease. 6. Hypertension. 7. Diabetes mellitus type 2. 8. Hypothyroidism. 9. Bipolar disorder. 10. Anxiety disorder. 11. Gout. 12. Hyperlipidemia. 13. Polyneuropathy. 14. Depression. BRIEF HISTORY OF PRESENT ILLNESS: This is a 68-year-old female who presents to [facility] ER from care home facility for change in mental status and poor appetite noted by the nursing staff. The patient is a resident at [facility], was found to have a decline in her mental status. She was subsequently transferred for evaluation. The patient has a history of COPD, alcohol liver disease, gastroesophageal reflux disease, hypertension, diabetes type 2, hypothyroidism, bipolar disorder, anxiety disorder, gout, hyperlipidemia, polyneuropathy, depression. While in the ER, the patient had initial lab work, which revealed sodium of 133, potassium of 5.8, BUN 53, creatinine 3.0, glucose 158. White count initially was 10, hemoglobin 11.5, hematocrit 34.8, platelets 167. PT/INR was 13.0 and 1.26. Troponin was 0.02. TSH 0.14. UA was only positive for protein. The patient was then subsequently admitted for further evaluation and treatment. HOSPITAL COURSE: The patient improved during her hospital stay, was seen and evaluated by Nephrology for acute kidney injury. Please see dictated report. The patient also was seen by General Surgery for possible sacral decubitus. Please see dictated report. The patient had a renal ultrasound done during hospital stay, which showed no hydronephrosis. Head CT was done as well for altered mental status, which was essentially negative. The patient also underwent a bone scan to rule out osteomyelitis, which essentially came back negative. Bone or sacrococcygeal x-rays were also ordered to rule out osteomyelitis, which was essentially negative. The patient was given IV fluids during which the patient's initial creatinine was 3.0. Repeat done on 11/13/2018 revealed creatinine of 2.5, and again on 11/14/2018, creatinine dropped to 1.9. Upon day of discharge, the patient's creatinine on 11/17/2018 was 1.4. The patient also had ammonia level done initially on 11/14/2018 which was 75. The [facility] to continue her care. [facility]# [id number]
== END 2018-11-17 11:30 | DRG 70 ==
LOC: ER 17:54 → TELE 23:40 → MSI 11-14 08:13
PROVIDERS: ADMIT Family Medicine; ATTEND Family Medicine
DX: G93.41 Metabolic encephalopathy (principal); L89.154 Pressure ulcer of sacral region, stage 4; N17.9 Acute kidney failure, unspecified; E87.2 Acidosis; J44.9 Chronic obstructive pulmonary disease, unspecified; K70.9 Alcoholic liver disease, unspecified; E11.9 Type 2 diabetes mellitus without complications; K21.9 Gastro-esophageal reflux disease without esophagitis; E03.9 Hypothyroidism, unspecified; E78.5 Hyperlipidemia, unspecified; F32.9 Major depressive disorder, single episode, unspecified; F41.9 Anxiety disorder, unspecified; E11.42 Type 2 diabetes mellitus with diabetic polyneuropathy; M10.9 Gout, unspecified; R62.7 Adult failure to thrive; E87.5 Hyperkalemia; K72.90 Hepatic failure, unspecified without coma; R32 Unspecified urinary incontinence; Z68.32 Body mass index [BMI] 32.0-32.9, adult; Z74.01 Bed confinement status; Z79.84 Long term (current) use of oral hypoglycemic drugs; Z79.82 Long term (current) use of aspirin; Z79.899 Other long term (current) drug therapy
CPT/HCPCS: 36415-UA; 70450-TC; 71045-TC; 72220-TC; 76770-TC; 78315-TC; 80048-TC; 80053-TC; 81001-TC; 81015-TC; 82043-90; 82140-TC; 82570-TC; 82948-90; 83036-90; 83540-90; 83550-90; 83735-TC; 84100-TC; 84300-TC; 84443-TC; 84484-TC; 84550-TC; 85025-TC; 85610-TC; 85652-TC; 85730-TC; 86141-TC; 87070-90; 93005; A9503; J0696; J1815; J7030; J7042; J7799; Z7610